=== PATIENT | male | born 1960 | race Caucasian/White ===

== ENCOUNTER 2016-08-25 09:48 | Inpatient (IN) | payer OTHER ==
[~2016-08-25] VITALS: Ht 177.8 cm; Wt 94.0 kg
[~2016-08-25 09:48] MED LIST: AMPI500C8 PO; BACT800T5 PO; COLL30T TOP; DIPH1TAB36 PO; GLIP5TAB8 PO; IBUP-988 PO; LACT PO; METF500 PO; METO-309 PO
[2016-08-25 09:51] VITALS: BP 161/83; PULSE 94; RESP 20; TEMP 98.8; O2SAT 97
[2016-08-25] MEDS ORDERED: TETANUS/DIPHTHERIA TOXOID ADULT 0.5 ML VIAL IM ONE (11:00)
[2016-08-25] MEDS ORDERED: CIPROFLOXACIN 400 MG PREMIX 200 ML IV ONE (11:00)
[2016-08-25] MEDS ORDERED: SODIUM CHLORIDE 0.9% FLUSH 5 ML FLUSH IVF PRN (11:00)
--- NOTE | 2016-08-25 11:07 | PD ---
HPI Chief Complaint: Injury Time Seen by Provider: 11:04 Travel History International Travel<30 days: No Contact w/Intl Traveler<30days: No Traveled to known affect area: No History of Present Illness HPI Patient is a 55-year-old male who presents emergency evaluation of left foot pain. 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 He states the nail was in his foot for at least one hour before he realized it was there. Patient suffers from diabetic neuropathy. He reports his foot is swollen, red, and painful. Since last night he's noticed the redness spread up to his mid calf a fever, chills, nausea, vomiting, chest pain, shortness of breath. He is uncertain when his last tetanus vaccination was. PFSH Past Medical History Autoimmune Disease: No Anxiety: Yes Cardiovascular Problems: Yes (HTN) Diabetes: Yes Diminished Hearing: No GERD: No Genitourinary: No Hiatal Hernia: No Hypertension: Yes Kidney Stones: No Neurologic: Yes (diabetic neuropathy) Psychiatric: Yes Reproductive: No Renal Failure: No Ulcer: No Social History Alcohol Use: Yes (6 BEERS/DAY) Tobacco Use: No Substance Use: No Allergies-Medications (Allergen,Severity, Reaction): Coded Allergies: No Known Allergies (Unverified , 08/25/16) Reported Meds & Prescriptions Reported Meds & Active Scripts Active Glipizide 5 Mg Tab 5 Mg PO BIDAC Take 30 minutes before a meal Glucophage (Metformin HCl) 500 Mg Tab 1,000 Mg PO BID 30 Days Lopressor (Metoprolol Tartrate) 50 Mg Tab 50 Mg PO Q12HR 30 Days Reported Mapap (Acetaminophen) 500 Mg Tab 1,000 Mg PO DAILY PRN Tylenol Pm Extra Strength (Diphenhydramine-Acetaminophen) 25-500 Mg Tab 2 Tab PO HS PRN Review of Systems Except as stated in HPI: all other systems reviewed are Neg General / Constitutional: No: Fever, Chills Cardiovascular: No: Chest Pain or Discomfort Gastrointestinal: No: Abdominal Pain Musculoskeletal: Positive: Myalgias, Edema, Pain Skin: Positive Change in Pigmentation, Positive Lesions Physical Exam Narrative GENERAL: Well-developed, well-nourished, alert male. SKIN: Warm and dry. HEAD: Atraumatic. Normocephalic. EYES: Pupils equal and round. No scleral icterus. No injection or drainage. ENT: No nasal bleeding or discharge. Mucous membranes pink and moist. NECK: Trachea midline. No JVD. CARDIOVASCULAR: Regular rate and rhythm. No murmur appreciated. RESPIRATORY: No accessory muscle use. Clear to auscultation. Breath sounds equal bilaterally. GASTROINTESTINAL: Abdomen soft, non-tender, nondistended. Hepatic and splenic margins not palpable. MUSCULOSKELETAL: No obvious deformities. No clubbing. No cyanosis. 1+ edema to the left foot and ankle. Erythema and warmth left foot. Positive pedal pulses. Ecchymosis noted over the lateral aspect of the right first MTP joint. Capillary refill at 3 seconds. Puncture wound noted to the plantar aspect of the right foot just proximal to the base of the first MCP joint. NEUROLOGICAL: Awake and alert. No obvious cranial nerve deficits. Motor grossly within normal limits. Normal speech. PSYCHIATRIC: Appropriate mood and affect; insight and judgment normal. Data Data Last Documented VS Vital Signs Date Time Temp Pulse Resp B/P Pulse Ox O2 Delivery O2 Flow Rate FiO2 08/25/16 09:51 98.8 94 20 161/83 97 Room Air Orders Complete Blood Count With Diff (08/25/16 10:57) Iv Access Insert/Monitor (08/25/16 10:57) Sodium Chloride 0.9% Flush (Ns Flush) (08/25/16 11:00) Tetanus/Diphtheria Tox Adult (Tetanus/Di (08/25/16 11:00) Comprehensive Metabolic Panel (08/25/16 10:57) C-Reactive Protein (Crp) (08/25/16 10:57) Westergren Sedimentation Rate (08/25/16 10:57) Foot, Complete ([id number]) (08/25/16 ) Blood Culture (08/25/16 10:57) Ciprofloxacin 400 Mg Premix (Cipro 400 M (08/25/16 11:00) Morphine Inj (Morphine Inj) (08/25/16 12:00) Ondansetron Inj (Zofran Inj) (08/25/16 12:00) Clindamycin Inj (Cleocin Inj) (08/25/16 12:00) Admit Order (Ed Use Only) (08/25/16 14:36) Labs Laboratory Tests Test 08/25/16 11:45 White Blood Count 13.0 TH/MM3 Red Blood Count 4.48 MIL/MM3 Hemoglobin 14.6 GM/DL Hematocrit 42.3 % Mean Corpuscular Volume 94.4 FL Mean Corpuscular Hemoglobin 32.7 PG Mean Corpuscular Hemoglobin 34.6 % Concent Red Cell Distribution Width 13.5 % Platelet Count 109 TH/MM3 Mean Platelet Volume 7.6 FL Neutrophils (%) (Auto) 85.2 % Lymphocytes (%) (Auto) 4.7 % Monocytes (%) (Auto) 9.9 % Eosinophils (%) (Auto) 0.0 % Basophils (%) (Auto) 0.2 % Neutrophils # (Auto) 11.0 TH/MM3 Lymphocytes # (Auto) 0.6 TH/MM3 Monocytes # (Auto) 1.3 TH/MM3 Eosinophils # (Auto) 0.0 TH/MM3 Basophils # (Auto) 0.0 TH/MM3 CBC Comment AUTO DIFF Differential Total Cells 100 Counted Neutrophils % (Manual) 64 % Band Neutrophils % 17 % Lymphocytes % 13 % Monocytes % 6 % Neutrophils # (Manual) 10.5 TH/MM3 Differential Comment FINAL DIFF MANUAL Platelet Estimate LOW Platelet Morphology Comment NORMAL Red Cell Morphology Comment NORMAL Erythrocyte Sedimentation Rate 18 mm/hr Sodium Level 132 MEQ/L Potassium Level 3.7 MEQ/L Chloride Level 98 MEQ/L Carbon Dioxide Level 28.4 MEQ/L Anion Gap 6 MEQ/L Blood Urea Nitrogen 7 MG/DL Creatinine 0.98 MG/DL Estimat Glomerular Filtration 80 ML/MIN Rate Random Glucose 222 MG/DL Calcium Level 9.0 MG/DL Total Bilirubin 2.7 MG/DL Aspartate Amino Transf 27 U/L (AST/SGOT) Alanine Aminotransferase 42 U/L (ALT/SGPT) Alkaline Phosphatase 39 U/L C-Reactive Protein 8.36 MG/DL Total Protein 8.4 GM/DL Albumin 3.8 GM/DL MDM Medical Decision Making Medical Screen Exam Complete: Yes Emergency Medical Condition: Yes Medical Record Reviewed: Yes Interpretation(s) Vital Signs Date Time Temp Pulse Resp B/P Pulse Ox O2 Delivery O2 Flow Rate FiO2 08/25/16 09:51 98.8 94 20 161/83 97 Room Air Differential Diagnosis Abscess versus cellulitis versus puncture wound versus sepsis versus other Narrative Course Patient is a 55-year-old male presenting to the emergency department for evaluation of a puncture wound to his left foot. Patient sustained a puncture wound well at work yesterday, patient has significant diabetic neuropathy and did not realize he had a nail in his foot for approximately one to 2 hours. He presented to the emergency department today with significant erythema and edema to his foot and ankle on the left side. Patient has a positive pedal pulse, there is an obvious puncture wound to the of the left foot. Labs and imaging ordered, IV antibiotics order, blood cultures pending. CBC resulted with an elevated white count shift, CRP is elevated at 8.36, sedimentation rate is normal, chemistry is unremarkable. Due to the quick onset of the erythema and spread of the induration patient would benefit from observation admission. He was given IV ciprofloxacin as well as IV clindamycin. Discussed with my attending physician who agreed with plan for admission. Dr. Adrian accepted admission. 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
--- NOTE | 2016-08-25 11:33 | RADRPT ---
EXAM DATE/TIME: 08/25/2016 11:26 [facility] COMPARISON: No previous studies available for comparison. INDICATIONS : Evaluate for foreign body, pt. stepped on a nail. Laceration under foot, below 1st digit. MEDICAL HISTORY : Diabetic. SURGICAL HISTORY : None. ENCOUNTER: Initial ACUITY: 2 days PAIN SCORE: 10/10 LOCATION: Left Foot. FINDINGS: Three view examination of the left foot demonstrates no soft tissue swelling, dislocation, or fractur e. The tarsal bones appear intact. The interphalangeal and metatarsophalangeal joints are intact. The calcaneus is intact. Bony mineralization is normal. No foreign body is identified CONCLUSION: Unremarkable examination of the left foot. Augustine Wells MD on August 25, 2016 at 11:31 Board Certified Radiologist. This report was verified electronically.
[2016-08-25] MEDS ORDERED: MORPHINE SULFATE 4 MG/ML INJ IV PUSH ONE (12:00)
[2016-08-25] MEDS ORDERED: CLINDAMYCIN INJ 900 MG in SODIUM CHLORIDE 0.9% INJ 100 ML IV ONE (12:00)
[2016-08-25] MEDS ORDERED: ONDANSETRON HCL 4 MG/2 ML VIAL IV PUSH ONE (12:00)
[2016-08-25] MEDS ORDERED: MAPA500T PO (12:04)
[2016-08-25 12:08] LABS: BASOPHIL % 0.2 % (0.0-2.0); HEMATOCRIT 42.3 % (39.0-51.0); LYMPH % 4.7 % (9.0-44.0); LYMPHOCYTE # 0.6 TH/MM3 (1.0-4.8); MEAN CELL VOLUME 94.4 FL (80.0-100.0); MEAN CORPUSCULAR HEMOGLOBIN 32.7 PG (27.0-34.0); MEAN CORPUSCULAR HGB CONC 34.6 % (32.0-36.0); MONO % 9.9 % (0.0-8.0); NEUT % 85.2 % (16.0-70.0); PLATELET COUNT 109 TH/MM3 (150-450); RED BLOOD COUNT 4.48 MIL/MM3 (4.50-5.90); RED CELL DISTRIBUTION WIDTH 13.5 % (11.6-17.2)
[2016-08-25 12:15] LABS: HEMO FLAGS AUTO DIFF
[2016-08-25 12:16] LABS: ALT (GPT) 42 U/L (12-78); ANION GAP 6 MEQ/L (5-15); AST (GOT) 27 U/L (15-37); BICARBONATE 28.4 MEQ/L (21.0-32.0); BLOOD UREA NITROGEN 7 MG/DL (7-18); CHLORIDE 98 MEQ/L (98-107); GLOMERULAR FILTRATION RATE 80 ML/MIN (>89); POTASSIUM 3.7 MEQ/L (3.5-5.1); SODIUM (NA) 132 MEQ/L (136-145)
[2016-08-25 12:19] LABS: ALKALINE PHOSPHATASE 39 U/L (45-117); TOTAL BILIRUBIN ADULT 2.7 MG/DL (0.2-1.0)
[2016-08-25 13:07] LABS: BANDS 17 % (0-6); NEUTROPHIL # MANUAL DIFF 10.5 TH/MM3 (1.8-7.7); PLATELET ESTIMATE SMEAR LOW (NORMAL); PLATELET MORPHOLOGY NORMAL (NORMAL); POLYS (SEG NEUTROPHILS) 64 % (16-70); SCAN/DIFF FINAL DIFF MANUAL; WBC DIFF SAMPLE 100
[2016-08-25] MEDS ORDERED: oxyCODONE/ACETAMINOPHEN 5 MG/325 MG TAB PO PRN (14:45)
[2016-08-25] MEDS: DOCUSATE SODIUM 100 MG CAP PO SCH (14:45)
[2016-08-25] MEDS ORDERED: SENNOSIDES 8.6 MG TAB PO PRN (14:45)
[2016-08-25] MEDS ORDERED: NALOXONE HCL 0.4 MG/ML AMP IV PRN (14:45)
[2016-08-25] MEDS ORDERED: Vancomycin Consult Pharmacy 1 EA OTHER SCH (14:45)
[2016-08-25] MEDS ORDERED: MORPHINE SULFATE 4 MG/ML INJ IV PRN (14:45)
[2016-08-25] MEDS ORDERED: MAGNESIUM HYDROXIDE SUSP 30 ML CUP PO PRN (14:45)
[2016-08-25] MEDS ORDERED: SODIUM CHLORIDE 0.9% FLUSH 5 ML FLUSH FLUSH PRN (14:45)
[2016-08-25] MEDS ORDERED: BISACODYL 10 MG SUPP PR PRN (14:45)
[2016-08-25] MEDS ORDERED: DEXTROSE 50% IN WATER 50 ML VIAL(D50) IV PUSH PRN (15:00)
[2016-08-25] MEDS ORDERED: GLUCAGON 1 MG/ML VIAL OTHER PRN (15:00)
[2016-08-25] MEDS: HEPARIN SODIUM - SQ 10,000 UNITS/ML VIAL SQ SCH ×2 (15:43→22:19)
[2016-08-25] MEDS: SODIUM CHLOR 0.9% 1000 ML INJ 1,000 ML IV SCH ×2 (15:43→22:24)
[2016-08-25 15:50] VITALS: BP 151/82; PULSE 93; RESP 17; O2SAT 99
[2016-08-25] MEDS: MORPHINE SULFATE 4 MG/ML INJ IV PRN ×2 (15:56→21:53)
[2016-08-25] MEDS: INSULIN NovoLIN REGULAR SUPPLEMENTAL SCALE SQ SCH ×2 (16:06→22:19)
[2016-08-25] MEDS: VANCOMYCIN INJ 1,500 MG in SODIUM CHLORID 0.9% 500 ML INJ 500 ML IV SCH (18:47)
[2016-08-25 19:27] VITALS: BP 160/83; PULSE 118; RESP 20; TEMP 98.3; O2SAT 98
--- NOTE | 2016-08-25 19:47 | HHI.HP ---
[facility] Service [facility] Primary Care Physician Shani Rincon MD Admission Diagnosis CELLULITIS Diagnoses: Chief Complaint: The nail went through my left foot Travel History International Travel<30 Days: No Contact w/Intl Traveler <30 Da: No Traveled to Known Affected Are: No History of Present Illness 55 years old male came to the ED for evaluation of his left foot pain , patient yesterday afternoon stepped on a jeff nail which went through his shoes, patient reported fever and chills pain mostly at the lateral side of his left big toe, nausea and vomited also reported. Patient has diabetes mellitus and he suffers from diabetic neuropathy, he stated he did not feel the nail for a while. The foot is swollen red and warmth, painful, patient is not sure of his tetanus vaccination No abdominal pain diarrhea or constipation, orthopnea PND or short of breath or chest pain or headache. Review of Systems Other All 10 systems reviewed and was positive for what is mentioned in history of present illness otherwise negative Past Family Social History Past Medical History Hypertension Diabetes mellitus Diabetic neuropathy Allergies: Coded Allergies: No Known Allergies (Unverified , 08/25/16) Family History Reviewed noncontributory Social History Patient drinks 6 beers a day no tobacco or illicit drug abuse reported Physical Exam Vital Signs Vital Signs Date Time Temp Pulse Resp B/P Pulse Ox O2 Delivery O2 Flow Rate FiO2 08/25/16 19:27 98.3 118 20 160/83 98 08/25/16 15:50 93 17 151/82 99 Room Air 08/25/16 09:51 98.8 94 20 161/83 97 Room Air Physical Exam GENERAL: This is a well-nourished, well-developed patient, in no apparent distress. SKIN: No rashes, warm and dry HEAD: Atraumatic. Normocephalic. EYES: Pupils equal round and reactive. Extraocular motions intact. No scleral icterus. ENT: Nose without bleeding, or drainage, Airway patent. NECK: Trachea midline. Supple CARDIOVASCULAR: Regular rate and rhythm without murmurs, gallops, or rubs. RESPIRATORY: Fair air entry bilaterally. No wheezes, rales, or rhonchi. GASTROINTESTINAL: Abdomen soft, non-tender, nondistended. Positive bowel sounds MUSCULOSKELETAL: RLE without clubbing, cyanosis, or edema. Pedal pulses appreciated, left foot with +1 edema, erythema, tenderness to touch, mostly on the lateral side of first left metatarsal, insertion site of the nail in the base of the left MTP NEUROLOGICAL: Awake and alert. Moves all extremity. Normal speech.no focal neurological deficit Laboratory Laboratory Tests Test 08/25/16 11:45 White Blood Count 13.0 Red Blood Count 4.48 Hemoglobin 14.6 Hematocrit 42.3 Mean Corpuscular Volume 94.4 Mean Corpuscular Hemoglobin 32.7 Mean Corpuscular Hemoglobin 34.6 Concent Red Cell Distribution Width 13.5 Platelet Count 109 Mean Platelet Volume 7.6 Neutrophils (%) (Auto) 85.2 Lymphocytes (%) (Auto) 4.7 Monocytes (%) (Auto) 9.9 Eosinophils (%) (Auto) 0.0 Basophils (%) (Auto) 0.2 Neutrophils # (Auto) 11.0 Lymphocytes # (Auto) 0.6 Monocytes # (Auto) 1.3 Eosinophils # (Auto) 0.0 Basophils # (Auto) 0.0 CBC Comment AUTO DIFF Differential Total Cells 100 Counted Neutrophils % (Manual) 64 Band Neutrophils % 17 Lymphocytes % 13 Monocytes % 6 Neutrophils # (Manual) 10.5 Differential Comment FINAL DIFF MANUAL Platelet Estimate LOW Platelet Morphology Comment NORMAL Red Cell Morphology Comment NORMAL Erythrocyte Sedimentation Rate 18 Sodium Level 132 Potassium Level 3.7 Chloride Level 98 Carbon Dioxide Level 28.4 Anion Gap 6 Blood Urea Nitrogen 7 Creatinine 0.98 Estimat Glomerular Filtration 80 Rate Random Glucose 222 Calcium Level 9.0 Total Bilirubin 2.7 Aspartate Amino Transf 27 (AST/SGOT) Alanine Aminotransferase 42 (ALT/SGPT) Alkaline Phosphatase 39 C-Reactive Protein 8.36 Total Protein 8.4 Albumin 3.8 Date/Time Procedure Status Source Growth 08/25/16 11:45 Aerobic Blood Culture Received Blood Peripheral Pending 08/25/16 11:45 Anaerobic Blood Culture Received Blood Peripheral Pending Result Diagram: 08/25/16 1145 08/25/16 1145 Imaging Last Impressions Foot X-Ray 08/25/16 0000 Signed Impressions: Service Date/Time: Thursday, August 25, 2016 11:26 - CONCLUSION: Unremarkable examination of the left foot. Augustine Wells MD Foot MRI 08/25/16 0000 Signed Impressions: Service Date/Time: Thursday, August 25, 2016 20:41 - CONCLUSION: 1. Minimal edema within the proximal phalanx of the great toe could be reactive versus osteomyelitis. 2. Minimal edema within the distal first metatarsal likely reactive. Jose Haynes MD Assessment and Plan Assessment and Plan 55 years old male admitted with Left foot cellulitis due to puncture nail through shoe: Patient started on Cipro and clindamycin, will continue with Cipro and vancomycin for coverage of Pseudomonas and MRSA, pain management with morphine, consult ID Hypertension: Monitor blood pressure, Vasotec when necessary Thrombocytopenia: Unclear if acute versus chronic, possibly due to alcoholism, monitor CBC Diabetes mellitus: Accu-Cheks, insulin sliding scale, diabetic diet, diabetic education, check A1c DVT prophylaxis: With heparin, cautiously due to thrombocytopenia Physician Certification 2 Midnight Certification Type: Admission for Inpatient Services Order for Inpatient Services The services are ordered in accordance with Medicare regulations or non- Medicare payer requirements, as applicable. In the case of services not specified as inpatient-only, they are appropriately provided as inpatient services in accordance with the 2-midnight benchmark. Estimated LOS (days): 2 days is the estimated time the patient will need to remain in the hospital, assuming treatment plan goals are met and no additional complications. Post-Hospital Plan: Not yet determined Celia Adrian MD Aug 25, 2016 19:47
[2016-08-25] MEDS ORDERED: GADODIAMIDE PF 287 MG/ML 20 ML VIAL (for RAD MRI) IV ONE (20:59)
[2016-08-25] MEDS: SODIUM CHLORIDE 0.9% FLUSH 5 ML FLUSH FLUSH SCH (21:00)
--- NOTE | 2016-08-25 21:39 | RADRPT ---
EXAM DATE/TIME: 08/25/2016 20:41 [facility] COMPARISON: No previous studies available for comparison. INDICATIONS : Abscess. Forefoot infection in great toe area, and stepped on jeff nail in ball of foot yesterday CONTRAST: 20 cc Omniscan (gadodiamide) IV MEDICAL HISTORY : Hypertension. Diabetes mellitus type 2. SURGICAL HISTORY : None. ENCOUNTER: Subsequent ACUITY: 2 day PAIN SCORE: 7/10 LOCATION: Left Foot TECHNIQUE: Multiplanar, multisequence MRI examination was performed without contrast and after the intravenous a dministration of gadolinium. FINDINGS: BONE/CARTILAGE: Bone marrow signal is homogeneous, with the exception of some minimal edema within the distal aspect of the first metatarsal and proximal phalanx great toe. Articular cartilage signal is within normal l imits. TENDONS: All of the visualized tendons are intact. MISCELLANEOUS: There is soft tissue swelling along the dorsum of the foot and along the great toe. There is some chino ceptibility artifact along the plantar surface of the great toe possibly from subcutaneous emphysema. POST-CONTRAST: There is enhancement on the post-contrast images of the dorsum of the foot, great toe and distal foot . CONCLUSION: 1. Minimal edema within the proximal phalanx of the great toe could be reactive versus osteomyelitis. 2. Minimal edema within the distal first metatarsal likely reactive. Jose Haynes MD on August 25, 2016 at 21:22 Board Certified Radiologist. This report was verified electronically.
[2016-08-25] MEDS: METOPROLOL TARTRATE 50 MG TAB PO SCH (21:52)
[2016-08-25 23:49] VITALS: BP 181/87; PULSE 110; RESP 20; TEMP 98.3; O2SAT 97
[2016-08-26] VITALS (7 sets, daily range): BP systolic 125–172; BP diastolic 72–81; PULSE 91–112; RESP 16–20; TEMP 101.3–103.9; O2SAT 95–100
[2016-08-26] MEDS: CIPROFLOXACIN 400 MG PREMIX 200 ML IV SCH ×2 (00:16→13:08)
[2016-08-26] MEDS: DOCUSATE SODIUM 100 MG CAP PO SCH ×2 (01:34→15:50)
[2016-08-26] MEDS: MORPHINE SULFATE 4 MG/ML INJ IV PRN ×5 (02:48→20:49)
[2016-08-26] MEDS: ACETAMINOPHEN 325 MG TAB PO PRN ×3 (05:11→20:28)
[2016-08-26] MEDS: VANCOMYCIN INJ 1,500 MG in SODIUM CHLORID 0.9% 500 ML INJ 500 ML IV SCH ×2 (05:45→18:48)
[2016-08-26] MEDS: INSULIN NovoLIN REGULAR SUPPLEMENTAL SCALE SQ SCH ×4 (07:10→21:18)
[2016-08-26] MEDS: SODIUM CHLORIDE 0.9% FLUSH 5 ML FLUSH FLUSH SCH ×2 (09:00→20:27)
[2016-08-26 09:02] LABS: AUTOMATED NEUTROPHIL # 6.7 TH/MM3 (1.8-7.7); BASOPHIL % 0.3 % (0.0-2.0); HEMATOCRIT 39.7 % (39.0-51.0); LYMPH % 6.7 % (9.0-44.0); LYMPHOCYTE # 0.5 TH/MM3 (1.0-4.8); MEAN CELL VOLUME 94.8 FL (80.0-100.0); MEAN CORPUSCULAR HGB CONC 34.8 % (32.0-36.0); MONO % 10.5 % (0.0-8.0); NEUT % 82.5 % (16.0-70.0); PLATELET COUNT 82 TH/MM3 (150-450); RED BLOOD COUNT 4.18 MIL/MM3 (4.50-5.90); RED CELL DISTRIBUTION WIDTH 13.3 % (11.6-17.2); WHITE BLOOD COUNT 8.1 TH/MM3 (4.0-11.0)
[2016-08-26 09:10] LABS: HEMO FLAGS AUTO DIFF
[2016-08-26 09:33] LABS: BICARBONATE 25.9 MEQ/L (21.0-32.0); POTASSIUM 3.6 MEQ/L (3.5-5.1)
[2016-08-26] MEDS: METOPROLOL TARTRATE 50 MG TAB PO SCH ×2 (10:03→20:28)
[2016-08-26 10:15] LABS: BANDS 10 % (0-6); BASOPHILS 1 % (0-2); NEUTROPHIL # MANUAL DIFF 6.9 TH/MM3 (1.8-7.7); PLATELET ESTIMATE SMEAR LOW (NORMAL); PLATELET MORPHOLOGY NORMAL (NORMAL); POLYS (SEG NEUTROPHILS) 75 % (16-70); SCAN/DIFF FINAL DIFF MANUAL; WBC DIFF SAMPLE 100
--- NOTE | 2016-08-26 10:58 | HHI.PR ---
Subjective Remarks Still running fever max 103 now despite leukocytosis resolved He feels chills, blood culture came back positive in 4 tubes for positive cocci Will add cefepime, awaiting ID consultation, will check 2-D echo Objective Vitals Vital Signs Date Time Temp Pulse Resp B/P Pulse Ox O2 Delivery O2 Flow Rate FiO2 08/26/16 08:35 101.3 91 18 136/76 100 08/26/16 04:23 102.9 105 20 168/81 95 08/26/16 00:00 103 08/25/16 23:49 98.3 110 20 181/87 97 08/25/16 19:27 98.3 118 20 160/83 98 08/25/16 15:50 93 17 151/82 99 Room Air Result Diagram: 08/26/16 0840 08/26/16 0840 Objective Remarks GENERAL: This is a well-nourished, well-developed patient, in no apparent distress. SKIN: No rashes, warm and dry HEAD: Atraumatic. Normocephalic. EYES: Pupils equal round and reactive. Extraocular motions intact. No scleral icterus. ENT: Nose without bleeding, or drainage, Airway patent. NECK: Trachea midline. Supple CARDIOVASCULAR: Regular rate and rhythm without murmurs, gallops, or rubs. RESPIRATORY: Fair air entry bilaterally. No wheezes, rales, or rhonchi. GASTROINTESTINAL: Abdomen soft, non-tender, nondistended. Positive bowel sounds MUSCULOSKELETAL: RLE without clubbing, cyanosis, or edema. Pedal pulses appreciated, left foot with +1 edema, erythema, tenderness to touch, mostly on the lateral side of first left metatarsal, insertion site of the nail in the base of the left MTP NEUROLOGICAL: Awake and alert. Moves all extremity. Normal speech.no focal neurological deficit A/P Assessment and Plan 55 years old male admitted with Sepsis due to Left foot cellulitis due to puncture nail through shoe and bacteremia: Patient started on Cipro and clindamycin, on cefepime and vancomycin for coverage of Pseudomonas and MRSA, pain management with morphine, awaiting ID consult, consult podiatry Worsening fever max 103 now with positive blood culture today: Continue vancomycin and cefepime, check 2-D echo Leukocytosis resolved however still with bandemia Hypertension: Monitor blood pressure, Vasotec when necessary Thrombocytopenia: Unclear if acute versus chronic, possibly due to alcoholism, monitor CBC Diabetes mellitus: Accu-Cheks, insulin sliding scale, diabetic diet, diabetic education, check A1c DVT prophylaxis: With heparin, cautiously due to thrombocytopenia Celia Adrian MD Aug 26, 2016 10:58
[2016-08-26] MEDS ORDERED: CEFEPIME INJ 1,000 MG in SODIUM CHLORIDE 0.9% INJ 100 ML IV SCH (14:00)
--- NOTE | 2016-08-26 14:01 | PD.ID.CON ---
History of Present Illness Service ID Consult Requested By Dr Adrian Reason for Consult L foot infx Primary Care Physician Shani Rincon MD Diagnoses: History of Present Illness 55 M diabetic steepd on a nail on Tuesday developped swelling redness pain progressive over 2 days in L metatarsal area presented to ER with fever of 103, leuikocytosis bandemia 17 % MRI + for osteo BC growing strep not group A,B or D Thinks his foot looks worse + malise, denies nasea, vomiting BP is stable Review of Systems Other as per hoistory of present illness, the rest of 12 point review is negative Past Family Social History Allergies: Coded Allergies: No Known Allergies (Unverified , 08/25/16) Past Medical History Hypertension Diabetes mellitus Diabetic neuropathy Past Surgical History none Active Ordered Medications Medications where reviewed in EMR Antibiotics Include: vancomycin cefepime Family History Reviewed noncontributory Social History Patient drinks 6 beers a day no tobacco or illicit drug abuse reported Physical Exam Vital Signs Vital Signs Date Time Temp Pulse Resp B/P Pulse Ox O2 Delivery O2 Flow Rate FiO2 08/26/16 11:47 103.0 107 16 125/72 96 08/26/16 11:04 20 08/26/16 10:12 20 08/26/16 08:35 101.3 91 18 136/76 100 08/26/16 08:00 112 08/26/16 04:23 102.9 105 20 168/81 95 08/26/16 00:00 103 08/25/16 23:49 98.3 110 20 181/87 97 08/25/16 19:27 98.3 118 20 160/83 98 08/25/16 15:50 93 17 151/82 99 Room Air Physical Exam CONSTITUTIONAL/GENERAL: This is an adequately nourished patient, in no apparent distress. SKIN: No jaundice, rashes, or lesions. Skin temperature appropriate. Not diaphoretic. HEAD: Atraumatic. Normocephalic. EYES: Pupils equal and round and reactive. Extraocular motions intact. No scleral icterus. No injection or drainage. Fundi not examined. ENT: Hearing grossly normal. Nose without bleeding or purulent drainage. Oral mucosae without visible erythema, exudates, masses, or lesions. Poor dentition NECK: Trachea midline. Supple, nontender. CARDIOVASCULAR: Regular rate and rhythm without murmurs, gallops, or rubs. No JVD. Peripheral pulses symmetric. RESPIRATORY/CHEST: Symmetric, unlabored respirations. Clear to auscultation. Breath sounds equal bilaterally. No wheezes, rales, or rhonchi. GASTROINTESTINAL: Abdomen soft, non-tender, nondistended. No hepato-splenomegaly , or palpable masses. No guarding. Bowel sounds present. GENITOURINARY: Without palpable bladder distension. MUSCULOSKELETAL: Extremities without clubbing, cyanosis, STATUS LOCALIS: L foot is edematous with mosst prominent edema involving prox hallux and 1 MT area + ascending cellulitis and luyymphangitis present Small area of nail puncture wound on the platntar aspect Another wounfd on medial aspect of L MT area + serosag odorless d/c and some ischemic changes observed . No joint tenderness or effusion noted. No calf tenderness. No mottling or clubbing. LYMPHATICS: No palpable cervical or supraclavicular adenopathy. + Mikdly enlarged L inguinal lymph nodule NEUROLOGICAL: Awake and alert. Motor and sensory grossly within normal limits. Follows commands. Normal speech Moves all extremities. PSYCHIATRIC: No obvious anxiety/depression. no apparent hallucinations or other psychotic thought process. Laboratory Laboratory Tests Test 08/26/16 08:40 White Blood Count 8.1 Red Blood Count 4.18 Hemoglobin 13.8 Hematocrit 39.7 Mean Corpuscular Volume 94.8 Mean Corpuscular Hemoglobin 33.0 Mean Corpuscular Hemoglobin 34.8 Concent Red Cell Distribution Width 13.3 Platelet Count 82 Mean Platelet Volume 7.4 Neutrophils (%) (Auto) 82.5 Lymphocytes (%) (Auto) 6.7 Monocytes (%) (Auto) 10.5 Eosinophils (%) (Auto) 0.0 Basophils (%) (Auto) 0.3 Neutrophils # (Auto) 6.7 Lymphocytes # (Auto) 0.5 Monocytes # (Auto) 0.9 Eosinophils # (Auto) 0.0 Basophils # (Auto) 0.0 CBC Comment AUTO DIFF Differential Total Cells 100 Counted Neutrophils % (Manual) 75 Band Neutrophils % 10 Lymphocytes % 5 Monocytes % 9 Basophils % 1 Neutrophils # (Manual) 6.9 Differential Comment FINAL DIFF MANUAL Platelet Estimate LOW Platelet Morphology Comment NORMAL Red Cell Morphology Comment NORMAL Sodium Level 133 Potassium Level 3.6 Chloride Level 97 Carbon Dioxide Level 25.9 Anion Gap 10 Blood Urea Nitrogen 9 Creatinine 1.08 Estimat Glomerular Filtration 71 Rate Random Glucose 162 Calcium Level 8.0 Date/Time Procedure Status Source Growth 08/25/16 11:45 Aerobic Blood Culture - Preliminary Resulted Blood Peripheral Streptococcus Species 08/25/16 11:45 Anaerobic Blood Culture - Preliminary Resulted Gram Positive Cocci Result Diagram: 08/26/16 0840 08/26/16 0840 Imaging Last Impressions Foot X-Ray 08/25/16 0000 Signed Impressions: Service Date/Time: Thursday, August 25, 2016 11:26 - CONCLUSION: Unremarkable examination of the left foot. Augustine Wells MD Foot MRI 08/25/16 0000 Signed Impressions: Service Date/Time: Thursday, August 25, 2016 20:41 - CONCLUSION: 1. Minimal edema within the proximal phalanx of the great toe could be reactive versus osteomyelitis. 2. Minimal edema within the distal first metatarsal likely reactive. Jose Haynes MD Assessment and Plan Assessment and Plan DFI, L foot , 1 MT area resulted from nail punctiuure wound - severe, limb threatening infx Strep not A,B or D bactermia, high grade - likely 2/2 from L ofot infection Sepsis (fever, leukocytosis, bandemia, abn LFTs, tachycardia) with known source and bacetremia - consdult podiatry for urgent debridement (dw Dr Stephen over the phone) - zosyn - dc cefepime - cont vanco for now, untill op clx availbale Discussed Condition With Zafar Chauhan RN Kristal Gaines MD Aug 26, 2016 14:01
[2016-08-26] MEDS: HEPARIN SODIUM - SQ 10,000 UNITS/ML VIAL SQ SCH ×2 (15:49→21:40)
[2016-08-26] MEDS: PIPERACIL-TAZO 3.375 GM PREMIX 50 ML IV SCH ×2 (15:50→21:37)
--- NOTE | 2016-08-26 16:05 | RADRPT ---
EXAM DATE/TIME: 08/26/2016 15:43 [place] COMPARISON: FOOT LEFT COMPLETE ([id number]), August 25, 2016, 11:26. INDICATIONS : Shortness of breath. MEDICAL HISTORY : None. SURGICAL HISTORY : None. ENCOUNTER: Initial ACUITY: 1 day PAIN SCORE: 0/10 LOCATION: Bilateral chest FINDINGS: PA and lateral views of the chest demonstrate the lungs to be symmetrically aerated without evidence of mass, infiltrate or effusion. The cardiomediastinal contours are unremarkable. Osseous structure s are intact. CONCLUSION: 1. No acute cardiopulmonary findings. Gerson Beyer MD on August 26, 2016 at 16:03 Board Certified Radiologist. This report was verified electronically.
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
[2016-08-26 21:58] LABS: INTERNATIONAL NORMALIZED RATIO 1.2 RATIO; PROTHROMBIN TIME - PATIENT 13.1 SEC (9.8-11.6)
[2016-08-27 00:13] VITALS: BP 123/69; PULSE 84; RESP 22; TEMP 100.4; O2SAT 96
[2016-08-27] MEDS: DOCUSATE SODIUM 100 MG CAP PO SCH ×2 (02:45→16:37)
[2016-08-27] MEDS: PIPERACIL-TAZO 3.375 GM PREMIX 50 ML IV SCH ×4 (03:06→22:38)
[2016-08-27 04:32] VITALS: BP 119/80; PULSE 80; RESP 20; TEMP 97; O2SAT 95
[2016-08-27] MEDS ORDERED: PHARMACY ORDERED LAB XX ONE (05:45)
[2016-08-27] MEDS: HEPARIN SODIUM - SQ 10,000 UNITS/ML VIAL SQ SCH ×3 (06:00→21:50)
[2016-08-27] MEDS: INSULIN NovoLIN REGULAR SUPPLEMENTAL SCALE SQ SCH ×4 (07:00→22:04)
[2016-08-27] MEDS: VANCOMYCIN INJ 1,500 MG in SODIUM CHLORID 0.9% 500 ML INJ 500 ML IV SCH (07:42)
[2016-08-27] MEDS: ACETAMINOPHEN 325 MG TAB PO PRN (07:42)
[2016-08-27] MEDS: MORPHINE SULFATE 4 MG/ML INJ IV PRN (07:42)
[2016-08-27 08:55] VITALS: BP 133/78; PULSE 85; RESP 18; TEMP 100.6; O2SAT 97
[2016-08-27] MEDS: SODIUM CHLORIDE 0.9% FLUSH 5 ML FLUSH FLUSH SCH ×2 (09:17→21:50)
[2016-08-27] MEDS: METOPROLOL TARTRATE 50 MG TAB PO SCH ×2 (09:18→21:51)
[2016-08-27] MEDS ORDERED: PROPOFOL 200 MG/20 ML AMP IV ONE (12:00)
[2016-08-27] MEDS ORDERED: ONDANSETRON HCL 4 MG/2 ML VIAL IV PUSH ONE (12:00)
[2016-08-27] MEDS ORDERED: BUPIVACAINE HCL PF 0.5% 30 ML VIAL ONE ×2 (12:02→12:21)
--- NOTE | 2016-08-27 12:30 | HHI.PR ---
Subjective Remarks patient laying in bed comfortably last spiking fever this early [id number] at 6 AM pain is controlled, on antibiotics Zosyn and Vanco per ID, consulted podiatry Objective Vitals Vital Signs Date Time Temp Pulse Resp B/P Pulse Ox O2 Delivery O2 Flow Rate FiO2 08/27/16 09:18 18 08/27/16 09:18 18 08/27/16 08:55 100.6 85 18 133/78 97 08/27/16 04:32 97.0 80 20 119/80 95 08/27/16 00:13 100.4 84 22 123/69 96 08/26/16 19:59 103.9 111 20 172/79 96 08/26/16 17:05 101.7 105 20 142/77 95 Result Diagram: 08/26/1683908/26/16839 Objective Remarks GENERAL: This is a well-nourished, well-developed patient, in no apparent distress. SKIN: No rashes, warm and dry HEAD: Atraumatic. Normocephalic. EYES: Pupils equal round and reactive. Extraocular motions intact. No scleral icterus. ENT: Nose without bleeding, or drainage, Airway patent. NECK: Trachea midline. Supple CARDIOVASCULAR: Regular rate and rhythm without murmurs, gallops, or rubs. RESPIRATORY: Fair air entry bilaterally. No wheezes, rales, or rhonchi. GASTROINTESTINAL: Abdomen soft, non-tender, nondistended. Positive bowel sounds MUSCULOSKELETAL: RLE without clubbing, cyanosis, or edema. Pedal pulses appreciated, left foot with +1 edema, erythema, tenderness to touch, mostly on the lateral side of first left metatarsal, insertion site of the nail in the base of the left MTP NEUROLOGICAL: Awake and alert. Moves all extremity. Normal speech.no focal neurological deficit A/P Assessment and Plan 55 years old male admitted with severe Sepsis due to life-threatening Left foot infection due to puncture nail through shoe and bacteremia: on Zosyn and vancomycin forbroad coverage includingPseudomonas and MRSA, pain management with morphine, appreciated ID consult, appreciate podiatry consults, monitor CBC persisting fever with bacteremia: Continue IV antibiotic, check 2-D echo Leukocytosis resolved however still with bandemia Hypertension: Monitor blood pressure, Vasotec when necessary Thrombocytopenia: Unclear if acute versus chronic, possibly due to alcoholism, monitor CBC Diabetes mellitus: Accu-Cheks, insulin sliding scale, diabetic diet, diabetic education, check A1c DVT prophylaxis: With heparin, cautiously due to thrombocytopenia Celia Adrian MD Aug 27, 2016 12:30
[2016-08-27] MEDS ORDERED: DO NOT ADM ANY ANTICOAGULANT DRUGS XX PRN (12:50)
--- NOTE | 2016-08-27 12:55 | PD.OP ---
Operative Report Date of Surgery: Aug 27, 2016 Preoperative Diagnosis: (1) Abscess of left foot Postoperative Diagnosis: (1) Abscess of left foot Procedure: Incision and drainage of abscess left foot with packing of wound and deep cultures Anesthesia: Gen. anesthesia Surgeon: Jose Stephen DPM Digital Product Specialist(s): None Operation and Findings: Patient was brought to the OR and placed on the operating table in supine position. A pneumatic ankle cuff was placed around the patient's right ankle after adequate web roll padding. Patient was then given general inhalation anesthesia and the left foot was prepped and draped in the usual sterile manner. After the appropriate timeout was performed the left foot was elevated above the operating table and a pneumatic ankle cuff was inflated to 250 mmHg. The foot was lowered to the operating table and attention was directed to the first MPJ which was noted to have. Fluctuant abscess around the first MPJ secondary to a puncture wound. At this time a 5 cm linear incision was made medial to the metatarsal head of the first metatarsal. The incision was deepened using sharp and blunt dissection down to the plantar aspect of the first metatarsal phalangeal joint. Purulent tissue and drainage was identified and flushed from the wound. Prior to this a deep culture and sensitivity was obtained. Any necrotic tissue was identified and removed. Should be noted that the abscess went down to the bone area. The area was then anesthetized with was 8 cc of 0.5% Marcaine plain. The wound was packed open with Maxorb extra AG. A Adaptic 4 x 4's and Lynn roll were applied and the pneumatic ankle cuff was deflated. Should be noted the vascular status returned to all digits of the left foot. Estimated blood loss was less than 5 cc. Deep culture and sensitivity was sent. There is no pathology specimen. Sponge and instrument count were noted to be correct. Patient tolerated the procedures and anesthesia well and left the OR to PACU in apparent satisfactory condition with all vital signs stable. Jose Stephen DPM Aug 27, 2016 12:55
[2016-08-27] MEDS ORDERED: fentaNYL CITRATE 250 MCG/5 ML AMP ONE (12:59)
[2016-08-27] MEDS ORDERED: SODIUM CHLORIDE 0.9% FLUSH 5 ML FLUSH IVF PRN (13:00)
[2016-08-27] MEDS ORDERED: NALOXONE HCL 0.4 MG/ML AMP IV PRN (13:00)
[2016-08-27] MEDS ORDERED: Post-op Orders (for Pharmacy) MISC XX ONE (13:00)
[2016-08-27] MEDS ORDERED: HYDROmorphone HCL PF 1 MG/ML VIAL IV PRN (13:00)
[2016-08-27] MEDS ORDERED: VANCOMYCIN 1,500 MG/NS 500 ML IV SCH ×2 (14:00)
--- NOTE | 2016-08-27 14:25 | EKG ---
Date Performed: 08/26/2016 Time Performed: 18:51:49 PTAGE: 55 years EKG: SINUS TACHYCARDIA ABNORMAL RHYTHM ECG NO PREVIOUS TRACING DOCTOR: Fanta Navarro Interpretating Date/Time 08/27/2016 14:21:50
[2016-08-27 15:47] VITALS: BP 148/76; PULSE 94; RESP 14; TEMP 98.3; O2SAT 100
[2016-08-27] MEDS: ACETAMINOPHEN 1000 MG/100 ML VIAL IV SCH ×2 (16:38→21:50)
[2016-08-27] MEDS: VANCOMYCIN INJ 1,250 MG in SODIUM CHLOR 0.9% 250 ML INJ 250 ML IV SCH ×2 (16:38→23:56)
[2016-08-27] MEDS: ACETAMINOPHEN/HYDROcodone 325 MG/7.5 MG TAB PO PRN ×2 (18:16→21:51)
[2016-08-27 19:21] VITALS: BP 130/81; PULSE 90; RESP 21; TEMP 97.9; O2SAT 98
[2016-08-27 20:24] VITALS: PULSE 84
[2016-08-27] MEDS ORDERED: SODIUM CHLORIDE 0.9% FLUSH 5 ML FLUSH IVF SCH (21:00)
[2016-08-28 00:28] VITALS: BP 141/75; PULSE 85; RESP 18; TEMP 98; O2SAT 98
[2016-08-28] MEDS: DOCUSATE SODIUM 100 MG CAP PO SCH ×3 (02:06→21:43)
[2016-08-28] MEDS: ACETAMINOPHEN 1000 MG/100 ML VIAL IV SCH ×2 (02:07→09:26)
[2016-08-28] MEDS: ACETAMINOPHEN/HYDROcodone 325 MG/7.5 MG TAB PO PRN ×3 (02:07→23:51)
[2016-08-28] MEDS: PIPERACIL-TAZO 3.375 GM PREMIX 50 ML IV SCH ×4 (03:10→21:41)
[2016-08-28 04:29] VITALS: BP 131/79; PULSE 72; RESP 18; TEMP 97.8; O2SAT 98
[2016-08-28] MEDS ORDERED: PHARMACY ORDERED LAB XX ONE (05:45)
[2016-08-28] MEDS: HEPARIN SODIUM - SQ 10,000 UNITS/ML VIAL SQ SCH ×3 (06:00→21:42)
[2016-08-28] MEDS: HYDROmorphone HCL 2 MG TAB PO PRN ×3 (06:21→14:31)
[2016-08-28] MEDS: VANCOMYCIN INJ 1,250 MG in SODIUM CHLOR 0.9% 250 ML INJ 250 ML IV SCH ×3 (06:23→21:41)
[2016-08-28] MEDS: INSULIN NovoLIN REGULAR SUPPLEMENTAL SCALE SQ SCH ×4 (06:28→21:00)
[2016-08-28 07:52] VITALS: BP 131/80; PULSE 77; RESP 18; TEMP 98.7; O2SAT 97
[2016-08-28] MEDS: METOPROLOL TARTRATE 50 MG TAB PO SCH ×2 (09:26→21:41)
[2016-08-28] MEDS: SODIUM CHLORIDE 0.9% FLUSH 5 ML FLUSH FLUSH SCH ×2 (09:27→21:42)
[2016-08-28 09:30] VITALS: PULSE 80
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
--- NOTE | 2016-08-28 13:04 | HHI.PR ---
Subjective Remarks Patient is wash it off himself, he is afebrile, stated he feels better than yesterday He status post incision and debridement of his left big toe Objective Vitals Vital Signs Date Time Temp Pulse Resp B/P Pulse Ox O2 Delivery O2 Flow Rate FiO2 08/28/16 10:00 20 08/28/16 07:52 98.7 77 18 131/80 97 08/28/16 04:29 97.8 72 18 131/79 98 08/28/16 00:28 98.0 85 18 141/75 98 08/27/16 20:24 84 08/27/16 19:21 97.9 90 21 130/81 98 08/27/16 15:47 98.3 94 14 148/76 100 08/27/16 13:15 98.1 85 14 137/79 100 Room Air I/O 08/27/16 08/27/16 08/27/16 08/28/16 08/28/16 08/28/16 07:00 15:00 23:00 07:00 15:00 23:00 Intake Total 800 ml 1710 ml Output Total 100 ml Balance 700 ml 1710 ml Intake Oral 310 ml IV Total 1400 ml Other 800 ml Output Estimated Blood Loss 100 ml # Voids 1 5 Result Diagram: 08/26/16 0840 08/28/16 0530 Objective Remarks GENERAL: This is a well-nourished, well-developed patient, in no apparent distress. SKIN: No rashes, warm and dry HEAD: Atraumatic. Normocephalic. EYES: Pupils equal round and reactive. Extraocular motions intact. No scleral icterus. ENT: Nose without bleeding, or drainage, Airway patent. NECK: Trachea midline. Supple CARDIOVASCULAR: Regular rate and rhythm without murmurs, gallops, or rubs. RESPIRATORY: Fair air entry bilaterally. No wheezes, rales, or rhonchi. GASTROINTESTINAL: Abdomen soft, non-tender, nondistended. Positive bowel sounds MUSCULOSKELETAL: RLE without clubbing, cyanosis, or edema. Pedal pulses appreciated, left foot with +1 edema, erythema, tenderness to touch, mostly on the lateral side of first left metatarsal, insertion site of the nail in the base of the left MTP NEUROLOGICAL: Awake and alert. Moves all extremity. Normal speech.no focal neurological deficit A/P Assessment and Plan 55 years old male admitted with -severe Sepsis due to life-threatening Left foot infection due to puncture nail through shoe and bacteremia: Status post I&D by podiatry, appreciated their help , on Zosyn and vancomycin for broad coverage including Pseudomonas and MRSA, pain management with morphine, ID following, monitor CBC Patient for dressing changes per podiatry -persisting fever with bacteremia: Fever resolved, Continue IV antibiotic, -Leukocytosis resolved however still with bandemia -Hypertension: Monitor blood pressure, Vasotec when necessary -Thrombocytopenia: Unclear if acute versus chronic, possibly due to alcoholism, monitor CBC -Diabetes mellitus: Accu-Cheks, insulin sliding scale, diabetic diet, diabetic education, check A1c -DVT prophylaxis: With heparin, cautiously due to thrombocytopenia Celia Adrian MD Aug 28, 2016 13:04
--- NOTE | 2016-08-28 14:07 | RADRPT ---
EXAM DATE/TIME: 08/27/2016 11:15 [facility] COMPARISON: MRI FOOT LEFT W & W/O CONTRAST, August 25, 2016, 20:41. INDICATIONS : Stepped on nail 5 days ago. Diabetic left foot. DOSE: 20.2 mCi Tc99m Ceretec labeled white blood cells IV SPECT IMAGIN hrs, 20 hrs IMAGNG: SPECT/CT imaging with fusion was performed. RADIATION DOSE: 5.53 CTDIvol (mGy) ; Multiple Day Study MEDICAL HISTORY : Hypercholesterolemia. Diabetes mellitus type 2. Hypertension. SURGICAL HISTORY : None. ENCOUNTER: Initial ACUITY: 4 - 6 days PAIN SCALE: 5/10 LOCATION: Left Foot. TECHNIQUE: Following the in vitro labeling of autologous white cells and reinjection, whole body scan was perfor med at the specified times. SPECT imaging was performed at the specified time in sagittal, axial and coronal planes. Attenuation correction was performed with the computed tomography and both the atten uation correction and non-attenuation corrected data sets were reviewed. FINDINGS: There is intense uptake involving the soft tissues of the great toe that appears to spare the bone. CONCLUSION: Intense soft tissue uptake medial side of the first metatarsal phalangeal joint the believe spares th e bone. This probably is not osteomyelitis as yet. Gómez Beyer MD FACR on August 28, 2016 at 14:02 Board Certified Radiologist. This report was verified electronically.
[2016-08-28 14:25] LABS: AUTOMATED NEUTROPHIL # 3.4 TH/MM3 (1.8-7.7); BASOPHIL % 0.5 % (0.0-2.0); EOSINOPHIL # 0.1 TH/MM3 (0-0.4); EOSINOPHIL % 1.1 % (0.0-4.0); HEMATOCRIT 35.5 % (39.0-51.0); LYMPH % 15.3 % (9.0-44.0); LYMPHOCYTE # 0.8 TH/MM3 (1.0-4.8); MEAN CELL VOLUME 93.3 FL (80.0-100.0); MEAN CORPUSCULAR HEMOGLOBIN 33.3 PG (27.0-34.0); MEAN CORPUSCULAR HGB CONC 35.7 % (32.0-36.0); MONO % 19.7 % (0.0-8.0); NEUT % 63.4 % (16.0-70.0); PLATELET COUNT 94 TH/MM3 (150-450); RED CELL DISTRIBUTION WIDTH 13.6 % (11.6-17.2); WHITE BLOOD COUNT 5.3 TH/MM3 (4.0-11.0)
[2016-08-28 14:26] LABS: HEMO FLAGS AUTO DIFF
[2016-08-28 14:34] LABS: BICARBONATE 25.7 MEQ/L (21.0-32.0); POTASSIUM 3.1 MEQ/L (3.5-5.1)
[2016-08-28 14:51] LABS: PLATELET ESTIMATE SMEAR LOW (NORMAL); PLATELET MORPHOLOGY NORMAL (NORMAL); SCAN/DIFF AUTO DIFF CONFIRMED
[2016-08-28 15:36] VITALS: BP 141/84; PULSE 83; RESP 18; TEMP 100.6; O2SAT 83; O2SAT 95
[2016-08-28] MEDS: ACETAMINOPHEN 325 MG TAB PO PRN ×2 (15:55→21:42)
[2016-08-28] MEDS: diphenhydrAMINE HCL 25 MG CAP PO PRN ×2 (17:33→23:39)
[2016-08-28 20:00] VITALS: BP 149/78; PULSE 89; RESP 30; TEMP 101.1; O2SAT 96
[2016-08-29] VITALS: BP 115/74; PULSE 74; RESP 28; TEMP 97.7; O2SAT 62
[2016-08-29] MEDS: PIPERACIL-TAZO 3.375 GM PREMIX 50 ML IV SCH ×4 (03:00→20:45)
[2016-08-29] MEDS: ACETAMINOPHEN/HYDROcodone 325 MG/7.5 MG TAB PO PRN ×5 (03:34→23:17)
[2016-08-29 04:00] VITALS: BP 130/70; PULSE 79; RESP 30; TEMP 98.9; O2SAT 94
[2016-08-29] MEDS: diphenhydrAMINE HCL 25 MG CAP PO PRN (05:33)
[2016-08-29] MEDS: VANCOMYCIN INJ 1,250 MG in SODIUM CHLOR 0.9% 250 ML INJ 250 ML IV SCH ×3 (05:34→21:09)
[2016-08-29] MEDS: INSULIN NovoLIN REGULAR SUPPLEMENTAL SCALE SQ SCH ×4 (05:34→21:08)
[2016-08-29] MEDS: HEPARIN SODIUM - SQ 10,000 UNITS/ML VIAL SQ SCH ×3 (05:34→20:44)
[2016-08-29 07:10] VITALS: BP 160/92; PULSE 78; RESP 20; TEMP 96.9; O2SAT 98
[2016-08-29] MEDS: METOPROLOL TARTRATE 50 MG TAB PO SCH ×2 (07:49→20:43)
[2016-08-29] MEDS: SODIUM CHLORIDE 0.9% FLUSH 5 ML FLUSH FLUSH SCH ×2 (07:50→20:45)
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
[2016-08-29 11:15] VITALS: BP 141/81; PULSE 72; RESP 18; TEMP 96.3; O2SAT 98
[2016-08-29] MEDS: POTASSIUM CHLORIDE 10 MEQ CONTROLLED RELEASE TAB PO SCH ×2 (11:30→14:58)
--- NOTE | 2016-08-29 11:40 | HHI.PR ---
Subjective Remarks Follow up on right toe puncture female diabetic foot infection "Dr. Stephen was not happy because I went the dressing " Patient laying in bed he was seen by podiatry this morning change the dressing Right foot and toe still swollen and red Last fever 101.1 yesterday Objective Vitals Vital Signs Date Time Temp Pulse Resp B/P Pulse Ox O2 Delivery O2 Flow Rate FiO2 08/29/16 08:57 18 08/29/16 07:10 96.9 78 20 160/92 98 08/29/16 04:00 98.9 79 30 130/70 94 08/29/16 00:00 97.7 74 28 115/74 62 08/28/16 20:00 101.1 89 30 149/78 96 08/28/16 17:08 18 08/28/16 15:56 20 08/28/16 15:36 100.6 83 18 141/84 95 I/O 08/28/16 08/28/16 08/28/16 08/29/16 08/29/16 08/29/16 07:00 15:00 23:00 07:00 15:00 23:00 Intake Total 327 ml 312 ml Balance 327 ml 312 ml IV Total 327 ml 312 ml Result Diagram: 08/28/16 1355 08/28/16 1355 Objective Remarks GENERAL: This is a well-nourished, well-developed patient, in no apparent distress. SKIN: No rashes, warm and dry HEAD: Atraumatic. Normocephalic. EYES: Pupils equal round and reactive. Extraocular motions intact. No scleral icterus. ENT: Nose without bleeding, or drainage, Airway patent. NECK: Trachea midline. Supple CARDIOVASCULAR: Regular rate and rhythm without murmurs, gallops, or rubs. RESPIRATORY: Fair air entry bilaterally. No wheezes, rales, or rhonchi. GASTROINTESTINAL: Abdomen soft, non-tender, nondistended. Positive bowel sounds MUSCULOSKELETAL: RLE without clubbing, cyanosis, or edema. Pedal pulses appreciated, left foot with +1 edema, erythema, tenderness to touch, mostly on the lateral side of first left metatarsal, insertion site of the nail in the base of the left MTP NEUROLOGICAL: Awake and alert. Moves all extremity. Normal speech.no focal neurological deficit A/P Assessment and Plan 08/29/16: Change dressing today by Dr. Stephen, continue on Zosyn and Vanco per ID, hypokalemia, replace, repeat level this evening a/p: 55 years old male admitted with -Severe Sepsis due to life-threatening Left foot infection due to puncture nail through shoe and bacteremia: Status post I&D by podiatry, on Zosyn and vancomycin for broad coverage including Pseudomonas and MRSA, pain management with morphine, ID following, monitor CBC Patient for dressing changes per podiatry, pain is tolerable -persisting fever with bacteremia: Last fever 101.1 on 08/28/16, Continue IV antibiotic per ID recommendation -Leukocytosis resolved -Hypertension: Monitor blood pressure, Vasotec when necessary -Thrombocytopenia: Unclear if acute versus chronic, possibly due to alcoholism, monitor CBC -Diabetes mellitus: Accu-Cheks, insulin sliding scale, diabetic diet, diabetic education, check A1c -DVT prophylaxis: With heparin, cautiously due to thrombocytopenia Celia Adrian MD Aug 29, 2016 11:40
[2016-08-29] MEDS ORDERED: PHARMACY ORDERED LAB XX ONE (13:45)
[2016-08-29] MEDS: DOCUSATE SODIUM 100 MG CAP PO SCH (14:45)
[2016-08-29 15:15] VITALS: BP 156/85; PULSE 84; RESP 18; TEMP 98; O2SAT 98
[2016-08-29 20:00] VITALS: BP 144/80; PULSE 86; RESP 28; TEMP 98.8; O2SAT 97
[2016-08-30] VITALS: BP 151/81; PULSE 73; RESP 18; TEMP 98.8; O2SAT 95
[2016-08-30] MEDS: DOCUSATE SODIUM 100 MG CAP PO SCH ×3 (01:07→21:56)
[2016-08-30 04:00] VITALS: BP 152/86; PULSE 72; RESP 18; TEMP 99.5; O2SAT 98
[2016-08-30] MEDS: PIPERACIL-TAZO 3.375 GM PREMIX 50 ML IV SCH ×2 (04:15→08:41)
[2016-08-30] MEDS: ACETAMINOPHEN/HYDROcodone 325 MG/7.5 MG TAB PO PRN ×5 (04:15→21:53)
[2016-08-30] MEDS: HEPARIN SODIUM - SQ 10,000 UNITS/ML VIAL SQ SCH ×3 (05:01→21:52)
[2016-08-30] MEDS: INSULIN NovoLIN REGULAR SUPPLEMENTAL SCALE SQ SCH ×4 (05:04→22:00)
[2016-08-30 07:59] LABS: BICARBONATE 27.1 MEQ/L (21.0-32.0); POTASSIUM 3.7 MEQ/L (3.5-5.1)
[2016-08-30 08:00] VITALS: BP 164/86; PULSE 67; RESP 20; TEMP 97.4; O2SAT 97
[2016-08-30] MEDS: METOPROLOL TARTRATE 50 MG TAB PO SCH ×2 (08:41→21:53)
[2016-08-30] MEDS: SODIUM CHLORIDE 0.9% FLUSH 5 ML FLUSH FLUSH SCH ×2 (08:42→21:53)
[2016-08-30 12:00] VITALS: BP 143/76; PULSE 68; RESP 20; TEMP 96.2; O2SAT 97
[2016-08-30] MEDS: ceFAZolin 2 GM PREMIX 50 ML IV SCH ×3 (12:00→19:38)
--- NOTE | 2016-08-30 12:33 | HHI.PR ---
Subjective Remarks Follow up on diabetic foot puncture wound Stable, left foot looks slightly less edematous No fever or chills Objective Vitals Vital Signs Date Time Temp Pulse Resp B/P Pulse Ox O2 Delivery O2 Flow Rate FiO2 08/30/16 08:00 97.4 67 20 164/86 97 08/30/16 05:44 18 08/30/16 04:00 99.5 72 18 152/86 98 08/30/16 00:17 18 08/30/16 00:00 98.8 73 18 151/81 95 08/29/16 20:00 98.8 86 28 144/80 97 08/29/16 15:15 98.0 84 18 156/85 98 I/O 08/29/16 08/29/16 08/29/16 08/30/16 08/30/16 08/30/16 07:00 15:00 23:00 07:00 15:00 23:00 Intake Total 312 ml 360 ml 230 ml Output Total 4 ml Balance 312 ml 360 ml 226 ml Intake Oral 360 ml 230 ml IV Total 312 ml Output Urine Total 4 ml # Voids 8 # Bowel Movements 2 2 Result Diagram: 08/28/16 1355 08/30/16 0647 Objective Remarks GENERAL: This is a well-nourished, well-developed patient, in no apparent distress. SKIN: No rashes, warm and dry HEAD: Atraumatic. Normocephalic. EYES: Pupils equal round and reactive. Extraocular motions intact. No scleral icterus. ENT: Nose without bleeding, or drainage, Airway patent. NECK: Trachea midline. Supple CARDIOVASCULAR: Regular rate and rhythm without murmurs, gallops, or rubs. RESPIRATORY: Fair air entry bilaterally. No wheezes, rales, or rhonchi. GASTROINTESTINAL: Abdomen soft, non-tender, nondistended. Positive bowel sounds MUSCULOSKELETAL: RLE without clubbing, cyanosis, or edema. Pedal pulses appreciated, left foot with +1 edema, erythema, tenderness to touch, mostly on the lateral side of first left metatarsal, insertion site of the nail in the base of the left MTP NEUROLOGICAL: Awake and alert. Moves all extremity. Normal speech.no focal neurological deficit A/P Assessment and Plan 08/29/16: Change dressing today by Dr. Stephen, continue on Zosyn and Vanco per ID, hypokalemia, replace, repeat level this evening 08/30/16: Continue current care with iv antibiotic and podiatry care, CBC in a.m. a/p: 55 years old male admitted with -Severe Sepsis due to life-threatening Left foot infection due to puncture nail through shoe and bacteremia: Status post I&D by podiatry, on Zosyn and vancomycin for broad coverage including Pseudomonas and MRSA, pain management with morphine, ID following, monitor CBC Patient for dressing changes per podiatry, pain is tolerable -persisting fever with bacteremia: Last fever 101.1 on 08/28/16, Continue IV antibiotic per ID recommendation -Leukocytosis resolved -Hypertension: Monitor blood pressure, Vasotec when necessary -Thrombocytopenia: Unclear if acute versus chronic, possibly due to alcoholism, monitor CBC -Diabetes mellitus: Accu-Cheks, insulin sliding scale, diabetic diet, diabetic education, check A1c -DVT prophylaxis: With heparin, cautiously due to thrombocytopenia Celia Adrian MD Aug 30, 2016 12:33
--- NOTE | 2016-08-30 15:38 | ECHLIM ---
Study Study Date:08/30/2016 STUDY CONCLUSIONS SUMMARY - Left ventricle: The cavity size was normal. Wall thickness was normal. Systolic function was normal. The estimated ejection fraction was 60%, in the range of 55% to 60%. Wall motion was normal; there were no regional wall motion abnormalities. - Pulmonary arteries: PA peak pressure: 43mm Hg (S). If LV function is below 40, please consider prescribing an ACEI or ARB or document rationale for non-use. PROCEDURE DATA STUDY STATUS: Elective. Procedure: Transthoracic echocardiography. Image quality was good. Scanning was performed from the parasternal, apical, and subcostal acoustic windows. Study completion: The patient tolerated the procedure well. Transthoracic echocardiography. M-mode, complete 2D, complete spectral Doppler, and color Doppler. Patient status: Inpatient. CARDIAC ANATOMY LEFT VENTRICLE: The cavity size was normal. Wall thickness was normal. Systolic function was normal. The estimated ejection fraction was 60%, in the range of 55% to 60%. Wall motion was normal; there were no regional wall motion abnormalities. AORTIC VALVE: Trileaflet; normal thickness leaflets. Doppler: Transvalvular velocity was within the normal range. There was no stenosis. No regurgitation. AORTA: Aortic root: The aortic root was normal in size. MITRAL VALVE: Structurally normal valve. Doppler: Transvalvular velocity was within the normal range. There was no evidence for stenosis. No regurgitation. LEFT ATRIUM: The atrium was normal in size. RIGHT VENTRICLE: The cavity size was normal. Wall thickness was normal. PULMONIC VALVE: Doppler: Transvalvular velocity was within the normal range. There was no evidence for stenosis. No regurgitation. TRICUSPID VALVE: Structurally normal valve. Doppler: Transvalvular velocity was within the normal range. Trace to mild regurgitation. PULMONARY ARTERY: The main pulmonary artery was normal-sized. Systolic pressure was within the normal range. RIGHT ATRIUM: The atrium was normal in size. PERICARDIUM: There was no pericardial effusion. SYSTEMIC VEINS: Inferior vena cava: The vessel was normal in size. DOPPLER MEASUREMENTS ADULT NORMAL Main pulmonary artery Pressure, S *43 mm Hg =30 Tricuspid valve Regurgitant peak velocity 288 cm/s Peak RV-RA gradient, S 33 mm Hg Maximal regurgitant velocity 288 cm/s Systemic veins Estimated CVP 10 mm Hg Right ventricle RV pressure, S *43 mm Hg <30 LEGEND: Mean values are shown as u=mean value. Asterisk (*) ang values outside specified normal range. Prepared and signed by Rajendra Parish [id number]
[2016-08-30 16:08] VITALS: BP 156/87; PULSE 63; RESP 20; TEMP 97.1; O2SAT 98
[2016-08-30 20:00] VITALS: BP 173/81; PULSE 74; RESP 20; TEMP 98.2; O2SAT 99
[2016-08-31] VITALS (8 sets, daily range): BP systolic 135–182; BP diastolic 71–98; PULSE 64–86; RESP 18–25; TEMP 95.7–98.8; O2SAT 97–99
[2016-08-31] MEDS: ceFAZolin 2 GM PREMIX 50 ML IV SCH ×3 (04:25→18:09)
[2016-08-31] MEDS: HEPARIN SODIUM - SQ 10,000 UNITS/ML VIAL SQ SCH ×3 (06:00→22:00)
[2016-08-31] MEDS: INSULIN NovoLIN REGULAR SUPPLEMENTAL SCALE SQ SCH ×4 (06:30→21:00)
[2016-08-31] MEDS: ACETAMINOPHEN/HYDROcodone 325 MG/7.5 MG TAB PO PRN ×5 (06:32→21:59)
[2016-08-31] MEDS: ENALAPRILAT 1.25 MG/ML VIAL IV PUSH PRN ×2 (07:05→16:50)
[2016-08-31] MEDS: SODIUM CHLORIDE 0.9% FLUSH 5 ML FLUSH FLUSH SCH ×2 (08:43→21:00)
[2016-08-31] MEDS: METOPROLOL TARTRATE 50 MG TAB PO SCH ×2 (08:45→21:59)
[2016-08-31 09:44] LABS: AUTOMATED NEUTROPHIL # 3.3 TH/MM3 (1.8-7.7); BASOPHIL % 0.6 % (0.0-2.0); EOSINOPHIL # 0.1 TH/MM3 (0-0.4); EOSINOPHIL % 1.7 % (0.0-4.0); HEMATOCRIT 34.9 % (39.0-51.0); HEMO FLAGS DIFF FINAL; LYMPH % 25.5 % (9.0-44.0); LYMPHOCYTE # 1.6 TH/MM3 (1.0-4.8); MEAN CELL VOLUME 94.2 FL (80.0-100.0); MEAN CORPUSCULAR HEMOGLOBIN 32.7 PG (27.0-34.0); MEAN CORPUSCULAR HGB CONC 34.7 % (32.0-36.0); MONO % 19.4 % (0.0-8.0); NEUT % 52.8 % (16.0-70.0); PLATELET COUNT 212 TH/MM3 (150-450); RED CELL DISTRIBUTION WIDTH 13.3 % (11.6-17.2); WHITE BLOOD COUNT 6.3 TH/MM3 (4.0-11.0)
[2016-08-31] MEDS ORDERED: LISINOPRIL 5 MG TAB PO SCH (10:00)
[2016-08-31] MEDS: diphenhydrAMINE HCL 25 MG CAP PO PRN ×2 (10:32→23:08)
--- NOTE | 2016-08-31 13:02 | HHI.PR ---
Subjective Remarks Had his dressing changed today Afebrile, continue nightly antibiotic Podiatry following Objective Vitals Vital Signs Date Time Temp Pulse Resp B/P Pulse Ox O2 Delivery O2 Flow Rate FiO2 08/31/16 08:00 97.9 70 20 156/84 97 08/31/16 07:37 18 08/31/16 07:37 18 08/31/16 07:10 160/83 08/31/16 06:00 98.8 80 20 182/93 97 08/31/16 04:00 97.3 74 18 141/83 98 08/31/16 00:00 97.1 86 18 160/71 99 08/30/16 20:00 98.2 74 20 173/81 99 08/30/16 16:08 97.1 63 20 156/87 98 I/O 08/30/16 08/30/16 08/30/16 08/31/16 08/31/16 08/31/16 07:00 15:00 23:00 07:00 15:00 23:00 Intake Total 230 ml 840 ml Output Total 4 ml 450 ml Balance 226 ml 840 ml -450 ml Intake Oral 230 ml 840 ml Output Urine Total 4 ml 450 ml # Voids 5 # Bowel Movements 2 2 Result Diagram: 08/31/16 0816 08/30/16 0647 Objective Remarks GENERAL: This is a well-nourished, well-developed patient, in no apparent distress. SKIN: No rashes, warm and dry HEAD: Atraumatic. Normocephalic. EYES: Pupils equal round and reactive. Extraocular motions intact. No scleral icterus. ENT: Nose without bleeding, or drainage, Airway patent. NECK: Trachea midline. Supple CARDIOVASCULAR: Regular rate and rhythm without murmurs, gallops, or rubs. RESPIRATORY: Fair air entry bilaterally. No wheezes, rales, or rhonchi. GASTROINTESTINAL: Abdomen soft, non-tender, nondistended. Positive bowel sounds MUSCULOSKELETAL: RLE without clubbing, cyanosis, or edema. Pedal pulses appreciated, left foot with +1 edema, erythema, tenderness to touch, mostly on the lateral side of first left metatarsal, insertion site of the nail in the base of the left MTP NEUROLOGICAL: Awake and alert. Moves all extremity. Normal speech.no focal neurological deficit A/P Assessment and Plan 08/29/16: Change dressing today by Dr. Stephen, continue on Zosyn and Vanco per ID, hypokalemia, replace, repeat level this evening 08/30/16: Continue current care with iv antibiotic and podiatry care, CBC in a.m. 08/31/16: Dressing change today, continue iv antibiotic, follow with podiatry a/p: 55 years old male admitted with -Severe Sepsis due to life-threatening Left foot infection due to puncture nail through shoe and bacteremia: Status post I&D by podiatry, on Zosyn and vancomycin for broad coverage including Pseudomonas and MRSA, pain management with morphine, ID following, monitor CBC Patient for dressing changes per podiatry, pain is tolerable -persisting fever with bacteremia: Last fever 101.1 on 08/28/16, Continue IV antibiotic per ID recommendation -Leukocytosis resolved -Hypertension: Monitor blood pressure, Vasotec when necessary -Thrombocytopenia: Unclear if acute versus chronic, possibly due to alcoholism, monitor CBC -Diabetes mellitus: Accu-Cheks, insulin sliding scale, diabetic diet, diabetic education, check A1c -DVT prophylaxis: With heparin, cautiously due to thrombocytopenia Discharge Planning When clear by podiatry and ID Celia Adrian MD Aug 31, 2016 13:02
[2016-08-31] MEDS: DOCUSATE SODIUM 100 MG CAP PO SCH (14:16)
[2016-08-31 16:38] LABS: BLOOD, URINE NEG (NEG); GLUCOSE,URINE 150 mg/dL (NEG); KETONE, URINE NEG (NEG); NITRITE,URINE NEG (NEG); PH, URINE 6.5 (5.0-8.5); URINE COLOR YELLOW (YELLW/STRAW)
[2016-08-31 16:39] LABS: COMMENT (UR) CULT NOT INDICATED; CULTURE IF INDICATED CULT NOT INDICATED
[2016-09-01] VITALS (7 sets, daily range): BP systolic 151–190; BP diastolic 81–98; PULSE 59–68; RESP 18–26; TEMP 97.6–98.6; O2SAT 97–100
[2016-09-01] MEDS: ENALAPRILAT 1.25 MG/ML VIAL IV PUSH PRN (00:52)
[2016-09-01] MEDS: ceFAZolin 2 GM PREMIX 50 ML IV SCH ×3 (01:47→17:59)
[2016-09-01] MEDS: DOCUSATE SODIUM 100 MG CAP PO SCH ×2 (01:47→14:03)
[2016-09-01] MEDS: ACETAMINOPHEN/HYDROcodone 325 MG/7.5 MG TAB PO PRN ×6 (01:47→22:35)
[2016-09-01] MEDS: HEPARIN SODIUM - SQ 10,000 UNITS/ML VIAL SQ SCH ×3 (05:36→22:00)
[2016-09-01] MEDS: INSULIN NovoLIN REGULAR SUPPLEMENTAL SCALE SQ SCH ×4 (05:47→20:41)
[2016-09-01] MEDS: SODIUM CHLORIDE 0.9% FLUSH 5 ML FLUSH FLUSH SCH ×2 (10:02→20:41)
[2016-09-01] MEDS: METOPROLOL TARTRATE 50 MG TAB PO SCH ×2 (10:02→20:40)
--- NOTE | 2016-09-01 10:05 | HHI.PR ---
Subjective Remarks Follow up on severe life-threatening diabetic foot infection due to nail puncture through the shoes patient had I&D by podiatry started on IV antibiotic , he initially had a bacteremia, ID consulted, he is on iv antibiotic, new blood culture show no growth for 3 days Today Patient stable resting in bed, no fever or chills I discussed it with the podiatry Dr. Stephen, will change dressing tomorrow and do new culture from the wound and if this is negative patient will be taken to our for wound closure Objective Vitals Vital Signs Date Time Temp Pulse Resp B/P Pulse Ox O2 Delivery O2 Flow Rate FiO2 09/01/16 08:00 98.2 63 26 177/81 97 09/01/16 04:00 98.1 59 18 174/98 99 09/01/16 01:40 176/94 09/01/16 01:00 97.9 66 18 190/93 100 08/31/16 20:40 Room Air 08/31/16 20:00 97.5 78 20 160/98 97 08/31/16 16:00 95.7 64 24 174/83 99 08/31/16 12:00 96.0 69 25 135/77 97 I/O 08/31/16 08/31/16 08/31/16 09/01/16 09/01/16 09/01/16 07:00 15:00 23:00 07:00 15:00 23:00 Intake Total 720 ml 360 ml Output Total 450 ml Balance -450 ml 720 ml 360 ml Intake Oral 720 ml 360 ml Output Urine Total 450 ml # Voids 3 3 # Bowel Movements 2 1 Result Diagram: 08/31/16 0816 08/30/16 0647 Objective Remarks GENERAL: This is a well-nourished, well-developed patient, in no apparent distress. SKIN: No rashes, warm and dry HEAD: Atraumatic. Normocephalic. EYES: Pupils equal round and reactive. Extraocular motions intact. No scleral icterus. ENT: Nose without bleeding, or drainage, Airway patent. NECK: Trachea midline. Supple CARDIOVASCULAR: Regular rate and rhythm without murmurs, gallops, or rubs. RESPIRATORY: Fair air entry bilaterally. No wheezes, rales, or rhonchi. GASTROINTESTINAL: Abdomen soft, non-tender, nondistended. Positive bowel sounds MUSCULOSKELETAL: RLE without clubbing, cyanosis, or edema. Pedal pulses appreciated, left foot with +1 edema, erythema, tenderness to touch, mostly on the lateral side of first left metatarsal, insertion site of the nail in the base of the left MTP NEUROLOGICAL: Awake and alert. Moves all extremity. Normal speech.no focal neurological deficit A/P Assessment and Plan a/p: 55 years old male admitted with -Severe Sepsis due to life-threatening Left foot infection due to puncture nail through shoe and bacteremia: Status post I&D by podiatry, on Zosyn and vancomycin for broad coverage including Pseudomonas and MRSA, pain management with morphine, ID following, monitor CBC, pain is tolerable I discussed it with the podiatry Dr. Stephen, will change dressing tomorrow and do new culture from the wound and if this is negative patient will be taken to our for wound closure -Fever with bacteremia: Resolved, Continue IV antibiotic per ID recommendation, new blood culture no growth for 3 days -Leukocytosis resolved -Hypertension uncontrolled, started on lisinopril increased to 20 mg daily for better optimization, Monitor blood pressure, Vasotec when necessary -Thrombocytopenia: Unclear if acute versus chronic, possibly due to alcoholism, monitor CBC -Diabetes mellitus: Accu-Cheks, insulin sliding scale, diabetic diet, diabetic education, pending A1c -DVT prophylaxis: With heparin, cautiously due to thrombocytopenia Discharge Planning When clear by podiatry and ID Celia Adrian MD Sep 01, 2016 10:05
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
[2016-09-01 17:41] LABS: HEMOGLOBIN A1a 1.1 %
[2016-09-01 17:42] LABS: HEMOGLOBIN A1b 1.6 %; HEMOGLOBIN Ao 83.2 %
[2016-09-01] MEDS: diphenhydrAMINE HCL 25 MG CAP PO PRN (20:40)
[2016-09-02] VITALS (7 sets, daily range): BP systolic 137–178; BP diastolic 78–90; PULSE 57–74; RESP 16–20; TEMP 95.8–98.8; O2SAT 97–99
[2016-09-02] MEDS: DOCUSATE SODIUM 100 MG CAP PO SCH ×3 (00:19→23:53)
[2016-09-02] MEDS: ENALAPRILAT 1.25 MG/ML VIAL IV PUSH PRN (00:35)
[2016-09-02] MEDS ORDERED: cloNIDine HCL 0.1 MG TAB PO ONE (02:15)
[2016-09-02] MEDS: ceFAZolin 2 GM PREMIX 50 ML IV SCH ×3 (02:31→17:19)
[2016-09-02] MEDS: ACETAMINOPHEN/HYDROcodone 325 MG/7.5 MG TAB PO PRN ×6 (02:31→23:52)
[2016-09-02] MEDS: HEPARIN SODIUM - SQ 10,000 UNITS/ML VIAL SQ SCH ×3 (05:59→22:00)
[2016-09-02] MEDS: INSULIN NovoLIN REGULAR SUPPLEMENTAL SCALE SQ SCH ×4 (06:33→23:54)
--- NOTE | 2016-09-02 07:39 | HHI.PR ---
Subjective Remarks Feels much better. Pain is controlled by meds. Dr Stephen podiatry at bedside changing dressing. Patient without fever or chills. No n/v/d/c. Objective Vitals Vital Signs Date Time Temp Pulse Resp B/P Pulse Ox O2 Delivery O2 Flow Rate FiO2 09/02/16 04:44 97.4 57 18 137/81 97 09/02/16 02:00 175/88 09/02/16 00:30 98.8 62 20 177/90 98 09/01/16 20:04 97.6 64 20 172/86 98 09/01/16 19:00 Room Air 09/01/16 16:00 98.6 68 25 162/83 98 09/01/16 12:00 97.7 60 25 151/85 98 09/01/16 10:11 Room Air 09/01/16 08:00 98.2 63 26 177/81 97 I/O 09/01/16 09/01/16 09/01/16 09/02/16 09/02/16 09/02/16 07:00 15:00 23:00 07:00 15:00 23:00 Intake Total 360 ml 720 ml Balance 360 ml 720 ml Intake Oral 360 ml 720 ml # Voids 3 4 3 # Bowel Movements 1 2 Result Diagram: 08/31/16 0816 08/30/16 0647 Imaging Last Impressions Tumor Localization 08/27/16 0000 Signed Impressions: Service Date/Time: Saturday, August 27, 2016 11:15 - CONCLUSION: Intense soft tissue uptake medial side of the first metatarsal phalangeal joint the believe spares the bone. This probably is not osteomyelitis as yet. Gómez Beyer MD FACR Chest X-Ray 08/26/16 0000 Signed Impressions: Service Date/Time: August 15:43 - CONCLUSION: 1. No acute cardiopulmonary findings. Gerson Beyer MD Foot X-Ray 08/25/16 0000 Signed Impressions: Service Date/Time: Thursday, August 25, 2016 11:26 - CONCLUSION: Unremarkable examination of the left foot. Augustine Wells MD Foot MRI 08/25/16 0000 Signed Impressions: Service Date/Time: Thursday, August 25, 2016 20:41 - CONCLUSION: 1. Minimal edema within the proximal phalanx of the great toe could be reactive versus osteomyelitis. 2. Minimal edema within the distal first metatarsal likely reactive. Jose Haynes MD Objective Remarks GENERAL: This is a well-nourished, well-developed patient, in no apparent distress. SKIN: No rashes, warm and dry HEAD: Atraumatic. Normocephalic. EYES: Pupils equal round and reactive. Extraocular motions intact. No scleral icterus. ENT: Nose without bleeding, or drainage, Airway patent. NECK: Trachea midline. Supple CARDIOVASCULAR: Regular rate and rhythm without murmurs, gallops, or rubs. RESPIRATORY: Fair air entry bilaterally. No wheezes, rales, or rhonchi. GASTROINTESTINAL: Abdomen soft, non-tender, nondistended. Positive bowel sounds MUSCULOSKELETAL: RLE without clubbing, cyanosis, or edema. Pedal pulses appreciated, left foot with +1 edema, erythema, tenderness to touch, mostly on the lateral side of first left metatarsal, insertion site of the nail in the base of the left MTP NEUROLOGICAL: Awake and alert. Moves all extremity. Normal speech.no focal neurological deficit A/P Assessment and Plan 55 years old male admitted with -Severe Sepsis due to life-threatening Left foot infection due to puncture nail through shoe and bacteremia: Status post I&D by podiatry, on Zosyn and vancomycin for broad coverage including Pseudomonas and MRSA, pain management with morphine, ID following, monitor CBC, pain is tolerable I discussed it with the podiatry Dr. Stephen, dressing changed, cultures persistent positive, plan for debridement 09/03/15 and do new culture from the wound and if this is negative patient will be taken to our for wound closure -Fever with bacteremia: Resolved, Continue IV antibiotic per ID recommendation, new blood culture no growth for 3 days -Leukocytosis resolved -Hypertension uncontrolled, started on lisinopril increased to 20 mg daily for better optimization, Monitor blood pressure, Vasotec when necessary -Thrombocytopenia: Unclear if acute versus chronic, possibly due to alcoholism, monitor CBC -Diabetes mellitus controlled a1c 6.8: Accu-Cheks, insulin sliding scale, diabetic diet, diabetic education, A1c 6.8. -DVT prophylaxis: With heparin, cautiously due to thrombocytopenia Discharge Planning When clear by podiatry and ID POs DC on Tuesday per Dr Gutierrez podiatry. Discussed with the CM for DC plan as well, patient [facility] a [facility], and can't be DC on weekend. Navya Escoto MD Sep 02, 2016 07:39
[2016-09-02] MEDS: SODIUM CHLORIDE 0.9% FLUSH 5 ML FLUSH FLUSH SCH ×2 (09:01→23:53)
[2016-09-02] MEDS: LISINOPRIL 20 MG TAB PO SCH (09:01)
[2016-09-02] MEDS: METOPROLOL TARTRATE 50 MG TAB PO SCH ×2 (09:01→23:52)
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
[2016-09-02] MEDS: diphenhydrAMINE HCL 25 MG CAP PO PRN (17:26)
--- NOTE | 2016-09-02 23:14 | HHI.IDPN ---
Subjective Subjective Remarks Delayed entry - pt wa seen earlier today around 5 pm progress noted s/p serial debridements afebrile denies new co Antibiotics cefazolin Allergies: Coded Allergies: No Known Allergies (Unverified , 08/25/16) Objective . Vital Signs Date Time Temp Pulse Resp B/P Pulse Ox O2 Delivery O2 Flow Rate FiO2 09/02/16 20:12 97.6 74 16 155/78 99 09/02/16 16:24 98.3 63 20 141/87 98 09/02/16 12:23 95.8 66 20 137/79 98 09/02/16 08:47 96.6 68 20 178/80 98 09/02/16 07:00 Room Air 09/02/16 06:00 Room Air 09/02/16 04:44 97.4 57 18 137/81 97 09/02/16 02:00 175/88 09/02/16 00:30 98.8 62 20 177/90 98 09/01/16 09/01/16 09/02/16 15:00 23:00 07:00 Intake Total 360 ml 720 ml Balance 360 ml 720 ml Intake Oral 360 ml 720 ml # Voids 4 3 # Bowel Movements 2 . Laboratory Tests Test 09/01/16 11:20 Hemoglobin A1c 6.8 % Microbiology Date/Time Procedure Status Source Growth 08/31/16 07:00 Gram Stain - Final Complete Wound Foot 08/31/16 07:00 Wound Culture - Final Complete Staphylococcus Aureus Strep Not A,B D 09/02/16 13:30 Gram Stain - Final Resulted Wound Foot 09/02/16 13:30 Wound Culture Resulted Wound Foot Pending Imaging Last Impressions Tumor Localization 08/27/16 0000 Signed Impressions: Service Date/Time: Saturday, August 27, 2016 11:15 - CONCLUSION: Intense soft tissue uptake medial side of the first metatarsal phalangeal joint the believe spares the bone. This probably is not osteomyelitis as yet. Gómez Beyer MD FACR Chest X-Ray 08/26/16 0000 Signed Impressions: Service Date/Time: August 15:43 - CONCLUSION: 1. No acute cardiopulmonary findings. Gerson Beyer MD Foot X-Ray 08/25/16 0000 Signed Impressions: Service Date/Time: Thursday, August 25, 2016 11:26 - CONCLUSION: Unremarkable examination of the left foot. Augustine Wells MD Foot MRI 08/25/16 0000 Signed Impressions: Service Date/Time: Thursday, August 25, 2016 20:41 - CONCLUSION: 1. Minimal edema within the proximal phalanx of the great toe could be reactive versus osteomyelitis. 2. Minimal edema within the distal first metatarsal likely reactive. Jose Haynes MD Physical Exam NAD L foot with dressing in place minimla surrounding edeme and erythema Assessment & Plan Remarks DFI, L foot , 1 MT area resulted from nail punctiuure wound - MSSA, strep not A, B, D Strep not A,B or D bactermia, high grade - likely 2/2 from L ofot infection Sepsis (fever, leukocytosis, bandemia, abn LFTs, tachycardia) with known source and bacetremia MSSA, strep bactermeia - echo negative - cont ancef - PICC line - anticipate IV abx (ancef) Discussed Condition With Kristal Fitch MD Sep 02, 2016 23:14
[2016-09-03] VITALS (7 sets, daily range): BP systolic 140–171; BP diastolic 75–87; PULSE 55–82; RESP 16–18; TEMP 96.3–99.1; O2SAT 95–99
[2016-09-03] MEDS: ACETAMINOPHEN/HYDROcodone 325 MG/7.5 MG TAB PO PRN ×2 (03:42→08:00)
[2016-09-03] MEDS: ceFAZolin 2 GM PREMIX 50 ML IV SCH ×4 (03:43→21:16)
[2016-09-03] MEDS: ENALAPRILAT 1.25 MG/ML VIAL IV PUSH PRN ×2 (03:43→13:25)
[2016-09-03] MEDS: HEPARIN SODIUM - SQ 10,000 UNITS/ML VIAL SQ SCH ×3 (03:48→21:13)
[2016-09-03] MEDS: INSULIN NovoLIN REGULAR SUPPLEMENTAL SCALE SQ SCH ×4 (05:12→21:08)
[2016-09-03 07:03] LABS: AUTOMATED NEUTROPHIL # 5.4 TH/MM3 (1.8-7.7); BASOPHIL # 0.1 TH/MM3 (0-0.2); BASOPHIL % 0.9 % (0.0-2.0); EOSINOPHIL # 0.1 TH/MM3 (0-0.4); EOSINOPHIL % 1.5 % (0.0-4.0); HEMATOCRIT 36.5 % (39.0-51.0); HEMO FLAGS DIFF FINAL; LYMPH % 23.1 % (9.0-44.0); MEAN CORPUSCULAR HEMOGLOBIN 32.6 PG (27.0-34.0); MEAN CORPUSCULAR HGB CONC 35.1 % (32.0-36.0); NEUT % 61.5 % (16.0-70.0); PLATELET COUNT 354 TH/MM3 (150-450); RED BLOOD COUNT 3.92 MIL/MM3 (4.50-5.90); RED CELL DISTRIBUTION WIDTH 13.5 % (11.6-17.2); WHITE BLOOD COUNT 8.7 TH/MM3 (4.0-11.0)
[2016-09-03 07:20] LABS: BICARBONATE 28.4 MEQ/L (21.0-32.0); POTASSIUM 3.9 MEQ/L (3.5-5.1)
[2016-09-03] MEDS: LISINOPRIL 20 MG TAB PO SCH (08:00)
[2016-09-03] MEDS: SODIUM CHLORIDE 0.9% FLUSH 5 ML FLUSH FLUSH SCH (08:00)
[2016-09-03] MEDS: METOPROLOL TARTRATE 50 MG TAB PO SCH ×2 (08:00→21:07)
[2016-09-03] MEDS ORDERED: MIDAZOLAM HCL 2 MG/2 ML VIAL ONE (09:12)
[2016-09-03] MEDS ORDERED: fentaNYL CITRATE 250 MCG/5 ML AMP ONE (09:12)
[2016-09-03] MEDS ORDERED: ACETAMINOPHEN 1000 MG/100 ML VIAL IV ONE (09:12)
[2016-09-03] MEDS ORDERED: METOPROLOL TARTRATE 25 MG TAB PO PRN (09:15)
[2016-09-03] MEDS: SODIUM CHLORID 0.9% 500 ML IV SCH (09:15)
[2016-09-03] MEDS ORDERED: INSULIN HUMAN REGULAR 1,000 UNITS/10 ML VIAL SQ PRN (09:15)
[2016-09-03] MEDS: LACTATED RINGER'S 1000 ML IV SCH (09:15)
[2016-09-03] MEDS ORDERED: FAMOTIDINE 20 MG/2 ML VIAL ONE (09:18)
[2016-09-03] MEDS ORDERED: METOCLOPRAMIDE HCL 10 MG/2 ML VIAL ONE (09:18)
[2016-09-03] MEDS: BUPIVACAINE HCL PF 0.5% 30 ML VIAL ONE ×2 (09:28→10:00)
[2016-09-03] MEDS ORDERED: NALOXONE HCL 0.4 MG/ML AMP IV PRN (10:15)
[2016-09-03] MEDS ORDERED: Post-op Orders (for Pharmacy) MISC XX ONE (10:15)
[2016-09-03] MEDS ORDERED: SODIUM CHLORIDE 0.9% FLUSH 5 ML FLUSH IVF PRN (10:15)
--- NOTE | 2016-09-03 10:23 | PD.OP ---
Operative Report Date of Surgery: Sep 03, 2016 Preoperative Diagnosis: (1) Abscess of left foot Postoperative Diagnosis: (1) Abscess of left foot Procedure: Debridement of subcutaneous tissue and muscle left foot Anesthesia: Gen. anesthesia Surgeon: Jose Stephen DPM Ingot Header(s): None Operation and Findings: Patient is brought to the operating room placed on the operating table in a supine position. Patient was given general relation anesthesia and the left foot was prepped and draped in the usual sterile manner. After the appropriate timeout was performed attention was directed to the left foot which was noted to have an open wound over the first metatarsal phalangeal joint. Patient previously had an abscess was which was I&D. He continued to grow out bacteria from the wound and he was returned to the operating room for further debridement. At this time using a 15 blade and a dermal curet the entire ulceration and wound was debrided down to bone but not including bone of the left first metatarsal phalangeal joint. Deep culture and sensitivity was obtained at this time. There is flushed with copious amounts of sterile saline. Wound was packed with Maxorb extra AG. 10 cc of 0.5% Marcaine was infiltrated around the first MPJ for postoperative analgesia. The incision and wound site was dressed with Maxorb 4 x 4's Lynn and then Lazarus bandage. Estimated blood loss was less than 10 cc. Deep subcutaneous culture and sensitivity was obtained. Sponge and instrument count were noted to be correct. Patient are the procedures and anesthesia well and left the OR to PACU in apparent satisfactory condition with all vital signs stable endovascular status [id number] Jose Stephen DPM Sep 03, 2016 10:23
[2016-09-03] MEDS ORDERED: DO NOT ADM ANY ANTICOAGULANT DRUGS XX PRN ×2 (10:45→11:45)
[2016-09-03] MEDS ORDERED: *morphine SULFATE 8 MG/ML PERIprocedure ONLY ONE (10:48)
[2016-09-03] MEDS ORDERED: ACETAMINOPHEN 1000 MG/100 ML VIAL IV SCH (11:00)
--- NOTE | 2016-09-03 11:34 | HHI.PR ---
Subjective Remarks Sleepy. no events overnight. To OR for debridement by podiatry today Objective Vitals Vital Signs Date Time Temp Pulse Resp B/P Pulse Ox O2 Delivery O2 Flow Rate FiO2 09/03/16 11:03 98.3 59 16 138/87 99 Nasal Cannula 2 09/03/16 10:45 63 15 126/81 94 Nasal Cannula 2 09/03/16 10:30 61 15 128/80 94 Nasal Cannula 2 09/03/16 10:16 98.3 63 15 110/75 95 Nasal Cannula 2 09/03/16 08:24 97.0 64 18 165/87 95 09/03/16 08:00 Room Air 09/03/16 04:25 156/80 09/03/16 04:00 98.7 55 16 170/86 98 09/03/16 00:52 99.1 65 16 143/78 97 09/02/16 20:12 97.6 74 16 155/78 99 09/02/16 19:33 16 09/02/16 16:24 98.3 63 20 141/87 98 09/02/16 12:23 95.8 66 20 137/79 98 I/O 09/02/16 09/02/16 09/02/16 09/03/16 09/03/16 09/03/16 07:00 15:00 23:00 07:00 15:00 23:00 Intake Total 720 ml 962 ml 400 ml Balance 720 ml 962 ml 400 ml Intake Oral 720 ml 962 ml IV Total 200 ml Other 200 ml # Voids 3 4 # Bowel Movements 2 Result Diagram: 09/03/16 0608 09/03/16 0608 Imaging Last Impressions Tumor Localization 08/27/16 0000 Signed Impressions: Service Date/Time: Saturday, August 27, 2016 11:15 - CONCLUSION: Intense soft tissue uptake medial side of the first metatarsal phalangeal joint the believe spares the bone. This probably is not osteomyelitis as yet. Gómez Beyer MD FACR Chest X-Ray 08/26/16 0000 Signed Impressions: Service Date/Time: August 15:43 - CONCLUSION: 1. No acute cardiopulmonary findings. Gerson Beyer MD Foot X-Ray 08/25/16 0000 Signed Impressions: Service Date/Time: Thursday, August 25, 2016 11:26 - CONCLUSION: Unremarkable examination of the left foot. Augustine Wells MD Foot MRI 08/25/16 0000 Signed Impressions: Service Date/Time: Thursday, August 25, 2016 20:41 - CONCLUSION: 1. Minimal edema within the proximal phalanx of the great toe could be reactive versus osteomyelitis. 2. Minimal edema within the distal first metatarsal likely reactive. Jose Haynes MD Objective Remarks GENERAL: This is a well-nourished, well-developed patient, in no apparent distress. SKIN: No rashes, warm and dry HEAD: Atraumatic. Normocephalic. EYES: Pupils equal round and reactive. Extraocular motions intact. No scleral icterus. ENT: Nose without bleeding, or drainage, Airway patent. NECK: Trachea midline. Supple CARDIOVASCULAR: Regular rate and rhythm without murmurs, gallops, or rubs. RESPIRATORY: Fair air entry bilaterally. No wheezes, rales, or rhonchi. GASTROINTESTINAL: Abdomen soft, non-tender, nondistended. Positive bowel sounds MUSCULOSKELETAL: RLE without clubbing, cyanosis, or edema. Pedal pulses appreciated, left foot with +1 edema, erythema, tenderness to touch, mostly on the lateral side of first left metatarsal, insertion site of the nail in the base of the left MTP NEUROLOGICAL: Awake and alert. Moves all extremity. Normal speech.no focal neurological deficit Procedures Debridement of subcutaneous tissue and muscle left foot 09/[address] Stephen podiatry A/P Assessment and Plan 55 years old male admitted with -Severe Sepsis due to life-threatening Left foot infection due to puncture nail through shoe and bacteremia: Status post I&D by podiatry, on Zosyn and vancomycin for broad coverage including Pseudomonas and MRSA, pain management with morphine, ID following, monitor CBC, pain is tolerable I discussed it with the podiatry Dr. Stephen, dressing changed, cultures persistent positive, plan for debridement 09/03/15 and do new culture from the wound and if this is negative patient will be taken to our for wound closure -Fever with bacteremia: Resolved, Continue IV antibiotic per ID recommendation, new blood culture no growth for 3 days -Leukocytosis resolved -Hypertension uncontrolled, started on lisinopril increased to 20 mg daily for better optimization, Monitor blood pressure, Vasotec when necessary -Thrombocytopenia: Unclear if acute versus chronic, possibly due to alcoholism, monitor CBC -Diabetes mellitus controlled a1c 6.8: Accu-Cheks, insulin sliding scale, diabetic diet, diabetic education, A1c 6.8. -DVT prophylaxis: With heparin, cautiously due to thrombocytopenia Discharge Planning When clear by podiatry and ID POs DC on Tuesday per Dr Gutierrez podiatry. Discussed with the CM for DC plan as well, patient without a place need to go to [facility], and can't be DC on weekend. Navya Escoto MD Sep 03, 2016 11:34
[2016-09-03] MEDS ORDERED: LACTATED RINGER'S 1000 ML INJ 1,000 ML IV ONE (12:00)
[2016-09-03] MEDS ORDERED: ONDANSETRON HCL 4 MG/2 ML VIAL IV PUSH ONE (12:00)
[2016-09-03] MEDS ORDERED: PROPOFOL 200 MG/20 ML AMP IV ONE (12:00)
[2016-09-03] MEDS: DOCUSATE SODIUM 100 MG CAP PO SCH (12:34)
[2016-09-03] MEDS: ACETAMINOPHEN 1000 MG/100 ML VIAL IV SCH ×2 (13:25→21:07)
[2016-09-03] MEDS: diphenhydrAMINE HCL 25 MG CAP PO PRN ×2 (17:34)
[2016-09-03] MEDS: SODIUM CHLORIDE 0.9% FLUSH 5 ML FLUSH IVF SCH (21:09)
[2016-09-04] VITALS (7 sets, daily range): BP systolic 133–173; BP diastolic 24–89; PULSE 55–63; RESP 17–22; TEMP 96.5–97.6; O2SAT 96–100
[2016-09-04] MEDS: SODIUM CHLORID 0.9% 500 ML IV SCH (01:55)
[2016-09-04] MEDS: DOCUSATE SODIUM 100 MG CAP PO SCH ×2 (02:45→11:32)
[2016-09-04] MEDS: ACETAMINOPHEN 1000 MG/100 ML VIAL IV SCH ×2 (04:19→09:25)
[2016-09-04] MEDS: HEPARIN SODIUM - SQ 10,000 UNITS/ML VIAL SQ SCH ×4 (05:10→21:42)
[2016-09-04] MEDS: ceFAZolin 2 GM PREMIX 50 ML IV SCH ×3 (05:10→21:40)
[2016-09-04] MEDS: diphenhydrAMINE HCL 25 MG CAP PO PRN ×2 (05:55→21:38)
[2016-09-04] MEDS: INSULIN NovoLIN REGULAR SUPPLEMENTAL SCALE SQ SCH ×4 (06:05→22:02)
--- NOTE | 2016-09-04 08:50 | HHI.PR ---
Subjective Remarks Says he has pain after the debridement. Pain is cotrolled by meds. Says swelling of the leg is improving. No fever or chills. No n/v/d/c. Objective Vitals Vital Signs Date Time Temp Pulse Resp B/P Pulse Ox O2 Delivery O2 Flow Rate FiO2 09/04/16 08:37 96.5 61 20 133/82 99 09/04/16 04:00 96.9 60 20 173/89 100 09/04/16 03:18 Room Air 09/04/16 00:00 97.5 63 22 160/24 96 09/03/16 21:10 97 Room Air 09/03/16 20:07 97.4 82 18 146/75 97 09/03/16 16:50 97.0 67 18 140/80 99 09/03/16 12:47 96.3 61 18 171/84 97 09/03/16 11:03 98.3 59 16 138/87 99 Nasal Cannula 2 09/03/16 10:45 63 15 126/81 94 Nasal Cannula 2 09/03/16 10:30 61 15 128/80 94 Nasal Cannula 2 09/03/16 10:16 98.3 63 15 110/75 95 Nasal Cannula 2 I/O 09/03/16 09/03/16 09/03/16 09/04/16 09/04/16 09/04/16 07:00 15:00 23:00 07:00 15:00 23:00 Intake Total 640 ml Balance 640 ml Intake Oral 240 ml IV Total 200 ml Other 200 ml # Voids 4 3 # Bowel Movements 2 1 Result Diagram: 09/03/16 0608 09/03/16 0608 Imaging Last Impressions Tumor Localization 08/27/16 0000 Signed Impressions: Service Date/Time: Saturday, August 27, 2016 11:15 - CONCLUSION: Intense soft tissue uptake medial side of the first metatarsal phalangeal joint the believe spares the bone. This probably is not osteomyelitis as yet. Gómez Beyer MD FACR Chest X-Ray 08/26/16 0000 Signed Impressions: Service Date/Time: August 15:43 - CONCLUSION: 1. No acute cardiopulmonary findings. Gerson Beyer MD Foot X-Ray 08/25/16 0000 Signed Impressions: Service Date/Time: Thursday, August 25, 2016 11:26 - CONCLUSION: Unremarkable examination of the left foot. Augustine Wells MD Foot MRI 08/25/16 0000 Signed Impressions: Service Date/Time: Thursday, August 25, 2016 20:41 - CONCLUSION: 1. Minimal edema within the proximal phalanx of the great toe could be reactive versus osteomyelitis. 2. Minimal edema within the distal first metatarsal likely reactive. Jose Haynes MD Objective Remarks GENERAL: This is a well-nourished, well-developed patient, in no apparent distress. SKIN: Warm and dry HEAD: Atraumatic. Normocephalic. EYES: Pupils equal round and reactive. Extraocular motions intact. No scleral icterus. ENT: Nose without bleeding, or drainage, Airway patent. NECK: Trachea midline. Supple CARDIOVASCULAR: Regular rate and rhythm without murmurs, gallops, or rubs. RESPIRATORY: Fair air entry bilaterally. No wheezes, rales, or rhonchi. GASTROINTESTINAL: Abdomen soft, non-tender, nondistended. Positive bowel sounds MUSCULOSKELETAL: RLE without clubbing, cyanosis, or edema. Pedal pulses appreciated, left foot with +1 edema, erythema, tenderness to touch, mostly on the lateral side of first left metatarsal, insertion site of the nail in the base of the left MTP. S/P debridement 09/03 left foot wrapped, dressing c/d/ i. NEUROLOGICAL: Awake and alert. Moves all extremity. Normal speech.no focal neurological deficit Procedures Debridement of subcutaneous tissue and muscle left foot 09/[address] Stephen podiatry A/P Assessment and Plan 55 years old male admitted with -Severe Sepsis due to life-threatening Left foot infection due to puncture nail through shoe and bacteremia: Status post I&D by podiatry, on Zosyn and vancomycin for broad coverage including Pseudomonas and MRSA, pain management with morphine, ID following, monitor CBC, pain is tolerable I discussed it with the podiatry Dr. Stephen, dressing changed, cultures persistent positive, plan for debridement 09/03/15 and do new culture from the wound and if this is negative patient will be taken to or for wound closure S/P Debridement of subcutaneous tissue and muscle left foot by Dr Stephen on 09/03/16. Wound cultures 09/03 still positive Continue IV abx per ID recommendations. Pain meds per pain scale. -Fever with bacteremia: Resolved, Continue IV antibiotic per ID recommendation, new blood culture no growth for 3 days -Leukocytosis resolved -Hypertension uncontrolled, started on lisinopril increased to 20 mg daily for better optimization, Monitor blood pressure, Vasotec when necessary -Thrombocytopenia: Unclear if acute versus chronic, possibly due to alcoholism, monitor CBC -Diabetes mellitus controlled a1c 6.8: Accu-Cheks, insulin sliding scale, diabetic diet, diabetic education, A1c 6.8. -DVT prophylaxis: With heparin, cautiously due to thrombocytopenia Discharge Planning When clear by podiatry and ID POs DC on Tuesday per Dr Gutierrez podiatry. Discussed with the CM for DC plan as well, patient without a place need to go to [facility], and can't be DC on weekend. Navya Escoto MD Sep 04, 2016 08:50
[2016-09-04] MEDS: LACTATED RINGER'S 1000 ML IV SCH (09:15)
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
[2016-09-04] MEDS: LISINOPRIL 20 MG TAB PO SCH (09:25)
[2016-09-04] MEDS: METOPROLOL TARTRATE 50 MG TAB PO SCH ×2 (09:26→21:37)
[2016-09-04] MEDS: SODIUM CHLORIDE 0.9% FLUSH 5 ML FLUSH IVF SCH ×2 (09:26→21:40)
[2016-09-05 00:50] VITALS: BP 159/79; PULSE 95; RESP 18; TEMP 97; O2SAT 96
[2016-09-05] MEDS: DOCUSATE SODIUM 100 MG CAP PO SCH ×2 (02:45→14:38)
[2016-09-05] MEDS: HEPARIN SODIUM - SQ 10,000 UNITS/ML VIAL SQ SCH ×3 (03:06→20:28)
[2016-09-05] MEDS: ceFAZolin 2 GM PREMIX 50 ML IV SCH ×3 (03:06→20:26)
[2016-09-05 05:45] VITALS: BP 156/84; PULSE 58; RESP 19; TEMP 97.5; O2SAT 100
[2016-09-05] MEDS: INSULIN NovoLIN REGULAR SUPPLEMENTAL SCALE SQ SCH ×4 (06:23→20:44)
[2016-09-05 08:46] VITALS: BP 169/87; PULSE 64; RESP 20; TEMP 98.1; O2SAT 100
[2016-09-05] MEDS: LISINOPRIL 20 MG TAB PO SCH (09:06)
[2016-09-05] MEDS: METOPROLOL TARTRATE 50 MG TAB PO SCH ×2 (09:06→20:27)
[2016-09-05] MEDS: SODIUM CHLORIDE 0.9% FLUSH 5 ML FLUSH IVF SCH ×2 (09:07→20:28)
[2016-09-05 12:46] VITALS: BP 138/77; PULSE 59; RESP 20; TEMP 98.5; O2SAT 98
--- NOTE | 2016-09-05 13:45 | HHI.PR ---
Subjective Remarks Says he has more pain in his toe. No fevers or chills. No n/v/d/c. Objective Vitals Vital Signs Date Time Temp Pulse Resp B/P Pulse Ox O2 Delivery O2 Flow Rate FiO2 09/05/16 12:46 98.5 59 20 138/77 98 09/05/16 08:46 98.1 64 20 169/87 100 09/05/16 05:45 97.5 58 19 156/84 100 09/05/16 00:50 97.0 95 18 159/79 96 09/04/16 21:45 97.6 60 17 164/88 100 09/04/16 19:00 Room Air 09/04/16 16:04 96.7 55 20 134/81 99 I/O 09/04/16 09/04/16 09/04/16 09/05/16 09/05/16 09/05/16 07:00 15:00 23:00 07:00 15:00 23:00 Intake Total 1100 ml 800 ml 900 ml Balance 1100 ml 800 ml 900 ml Intake Oral 1100 ml 800 ml 900 ml # Voids 4 1 3 # Bowel Movements 1 0 2 Result Diagram: 09/03/16 0608 09/03/16 0608 Imaging Last Impressions Tumor Localization 08/27/16 0000 Signed Impressions: Service Date/Time: Saturday, August 27, 2016 11:15 - CONCLUSION: Intense soft tissue uptake medial side of the first metatarsal phalangeal joint the believe spares the bone. This probably is not osteomyelitis as yet. Gómez Beyer MD FACR Chest X-Ray 08/26/16 0000 Signed Impressions: Service Date/Time: August 15:43 - CONCLUSION: 1. No acute cardiopulmonary findings. Gerson Beyer MD Foot X-Ray 08/25/16 0000 Signed Impressions: Service Date/Time: Thursday, August 25, 2016 11:26 - CONCLUSION: Unremarkable examination of the left foot. Augustine Wells MD Foot MRI 08/25/16 0000 Signed Impressions: Service Date/Time: Thursday, August 25, 2016 20:41 - CONCLUSION: 1. Minimal edema within the proximal phalanx of the great toe could be reactive versus osteomyelitis. 2. Minimal edema within the distal first metatarsal likely reactive. Jose Haynes MD Objective Remarks GENERAL: This is a well-nourished, well-developed patient, in no apparent distress. SKIN: Warm and dry HEAD: Atraumatic. Normocephalic. EYES: Pupils equal round and reactive. Extraocular motions intact. No scleral icterus. ENT: Nose without bleeding, or drainage, Airway patent. NECK: Trachea midline. Supple CARDIOVASCULAR: Regular rate and rhythm without murmurs, gallops, or rubs. RESPIRATORY: Fair air entry bilaterally. No wheezes, rales, or rhonchi. GASTROINTESTINAL: Abdomen soft, non-tender, nondistended. Positive bowel sounds MUSCULOSKELETAL: RLE without clubbing, cyanosis, or edema. Pedal pulses appreciated, left foot with +1 edema, erythema, tenderness to touch, mostly on the lateral side of first left metatarsal, insertion site of the nail in the base of the left MTP. S/P debridement 09/03 left foot wrapped, dressing c/d/ i. NEUROLOGICAL: Awake and alert. Moves all extremity. Normal speech.no focal neurological deficit Procedures Debridement of subcutaneous tissue and muscle left foot 09/[address] Stephen podiatry A/P Assessment and Plan 55 years old male admitted with -Severe Sepsis due to life-threatening Left foot infection due to puncture nail through shoe and bacteremia: Status post I&D by podiatry, on Zosyn and vancomycin for broad coverage including Pseudomonas and MRSA, pain management with morphine, ID following, monitor CBC, pain is tolerable I discussed it with the podiatry Dr. Stephen, dressing changed, cultures persistent positive, plan for debridement 09/03/15 and do new culture from the wound and if this is negative patient will be taken to or for wound closure S/P Debridement of subcutaneous tissue and muscle left foot by Dr Stephen on 09/03/16. Wound cultures 09/03 still positive Continue IV abx per ID recommendations. Pain meds per pain scale. -Fever with bacteremia: Resolved, Continue IV antibiotic per ID recommendation, new blood culture no growth for 3 days -Leukocytosis resolved -Hypertension uncontrolled, started on lisinopril increased to 20 mg daily for better optimization, Monitor blood pressure, Vasotec when necessary -Thrombocytopenia: Unclear if acute versus chronic, possibly due to alcoholism, monitor CBC -Diabetes mellitus controlled a1c 6.8: Accu-Cheks, insulin sliding scale, diabetic diet, diabetic education, A1c 6.8. -DVT prophylaxis: With heparin, cautiously due to thrombocytopenia Discharge Planning When clear by podiatry and ID POs DC on Tuesday per Dr Gutierrez podiatry. Discussed with the CM for DC plan as well, patient without a place need to go to [facility], and can't be DC on weekend. Navya Escoto MD Sep 05, 2016 13:45
[2016-09-05] MEDS: MORPHINE SULFATE 4 MG/ML INJ IV PUSH PRN ×2 (14:38→21:11)
[2016-09-05 17:18] VITALS: BP 162/75; PULSE 57; RESP 18; TEMP 97.7; O2SAT 100
[2016-09-05 20:45] VITALS: BP 146/78; PULSE 61; RESP 18; TEMP 98.3; O2SAT 99
[2016-09-06] VITALS: BP 151/83; PULSE 58; RESP 17; TEMP 98.4; O2SAT 100
[2016-09-06] MEDS: DOCUSATE SODIUM 100 MG CAP PO SCH ×2 (03:28→18:07)
[2016-09-06] MEDS: MORPHINE SULFATE 4 MG/ML INJ IV PUSH PRN ×3 (03:28→23:17)
[2016-09-06 06:00] VITALS: BP 135/73; PULSE 63; RESP 17; TEMP 98.1; O2SAT 100
[2016-09-06] MEDS: HEPARIN SODIUM - SQ 10,000 UNITS/ML VIAL SQ SCH ×3 (06:00→21:01)
[2016-09-06] MEDS: ceFAZolin 2 GM PREMIX 50 ML IV SCH ×3 (06:12→21:01)
[2016-09-06] MEDS: INSULIN NovoLIN REGULAR SUPPLEMENTAL SCALE SQ SCH ×4 (06:12→21:00)
[2016-09-06 08:56] VITALS: BP 135/82; PULSE 97; RESP 18; TEMP 98; O2SAT 98
[2016-09-06] MEDS: SODIUM CHLORIDE 0.9% FLUSH 5 ML FLUSH IVF SCH ×2 (09:00→21:00)
[2016-09-06] MEDS: LISINOPRIL 20 MG TAB PO SCH (09:52)
[2016-09-06] MEDS: METOPROLOL TARTRATE 50 MG TAB PO SCH ×2 (09:52→21:00)
--- NOTE | 2016-09-06 10:56 | HHI.FF ---
Face to Face Verification Diagnosis: (1) Hypertension (2) Non-compliance (3) Therapy failure due to antibiotic resistance (4) ETOH abuse (5) Puncture wound (6) Cellulitis (7) Type II diabetes mellitus (8) Abscess of left foot (9) Hyperglycemia Home Health Nursing Order: Medical education Signs/symptoms of disease process Diabetic education Medication education-adverse effect Wound care and dressing changes Nursing assessment with vital signs Instructions: change dressing every other day I have seen patient Alf Oconnor on 09/06/16. My clinical findings support the need for the requested home health care services because: Ltd mobility - disease progression I certify that my clinical findings support that this patient is homebound because: Post-op weakness Navya Escoto MD Sep 06, 2016 10:56
--- NOTE | 2016-09-06 10:59 | HHI.DS ---
Discharge Summary Admission Date Aug 25, 2016 at 14:38 Discharge Date: Sep 09, 2016 Admitting Diagnosis CELLULITIS (1) Puncture wound ICD Code: T14.8 Diagnosis: Principal (2) Cellulitis ICD Code: L03.90 Diagnosis: Principal (3) Hypertension ICD Code: I10 Diagnosis: Secondary (4) Non-compliance ICD Code: Z91.19 Diagnosis: Principal (5) ETOH abuse ICD Code: F10.10 Diagnosis: Secondary (6) Abscess of left foot ICD Code: L02.612 Diagnosis: Principal (7) Essential hypertension ICD Code: I10 Diagnosis: Secondary (8) Type II diabetes mellitus ICD Code: E11.9 Diagnosis: Secondary Procedures Debridement of subcutaneous tissue and muscle left foot 09/[address] Stephen podiatry Brief History - From Admission 55 years old male came to the ED for evaluation of his left foot pain , patient yesterday afternoon stepped on a jeff nail which went through his shoes, patient reported fever and chills pain mostly at the lateral side of his left big toe, nausea and vomited also reported. Patient has diabetes mellitus and he suffers from diabetic neuropathy, he stated he did not feel the nail for a while. The foot is swollen red and warmth, painful, patient is not sure of his tetanus vaccination No abdominal pain diarrhea or constipation, orthopnea PND or short of breath or chest pain or headache. CBC/BMP: 09/03/16 0608 09/03/16 0608 Imaging Last Impressions Tumor Localization 08/27/16 0000 Signed Impressions: Service Date/Time: Saturday, August 27, 2016 11:15 - CONCLUSION: Intense soft tissue uptake medial side of the first metatarsal phalangeal joint the believe spares the bone. This probably is not osteomyelitis as yet. Gómez Byeer MD FACR Chest X-Ray 08/26/16 0000 Signed Impressions: Service Date/Time: August 15:43 - CONCLUSION: 1. No acute cardiopulmonary findings. Gerson Beyer MD Foot X-Ray 08/25/16 0000 Signed Impressions: Service Date/Time: Thursday, August 25, 2016 11:26 - CONCLUSION: Unremarkable examination of the left foot. Augustine Wells MD Foot MRI 08/25/16 0000 Signed Impressions: Service Date/Time: Thursday, August 25, 2016 20:41 - CONCLUSION: 1. Minimal edema within the proximal phalanx of the great toe could be reactive versus osteomyelitis. 2. Minimal edema within the distal first metatarsal likely reactive. Jose Haynes MD PE at Discharge GENERAL: This is a well-nourished, well-developed patient, in no apparent distress. SKIN: Warm and dry HEAD: Atraumatic. Normocephalic. EYES: Pupils equal round and reactive. Extraocular motions intact. No scleral icterus. ENT: Nose without bleeding, or drainage, Airway patent. NECK: Trachea midline. Supple CARDIOVASCULAR: Regular rate and rhythm without murmurs, gallops, or rubs. RESPIRATORY: Fair air entry bilaterally. No wheezes, rales, or rhonchi. GASTROINTESTINAL: Abdomen soft, non-tender, nondistended. Positive bowel sounds MUSCULOSKELETAL: RLE without clubbing, cyanosis, or edema. Pedal pulses appreciated, left foot with +1 edema, erythema, tenderness to touch, mostly on the lateral side of first left metatarsal, insertion site of the nail in the base of the left MTP. S/P debridement 09/03 left foot wrapped, dressing c/d/ i. NEUROLOGICAL: Awake and alert. Moves all extremity. Normal speech.no focal neurological deficit Pt update on day of discharge Feels much better. Pain is controlled by meds. No n/v/d/c. Hospital Course 55 years old male admitted with -Severe Sepsis due to life-threatening Left foot infection due to puncture nail through shoe and bacteremia: Status post I&D by podiatry, on Zosyn and vancomycin for broad coverage including Pseudomonas and MRSA, pain management with morphine, ID following, monitor CBC, pain is tolerable I discussed it with the podiatry Dr. Stephen, dressing changed, cultures persistent positive, plan for debridement 09/03/15 and do new culture from the wound and if this is negative patient will be taken to or for wound closure S/P Debridement of subcutaneous tissue and muscle left foot by Dr Stephen on 09/03/16. Wound cultures 09/03 still positive Continue IV abx per ID recommendations. Patient needs ancef IV until 2/28 as well as levaquin PO 750 mg po daily. Discussed with Dr Reinoso. Pain meds per pain scale. -Fever with bacteremia: Resolved, Continue IV antibiotic per ID recommendation, new blood culture no growth for 3 days -Leukocytosis resolved -Hypertension uncontrolled, started on lisinopril increased to 20 mg daily for better optimization, Monitor blood pressure, Vasotec when necessary -Thrombocytopenia: Unclear if acute versus chronic, possibly due to alcoholism, monitor CBC -Diabetes mellitus controlled a1c 6.8: Accu-Cheks, insulin sliding scale, diabetic diet, diabetic education, A1c 6.8. -DVT prophylaxis: With heparin, cautiously due to thrombocytopenia Discharge Planning When clear by podiatry and ID POs DC on Tuesday per Dr Gutierrez podiatry. Discussed with the CM for DC plan as well, patient without a place need to go to [facility], and can't be DC on weekend. Patient will have dressing changes at [facility], CM already spoke with the center. Also to follow up with Dr Rincon. Patient decided to go home. CM for DC plan . Discussed with Dr Reinoso ID. Pt Condition on Discharge: Fair Discharge Disposition: Disch w/ Home Health Serv Discharge Time: <= 30 minutes Discharge Instructions DIET: Follow Instructions for: Heart Healthy Diet, Diabetic Diet Activities you can perform: Weight Bearing as Sulaiman Follow up Referrals: Infectious Disease - 1 Week with Emily Cardona MD PCP Follow-up - 2-3 Days with Shani Rincon MD Podiatry with Jose StephenM New Medications: Levofloxacin (Levaquin) 750 Mg Tab 750 MG PO DAILY Infection #42 Ref 0 TAB Oxycodone (Roxicodone) 5 Mg Tab 5 MG PO Q4H PRN PAIN #45 Ref 0 TAB Walker with Front Wheels (Walker with Front Wheels) 1 Mis Mis 1 EA .ROUTE DIRECTED #1 Ref 0 EA Continued Medications: Acetaminophen (Mapap) 500 Mg Tab 1000 MG PO DAILY PRN PAIN Ref 0 TAB Diphenhydramine-Acetaminophen (Tylenol Pm Extra Strength) 25-500 Mg Tab 2 TAB PO HS PRN SLEEP Glipizide (Glipizide) 5 Mg Tab 5 MG PO BIDAC Take 30 minutes before a meal Blood Sugar Management #60 Ref 0 TAB Metformin (Glucophage) 500 Mg Tab 1000 MG PO BID DM2 Days 30 Ref 3 TAB Metoprolol Tartrate (Lopressor) 50 Mg Tab 50 MG PO Q12HR HTN Days 30 Ref 3 TAB Navya Escoto MD Sep 06, 2016 10:59
[2016-09-06] MEDS ORDERED: NORC5TAB PO (11:45)
--- NOTE | 2016-09-06 13:27 | HHI.PR ---
Addendum to Inpatient Note Additional Information dw microlab PSAE from 09/03 harrell S Pseudomonas Stutzeri from 09/02 - ID P Kristal Gaines MD Sep 06, 2016 13:27
[2016-09-06] MEDS: LEVOFLOXACIN 750 MG TAB PO SCH (13:30)
--- NOTE | 2016-09-06 14:41 | HHI.IDPN ---
Subjective Subjective Remarks pt has multiple debridements and last oneon Tuesday He wants to go home NO fever no other co He is growing 2 different strains of Pseudomonas, both S to Levaquine Antibiotics cefazolin Allergies: Coded Allergies: Dilaudid (Verified Allergy, Unknown, Itching, 09/03/16) Objective . Vital Signs Date Time Temp Pulse Resp B/P Pulse Ox O2 Delivery O2 Flow Rate FiO2 09/06/16 08:56 98.0 97 18 135/82 98 09/06/16 06:00 98.1 63 17 135/73 100 09/06/16 00:00 98.4 58 17 151/83 100 09/05/16 20:45 98.3 61 18 146/78 99 09/05/16 20:00 Room Air 09/05/16 17:18 97.7 57 18 162/75 100 09/05/16 14:43 14 09/05/16 09/05/16 09/06/16 15:00 23:00 07:00 Intake Total 720 ml 900 ml 700 ml Balance 720 ml 900 ml 700 ml Intake Oral 720 ml 900 ml 700 ml # Voids 5 2 3 # Bowel Movements 2 0 1 Imaging Last Impressions Tumor Localization 08/27/16 0000 Signed Impressions: Service Date/Time: Saturday, August 27, 2016 11:15 - CONCLUSION: Intense soft tissue uptake medial side of the first metatarsal phalangeal joint the believe spares the bone. This probably is not osteomyelitis as yet. Gómez Beyer MD FACR Chest X-Ray 08/26/16 0000 Signed Impressions: Service Date/Time: August 15:43 - CONCLUSION: 1. No acute cardiopulmonary findings. Gerson Beyer MD Foot X-Ray 08/25/16 0000 Signed Impressions: Service Date/Time: Thursday, August 25, 2016 11:26 - CONCLUSION: Unremarkable examination of the left foot. Augustine Wells MD Foot MRI 08/25/16 0000 Signed Impressions: Service Date/Time: Thursday, August 25, 2016 20:41 - CONCLUSION: 1. Minimal edema within the proximal phalanx of the great toe could be reactive versus osteomyelitis. 2. Minimal edema within the distal first metatarsal likely reactive. oJse Haynes MD Physical Exam NAD L foot - deep 1 st MT wound with quiroz and yellow slogh, no granulations, dusky skin aorund it Assessment & Plan Remarks DFI, L foot , 1 MT area resulted from nail punctiuure wound - MSSA, strep not A, B, D - no also Pseudomonas spp x 2 - wound is not appearing healing Strep not A,B or D bactermia, high grade - likely 2/2 from L ofot infection - repeat BC negative Sepsis (fever, leukocytosis, bandemia, abn LFTs, tachycardia) with known source and bacetremia MSSA, strep bactermeia - echo negative - cont ancef - add Levaquine - pt needs vascular w/u - PICC line - anticipate IV abx (ancef) + PO levaquine - Dr Stephen is planning to re-eval pt later today Discussed Condition With Tigist De La Torre RN, Alexandra A. MD Sep 06, 2016 14:41
--- NOTE | 2016-09-06 14:53 | HHI.FF ---
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 [] May leave port accessed during therapy. [] May leave peripheral site accessed for duration of therapy. [x] If patient has SOB or respiratory distress, check oxygen saturation. If less than 90% or clinical signs of respiratory distress, administer oxygen at 2 L/min. via nasal cannula and notify physician. [x] Anaphylaxis/Reaction orders: * Stop infusion. * Keep IV line open with saline flush. * Notify physician. * Monitor vital signs every 15 minutes until symptoms resolve. * Check Oxygen saturation; Oxygen at 2 L/min. via nasal cannula if less than 90% or clinical signs of respiratory distress. * Administer diphenhydramine (Benadryl) 25 mg IV STAT, (unless patient has received as pre-med). May repeat once, if necessary. * Solu-Cortef 250 mg IVP over 30-60 seconds, use 100 mg vials for each dissolution. * Epinephrine (1mg/1 ml) 0.3 mg subcutaneously or IVP now with any signs of respiratory distress. * Check with physician for new additional pre-med orders if patient is re- challenged or re-treated. [x] May remove PICC line when treatment complete, after confirming with Physician. [x] If the patient is admitted to the hospital, the ED, or transferred via [facility] , complete transfer form including medication reconciliation order sheet. Laboratory Tests Weekly Labs: CBC w/diff, Creatinine, SED Rate Kristal Gaines MD Sep 06, 2016 14:53
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
[2016-09-06 17:22] VITALS: BP 148/74; PULSE 63; RESP 18; TEMP 97.9
--- NOTE | 2016-09-06 17:29 | RADRPT ---
EXAM DATE/TIME: 09/06/2016 17:15 [facility] COMPARISON: No previous studies available for comparison. INDICATIONS : PICC line placement. MEDICAL HISTORY : None. SURGICAL HISTORY : None. ENCOUNTER: Initial ACUITY: 1 day PAIN SCORE: 0/10 LOCATION: Bilateral chest FINDINGS: A single view of the chest demonstrates the lungs to be symmetrically aerated without evidence of mas s, infiltrate or effusion. Right upper cavity PICC line with the tip projecting over the central saima ous system. The cardiomediastinal contours are unremarkable. Osseous structures are intact. CONCLUSION: 1. Right upper extremity PICC line with the tip projecting over the central venous system. 2. No acute cardiopulmonary process. Lencho Obrien MD on September 06, 2016 at 17:27 Board Certified Radiologist. This report was verified electronically.
[2016-09-06 20:00] VITALS: BP 155/80; PULSE 66; RESP 20; TEMP 96.8; O2SAT 100
[2016-09-07] VITALS: BP 133/75; PULSE 59; RESP 20; TEMP 96.4; O2SAT 98
[2016-09-07] MEDS: DOCUSATE SODIUM 100 MG CAP PO SCH ×2 (02:45→12:47)
[2016-09-07 05:44] VITALS: BP 127/77; PULSE 63; RESP 20; TEMP 96.5; O2SAT 98
[2016-09-07] MEDS: HEPARIN SODIUM - SQ 10,000 UNITS/ML VIAL SQ SCH ×3 (06:00→20:57)
[2016-09-07] MEDS: ceFAZolin 2 GM PREMIX 50 ML IV SCH ×3 (06:06→20:56)
[2016-09-07] MEDS: INSULIN NovoLIN REGULAR SUPPLEMENTAL SCALE SQ SCH ×4 (06:09→20:57)
[2016-09-07] MEDS: MORPHINE SULFATE 4 MG/ML INJ IV PUSH PRN ×3 (06:49→19:25)
[2016-09-07 08:34] VITALS: BP 120/75; PULSE 63; RESP 18; TEMP 96.5; O2SAT 97
[2016-09-07] MEDS: METOPROLOL TARTRATE 50 MG TAB PO SCH ×2 (09:00→20:56)
[2016-09-07] MEDS: LEVOFLOXACIN 750 MG TAB PO SCH ×2 (09:00→17:44)
[2016-09-07] MEDS: SODIUM CHLORIDE 0.9% FLUSH 5 ML FLUSH IVF SCH ×2 (09:00→20:56)
[2016-09-07] MEDS: LISINOPRIL 20 MG TAB PO SCH (09:00)
--- NOTE | 2016-09-07 12:03 | PD.VS.CON ---
History of Present Illness Chief Complaint: L foot wound, diabetic Consult Requested by: Podiatry History of Present Illness 55 yo male with diabetes (Hgb A1c 6.8 Sep 01) who stepped on a nail approximately 2 weeks ago and has been in the hospital since. He has undergone I&D x 2 with culture-directed antibiotic therapy with minimal improvement in the wound. Because on the last debridement there was noted to be minimal bleeding, vascular surgery was consulted. He has no antecedent symptoms of PAD but does have diabetic neuropathy. Over the past few days, he has no F/C and has no leukocytosis. Past/Family/Social History Past Medical History DM HTN Past Surgical History L foot debridement as above Home Medications Active Scripts Hydrocodone-Acetaminophen (Stryker)5-325 mg Tab1-2 Tab PO Q6H PRN (PAIN) #20 TAB Ref 0 Prov:Navya Escoto MD 09/06/16 Glipizide 5 Mg Tab5 Mg PO BIDAC #60 TAB Ref 0 Take 30 minutes before a meal Prov:Jose Nino MD 07/04/16 Metformin (Glucophage)500 Mg Tab1,000 Mg PO BID 30 Days Ref 3 Prov:Jose Nino MD 07/04/16 Metoprolol Tartrate (Lopressor)50 Mg Tab50 Mg PO Q12HR 30 Days Ref 3 Prov:Jose Nino MD 07/04/16 Reported Medications Acetaminophen (Mapap)500 Mg Tab1,000 Mg PO DAILY PRN (PAIN) Ref 0 08/25/16 Diphenhydramine-Acetaminophen (Tylenol Pm Extra Strength)25-500 Mg Tab2 Tab PO HS PRN (SLEEP) 06/20/16 Coded Allergies: Dilaudid (Verified Allergy, Unknown, Itching, 09/03/16) Review of Systems Constitutional: DENIES: Fever, Chills Cardiovascular: DENIES: Chest pain Physical Exam Vitals/I&O Date Time Temp Pulse Resp B/P Pulse Ox O2 Delivery O2 Flow Rate FiO2 09/07/16 11:46 97 Room Air 09/07/16 08:34 96.5 63 18 120/75 97 09/07/16 05:44 96.5 63 20 127/77 98 09/07/16 00:00 96.4 59 20 133/75 98 09/06/16 20:00 96.8 66 20 155/80 100 09/06/16 17:22 97.9 63 18 148/74 Neuro: alert, oriented, no deficits HEENT: NC/AT Neck: no JVD Heart: reg rate Lungs: nonlabored Vascular: palpable pedal pulse, 2+ DP Extremities: L foot with edema and medial incision at base of phalanges, no odor. Date/Time Procedure Status Source Growth 09/03/16 09:58 Gram Stain - Final Complete Abscess Foot 09/03/16 09:58 Wound Culture - Final Complete Staphylococcus Aureus Pseudomonas Aeruginosa Last 48 hours Impressions Chest X-Ray 09/06/16 0000 Signed Impressions: Service Date/Time: Tuesday, September 06, 2016 17:15 - CONCLUSION: 1. Right upper extremity PICC line with the tip projecting over the central venous system. 2. No acute cardiopulmonary process. Lencho Obrien MD Assessment and Plan Plan Traumatic foot wound in a diabetic. He has palpable pulses that are normal in quality. Nothing further needs to be done to assess or augment his circulation. Recommend continued wound care and perhaps repeat imaging to see resolution / evolution of "reactive" (but potentially osteo) osteal changes on initial XRay. Caden Wright MD FACS stripper and opaquer apprentice [facility] V[facility] - [facility] [phone] Caden Wright MD Sep 07, 2016 12:03
[2016-09-07 12:06] VITALS: BP 128/69; PULSE 76; RESP 18; TEMP 97.8; O2SAT 97
--- NOTE | 2016-09-07 12:56 | HHI.PR ---
Addendum to Inpatient Note Addendum Reason: Additional Documentation Additional Information Reviewed vascular surgery no. Patient can be discharged at any time when cleared by medicine and infectious disease. Follow-up with Dr. Rincon. Note that I will be out of town from Tuesday through Tuesday. Dr. Juan Manuel Heart covering wound care patient's in patient in my place. Please contact Dr. Briceño starting Tuesday if further evaluation and treatment needed. Jose Stephen DPM Sep 07, 2016 12:56
[2016-09-07] MEDS: diphenhydrAMINE HCL 25 MG CAP PO PRN (12:58)
--- NOTE | 2016-09-07 13:44 | HHI.PR ---
Subjective Remarks Patient is in nad, eating. Says pain is fairly controlled by meds. No n/v/d/c No fever or chills. Objective Vitals Vital Signs Date Time Temp Pulse Resp B/P Pulse Ox O2 Delivery O2 Flow Rate FiO2 09/07/16 12:06 97.8 76 18 128/69 97 09/07/16 11:46 97 Room Air 09/07/16 08:34 96.5 63 18 120/75 97 09/07/16 05:44 96.5 63 20 127/77 98 09/07/16 00:00 96.4 59 20 133/75 98 09/06/16 20:00 96.8 66 20 155/80 100 09/06/16 17:22 97.9 63 18 148/74 I/O 09/06/16 09/06/16 09/06/16 09/07/16 09/07/16 09/07/16 07:00 15:00 23:00 07:00 15:00 23:00 Intake Total 700 ml 960 ml 720 ml Balance 700 ml 960 ml 720 ml Intake Oral 700 ml 960 ml 720 ml # Voids 3 3 2 # Bowel Movements 1 0 0 Result Diagram: 09/03/16 0608 09/03/16 0608 Imaging Last Impressions Chest X-Ray 09/06/16 0000 Signed Impressions: Service Date/Time: Tuesday, September 06, 2016 17:15 - CONCLUSION: 1. Right upper extremity PICC line with the tip projecting over the central venous system. 2. No acute cardiopulmonary process. Lencho Obrien MD Tumor Localization 08/27/16 0000 Signed Impressions: Service Date/Time: Saturday, August 27, 2016 11:15 - CONCLUSION: Intense soft tissue uptake medial side of the first metatarsal phalangeal joint the believe spares the bone. This probably is not osteomyelitis as yet. Gómez Beyer MD FACR Foot X-Ray 08/25/16 0000 Signed Impressions: Service Date/Time: Thursday, August 25, 2016 11:26 - CONCLUSION: Unremarkable examination of the left foot. Augustine Wells MD Foot MRI 08/25/16 0000 Signed Impressions: Service Date/Time: Thursday, August 25, 2016 20:41 - CONCLUSION: 1. Minimal edema within the proximal phalanx of the great toe could be reactive versus osteomyelitis. 2. Minimal edema within the distal first metatarsal likely reactive. Jose Haynes MD Objective Remarks GENERAL: This is a well-nourished, well-developed patient, in no apparent distress. SKIN: Warm and dry HEAD: Atraumatic. Normocephalic. EYES: Pupils equal round and reactive. Extraocular motions intact. No scleral icterus. ENT: Nose without bleeding, or drainage, Airway patent. NECK: Trachea midline. Supple CARDIOVASCULAR: Regular rate and rhythm without murmurs, gallops, or rubs. RESPIRATORY: Fair air entry bilaterally. No wheezes, rales, or rhonchi. GASTROINTESTINAL: Abdomen soft, non-tender, nondistended. Positive bowel sounds MUSCULOSKELETAL: RLE without clubbing, cyanosis, or edema. Pedal pulses appreciated, left foot with +1 edema, erythema, tenderness to touch, mostly on the lateral side of first left metatarsal, insertion site of the nail in the base of the left MTP. S/P debridement 09/03 left foot wrapped, dressing c/d/ i. NEUROLOGICAL: Awake and alert. Moves all extremity. Normal speech.no focal neurological deficit Procedures Debridement of subcutaneous tissue and muscle left foot 09/[address] Stephen podiatry A/P Assessment and Plan 55 years old male admitted with -Severe Sepsis due to life-threatening Left foot infection due to puncture nail through shoe and bacteremia: Status post I&D by podiatry, on Zosyn and vancomycin initially chnaged to ancef an IV and levaquin PO pain management, ID following, monitor CBC, pain is tolerable S/P Debridement of subcutaneous tissue and muscle left foot by Dr Stephen on 09/03/16 and. Wound cultures 09/03 still positive. Continue IV abx per ID recommendations. Pain meds per pain scale. He is growing 2 different strains of Pseudomonas, both S to Levaquine DFI, L foot , 1 MT area resulted from nail puncture wound - MSSA, strep not A, B, D - Pseudomonas spp x 2 Strep not A,B or D bacteremia, high grade - likely 2/2 from L foot infection- repeat BC negative Sepsis (fever, leukocytosis, bandemia, abn LFTs, tachycardia) with known source and bacetremia MSSA, strep bactermeia ECHO negative Cont ancef Added Levaquine po 750 mg daily Pt needs vascular w/u PICC line place. Anticipate IV abx (ancef) + PO levaquine per ID specialist Dr Reinoso -Hypertension uncontrolled, started on lisinopril, increased to 20 mg daily for better optimization. Monitor blood pressure. Vasotec when necessary. -Thrombocytopenia: Unclear if acute versus chronic, possibly due to alcoholism, monitor CBC -Diabetes mellitus controlled a1c 6.8: Accu-Cheks, insulin sliding scale, diabetic diet, diabetic education, A1c 6.8. -DVT prophylaxis: With heparin, cautiously due to thrombocytopenia Discharge Planning When clear by podiatry and ID Discussed with the CM for DC plan as well, patient without a place need to go to [facility], and can't be DC on weekend. Need IV abx ancef likely at DC. Discharge when cleared by ID specialist Dr Reinoso Podiatry signed off . If need reconsult, his partner. No surgical intervention. Cont abx per ID. Navya Escoto MD Sep 07, 2016 13:44
[2016-09-07 20:00] VITALS: BP 125/72; PULSE 65; RESP 20; TEMP 98.2; O2SAT 99
[2016-09-08 00:39] VITALS: BP 103/69; PULSE 69; RESP 20; TEMP 97.9; O2SAT 99
[2016-09-08] MEDS: DOCUSATE SODIUM 100 MG CAP PO SCH ×2 (02:45→11:27)
[2016-09-08 05:16] VITALS: BP 123/73; PULSE 65; RESP 20; TEMP 97.5; O2SAT 99
[2016-09-08] MEDS: ceFAZolin 2 GM PREMIX 50 ML IV SCH ×3 (05:40→21:38)
[2016-09-08] MEDS: HEPARIN SODIUM - SQ 10,000 UNITS/ML VIAL SQ SCH ×4 (05:40→21:50)
[2016-09-08] MEDS: MORPHINE SULFATE 4 MG/ML INJ IV PUSH PRN ×3 (06:24→18:12)
[2016-09-08] MEDS: INSULIN NovoLIN REGULAR SUPPLEMENTAL SCALE SQ SCH ×4 (06:25→21:00)
[2016-09-08 08:00] VITALS: BP 104/73; PULSE 67; RESP 18; TEMP 97.7; O2SAT 98
[2016-09-08] MEDS: LACTATED RINGER'S 1000 ML IV SCH (08:15)
[2016-09-08] MEDS: SODIUM CHLORIDE 0.9% FLUSH 5 ML FLUSH IVF SCH ×2 (09:00→21:00)
[2016-09-08] MEDS: METOPROLOL TARTRATE 50 MG TAB PO SCH ×2 (09:22→21:37)
[2016-09-08] MEDS: LISINOPRIL 20 MG TAB PO SCH (09:22)
[2016-09-08] MEDS ORDERED: WALKER WHEELS/F1 MIS (11:06)
[2016-09-08 12:00] VITALS: BP 103/72; PULSE 71; RESP 18; TEMP 97.9; O2SAT 97
[2016-09-08] MEDS ORDERED: OXYC1TAB13 PO (13:54)
[2016-09-08 16:00] VITALS: BP 108/73; PULSE 72; RESP 18; TEMP 96.3; O2SAT 98
--- NOTE | 2016-09-08 16:20 | HHI.PR ---
Subjective Remarks Feels much better today. Says he wants to go home and not to [facility]. Says he is having pain however is better controlled by meds. no n/v/d/c. Objective Vitals Vital Signs Date Time Temp Pulse Resp B/P Pulse Ox O2 Delivery O2 Flow Rate FiO2 09/08/16 12:00 97.9 71 18 103/72 97 09/08/16 08:00 97.7 67 18 104/73 98 09/08/16 05:16 97.5 65 20 123/73 99 09/08/16 00:39 97.9 69 20 103/69 99 09/07/16 20:00 98.2 65 20 125/72 99 I/O 09/07/16 09/07/16 09/07/16 09/08/16 09/08/16 09/08/16 07:00 15:00 23:00 07:00 15:00 23:00 Intake Total 1200 ml 720 ml Balance 1200 ml 720 ml Intake Oral 1200 ml 720 ml # Voids 2 4 2 # Bowel Movements 0 1 1 0 Imaging Last Impressions Chest X-Ray 09/06/16 0000 Signed Impressions: Service Date/Time: Tuesday, September 06, 2016 17:15 - CONCLUSION: 1. Right upper extremity PICC line with the tip projecting over the central venous system. 2. No acute cardiopulmonary process. Lencho Obrien MD Tumor Localization 08/27/16 0000 Signed Impressions: Service Date/Time: Saturday, August 27, 2016 11:15 - CONCLUSION: Intense soft tissue uptake medial side of the first metatarsal phalangeal joint the believe spares the bone. This probably is not osteomyelitis as yet. Gómez Beyer MD FACR Foot X-Ray 08/25/16 0000 Signed Impressions: Service Date/Time: Thursday, August 25, 2016 11:26 - CONCLUSION: Unremarkable examination of the left foot. Augustine Wells MD Foot MRI 08/25/16 0000 Signed Impressions: Service Date/Time: Thursday, August 25, 2016 20:41 - CONCLUSION: 1. Minimal edema within the proximal phalanx of the great toe could be reactive versus osteomyelitis. 2. Minimal edema within the distal first metatarsal likely reactive. Jose Haynes MD Objective Remarks GENERAL: This is a well-nourished, well-developed patient, in no apparent distress. SKIN: Warm and dry HEAD: Atraumatic. Normocephalic. EYES: Pupils equal round and reactive. Extraocular motions intact. No scleral icterus. ENT: Nose without bleeding, or drainage, Airway patent. NECK: Trachea midline. Supple CARDIOVASCULAR: Regular rate and rhythm without murmurs, gallops, or rubs. RESPIRATORY: Fair air entry bilaterally. No wheezes, rales, or rhonchi. GASTROINTESTINAL: Abdomen soft, non-tender, nondistended. Positive bowel sounds MUSCULOSKELETAL: RLE without clubbing, cyanosis, or edema. Pedal pulses appreciated, left foot with +1 edema, erythema, tenderness to touch, mostly on the lateral side of first left metatarsal, insertion site of the nail in the base of the left MTP. S/P debridement 09/03 left foot wrapped, dressing c/d/ i. NEUROLOGICAL: Awake and alert. Moves all extremity. Normal speech.no focal neurological deficit Procedures Debridement of subcutaneous tissue and muscle left foot 09/[address] Stephen podiatry A/P Assessment and Plan 55 years old male admitted with -Severe Sepsis due to life-threatening Left foot infection due to puncture nail through shoe and bacteremia: Status post I&D by podiatry, on Zosyn and vancomycin initially chnaged to ancef an IV and levaquin PO pain management, ID following, monitor CBC, pain is tolerable S/P Debridement of subcutaneous tissue and muscle left foot by Dr Stephen on 09/03/16 and. Wound cultures 09/03 still positive. Continue IV abx per ID recommendations. Pain meds per pain scale. He is growing 2 different strains of Pseudomonas, both S to Levaquine DFI, L foot , 1 MT area resulted from nail puncture wound - MSSA, strep not A, B, D - Pseudomonas spp x 2 Strep not A,B or D bacteremia, high grade - likely 2/2 from L foot infection- repeat BC negative Sepsis (fever, leukocytosis, bandemia, abn LFTs, tachycardia) with known source and bacetremia MSSA, strep bactermeia ECHO negative Cont ancef Added Levaquine po 750 mg daily Pt needs vascular w/u PICC line place. Anticipate IV abx (ancef) + PO levaquine per ID specialist Dr Reinoso -Hypertension uncontrolled, started on lisinopril, increased to 20 mg daily for better optimization. Monitor blood pressure. Vasotec when necessary. -Thrombocytopenia: Unclear if acute versus chronic, possibly due to alcoholism, monitor CBC -Diabetes mellitus controlled a1c 6.8: Accu-Cheks, insulin sliding scale, diabetic diet, diabetic education, A1c 6.8. -DVT prophylaxis: With heparin, cautiously due to thrombocytopenia Discharge Planning DC tomorrow after antibiotic. As per case management arrangement to have infusion abx Discussed with the CM for DC plan. Need IV abx ancef and PO levaqiuin discussed wit Dr Reinoso ID specialist regarding abx at DC. Discharge when cleared by ID specialist Dr Reinoso Podiatry signed off . If need reconsult, his partner. No surgical intervention. Cont abx per ID. Seen by vascular surgeon , cleared for DC. Navya Escoto MD Sep 08, 2016 16:20
[2016-09-08] MEDS: diphenhydrAMINE HCL 25 MG CAP PO PRN (18:19)
[2016-09-08 20:00] VITALS: BP 147/75; PULSE 67; RESP 20; TEMP 96.9; O2SAT 99
--- NOTE | 2016-09-08 20:38 | HHI.PR ---
Addendum to Inpatient Note Additional Information Vascular input appreciated - cont cefazolin IV 2 gm q 8 hrs and Levaquine po 750 daily thry Oct 19 OK to dc dc with Kristal Rowan MD Sep 08, 2016 20:38
[2016-09-09] VITALS: BP 137/85; PULSE 80; RESP 18; TEMP 97.2; O2SAT 94
[2016-09-09] MEDS: diphenhydrAMINE HCL 25 MG CAP PO PRN (01:10)
[2016-09-09] MEDS: DOCUSATE SODIUM 100 MG CAP PO SCH (02:45)
[2016-09-09 04:00] VITALS: BP 140/83; PULSE 87; RESP 20; TEMP 97.5; O2SAT 96
[2016-09-09] MEDS: HEPARIN SODIUM - SQ 10,000 UNITS/ML VIAL SQ SCH (06:00)
[2016-09-09] MEDS: INSULIN NovoLIN REGULAR SUPPLEMENTAL SCALE SQ SCH (06:09)
[2016-09-09] MEDS: ceFAZolin 2 GM PREMIX 50 ML IV SCH (06:09)
[2016-09-09 08:00] VITALS: BP 135/80; PULSE 70; RESP 18; TEMP 96.9; O2SAT 98
[2016-09-09] MEDS ORDERED: LEVA750T PO (09:14)
[2016-09-09] MEDS: LACTATED RINGER'S 1000 ML IV SCH (09:15)
[2016-09-09] MEDS: LEVOFLOXACIN 750 MG TAB PO SCH (09:17)
[2016-09-09] MEDS: SODIUM CHLORIDE 0.9% FLUSH 5 ML FLUSH IVF SCH (09:18)
[2016-09-09] MEDS: METOPROLOL TARTRATE 50 MG TAB PO SCH (09:23)
[2016-09-09] MEDS: LISINOPRIL 20 MG TAB PO SCH (09:23)
[2016-09-13] MEDS ORDERED: CEFA1INJ IV (08:41)
[2016-09-20] MEDS ORDERED: IBUP800T23 PO (10:12)
[2016-09-27] MEDS ORDERED: LISI10TA3 PO (08:35)
[2016-10-04] MEDS ORDERED: ONDA4INJ2 IM (09:11)
[2016-10-04] MEDS ORDERED: PROM25TA5 PO ×2 (09:13→09:25)
[2016-10-25] MEDS ORDERED: DIPH50IN2 IM (09:47)
[2016-10-25] MEDS ORDERED: METF500 PO (16:28)
[2016-10-25] MEDS ORDERED: GLIP5TAB8 PO (16:30)
[2016-10-25] MEDS ORDERED: IBUP800T23 PO (16:30)
[2016-10-26] MEDS ORDERED: METF1000 PO (12:43)
[2016-10-28] MEDS ORDERED: METF1000 PO (17:51)
[2016-11-01] MEDS ORDERED: GLIP10TA6 PO (15:14)
[2016-11-08] MEDS ORDERED: METO-309 PO (08:48)
[2016-11-11] MEDS ORDERED: BACT800T5 PO (08:36)
[2017-01-10] MEDS ORDERED: NEUR300C PO (13:43)
[2017-01-11] MEDS ORDERED: TRAZ150T75 PO ×2 (08:46→08:59)
[2017-01-11] MEDS ORDERED: NEUR300C PO ×2 (08:59→11:37)
[2017-01-11] MEDS ORDERED: METO25TA3 PO (08:59)
[2017-01-11] MEDS ORDERED: IBUP-232 PO (08:59)
[2017-01-11] MEDS ORDERED: GLIP5 PO (08:59)
[2017-01-11] MEDS ORDERED: CYCL1TAB29 PO (08:59)
[2017-01-11] MEDS ORDERED: LISI10TA3 PO (08:59)
[2017-01-11] MEDS ORDERED: METF500 PO (08:59)
== END 2016-09-09 09:50 | disposition home or self-care (01) | DRG 854 ==
LOC: NEPB 09:48 → NEDA 14:38 → OBSVTOIN 14:38 → NEPHCDU 17:15 → N05A 08-28 18:40
PROVIDERS: ADMIT Hospitalist; ATTEND Hospitalist
PROC: 0J9R3ZZ Drainage of Left Foot Subcutaneous Tissue and Fascia, Percutaneous Approach (ICD-10-PCS; 2016-08-27)
PROC: 0JDR0ZZ Extraction of Left Foot Subcutaneous Tissue and Fascia, Open Approach (ICD-10-PCS; principal; 2016-09-03 09:40)
PROC: 02HV33Z Insertion of Infusion Device into Superior Vena Cava, Percutaneous Approach (ICD-10-PCS; 2016-09-06)
DX: A40.9 Streptococcal sepsis, unspecified (principal); L03.116 Cellulitis of left lower limb; E11.40 Type 2 diabetes mellitus with diabetic neuropathy, unspecified; D69.6 Thrombocytopenia, unspecified; L02.612 Cutaneous abscess of left foot; A41.52 Sepsis due to Pseudomonas; A41.01 Sepsis due to Methicillin susceptible Staphylococcus aureus; I10 Essential (primary) hypertension; S91.332A Puncture wound without foreign body, left foot, initial encounter; M19.90 Unspecified osteoarthritis, unspecified site; R65.20 Severe sepsis without septic shock; E87.6 Hypokalemia; F10.10 Alcohol abuse, uncomplicated; F41.9 Anxiety disorder, unspecified; W45.0XXA Nail entering through skin, initial encounter; Z77.090 Contact with and (suspected) exposure to asbestos; Z79.84 Long term (current) use of oral hypoglycemic drugs; Z91.19 Patient's noncompliance with other medical treatment and regimen
CPT/HCPCS: 71010; 71020; 73630; 73720; 76937; 78807; 78999; 80048; 80053; 80202; 81001; 82565; 82948; 83036; 84132; 85007; 85025; 85027; 85610; 85652; 86140; 86403; 87040; 87070; 87077; 87147; 87186; 87205; 90471; 90714; 93005; 93308; 96365; 96368; 96375; A9569; A9579; J0131; J0690; J0744; J1642; J1644; J2250; J2270; J2405; J2543; J2765; J3010; J3370; J7030; J7040; J7050; J7120; L3260

== ENCOUNTER 2016-10-10 16:40 | Emergency (ER) | payer OTHER ==
[~2016-10-10] VITALS: Ht 172.7 cm; Wt 100.0 kg
[~2016-10-10 16:40] MED LIST changes: -AMPI500C8 PO; -BACT800T5 PO; +CEFA1INJ IV; -COLL30T TOP; -IBUP-988 PO; +IBUP800T23 PO; -LACT PO; +LEVA750T PO; +LISI10TA3 PO; +MAPA500T PO; +PROM25TA5 PO; +WALKER WHEELS/F1 MIS
[2016-10-10 16:42] VITALS: BP 139/66; PULSE 86; RESP 15; TEMP 98.6; O2SAT 95
[2016-10-10] MEDS ORDERED: ceFAZolin 2 GM PREMIX 50 ML IV ONE (18:15)
--- NOTE | 2016-10-10 18:54 | PD ---
HPI Chief Complaint: Medication Refill Request Time Seen by Provider: 17:56 Travel History International Travel<30 days: No Contact w/Intl Traveler<30days: No Traveled to known affect area: No History of Present Illness HPI Patient is a 56-year-old intoxicated male who presents to emergency room for medication administration. Patient reports that he has cellulitis to his left lower extremity and was recently admitted to the hospital. Apparently, he had suffered a left foot infection due to a puncture nail wound through his shoe and became bacteremic during his last admission. Patient was ultimately discharged home with a PICC line with instructions to go to the infusion clinic daily to receive his 6,000mg of IV antibiotics over 24 hours. Patient reports "I didn't make it to my appointment and didn't get my cefazolin 6000 mg infusion." Reports that he couldn't get to the clinic so he decided to have a few alcoholic drinks. Patient did take his Levaquin 750mg po dose today. Reports that he would like his IV antibiotics and request that his wound be cleaned and his dressing be changed. Patient does follow up with Dr. Rincon for dressing changes and he was last seen on October 06, 2016 for this. Patient reports that he is supposed to be on cefazolin 6000 mg over 24 hours as well as Levaquin 750 mg orally until October 19, 2016. PFSH Past Medical History Asthma: No Autoimmune Disease: No Anxiety: Yes Heart Rhythm Problems: No Cardiovascular Problems: Yes (HTN) High Cholesterol: No Chest Pain: No Congestive Heart Failure: No COPD: No Diabetes: Yes Patient Takes Glucophage: Yes (10/10/16) Diminished Hearing: No GERD: No Genitourinary: No Hiatal Hernia: No Hypertension: Yes (Takes 10mg of lisinopril QD) Kidney Stones: No Musculoskeletal: Yes (PAINFUL LEGS) Neurologic: Yes (diabetic neuropathy) Psychiatric: Yes Reproductive: No Respiratory: No Renal Failure: No Sleep Apnea: No Ulcer: No Tetanus Vaccination: < 5 Years Influenza Vaccination: Yes Past Surgical History Other Surgery: Yes (I&D OF L. FOOT) Social History Alcohol Use: Yes (6 BEERS/DAY) Tobacco Use: No Substance Use: No Allergies-Medications (Allergen,Severity, Reaction): Coded Allergies: Dilaudid (Verified Allergy, Unknown, Itching, 10/04/16) Reported Meds & Prescriptions Reported Meds & Active Scripts Active Phenergan (Promethazine HCl) 25 Mg Tab 25 Mg PO Q6H PRN Ibuprofen 800 Mg Tab 800 Mg PO Q8H PRN Levaquin (Levofloxacin) 750 Mg Tab 750 Mg PO DAILY Walker with Front Wheels (Device) 1 Mis Mis 1 Ea .ROUTE DIRECTED Glipizide 5 Mg Tab 5 Mg PO BIDAC Take 30 minutes before a meal Glucophage (Metformin HCl) 500 Mg Tab 1,000 Mg PO BID 30 Days Lopressor (Metoprolol Tartrate) 50 Mg Tab 50 Mg PO Q12HR 30 Days Reported Lisinopril 10 Mg Tab 10 Mg PO DAILY Cefazolin Inj 3 Gm/100 Ml Bagp 4 Ml IV CONTINUOUS 30 Days Give with dialysis. Mapap (Acetaminophen) 500 Mg Tab 1,000 Mg PO DAILY PRN Tylenol Pm Extra Strength (Diphenhydramine-Acetaminophen) 25-500 Mg Tab 2 Tab PO HS PRN Review of Systems General / Constitutional: No: Fever Eyes: No: Visual changes HENT: No: Headaches Cardiovascular: No: Chest Pain or Discomfort Respiratory: No: Shortness of Breath Gastrointestinal: No: Abdominal Pain Genitourinary: No: Dysuria Musculoskeletal: No: Pain Skin: No Rash Neurologic: No: Weakness Psychiatric: No: Depression Endocrine: No: Polydipsia Hematologic/Lymphatic: No: Easy Bruising Physical Exam Narrative GENERAL: pt intoxicted SKIN: Warm and dry. HEAD: Atraumatic. Normocephalic. EYES: Pupils equal and round. No scleral icterus. No injection or drainage. ENT: No nasal bleeding or discharge. Mucous membranes pink and moist. NECK: Trachea midline. No JVD. CARDIOVASCULAR: Regular rate and rhythm. No murmur appreciated. RESPIRATORY: No accessory muscle use. Clear to auscultation. Breath sounds equal bilaterally. GASTROINTESTINAL: Abdomen soft, non-tender, nondistended. Hepatic and splenic margins not palpable. MUSCULOSKELETAL: No obvious deformities. No clubbing. No cyanosis. No edema. patient with healing wound to left foot, no drainage on exam, pulses intact NEUROLOGICAL: Awake and alert. No obvious cranial nerve deficits. Motor grossly within normal limits. Normal speech. PSYCHIATRIC: Appropriate mood and affect; insight and judgment normal. Data Data Last Documented VS Vital Signs Date Time Temp Pulse Resp B/P Pulse Ox O2 Delivery O2 Flow Rate FiO2 10/10/16 16:42 98.6 86 15 139/66 95 Orders Cefazolin 2 Gm Premix (Ancef 2 Gm Premix (10/10/16 18:15) MDM Medical Decision Making Medical Screen Exam Complete: Yes Emergency Medical Condition: Yes Interpretation(s) Vital Signs Date Time Temp Pulse Resp B/P Pulse Ox O2 Delivery O2 Flow Rate FiO2 10/10/16 16:42 98.6 86 15 139/66 95 Differential Diagnosis Medication noncompliance, intoxication, wound check, wound infection Narrative Course Patient is a 56-year-old male who returns to emergency room for evaluation and treatment of left lower leg infection. Patient suffered a puncture wound to his left foot and subsequently was admitted to the hospital with sepsis and bacteremia. Patient was ultimately discharged home with a PICC line and instructions take oral Levaquin 750 mg every day. He was instructed to go to the outpatient IV infusion center for his daily dose of cefazolin 6000 mg. Patient reports that he did not go for his appointment today and is here for his IV antibiotics. Patient with no complaints at this time. Patient denies fevers or chills, denies worsening symptoms. Patient's also requesting that his dressings be changed. Vital signs stable this time, patient's wound was assessed, healing at this time with no obvious drainage. We'll redress wound. Plan to give patient a dose of IV antibiotics tonight. Patient understands importance of following up with the infusion clinic tomorrow for his 24 hour infusion of IV antibiotic Diagnosis Primary Impression: Visit for wound check Additional Impression: Receiving intravenous antibiotic treatment as outpatient Patient Instructions: General Instructions Additional Instructions: Please return to the infusion clinic tomorrow for your dose of cefazolin Please follow-up with Dr. Rincon as scheduled Please take your daily dose of Levaquin 750 mg Return to the emergency room if symptoms progress or worsen Disposition: 01 DISCHARGE HOME Condition: Stable Miri Mathews DO Oct 10, 2016 18:54
[2016-10-10 19:00] VITALS: BP 117/67; PULSE 85; RESP 16; O2SAT 96
[2016-10-10 23:00] VITALS: BP 124/61; PULSE 80; RESP 16; O2SAT 96
[2016-10-11 03:00] VITALS: BP 127/68; PULSE 86; RESP 16; O2SAT 97
[2016-10-11 07:43] VITALS: BP 130/78; TEMP 97.8
[2016-10-25] MEDS ORDERED: DIPH50IN2 IM (09:47)
[2016-10-25] MEDS ORDERED: METF500 PO (16:28)
[2016-10-25] MEDS ORDERED: IBUP800T23 PO (16:30)
[2016-10-25] MEDS ORDERED: GLIP5TAB8 PO (16:30)
[2016-10-26] MEDS ORDERED: METF1000 PO (12:43)
[2016-10-28] MEDS ORDERED: METF1000 PO (17:51)
[2016-11-01] MEDS ORDERED: GLIP10TA6 PO (15:14)
[2016-11-08] MEDS ORDERED: METO-309 PO (08:48)
[2016-11-11] MEDS ORDERED: BACT800T5 PO (08:36)
[2017-01-10] MEDS ORDERED: NEUR300C PO (13:43)
[2017-01-11] MEDS ORDERED: TRAZ150T75 PO ×2 (08:46→08:59)
[2017-01-11] MEDS ORDERED: IBUP-232 PO (08:59)
[2017-01-11] MEDS ORDERED: NEUR300C PO ×2 (08:59→11:37)
[2017-01-11] MEDS ORDERED: METO25TA3 PO (08:59)
[2017-01-11] MEDS ORDERED: GLIP5 PO (08:59)
[2017-01-11] MEDS ORDERED: CYCL1TAB29 PO (08:59)
[2017-01-11] MEDS ORDERED: LISI10TA3 PO (08:59)
[2017-01-11] MEDS ORDERED: METF500 PO (08:59)
== END 2016-10-11 07:45 | disposition home or self-care (01) ==
LOC: NEPA 16:40
DX: L03.116 Cellulitis of left lower limb (principal); I10 Essential (primary) hypertension; E11.40 Type 2 diabetes mellitus with diabetic neuropathy, unspecified
CPT/HCPCS: 96365; 99283; J0690

== ENCOUNTER 2016-10-18 14:41 | Emergency (ER) | payer OTHER ==
[~2016-10-18] VITALS: Ht 177.8 cm; Wt 95.5 kg
[2016-10-18] MEDS ORDERED: METO-309 PO (15:04)
[2016-10-18 15:05] VITALS: BP 108/63; PULSE 98; RESP 18; TEMP 98.9; O2SAT 97
--- NOTE | 2016-10-18 15:35 | PD ---
HPI Chief Complaint: Fall Time Seen by Provider: 15:07 Travel History International Travel<30 days: No Contact w/Intl Traveler<30days: No Traveled to known affect area: No History of Present Illness HPI This patient is getting IV antibiotics for a left foot infection at the infusion center. He got his antibiotics today as scheduled but then decided he take [place] and started consuming alcohol in large quantity. He was found wandering around intoxicated and police were called to evaluate him. Police decided to have paramedics bring him here. Patient denies any acute complaint. He admits to drinking heavily. He reports compliance with his IV antibiotics. Symptoms severity is mild. No alleviating factors PFSH Past Medical History Asthma: No Autoimmune Disease: No Anxiety: Yes Heart Rhythm Problems: No Cardiovascular Problems: Yes (HTN) High Cholesterol: No Chest Pain: No Congestive Heart Failure: No COPD: No Diabetes: Yes Patient Takes Glucophage: Yes (10-18-16 0800) Diminished Hearing: No GERD: No Genitourinary: No Hiatal Hernia: No Hypertension: Yes Kidney Stones: No Musculoskeletal: Yes (PAINFUL LEGS) Neurologic: Yes (diabetic neuropathy) Psychiatric: Yes Reproductive: No Respiratory: No Immunizations Current: Yes Renal Failure: No Sleep Apnea: No Ulcer: No Tetanus Vaccination: < 5 Years Influenza Vaccination: No Past Surgical History Other Surgery: Yes (I&D OF L. FOOT) Social History Alcohol Use: Yes (6 BEERS/DAY) Tobacco Use: No Substance Use: No Allergies-Medications (Allergen,Severity, Reaction): Coded Allergies: Dilaudid (Verified Allergy, Unknown, Itching, 10/18/16) Reported Meds & Prescriptions Reported Meds & Active Scripts Active Phenergan (Promethazine HCl) 25 Mg Tab 25 Mg PO Q6H PRN Ibuprofen 800 Mg Tab 800 Mg PO Q8H PRN Levaquin (Levofloxacin) 750 Mg Tab 750 Mg PO DAILY Glipizide 5 Mg Tab 5 Mg PO BIDAC Take 30 minutes before a meal Glucophage (Metformin HCl) 500 Mg Tab 1,000 Mg PO BID 30 Days Reported Lopressor (Metoprolol Tartrate) 50 Mg Tab 50 Mg PO DAILY Cefazolin Inj 3 Gm/100 Ml Bagp 4 Ml IV CONTINUOUS 30 Days Give with dialysis. Mapap (Acetaminophen) 500 Mg Tab 1,000 Mg PO DAILY PRN Tylenol Pm Extra Strength (Diphenhydramine-Acetaminophen) 25-500 Mg Tab 2 Tab PO HS PRN Review of Systems General / Constitutional: No: Fever HENT: No: Headaches Cardiovascular: No: Chest Pain or Discomfort Respiratory: No: Cough Gastrointestinal: No: Vomiting Skin: No Rash Physical Exam Narrative Patient is acting mildly intoxicated and admits to drinking heavily CARDIOVASCULAR: Regular rate and rhythm without murmur. Extremities showed no edema or varicosities. RESPIRATORY: Respiratory effort unlabored, no retractions or use of accessory muscles. Breath sounds are clear and symmetric. GASTROINTESTINAL: Abdomen soft, non-tender, nondistended. Positive bowel sounds. No hepato-splenomegaly, or palpable masses. No guarding. Left foot: I cut off his bulky dressing. He has an open wound at the medial aspect of the foot over the first metatarsal head region. There is no purulence or active drainage. The wound looks fairly clean Data Data Last Documented VS Vital Signs Date Time Temp Pulse Resp B/P Pulse Ox O2 Delivery O2 Flow Rate FiO2 10/18/16 15:08 100 Room Air 10/18/16 15:05 98.9 98 18 108/63 MDM Medical Decision Making Medical Screen Exam Complete: Yes Emergency Medical Condition: Yes Medical Record Reviewed: Yes Differential Diagnosis Alcohol intoxication, malingering, cellulitis Narrative Course I have reviewed the patient's electronic medical record. Reviewed his last visit to the ER as well as primary physician follow-up which happened 14 of October was 4 days ago. Patient does not need any emergency room treatment. This was fairly poor use of emergency medical resources including ambulance transport and emergency room evaluation. Patient will be given some time to sober up. And then be stable for outpatient follow-up He will Go back to the infusion clinic tomorrow for his antibiotic dose Advised to avoid alcohol binging Diagnosis Primary Impression: Acute alcohol intoxication Qualified Code: F10.120 - Acute alcohol intoxication, uncomplicated Additional Impression: Cellulitis of left foot Additional Instructions: Follow-up infusion clinic for antibiotic dose tomorrow morning Follow-up with primary care Avoid alcohol binging Med/Other Pt SpecificInfo: Other Disposition: 01 DISCHARGE HOME Condition: Stable Lino Little MD Oct 18, 2016 15:35
[2016-10-25] MEDS ORDERED: DIPH50IN2 IM (09:47)
[2016-10-25] MEDS ORDERED: METF500 PO (16:28)
[2016-10-25] MEDS ORDERED: IBUP800T23 PO (16:30)
[2016-10-25] MEDS ORDERED: GLIP5TAB8 PO (16:30)
[2016-10-26] MEDS ORDERED: METF1000 PO (12:43)
[2016-10-28] MEDS ORDERED: METF1000 PO (17:51)
[2016-11-01] MEDS ORDERED: GLIP10TA6 PO (15:14)
[2016-11-08] MEDS ORDERED: METO-309 PO (08:48)
[2016-11-11] MEDS ORDERED: BACT800T5 PO (08:36)
[2017-01-10] MEDS ORDERED: NEUR300C PO (13:43)
[2017-01-11] MEDS ORDERED: TRAZ150T75 PO ×2 (08:46→08:59)
[2017-01-11] MEDS ORDERED: CYCL1TAB29 PO (08:59)
[2017-01-11] MEDS ORDERED: NEUR300C PO ×2 (08:59→11:37)
[2017-01-11] MEDS ORDERED: METF500 PO (08:59)
[2017-01-11] MEDS ORDERED: IBUP-232 PO (08:59)
[2017-01-11] MEDS ORDERED: LISI10TA3 PO (08:59)
[2017-01-11] MEDS ORDERED: METO25TA3 PO (08:59)
[2017-01-11] MEDS ORDERED: GLIP5 PO (08:59)
== END 2016-10-18 17:04 | disposition home or self-care (01) ==
LOC: PHED 14:41
DX: F10.120 Alcohol abuse with intoxication, uncomplicated (principal); L03.116 Cellulitis of left lower limb
CPT/HCPCS: 99284

== ENCOUNTER 2016-11-11 10:55 | Inpatient (IN) | payer OTHER ==
[~2016-11-11] VITALS: Ht 177.8 cm; Wt 98.8 kg
[2016-11-11] VITALS (7 sets, daily range): BP systolic 161–169; BP diastolic 80–90; PULSE 84–98; RESP 17–20; TEMP 98.5–103; O2SAT 95–100
[~2016-11-11 10:55] MED LIST changes: +BACT800T5 PO; -CEFA1INJ IV; +GLIP10TA6 PO; -GLIP5TAB8 PO; -LEVA750T PO; -LISI10TA3 PO; +METF1000 PO; -METF500 PO; -WALKER WHEELS/F1 MIS
[2016-11-11] MEDS ORDERED: PIPERACIL-TAZO 4.5 GM PREMIX 100 ML IV STA (14:22)
[2016-11-11] MEDS ORDERED: SODIUM CHLOR 0.9% 1000 ML INJ 1,000 ML IV ONE ×3 (14:22)
[2016-11-11] MEDS ORDERED: VANCOMYCIN INJ 1,000 MG in SODIUM CHLOR 0.9% 250 ML INJ 250 ML IV STA (14:22)
--- NOTE | 2016-11-11 14:40 | PD ---
HPI Chief Complaint: Medical Clearance Time Seen by Provider: 14:40 Travel History International Travel<30 days: No Contact w/Intl Traveler<30days: No Traveled to known affect area: No History of Present Illness HPI 56-year-old male with history of diabetes and hypertension presents to emergency department for evaluation of a left foot wound. Patient is followed at the wound clinic for a wound on the left foot. Patient initially sustained when when he stepped on a nail in August. Patient did become septic from this. He was admitted to the hospital for several days and had a PICC line receiving IV antibiotics. Patient has been following up with Dr. Rincon with the wound clinic for monitoring and dressing changes. States that he started developing chills and rigors yesterday. He states that his entire body aches. States that despite diabetic neuropathy feels the pain from his left foot through his body. He was seen and evaluated at the wound clinic and advised to come to the emergency department. Denies nausea or vomiting. No chest or tightness. No difficult breathing. No other symptoms reported. PFSH Past Medical History Asthma: No Autoimmune Disease: No Anxiety: Yes Heart Rhythm Problems: No Cardiovascular Problems: Yes (HTN) High Cholesterol: No Chest Pain: No Congestive Heart Failure: No COPD: No Diabetes: Yes Diminished Hearing: No GERD: No Genitourinary: No Hiatal Hernia: No Hypertension: Yes Kidney Stones: No Musculoskeletal: Yes (PAINFUL LEGS) Neurologic: Yes (diabetic neuropathy) Psychiatric: Yes Reproductive: No Respiratory: No Immunizations Current: Yes Renal Failure: No Sleep Apnea: No Ulcer: No Past Surgical History Other Surgery: Yes (I&D OF L. FOOT) Social History Alcohol Use: Yes (6 BEERS/DAY) Tobacco Use: No Substance Use: No Allergies-Medications (Allergen,Severity, Reaction): Coded Allergies: Dilaudid (Verified Allergy, Unknown, Itching, 11/11/16) Reported Meds & Prescriptions Reported Meds & Active Scripts Active Bactrim DS (Sulfamethoxazole-Trimethoprim) 800-160 Mg Tab 1 Tab PO BID Lopressor (Metoprolol Tartrate) 50 Mg Tab 50 Mg PO DAILY Glipizide 10 Mg Tab 10 Mg PO BIDAC Take 30 minutes before a meal Ibuprofen 800 Mg Tab 800 Mg PO Q8H PRN Phenergan (Promethazine HCl) 25 Mg Tab 25 Mg PO Q6H PRN Reported Metformin (Metformin HCl) 1,000 Mg Tab 1,000 Mg PO BID With meals Mapap (Acetaminophen) 500 Mg Tab 1,000 Mg PO DAILY PRN Tylenol Pm Extra Strength (Diphenhydramine-Acetaminophen) 25-500 Mg Tab 2 Tab PO HS PRN Review of Systems Except as stated in HPI: all other systems reviewed are Neg Physical Exam Narrative GENERAL: Well Nourished male patient, lying in bed, rigorous, but in no acute distress SKIN: Warm and dry. 6CM X 3 CM WOUND LATERAL TO THE MCP OF THE L GREAT TOE; 5CMX 3CM IS OPEN WITH PINK GRANULATED TISSUE, SMALL AMOUNT OF YELLOW SLOUGH. BLACKENED 2ND TOENAIL. 1CM IN DIAMETER CALLUS/WOUND ON THE PLANTAR SURFACE OF THE DISTAL 3RD TOE OF THE LEFT FOOT HEAD: Atraumatic. Normocephalic. EYES: Pupils equal and round. No scleral icterus. No injection or drainage. ENT: No nasal bleeding or discharge. Mucous membranes pink and moist. NECK: Trachea midline. No JVD. CARDIOVASCULAR: Regular rate and rhythm. No murmur appreciated. RESPIRATORY: No accessory muscle use. Clear to auscultation. Breath sounds equal bilaterally. GASTROINTESTINAL: Abdomen soft, non-tender, nondistended. Hepatic and splenic margins not palpable. MUSCULOSKELETAL: No obvious deformities. No clubbing. No cyanosis. No edema. NEUROLOGICAL: Awake and alert. No obvious cranial nerve deficits. Motor grossly within normal limits. Normal speech. PSYCHIATRIC: Appropriate mood and affect; insight and judgment normal. Data Data Last Documented VS Vital Signs Date Time Temp Pulse Resp B/P Pulse Ox O2 Delivery O2 Flow Rate FiO2 11/11/16 15:22 103.0 11/11/16 14:50 97 Room Air 11/11/16 14:50 25 11/11/16 10:57 95 169/83 Orders Electrocardiogram (11/11/16 14:22) Complete Blood Count With Diff (11/11/16 14:22) Comprehensive Metabolic Panel (11/11/16 14:22) Prothrombin Time / Inr (Pt) (11/11/16 14:22) Act Partial Throm Time (Ptt) (11/11/16 14:22) Lactic Acid Sepsis Protocol (11/11/16 14:22) Magnesium (Mg) (11/11/16 14:22) Ckmb (Isoenzyme) Profile (11/11/16 14:22) Troponin I (11/11/16 14:22) Urinalysis - C+S If Indicated (11/11/16 14:22) Influenzae A/B Antigen (11/11/16 14:22) Blood Culture (11/11/16 14:22) Wound Culture And Gram Stain (11/11/16 14:22) Chest, Single Ap (11/11/16 14:22) Blood Glucose (11/11/16 14:22) Ecg Monitoring (11/11/16 14:22) Iv Access Insert/Monitor (11/11/16 14:22) Oximetry (11/11/16 14:22) Oxygen Administration (11/11/16 14:22) Piperacil-Tazo 4.5 Gm Premix (Zosyn 4.5 (11/11/16 14:22) Vancomycin Inj (Vancomycin Inj) (11/11/16 14:22) Sodium Chlor 0.9% 1000 Ml Inj (Ns 1000 M (11/11/16 14:22) Sodium Chlor 0.9% 1000 Ml Inj (Ns 1000 M (11/11/16 14:22) Sodium Chlor 0.9% 1000 Ml Inj (Ns 1000 M (11/11/16 14:22) Mri Foot W&W/O Contrast (11/11/16 ) Acetaminophen (Tylenol) (11/11/16 15:30) Ibuprofen (Motrin) (11/11/16 15:30) Admit Order (Ed Use Only) (11/11/16 16:11) Consult Podiatry (11/11/16 ) Labs Laboratory Tests Test 11/11/16 11/11/16 14:40 15:00 White Blood Count 15.7 TH/MM3 Red Blood Count 4.55 MIL/MM3 Hemoglobin 14.2 GM/DL Hematocrit 41.4 % Mean Corpuscular Volume 91.0 FL Mean Corpuscular Hemoglobin 31.2 PG Mean Corpuscular Hemoglobin 34.2 % Concent Red Cell Distribution Width 13.9 % Platelet Count 253 TH/MM3 Mean Platelet Volume 8.0 FL Neutrophils (%) (Auto) 77.2 % Lymphocytes (%) (Auto) 10.1 % Monocytes (%) (Auto) 12.3 % Eosinophils (%) (Auto) 0.1 % Basophils (%) (Auto) 0.3 % Neutrophils # (Auto) 12.1 TH/MM3 Lymphocytes # (Auto) 1.6 TH/MM3 Monocytes # (Auto) 1.9 TH/MM3 Eosinophils # (Auto) 0.0 TH/MM3 Basophils # (Auto) 0.0 TH/MM3 CBC Comment DIFF FINAL Differential Comment Prothrombin Time 11.5 SEC Prothromb Time International 1.0 RATIO Ratio Activated Partial 28.7 SEC Thromboplast Time Sodium Level 136 MEQ/L Potassium Level 4.0 MEQ/L Chloride Level 100 MEQ/L Carbon Dioxide Level 23.9 MEQ/L Anion Gap 12 MEQ/L Blood Urea Nitrogen 7 MG/DL Creatinine 1.04 MG/DL Estimat Glomerular Filtration 74 ML/MIN Rate Random Glucose 143 MG/DL Lactic Acid Level 2.4 mmol/L Calcium Level 10.3 MG/DL Magnesium Level 1.3 MG/DL Total Bilirubin 1.0 MG/DL Aspartate Amino Transf 17 U/L (AST/SGOT) Alanine Aminotransferase 27 U/L (ALT/SGPT) Alkaline Phosphatase 53 U/L Total Creatine Kinase 51 U/L Troponin I LESS THAN 0.02 NG/ML Total Protein 9.2 GM/DL Albumin 3.8 GM/DL Urine Color YELLOW Urine Turbidity CLEAR Urine pH 5.5 Urine Specific [place] 1.017 Urine Protein TRACE mg/dL Urine Glucose (UA) TRACE mg/dL Urine Ketones TRACE mg/dL Urine Occult Blood NEG Urine Nitrite NEG Urine Bilirubin NEG Urine Urobilinogen LESS THAN 2.0 MG/DL Urine Leukocyte Esterase NEG Urine WBC 2 /hpf Urine Mucus FEW /lpf Microscopic Urinalysis Comment CATH-CULT NOT IND MDM Medical Decision Making Medical Screen Exam Complete: Yes Emergency Medical Condition: Yes Medical Record Reviewed: Yes Differential Diagnosis Osteomyelitis versus chronic foot wound versus sepsis Narrative Course 56-year-old male with history of left foot wound presents to the emergency department for evaluation. Patient has regressed with a source of sepsis. Sepsis protocol was initiated. Patient spikes a temperature of 103 while he is here. CBC for leukocytosis 15.7. Neutrophilia of 12.1. CMP is without acute concern. Troponin is less than 0.02. Lactic acid is 2.4. Wound culture on November 08 grew staph aureus. Urinalysis is trace ketones and few mucus. MRI of the left foot is ordered. I discussed the patient my attending physician Dr. Nash who agrees with plan of care and admission to [facility]. I spoke with Dr. Martins. Patient will be admitted to the [facility] hospitalist service. Sepsis Criteria SIRS Criteria (2 or more): Temp > 100.9 or < 96.8, WBC > 67753, < 4000 or > 10 % bands Sepsis Criteria (SIRS+source): Infect source susp/known Severe Sepsis (+one): Lactate >2 Diagnosis Primary Impression: Severe sepsis Additional Impression: Open wound of left foot Qualified Code: S91.302S - Open wound of left foot, sequela Admitting Information Admitting Physician Requests: Admit Condition: Stable Lamar Medina Nov 11, 2016 14:40
[2016-11-11 15:22] LABS: AUTOMATED NEUTROPHIL # 12.1 TH/MM3 (1.8-7.7); BASOPHIL % 0.3 % (0.0-2.0); EOSINOPHIL % 0.1 % (0.0-4.0); HEMATOCRIT 41.4 % (39.0-51.0); HEMO FLAGS DIFF FINAL; LYMPH % 10.1 % (9.0-44.0); LYMPHOCYTE # 1.6 TH/MM3 (1.0-4.8); MEAN CORPUSCULAR HEMOGLOBIN 31.2 PG (27.0-34.0); MEAN CORPUSCULAR HGB CONC 34.2 % (32.0-36.0); MONO % 12.3 % (0.0-8.0); NEUT % 77.2 % (16.0-70.0); PLATELET COUNT 253 TH/MM3 (150-450); RED BLOOD COUNT 4.55 MIL/MM3 (4.50-5.90); RED CELL DISTRIBUTION WIDTH 13.9 % (11.6-17.2); WHITE BLOOD COUNT 15.7 TH/MM3 (4.0-11.0)
--- NOTE | 2016-11-11 15:22 | RADRPT ---
EXAM DATE/TIME: 11/11/2016 14:50 [facility] COMPARISON: CHEST SINGLE AP, September 06, 2016, 17:15. INDICATIONS : Patient states has had a fever since yesterday. He also has an infection in his right foot. MEDICAL HISTORY : Diabetes mellitus type II. SURGICAL HISTORY : None. ENCOUNTER: Initial ACUITY: 1 day PAIN SCORE: 0/10 LOCATION: Bilateral chest FINDINGS: A single view of the chest demonstrates the lungs to be symmetrically aerated without evidence of mas s, infiltrate or effusion. The cardiomediastinal contours are unremarkable. Osseous structures demo nstrate degenerative changes in the a.c. joints bilaterally. CONCLUSION: 1. No acute cardiopulmonary findings. Gerson Beyer MD on November 11, 2016 at 15:19 Board Certified Radiologist. This report was verified electronically.
[2016-11-11 15:24] LABS: APTT (PATIENT) 28.7 SEC (24.3-30.1); PROTHROMBIN TIME - PATIENT 11.5 SEC (9.8-11.6)
[2016-11-11] MEDS ORDERED: IBUPROFEN 800 MG TAB PO ONE (15:30)
[2016-11-11] MEDS ORDERED: ACETAMINOPHEN 500 MG CPLT PO ONE (15:30)
[2016-11-11 15:32] LABS: ALT (GPT) 27 U/L (12-78); ANION GAP 12 MEQ/L (5-15); AST (GOT) 17 U/L (15-37); BICARBONATE 23.9 MEQ/L (21.0-32.0); BLOOD UREA NITROGEN 7 MG/DL (7-18); CHLORIDE 100 MEQ/L (98-107); GLOMERULAR FILTRATION RATE 74 ML/MIN (>89); MAGNESIUM 1.3 MG/DL (1.5-2.5); SODIUM (NA) 136 MEQ/L (136-145)
[2016-11-11 15:33] LABS: ALKALINE PHOSPHATASE 53 U/L (45-117); CREATINE KINASE 51 U/L (39-308)
[2016-11-11 15:33] LABS: BLOOD, URINE NEG (NEG); GLUCOSE,URINE TRACE mg/dL (NEG); KETONE, URINE TRACE mg/dL (NEG); MUCUS URINE FEW /lpf (OCC); NITRITE,URINE NEG (NEG); PH, URINE 5.5 (5.0-8.5); URINE COLOR YELLOW (YELLW/STRAW)
[2016-11-11 15:38] LABS: COMMENT (UR) CATH-CULT NOT IND; CULTURE IF INDICATED CATH CULTURE NOT IND
[2016-11-11] MEDS ORDERED: SODIUM CHLORIDE 0.9% FLUSH 10 ML FLUSH IV FLUSH PRN (16:45)
[2016-11-11] MEDS ORDERED: DEXTROSE 50% IN WATER 50 ML VIAL(D50) IV PUSH PRN (16:45)
[2016-11-11] MEDS ORDERED: MAGNESIUM HYDROXIDE SUSP 30 ML CUP PO PRN (16:45)
[2016-11-11] MEDS ORDERED: VANCOMYCIN INJ 1,000 MG in SODIUM CHLOR 0.9% 250 ML INJ 250 ML IV SCH (16:45)
[2016-11-11] MEDS ORDERED: NALOXONE HCL 0.4 MG/ML AMP IV PRN (16:45)
[2016-11-11] MEDS ORDERED: GLUCAGON 1 MG/ML VIAL OTHER PRN (16:45)
[2016-11-11] MEDS ORDERED: Vancomycin Consult Pharmacy 1 EA OTHER SCH (16:45)
[2016-11-11] MEDS ORDERED: ONDANSETRON HCL 4 MG/2 ML VIAL IVP PRN (16:45)
[2016-11-11 16:59] LABS: LACTIC ACID GHOST NOT REPORTABLE
--- NOTE | 2016-11-11 17:43 | HHI.HP ---
cc: Shani Rincon MD HPI Service [facility] Hospitalists Primary Care Physician Shani Rincon MD Admission Diagnosis sepsis, left foot wound; rule out osteomyelitis Diagnoses: Chief Complaint: Left foot wound with regular and chills Travel History International Travel<30 Days: No Contact w/Intl Traveler <30 Da: No Traveled to Known Affected Are: No History of Present Illness This 56-year-old male patient with past medical history which includes hypertension, diabetes mellitus type 2, peripheral neuropathy and left foot wound initially obtained August 24, 2016 by stepping on a nail. Patient was hospitalized prior for the left foot wound found to have sepsis at that time and underwent an I&D and was being seen by outpatient wound clinic, Dr. Rincon. Patient reports he was doing well but began to have chills and rigor last night. Patient reports he was at his regular appointment today and reported the chills and shaking was prescribed Bactrim by mouth. Patient reports he continued to feel worse reports elevated temperature continued chills and regular generalized body aches and pain. Patient became more worried that something was wrong therefore proceeded to the emergency department for further evaluation and treatment. Patient denies shortness of breath nausea vomiting diarrhea constipation. Review of Systems Except as stated in HPI: all other systems reviewed are Neg Past Family Social History Past Medical History hypertension, diabetes mellitus type 2, peripheral neuropathy and left foot wound initially obtained August 24, 2016 by stepping on a nail. Past Surgical History I&D left foot wound August 2016 Reported Medications Lopressor (Metoprolol Tartrate) 50 Mg Tab 50 Mg PO DAILY Glipizide 10 Mg Tab 10 Mg PO BIDAC Take 30 minutes before a meal Ibuprofen 800 Mg Tab 800 Mg PO Q8H PRN Phenergan (Promethazine HCl) 25 Mg Tab 25 Mg PO Q6H PRN Metformin (Metformin HCl) 1,000 Mg Tab 1,000 Mg PO BID With meals Mapap (Acetaminophen) 500 Mg Tab 1,000 Mg PO DAILY PRN Tylenol Pm Extra Strength (Diphenhydramine-Acetaminophen) 25-500 Mg Tab 2 Tab PO HS PRN Allergies: Coded Allergies: Dilaudid (Verified Allergy, Unknown, Itching, 11/11/16) Active Ordered Medications Current Medications Medications (Trade) Dose Ordered Sig/Krupa Route Start Time Stop Time Status Last Admin (NS 1000 ml Inj) 1,000 ml @ 100 mls/hr Q10H IV 11/11/16 16:37 (NS Flush) 2 ml UNSCH PRN IV FLUSH 11/11/16 16:45 (NS Flush) 2 ml BID IV FLUSH 11/11/16 21:00 (Tylenol) 650 mg Q4H PRN PO 11/11/16 16:45 (Zofran Inj) 4 mg Q6H PRN IVP 11/11/16 16:45 (Colace) 100 mg Q12HR PO 11/11/16 21:00 (Milk Of Magnesia Liq) 30 ml Q12H PRN PO 11/11/16 16:45 (Lovenox Inj) 40 mg Q24H SQ 11/11/16 17:00 Naloxone HCl 0.4 mg 0.4 mg UNSCH PRN IV 11/11/16 16:45 Pharmacy Profile Note 0 ml @ 0 mls/hr UNSCH OTHER 11/11/16 16:45 (Zosyn 4.5 Gm Premix) 100 ml @ 200 mls/hr Q8H IV 11/11/16 23:00 (D50w (Vial) Inj) 25 ml UNSCH PRN IV PUSH 11/11/16 16:45 (Glucagon Inj) 1 mg UNSCH PRN OTHER 11/11/16 16:45 Metoprolol Tartrate 50 mg 50 mg DAILY PO 11/12/16 09:00 (Vancomycin Inj/ NS 500 ml Inj) 515 ml @ 257.5 mls/ hr Q12H IV 11/12/16 00:00 Miscellaneous Information SPECIFIC LAB TO BE ISIDRO... ONCE ONCE XX 11/13/16 11:45 11/13/16 11:46 Family History Patient reports diabetes runs in his family Social History Patient quit drinking alcohol proximal 2 weeks ago prior that drank 3-6 beers per day Denies tobacco use or illicit drug use Physical Exam Vital Signs Vital Signs Date Time Temp Pulse Resp B/P Pulse Ox O2 Delivery O2 Flow Rate FiO2 11/11/16 16:21 18 11/11/16 16:21 18 3/23/17 16:00 88 20 166/90 97 Room Air 11/11/16 15:22 103.0 11/11/16 14:50 97 Room Air 11/11/16 14:50 25 11/11/16 14:50 97 Room Air 11/11/16 14:00 98 20 162/80 97 Room Air 11/11/16 10:57 98.5 95 17 169/83 95 Physical Exam GENERAL: This is a well-nourished, well-developed patient, ill in appearance, warm to the touch SKIN: Open wound 4 cm x 1.5 cm with surrounding erythema no drainage present at this time HEAD: Atraumatic. Normocephalic. No temporal or scalp tenderness. EYES: Extraocular motions intact. No scleral icterus. No injection or drainage. ENT: Nose without bleeding, purulent drainage or septal hematoma. Throat without erythema, tonsillar hypertrophy or exudate. Uvula midline. Airway patent. NECK: Trachea midline. No JVD or lymphadenopathy. Supple, nontender, no meningeal signs. CARDIOVASCULAR: Regular rate and rhythm without murmurs, gallops, or rubs. RESPIRATORY: Clear to auscultation. Breath sounds equal bilaterally. No wheezes , rales, or rhonchi. GASTROINTESTINAL: Abdomen soft, non-tender, nondistended. Soft reducible abdominal hernia noted MUSCULOSKELETAL: Trace bilateral lower extremity edema. No calf tenderness. Negative Homans sign bilaterally. NEUROLOGICAL: Awake and alert. No focal deficits identified. Motor and sensory grossly within normal limits. Five out of 5 muscle strength in all muscle groups. Normal speech. Laboratory Laboratory Tests Test 11/11/16 11/11/16 14:40 15:00 White Blood Count 15.7 Red Blood Count 4.55 Hemoglobin 14.2 Hematocrit 41.4 Mean Corpuscular Volume 91.0 Mean Corpuscular Hemoglobin 31.2 Mean Corpuscular Hemoglobin 34.2 Concent Red Cell Distribution Width 13.9 Platelet Count 253 Mean Platelet Volume 8.0 Neutrophils (%) (Auto) 77.2 Lymphocytes (%) (Auto) 10.1 Monocytes (%) (Auto) 12.3 Eosinophils (%) (Auto) 0.1 Basophils (%) (Auto) 0.3 Neutrophils # (Auto) 12.1 Lymphocytes # (Auto) 1.6 Monocytes # (Auto) 1.9 Eosinophils # (Auto) 0.0 Basophils # (Auto) 0.0 CBC Comment DIFF FINAL Differential Comment Prothrombin Time 11.5 Prothromb Time International 1.0 Ratio Activated Partial 28.7 Thromboplast Time Sodium Level 136 Potassium Level 4.0 Chloride Level 100 Carbon Dioxide Level 23.9 Anion Gap 12 Blood Urea Nitrogen 7 Creatinine 1.04 Estimat Glomerular Filtration 74 Rate Random Glucose 143 Lactic Acid Level 2.4 Calcium Level 10.3 Magnesium Level 1.3 Total Bilirubin 1.0 Aspartate Amino Transf 17 (AST/SGOT) Alanine Aminotransferase 27 (ALT/SGPT) Alkaline Phosphatase 53 Total Creatine Kinase 51 Troponin I LESS THAN 0.02 Total Protein 9.2 Albumin 3.8 Urine Color YELLOW Urine Turbidity CLEAR Urine pH 5.5 Urine Specific [place] 1.017 Urine Protein TRACE Urine Glucose (UA) TRACE Urine Ketones TRACE Urine Occult Blood NEG Urine Nitrite NEG Urine Bilirubin NEG Urine Urobilinogen LESS THAN 2.0 Urine Leukocyte Esterase NEG Urine WBC 2 Urine Mucus FEW Microscopic Urinalysis Comment CATH-CULT NOT IND Date/Time Procedure Status Source Growth 11/11/16 14:40 Influenza Types A,B Antigen (CITLALY) - Final Complete Nasal Washing NEGATIVE FOR FLU A AND B ANTIGEN.... 11/11/16 14:40 Gram Stain - Final Resulted Wound Foot 11/11/16 14:40 Wound Culture Resulted Wound Foot Pending Result Diagram: 11/11/16 1440 11/11/16 1440 Imaging Last Impressions Chest X-Ray 11/11/16 1422 Signed Impressions: Service Date/Time: October 14:50 - CONCLUSION: 1. No acute cardiopulmonary findings. Gerson Beyer MD Septic Shock Reassessment Heart: Regular rate and rhythm Lungs: Clear Skin: Warm, Dry Peripheral Pulses: Bounding Right Radial Bounding Left Radial Bounding Right Dorsalis Pedis Bounding Left Dorsalis Pedis Capillary Refill: Brisk, <2 seconds Assessment and Plan Problem List: (1) Open wound of left foot ICD Code: S91.302A Status: Chronic (2) Sepsis ICD Code: A41.9 Status: Acute (3) Lactic acidosis ICD Code: E87.2 Status: Acute (4) Hypomagnesemia ICD Code: E83.42 Status: Acute (5) Diabetes mellitus ICD Code: E11.9 Status: Chronic (6) Hypertension ICD Code: I10 Status: Chronic (7) Tobacco abuse ICD Code: Z72.0 Status: Chronic Assessment and Plan This 56-year-old male patient with past medical history which includes hypertension, diabetes mellitus type 2, peripheral neuropathy and left foot wound initially obtained August 24, 2016 by stepping on a nail. Patient was hospitalized prior for the left foot wound found to have sepsis at that time and underwent an I&D and was being seen by outpatient wound clinic, Dr. Rincon. Patient reports he was doing well but began to have chills and rigor last night. Sepsis (temperature 103, white blood cell count 15.7, lactic acid 2.4, likely source left foot wound) Lactic acidosis Left foot wound rule out osteomyelitis Vancomycin and Zosyn given in emergency department will continue Pharmacy consulted to dose vancomycin MRI L foot Podiatry consult Infectious disease consult Wound culture, blood cultures 2 Normal saline at 100 cc/h Fluid bolus given in emergency department Recheck lactic acid per sepsis protocol Diabetes mellitus hold oral anti-glycemic at this point Accu-Cheks before meals and at bedtime with sliding scale insulin coverage Hemoglobin A1c 09/01/2016 6.8 Hypertension continue metoprolol 50 mg- per patient's home medications Monitor blood pressure trend Hypomagnesemia- 1.3 2 g IV magnesium recheck in a.m. DVT prophylaxis with Discussed with ER provider, RN and patient Written by Anais Robles, acting as scribe for Dr. Martins on 11/11/16 at 17:50. All or portions of this note were transcribed by scribe Anais Robles. I , Dr. Travis Simeon personally performed the history, physical exam, and medical decision making; and confirmed the accuracy of the information in the transcribed note. Authenticated by Dr. Travis Simeon on 11/21/16 at 23:39. Physician Certification 2 Midnight Certification Type: Admission for Inpatient Services Order for Inpatient Services The services are ordered in accordance with Medicare regulations or non- Medicare payer requirements, as applicable. In the case of services not specified as inpatient-only, they are appropriately provided as inpatient services in accordance with the 2-midnight benchmark. Estimated LOS (days): 3 days is the estimated time the patient will need to remain in the hospital, assuming treatment plan goals are met and no additional complications. Post-Hospital Plan: Home Problem Qualifiers (1) Open wound of left foot: Qualified Code: S91.302S - Open wound of left foot, sequela (2) Diabetes mellitus: Anais Robles Nov 11, 2016 17:43 Travis Barber MD Nov 21, 2016 23:40
[2016-11-11] MEDS: SODIUM CHLOR 0.9% 1000 ML INJ 1,000 ML IV SCH (17:49)
[2016-11-11] MEDS: ENOXAPARIN SODIUM 40 MG/0.4 ML SYRINGE SQ SCH (17:50)
[2016-11-11] MEDS: MAGNESIUM SULFATE 1 GM PREMIX 100 ML IV SCH (19:00)
[2016-11-11] MEDS ORDERED: GADODIAMIDE PF 287 MG/ML 20 ML VIAL (for RAD MRI) IV ONE (19:34)
--- NOTE | 2016-11-11 19:52 | RADRPT ---
EXAM DATE/TIME: 11/11/2016 18:52 [facility]. INDICATIONS : Osteomyelitis. Ulcer on left foot. CONTRAST: 20 cc Omniscan (gadodiamide) IV MEDICAL HISTORY : Hypertension. Diabetes mellitus type 2. SURGICAL HISTORY : Wound debridement. ENCOUNTER: Subsequent ACUITY: 1 year PAIN SCORE: 3/10 LOCATION: Left Foot. TECHNIQUE: Multiplanar, multisequence MRI examination was performed without contrast and after the intravenous a dministration of gadolinium. FINDINGS: Comparison is August 2016. Since the previous exam there is development of extensive marrow edema an d marrow enhancement with some bony destruction of the first metatarsal, especially distally. There i s also abnormal marrow signal enhancement in the proximal phalanx of the great and probable early artem nges in the distal phalanx of the great toe. Findings are characteristic of osteomyelitis. There is a n ulceration in the soft tissue medially and there is extensive surrounding cellulitis. No osteomyeli tis is identified in the remainder of the left foot. There are several areas of probable microabscess formation but no drainable fluid collections are seen. CONCLUSION: 1. Osteomyelitis of the first metatarsal and great toe as above. Extensive surrounding cellulitis. Me dial soft tissue ulceration. No other areas of osteomyelitis in the left foot. Rakan Lobato MD on November 11, 2016 at 19:45 Board Certified Radiologist. This report was verified electronically.
[2016-11-11] MEDS: INSULIN ASPART SUPPLEMENTAL SCALE SQ SCH (21:00)
[2016-11-11] MEDS: DOCUSATE SODIUM 100 MG CAP PO SCH (21:00)
[2016-11-11] MEDS: SODIUM CHLORIDE 0.9% FLUSH 10 ML FLUSH IV FLUSH SCH (21:00)
[2016-11-11] MEDS ORDERED: IBUPROFEN 400 MG TAB PO ONE (23:00)
[2016-11-11] MEDS ORDERED: diphenhydrAMINE HCL 25 MG CAP PO ONE (23:00)
[2016-11-11] MEDS: PIPERACIL-TAZO 4.5 GM PREMIX 100 ML IV SCH (23:31)
[2016-11-12] VITALS (8 sets, daily range): BP systolic 127–170; BP diastolic 63–89; PULSE 74–90; RESP 18; TEMP 97.6–103; O2SAT 95–100
[2016-11-12] MEDS: VANCOMYCIN 1,500 MG/NS 500 ML IV SCH ×4 (00:15→14:02)
[2016-11-12] MEDS: SODIUM CHLOR 0.9% 1000 ML INJ 1,000 ML IV SCH ×3 (02:21→22:37)
[2016-11-12] MEDS: ACETAMINOPHEN 325 MG TAB PO PRN ×2 (05:14→14:26)
[2016-11-12] MEDS: PIPERACIL-TAZO 4.5 GM PREMIX 100 ML IV SCH ×3 (06:23→23:00)
[2016-11-12] MEDS: INSULIN ASPART SUPPLEMENTAL SCALE SQ SCH ×4 (06:25→21:32)
[2016-11-12] MEDS: DOCUSATE SODIUM 100 MG CAP PO SCH ×2 (08:52→21:31)
[2016-11-12] MEDS: SODIUM CHLORIDE 0.9% FLUSH 10 ML FLUSH IV FLUSH SCH ×2 (08:52→21:00)
[2016-11-12] MEDS ORDERED: METOPROLOL TARTRATE 50 MG TAB PO SCH (09:00)
[2016-11-12 09:07] LABS: AUTOMATED NEUTROPHIL # 7.8 TH/MM3 (1.8-7.7); BASOPHIL % 0.4 % (0.0-2.0); EOSINOPHIL % 0.2 % (0.0-4.0); HEMO FLAGS DIFF FINAL; LYMPH % 10.5 % (9.0-44.0); LYMPHOCYTE # 1.1 TH/MM3 (1.0-4.8); MEAN CELL VOLUME 90.4 FL (80.0-100.0); MEAN CORPUSCULAR HEMOGLOBIN 31.1 PG (27.0-34.0); MEAN CORPUSCULAR HGB CONC 34.4 % (32.0-36.0); MONO % 13.3 % (0.0-8.0); NEUT % 75.6 % (16.0-70.0); PLATELET COUNT 192 TH/MM3 (150-450); RED BLOOD COUNT 3.98 MIL/MM3 (4.50-5.90); RED CELL DISTRIBUTION WIDTH 13.4 % (11.6-17.2); WHITE BLOOD COUNT 10.4 TH/MM3 (4.0-11.0)
[2016-11-12 10:03] LABS: BICARBONATE 24.6 MEQ/L (21.0-32.0); MAGNESIUM 1.4 MG/DL (1.5-2.5); POTASSIUM 3.7 MEQ/L (3.5-5.1)
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
--- NOTE | 2016-11-12 16:18 | HHI.PR ---
Subjective Remarks Patient c/o pain in the left toe denies cp/sob has a high grade fever w a Tmax of 103 denies diarrhea Objective Vitals Vital Signs Date Time Temp Pulse Resp B/P Pulse Ox O2 Delivery O2 Flow Rate FiO2 11/12/16 15:33 103.0 90 170/89 11/12/16 11:38 100.0 85 139/63 11/12/16 10:26 98 21 11/12/16 08:48 98.6 74 18 150/86 98 11/12/16 04:58 102.4 89 18 159/68 99 11/12/16 01:25 97.6 74 18 164/89 100 11/11/16 21:22 99.5 84 18 161/83 100 11/11/16 20:00 98 11/11/16 16:21 18 11/11/16 16:21 18 Result Diagram: 11/12/16 0838 11/12/16 0838 Imaging Last Impressions Chest X-Ray 11/11/16 1422 Signed Impressions: Service Date/Time: October 14:50 - CONCLUSION: 1. No acute cardiopulmonary findings. Gerson Beyer MD Foot MRI 11/11/16 0000 Signed Impressions: Service Date/Time: October 18:52 - CONCLUSION: 1. Osteomyelitis of the first metatarsal and great toe as above. Extensive surrounding cellulitis. Medial soft tissue ulceration. No other areas of osteomyelitis in the left foot. Rakan Lobato MD Objective Remarks GENERAL: This is a well-nourished, well-developed patient, ill in appearance, warm to the touch SKIN: Open wound 4 cm x 1.5 cm with surrounding erythema no drainage present at this time HEAD: Atraumatic. Normocephalic. No temporal or scalp tenderness. EYES: Extraocular motions intact. No scleral icterus. No injection or drainage. ENT: Nose without bleeding, purulent drainage or septal hematoma. Throat without erythema, tonsillar hypertrophy or exudate. Uvula midline. Airway patent. NECK: Trachea midline. No JVD or lymphadenopathy. Supple, nontender, no meningeal signs. CARDIOVASCULAR: Regular rate and rhythm without murmurs, gallops, or rubs. RESPIRATORY: Clear to auscultation. Breath sounds equal bilaterally. No wheezes , rales, or rhonchi. GASTROINTESTINAL: Abdomen soft, non-tender, nondistended. Soft reducible abdominal hernia noted MUSCULOSKELETAL: Trace bilateral lower extremity edema. No calf tenderness. Negative Homans sign bilaterally. NEUROLOGICAL: Awake and alert. No focal deficits identified. Motor and sensory grossly within normal limits. Five out of 5 muscle strength in all muscle groups. Normal speech. Medications and IVs Current Medications Medications (Trade) Dose Ordered Sig/Krupa Route Start Time Stop Time Status Last Admin (NS 1000 ml Inj) 1,000 ml @ 100 mls/hr Q10H IV 11/11/16 16:37 11/12/16 13:19 (NS Flush) 2 ml UNSCH PRN IV FLUSH 11/11/16 16:45 (NS Flush) 2 ml BID IV FLUSH 11/11/16 21:00 (Tylenol) 650 mg Q4H PRN PO 11/11/16 16:45 11/12/16 14:26 (Zofran Inj) 4 mg Q6H PRN IVP 11/11/16 16:45 (Colace) 100 mg Q12HR PO 11/11/16 21:00 11/11/16 21:00 (Milk Of Magnesia Liq) 30 ml Q12H PRN PO 11/11/16 16:45 (Lovenox Inj) 40 mg Q24H SQ 11/11/16 17:00 11/11/16 17:50 Naloxone HCl 0.4 mg 0.4 mg UNSCH PRN IV 11/11/16 16:45 Pharmacy Profile Note 0 ml @ 0 mls/hr UNSCH OTHER 11/11/16 16:45 (Zosyn 4.5 Gm Premix) 100 ml @ 200 mls/hr Q8H IV 11/11/16 23:00 11/12/16 06:23 (D50w (Vial) Inj) 25 ml UNSCH PRN IV PUSH 11/11/16 16:45 Glucagon 1 mg 1 mg UNSCH PRN OTHER 11/11/16 16:45 (Vancomycin Inj/ NS 500 ml Inj) 515 ml @ 257.5 mls/ hr Q12H IV 11/12/16 00:00 11/12/16 14:02 Miscellaneous Information SPECIFIC LAB TO BE ISIDRO... ONCE ONCE XX 11/13/16 11:45 11/13/16 11:46 (Lopressor) 50 mg BID PO 11/12/16 21:00 A/P Problem List: (1) Open wound of left foot ICD Code: S91.302A Status: Chronic (2) Sepsis ICD Code: A41.9 Status: Acute (3) Lactic acidosis ICD Code: E87.2 Status: Acute (4) Hypomagnesemia ICD Code: E83.42 Status: Acute (5) Diabetes mellitus ICD Code: E11.9 Status: Chronic (6) Hypertension ICD Code: I10 Status: Chronic (7) Tobacco abuse ICD Code: Z72.0 Status: Chronic (8) Fever ICD Code: R50.9 Status: Acute Assessment and Plan This 56-year-old male patient with past medical history which includes hypertension, diabetes mellitus type 2, peripheral neuropathy and left foot wound initially obtained August 24, 2016 by stepping on a nail. Patient was hospitalized prior for the left foot wound found to have sepsis at that time and underwent an I&D and was being seen by outpatient wound clinic, Dr. Rincon. Patient reports he was doing well but began to have chills and rigor last night. Sepsis - Present on admission (temperature 103, white blood cell count 15.7, lactic acid 2.4, likely source left foot wound) WBC trending down and lactic acid now normal. Lactic acidosis - Lactic acid 2.4, resolved and down to 1.4 after IV fluids. Left foot wound rule out osteomyelitis Fluid bolus given in the ED MRI L foot shows osteomyelitis as described above. Podiatry consult appreciated - for OR on Tuesday morning for an amputation of the left hallux and first metatarsal head resection. Wound culture is growing Staph aureus. Fu susceptibility. Infectious disease consult pending. Will Rx oral Percocet for pain. Will give on dose of IV morphine now since patient c/o severe pain. Continue IV Vancomycin and IV Zosyn. Pharmacy helping with dosing. Diabetes mellitus hold oral anti-glycemic at this point Hemoglobin A1c 09/01/2016 6.8 Blood sugars uncontrolled and elevated in the 200's. Will start patient on Insulin Levemir. Continue SSI w insulin Novolog. Hypertension : Bp uncontrolled with sbp in the 150's to 160's. Will increase the dose of metoprolol to 50 mg po BID. Hypomagnesemia- sp Magnesium sulfate administration - mgnesium still 1.4. Will continue to replace IV and continue to monitor levels. Fever - Due to sepsis and left foot osteomyelitis. Continue Tylenol for fever. will add Ibuprofen if tylenol not effective to treat the fever.; Discharge Planning for OR on tuesday. Continue to monitor in the medical floor. Problem Qualifiers (1) Open wound of left foot: Qualified Code: S91.302S - Open wound of left foot, sequela (2) Diabetes mellitus: (3) Fever: Qualified Code: R50.81 - Fever in other diseases Travis Barber MD Nov 12, 2016 16:18
[2016-11-12] MEDS ORDERED: MORPHINE SULFATE 4 MG/ML INJ IV PUSH ONE (16:30)
[2016-11-12] MEDS ORDERED: oxyCODONE/ACETAMINOPHEN 5 MG/325 MG TAB PO PRN (16:30)
[2016-11-12] MEDS: ENOXAPARIN SODIUM 40 MG/0.4 ML SYRINGE SQ SCH (16:37)
[2016-11-12] MEDS: oxyCODONE/ACETAMINOPHEN 5 MG/325 MG TAB PO PRN ×2 (17:45→23:10)
[2016-11-12] MEDS: MAGNESIUM SULFATE 1 GM PREMIX 100 ML IV SCH ×2 (17:46→19:18)
--- NOTE | 2016-11-12 17:57 | PD.ID.CON ---
History of Present Illness Service ID Consult Requested By Dr Martins Reason for Consult L foot osteo Primary Care Physician Shani Rincon MD Diagnoses: History of Present Illness Pt is known to me from previous admission 56 yo diabetic male with dicult social situation (homeless, uninsured, unempleyd , + h/o ETOH abuse) was seen ba ck in August for DFI involving this L foot 1st metatarsal head. He developped it after stepping on a nail and underwent debridements by Dr Stephen He had MSSA He also had high grade MSSA an strep bacteremia. He also grew out pseudomonas stuzeri on 1 occasion He wsa d/c 'd on cont cefazolin IV 2 gm q 8 hrs and Levaquine po 750 daily thru Oct 19 which he completed He was followed by Dr Rincon in o/p cliniac He told me that he initially got better, but than developped drainage and dehiscence of incision . Redness, swelling keep getting worse. He also developped fever, chills for few days and wound clx were repeated. He grew out MSSA along with Acinetobacter not S to levaquine He was sent to ER; he presented with fever of 103 and leukocytosis of 15 K His MRI was positive for osteomyelitis of the first metatarsal and great toe He was seen by Dr Stephen who is planning 1 st ray amputation Review of Systems Constitutional: COMPLAINS OF: Fever, Chills Cardiovascular: COMPLAINS OF: Lower Extremity Edema Musculoskeletal: COMPLAINS OF: Back pain Neurologic: COMPLAINS OF: Abnormal gait Except as stated in HPI: all other systems reviewed are Neg Past Family Social History Allergies: Coded Allergies: Dilaudid (Verified Allergy, Unknown, Itching, 11/11/16) Past Medical History Hypertension Diabetes mellitus Diabetic neuropathy Past Surgical History I&D L foot x 2 in Aug 2016 Active Ordered Medications Medications where reviewed in EMR Antibiotics Include: zosyn, vancomycin Family History Reviewed noncontributory Social History Patient drinks 6 beers a day no tobacco or illicit drug abuse reported Physical Exam Vital Signs Vital Signs Date Time Temp Pulse Resp B/P Pulse Ox O2 Delivery O2 Flow Rate FiO2 11/12/16 15:33 103.0 90 170/89 11/12/16 11:38 100.0 85 139/63 11/12/16 10:26 98 21 11/12/16 08:48 98.6 74 18 150/86 98 11/12/16 04:58 102.4 89 18 159/68 99 11/12/16 01:25 97.6 74 18 164/89 100 11/11/16 21:22 99.5 84 18 161/83 100 11/11/16 20:00 98 Physical Exam CONSTITUTIONAL/GENERAL: This is an mildly obese male patient, in no apparent distress. TUBES/LINES/DRAINS: SKIN: No jaundice, rashes, or lesions. Skin temperature appropriate. Not diaphoretic. HEAD: Atraumatic. Normocephalic. EYES: Pupils equal and round and reactive. Extraocular motions intact. No scleral icterus. No injection or drainage. Fundi not examined. ENT: Hearing grossly normal. Nose without bleeding or purulent drainage. Oral mucosae moist; very poor dentition. No thrush NECK: Trachea midline. Supple, nontender. CARDIOVASCULAR: Regular rate and rhythm without murmurs, gallops, or rubs. No JVD. Peripheral pulses symmetric. RESPIRATORY/CHEST: Symmetric, unlabored respirations. Clear to auscultation. Breath sounds equal bilaterally. No wheezes, rales, or rhonchi. GASTROINTESTINAL: Abdomen soft, non-tender, nondistended. No hepato-splenomegaly , or palpable masses. No guarding. Bowel sounds present. GENITOURINARY: Without palpable bladder distension. Albert catheter in place. MUSCULOSKELETAL: Extremities without clubbing, cyanosis, no edema of RLE STATUS LOCALIS: L foot is edematous, forefooot erythematous foot is well perfused Large wound over 1 dst MT head with necrotic base draininag foul smelling serosang dc BACK: No tenderness to palpation over vertebrae LYMPHATICS: No palpable cervical or supraclavicular adenopathy. + palpable tender L inguinal lymph node NEUROLOGICAL: Awake and alert. Motor and sensory grossly within normal limits. Follows commands. Normal speech Moves all extremities. PSYCHIATRIC: No obvious anxiety/depression. no apparent hallucinations or other psychotic thought process. Laboratory Laboratory Tests Test 11/12/16 08:38 White Blood Count 10.4 Red Blood Count 3.98 Hemoglobin 12.4 Hematocrit 36.0 Mean Corpuscular Volume 90.4 Mean Corpuscular Hemoglobin 31.1 Mean Corpuscular Hemoglobin 34.4 Concent Red Cell Distribution Width 13.4 Platelet Count 192 Mean Platelet Volume 7.5 Neutrophils (%) (Auto) 75.6 Lymphocytes (%) (Auto) 10.5 Monocytes (%) (Auto) 13.3 Eosinophils (%) (Auto) 0.2 Basophils (%) (Auto) 0.4 Neutrophils # (Auto) 7.8 Lymphocytes # (Auto) 1.1 Monocytes # (Auto) 1.4 Eosinophils # (Auto) 0.0 Basophils # (Auto) 0.0 CBC Comment DIFF FINAL Differential Comment Sodium Level 136 Potassium Level 3.7 Chloride Level 104 Carbon Dioxide Level 24.6 Anion Gap 7 Blood Urea Nitrogen 8 Creatinine 0.93 Estimat Glomerular Filtration 84 Rate Random Glucose 168 Calcium Level 9.1 Magnesium Level 1.4 Date/Time Procedure Status Source Growth 11/12/16 01:10 Aerobic Blood Culture Received Blood Peripheral Pending 11/12/16 01:10 Anaerobic Blood Culture Received Blood Peripheral Pending 11/11/16 14:40 Influenza Types A,B Antigen (CITLALY) - Final Complete Nasal Washing NEGATIVE FOR FLU A AND B ANTIGEN.... 11/11/16 14:40 Gram Stain - Final Resulted Wound Foot 11/11/16 14:40 Wound Culture - Preliminary Resulted Staphylococcus Aureus Result Diagram: 11/12/16 0838 11/12/16 0838 Imaging Last Impressions Chest X-Ray 11/11/16 1422 Signed Impressions: Service Date/Time: October 14:50 - CONCLUSION: 1. No acute cardiopulmonary findings. Gerson Beyer MD Foot MRI 11/11/16 0000 Signed Impressions: Service Date/Time: October 18:52 - CONCLUSION: 1. Osteomyelitis of the first metatarsal and great toe as above. Extensive surrounding cellulitis. Medial soft tissue ulceration. No other areas of osteomyelitis in the left foot. Rakan Lobato MD Assessment and Plan Assessment and Plan DFI, osteo L 1 st MT head MSSA - recurrent Probably polimicrobial mixed aerobic/anaerobic Fever, sepsi - from foot infx - cont zosyn, vanco for now - add fortaz for Acinetobacter coverage - agree with surgical plan - fu P clx - fu blood clx - further rec's per clx results Kristal Gaines MD Nov 12, 2016 17:57
[2016-11-12] MEDS ORDERED: cefTAZidime INJ 2,000 MG in SODIUM CHLORIDE 0.9% INJ 100 ML IV SCH (20:00)
[2016-11-12] MEDS: cefTAZidime INJ 2,000 MG in SODIUM CHLORIDE 0.9% INJ 100 ML IV SCH (21:30)
[2016-11-12] MEDS: METOPROLOL TARTRATE 50 MG TAB PO SCH (21:31)
[2016-11-12] MEDS: INSULIN DETEMIR 100 UNITS/ML VIAL SQ SCH (21:31)
[2016-11-13] MEDS: VANCOMYCIN 1,500 MG/NS 500 ML IV SCH ×4 (00:12→12:00)
[2016-11-13] MEDS ORDERED: diphenhydrAMINE HCL 50 MG CAP PO ONE (00:15)
[2016-11-13 02:56] VITALS: BP 135/79; PULSE 72; RESP 18; TEMP 99.7; O2SAT 98
[2016-11-13] MEDS: cefTAZidime INJ 2,000 MG in SODIUM CHLORIDE 0.9% INJ 100 ML IV SCH ×3 (04:10→21:46)
[2016-11-13] MEDS: oxyCODONE/ACETAMINOPHEN 5 MG/325 MG TAB PO PRN ×3 (05:23→19:44)
[2016-11-13] MEDS: PIPERACIL-TAZO 4.5 GM PREMIX 100 ML IV SCH ×3 (06:11→23:13)
[2016-11-13] MEDS: INSULIN ASPART SUPPLEMENTAL SCALE SQ SCH ×4 (06:13→19:45)
[2016-11-13 06:24] LABS: AUTOMATED NEUTROPHIL # 7.9 TH/MM3 (1.8-7.7); BASOPHIL % 0.4 % (0.0-2.0); EOSINOPHIL # 0.1 TH/MM3 (0-0.4); EOSINOPHIL % 0.7 % (0.0-4.0); HEMATOCRIT 34.7 % (39.0-51.0); LYMPH % 16.7 % (9.0-44.0); MEAN CELL VOLUME 89.1 FL (80.0-100.0); MEAN CORPUSCULAR HEMOGLOBIN 31.2 PG (27.0-34.0); MONO % 18.1 % (0.0-8.0); NEUT % 64.1 % (16.0-70.0); PLATELET COUNT 180 TH/MM3 (150-450); RED BLOOD COUNT 3.89 MIL/MM3 (4.50-5.90); RED CELL DISTRIBUTION WIDTH 13.8 % (11.6-17.2); WHITE BLOOD COUNT 12.3 TH/MM3 (4.0-11.0)
[2016-11-13 06:34] LABS: HEMO FLAGS AUTO DIFF
[2016-11-13 07:01] LABS: ALKALINE PHOSPHATASE 32 U/L (45-117); ALT (GPT) 15 U/L (12-78); ANION GAP 8 MEQ/L (5-15); AST (GOT) 9 U/L (15-37); BICARBONATE 24.7 MEQ/L (21.0-32.0); BLOOD UREA NITROGEN 9 MG/DL (7-18); CHLORIDE 103 MEQ/L (98-107); GLOMERULAR FILTRATION RATE 91 ML/MIN (>89); MAGNESIUM 1.6 MG/DL (1.5-2.5); POTASSIUM 3.7 MEQ/L (3.5-5.1); SODIUM (NA) 136 MEQ/L (136-145); TOTAL BILIRUBIN ADULT 0.7 MG/DL (0.2-1.0)
[2016-11-13] MEDS ORDERED: KETAMINE HCL 500 MG/5 ML VIAL ONE (07:44)
[2016-11-13] MEDS ORDERED: BUPIVACAINE HCL PF 0.5% 30 ML VIAL INFIL ONE (08:35)
[2016-11-13] MEDS ORDERED: DO NOT ADM ANY ANTICOAGULANT DRUGS XX PRN (08:52)
--- NOTE | 2016-11-13 08:55 | PD.OP ---
Operative Report Date of Surgery: Nov 13, 2016 Preoperative Diagnosis: (1) Osteomyelitis of left foot (2) Open wound of left foot Postoperative Diagnosis: (1) Osteomyelitis of left foot (2) Open wound of left foot Procedure: Partial resection of left first metatarsal head and amputation of left hallux Anesthesia: General relation Surgeon: Jose Stephen DPM Dedicated Driver(s): None Operation and Findings: Patient is brought to the operating room placed on the operating table in a supine position. Pneumatic ankle cuff was placed around the patient's left ankle after adequate web roll padding. Patient was given general relation anesthesia. The left foot was prepped and draped in the usual sterile manner and after the appropriate timeout was performed the left foot was elevated above the operating table for a period of 3 minutes at which time the pneumatic ankle cuff was inflated to 250 mmHg. Attention was directed to the dorsal medial aspect of the left foot where patient was noted to have diabetic ulceration. Preoperative MRI showed osteomyelitis of the head of the first metatarsal and the proximal phalanx. At this time 2 semielliptical incisions were made dorsal and plantar meeting on the medial aspect of the left foot encompassing the hallux. Using deep dissection taking care to tie off all bleeding vessels the hallux was disarticulated at the MPJ. Should be noted that the head of the first metatarsal was necrotic. Using sharp dissection the head of the first metatarsal was freed up and using an oscillating saw was resected. Sesamoid bones were then dissected free. Small piece of the head of the first metatarsal was sent for bone culture and sensitivity. The remaining hallux and first metatarsal was sent to pathology. The area was flushed with copious amounts of sterile saline. The area was anesthetized using 20 cc of 0.5 % Marcaine plain. The wound was packed with Maxorb extra AG and EBD pad 4 x 4' s and Lynn and an Lazarus bandage. The pneumatic ankle cuff was deflated at the 15 minute jose. And the vascular status returned to the remaining digits of the left foot. Sponge and instrument count were noted to be correct. Bone from the first metatarsal was sent for culture and sensitivity.. The tarsal head and hallux were sent to pathology. Patient tolerated the procedures and anesthesia well and left the OR to PACU in apparent satisfactory condition with all vital signs stable and vascular status intact to the remaining digits of the left foot Jose Stephen DPM Nov 13, 2016 08:55
[2016-11-13] MEDS ORDERED: Post-op Orders (for Pharmacy) MISC XX ONE (09:00)
[2016-11-13] MEDS ORDERED: NALOXONE HCL 0.4 MG/ML AMP IV PRN (09:00)
[2016-11-13] MEDS: DOCUSATE SODIUM 100 MG CAP PO SCH ×2 (09:00→19:44)
[2016-11-13] MEDS: SODIUM CHLORIDE 0.9% FLUSH 10 ML FLUSH IV FLUSH SCH ×4 (09:00→19:48)
[2016-11-13] MEDS: INSULIN DETEMIR 100 UNITS/ML VIAL SQ SCH ×2 (09:00→19:44)
[2016-11-13] MEDS ORDERED: *morphine SULFATE 8 MG/ML PERIprocedure ONLY ONE ×2 (09:21→11:30)
--- NOTE | 2016-11-13 09:42 | RADRPT ---
EXAM DATE/TIME: 11/13/2016 08:57 [facility] COMPARISON: FOOT LEFT COMPLETE ([id number]), August 25, 2016, 11:26. INDICATIONS : Status post left hallux amputation. MEDICAL HISTORY : None. SURGICAL HISTORY : None. ENCOUNTER: Initial ACUITY: 1 day PAIN SCORE: Non-responsive. LOCATION: Left Foot FINDINGS: 3 views of the postoperative left foot demonstrate resection of the first digit from the mid metatars al distally. The residual osseous structures are intact. There is a focal area of demineralization in volving the base of the first metatarsal, medial aspect of the cortex remains intact. The adjacent so ft tissues demonstrate diffuse edema. CONCLUSION: Post surgical changes related to patient's indication. There is a focal area of decre ased mineralization involving the medial aspect of the base of the residual first metatarsal with int act cortex. No clear evidence of osteomyelitis. Jayna Kang MD on November 13, 2016 at 9:39 Board Certified Radiologist. This report was verified electronically.
[2016-11-13 09:51] LABS: SCAN/DIFF AUTO DIFF CONFIRMED
--- NOTE | 2016-11-13 11:19 | EKG ---
Date Performed: 11/11/2016 Time Performed: 15:26:28 PTAGE: 56 years EKG: Sinus rhythm NORMAL ECG PREVIOUS TRACING : 08/26/2016 18.51 DOCTOR: Aziza Black Interpretating Date/Time 11/13/2016 11:15:42
[2016-11-13] MEDS ORDERED: ONDANSETRON HCL 4 MG/2 ML VIAL IV PUSH ONE (11:24)
[2016-11-13] MEDS ORDERED: PROPOFOL 200 MG/20 ML AMP IV ONE (11:24)
[2016-11-13] MEDS ORDERED: PHARMACY ORDERED LAB XX ONE ×2 (11:45→23:45)
[2016-11-13] MEDS ORDERED: SODIUM CHLORIDE 0.9% INJ 100 ML ONE (11:49)
[2016-11-13] MEDS: METOPROLOL TARTRATE 50 MG TAB PO SCH ×2 (12:00→19:44)
[2016-11-13] MEDS: SODIUM CHLOR 0.9% 1000 ML INJ 1,000 ML IV SCH ×2 (12:00→17:37)
[2016-11-13] MEDS ORDERED: METOPROLOL TARTRATE 25 MG TAB ONE (12:07)
[2016-11-13 13:44] VITALS: BP 173/92; PULSE 80; RESP 20; TEMP 98.4; O2SAT 98
[2016-11-13] MEDS: ENOXAPARIN SODIUM 40 MG/0.4 ML SYRINGE SQ SCH (15:40)
[2016-11-13] MEDS: MORPHINE SULFATE 4 MG/ML INJ IV PRN ×3 (15:41→21:46)
[2016-11-13 16:00] VITALS: BP 169/89; PULSE 85; RESP 19; TEMP 100.1; O2SAT 97
--- NOTE | 2016-11-13 17:59 | HHI.PR ---
Subjective Remarks Patient c/o of some pain in postsurgical extremity denies cp/sob still having high fevers Tmax 102.3 last night Objective Vitals Vital Signs Date Time Temp Pulse Resp B/P Pulse Ox O2 Delivery O2 Flow Rate FiO2 11/13/16 16:00 100.1 85 19 169/89 97 11/13/16 15:46 17 11/13/16 14:45 18 11/13/16 13:44 98.4 80 20 173/92 98 11/13/16 12:45 72 16 153/93 98 Room Air 11/13/16 11:45 71 16 151/98 98 Room Air 11/13/16 10:45 73 16 136/90 98 Room Air 11/13/16 09:45 71 16 138/84 98 Room Air 11/13/16 09:30 75 16 137/84 98 Room Air 11/13/16 09:15 69 16 131/87 99 Room Air 11/13/16 09:00 72 16 133/84 99 Room Air 11/13/16 08:50 99.1 74 16 130/83 99 Nasal Cannula 3 11/13/16 02:56 99.7 72 18 135/79 98 11/12/16 23:52 102.3 87 18 127/70 95 11/12/16 20:44 100.0 83 18 140/83 99 I/O 11/12/16 11/12/16 11/12/16 11/13/16 11/13/16 11/13/16 07:00 15:00 23:00 07:00 15:00 23:00 Intake Total 1489 ml Output Total 805 ml Balance 684 ml Intake IV Total 1189 ml Other 300 ml Output Urine Total 800 ml Estimated Blood Loss 5 ml # Voids 2 Result Diagram: 11/13/16 0605 11/13/16 0605 Imaging Last Impressions Foot X-Ray 11/13/16 0000 Signed Impressions: Service Date/Time: Sunday, November 13, 2016 08:57 - CONCLUSION: Post surgical changes related to patient's indication. There is a focal area of decreased mineralization involving the medial aspect of the base of the residual first metatarsal with intact cortex. No clear evidence of osteomyelitis. Jayna Kang MD Chest X-Ray 11/11/16 1422 Signed Impressions: Service Date/Time: October 14:50 - CONCLUSION: 1. No acute cardiopulmonary findings. Gerson Beyer MD Foot MRI 11/11/16 0000 Signed Impressions: Service Date/Time: October 18:52 - CONCLUSION: 1. Osteomyelitis of the first metatarsal and great toe as above. Extensive surrounding cellulitis. Medial soft tissue ulceration. No other areas of osteomyelitis in the left foot. Rakan Lobato MD Objective Remarks GENERAL: This is a well-nourished, well-developed patient, ill in appearance, warm to the touch SKIN: Open wound 4 cm x 1.5 cm with surrounding erythema no drainage present at this time HEAD: Atraumatic. Normocephalic. No temporal or scalp tenderness. EYES: Extraocular motions intact. No scleral icterus. No injection or drainage. ENT: Nose without bleeding, purulent drainage or septal hematoma. Throat without erythema, tonsillar hypertrophy or exudate. Uvula midline. Airway patent. NECK: Trachea midline. No JVD or lymphadenopathy. Supple, nontender, no meningeal signs. CARDIOVASCULAR: Regular rate and rhythm without murmurs, gallops, or rubs. RESPIRATORY: Clear to auscultation. Breath sounds equal bilaterally. No wheezes , rales, or rhonchi. GASTROINTESTINAL: Abdomen soft, non-tender, nondistended. Soft reducible abdominal hernia noted MUSCULOSKELETAL: No edema. No calf tenderness. Negative Homans sign bilaterally. Left foot is covered by dressing which has dried blood on it. NEUROLOGICAL: Awake and alert. No focal deficits identified. Motor and sensory grossly within normal limits. Five out of 5 muscle strength in all muscle groups. Normal speech. Procedures sp Partial resection of left first metatarsal head and amputation of left hallux 11/13 Medications and IVs Current Medications Medications (Trade) Dose Ordered Sig/Krupa Route Start Time Stop Time Status Last Admin (NS 1000 ml Inj) 1,000 ml @ 100 mls/hr Q10H IV 11/11/16 16:37 11/13/16 12:00 (NS Flush) 2 ml UNSCH PRN IV FLUSH 11/11/16 16:45 (NS Flush) 2 ml BID IV FLUSH 11/11/16 21:00 11/12/16 21:00 (Tylenol) 650 mg Q4H PRN PO 11/11/16 16:45 11/12/16 14:26 (Zofran Inj) 4 mg Q6H PRN IVP 11/11/16 16:45 (Colace) 100 mg Q12HR PO 11/11/16 21:00 11/12/16 21:31 (Milk Of Magnesia Liq) 30 ml Q12H PRN PO 11/11/16 16:45 (Lovenox Inj) 40 mg Q24H SQ 11/11/16 17:00 11/11/16 17:50 Naloxone HCl 0.4 mg 0.4 mg UNSCH PRN IV 11/11/16 16:45 Pharmacy Profile Note 0 ml @ 0 mls/hr UNSCH OTHER 11/11/16 16:45 (Zosyn 4.5 Gm Premix) 100 ml @ 200 mls/hr Q8H IV 11/11/16 23:00 11/13/16 13:45 (D50w (Vial) Inj) 25 ml UNSCH PRN IV PUSH 11/11/16 16:45 Glucagon 1 mg 1 mg UNSCH PRN OTHER 11/11/16 16:45 (Vancomycin Inj/ NS 500 ml Inj) 515 ml @ 257.5 mls/ hr Q12H IV 11/12/16 00:00 11/13/16 12:00 (Lopressor) 50 mg BID PO 11/12/16 21:00 11/13/16 12:00 (Percocet 5-325 Mg) 1 tab Q4H PRN PO 11/12/16 16:30 (Percocet 5-325 Mg) 2 tab Q6H PRN PO 11/12/16 16:30 11/13/16 13:45 Insulin Detemir 10 units 10 units BID SQ 11/12/16 21:00 11/12/16 21:31 (Fortaz Inj/NS Inj) 100 ml @ 200 mls/hr Q8H IV 11/12/16 20:00 11/13/16 12:00 (NS Flush) 2 ml UNSCH PRN IV FLUSH 11/13/16 09:00 (NS Flush) 2 ml BID IV FLUSH 11/13/16 09:00 (Morphine Inj) 4 mg Q3H PRN IV 11/13/16 09:00 11/13/16 15:41 (Narcan Inj) 0.4 mg UNSCH PRN IV 11/13/16 09:00 Miscellaneous Information ALL NURSING DEPARTME... UNSCH PRN XX 11/13/16 08:52 11/14/16 08:51 Miscellaneous Information SPECIFIC LAB TO BE ... ONCE ONCE XX 11/13/16 23:45 11/13/16 23:46 Urinary Catheter: No Vascular Central Line Catheter: No A/P Problem List: (1) Open wound of left foot ICD Code: S91.302A Status: Chronic (2) Sepsis ICD Code: A41.9 Status: Acute (3) Lactic acidosis ICD Code: E87.2 Status: Acute (4) Hypomagnesemia ICD Code: E83.42 Status: Acute (5) Diabetes mellitus ICD Code: E11.9 Status: Chronic (6) Hypertension ICD Code: I10 Status: Chronic (7) Tobacco abuse ICD Code: Z72.0 Status: Chronic (8) Fever ICD Code: R50.9 Status: Acute Assessment and Plan This 56-year-old male patient with past medical history which includes hypertension, diabetes mellitus type 2, peripheral neuropathy and left foot wound initially obtained August 24, 2016 by stepping on a nail. Patient was hospitalized prior for the left foot wound found to have sepsis at that time and underwent an I&D and was being seen by outpatient wound clinic, Dr. Rincon. Patient reports he was doing well but began to have chills and rigor last night. Sepsis - Present on admission (temperature 103, white blood cell count 15.7, lactic acid 2.4, likely source left foot wound) Seems to be improving. Lactate normal. WBC slightly elevated to 12.5 Appreciate Id recommendations - continue antibiotics as per ID. patient currently on IV vancomycin, Zosyn, ceftazidime added to cover for Acinetobacter. I will discontinue IV fluids Lactic acidosis - Lactic acid 2.4, resolved and down to 1.4 after IV fluids. Left foot wound rule out osteomyelitis Fluid bolus given in the ED MRI L foot shows osteomyelitis as described above. Podiatry consult appreciated - for OR on Tuesday morning for an amputation of the left hallux and first metatarsal head resection. Wound culture is growing Staph aureus. Fu susceptibility. Infectious disease consult pending. Will Rx oral Percocet for pain. Will give on dose of IV morphine now since patient c/o severe pain. Continue IV Vancomycin, IV Zosyn and IV ceftazidime. Pharmacy helping with dosing. Diabetes mellitus hold oral anti-glycemic at this point Hemoglobin A1c 09/01/2016 6.8 Blood sugars uncontrolled and elevated in the 200's. Will start patient on Insulin Levemir. Continue SSI w insulin Novolog. 11/13 blood sugars with improved control. Continue same regimen. Hypertension : Bp uncontrolled with sbp in the 150's to 160's. Dose of metoprolol increased to 50 mg by mouth twice a day on 11/12/16. Blood pressure much improved after that. Now with slightly elevated likely secondary to pain. Hypomagnesemia- sp Magnesium sulfate administration - mgnesium still 1.4. Magnesium up to 1.6. Continue to monitor and replace as needed. Fever - Due to sepsis and left foot osteomyelitis. Continue Tylenol for fever. Continue Ibuprofen if tylenol not effective to treat the fever. GI prophylaxis: I will add Protonix. DVT prophylaxis: Hold Lovenox for today, may restart tomorrow if there is no evidence of bleeding on surgical site. Discharge Planning Continue to monitor and the medical floor. Problem Qualifiers (1) Open wound of left foot: Qualified Code: S91.302S - Open wound of left foot, sequela (2) Diabetes mellitus: (3) Fever: Qualified Code: R50.81 - Fever in other diseases Travis Barber MD Nov 13, 2016 17:58
[2016-11-13 20:00] VITALS: BP 142/92; PULSE 76; RESP 20; TEMP 97.7; O2SAT 100
[2016-11-14] VITALS: BP 141/79; PULSE 66; RESP 20; TEMP 97; O2SAT 99
[2016-11-14] MEDS: VANCOMYCIN 1,500 MG/NS 500 ML IV SCH ×2 (00:19)
[2016-11-14] MEDS: MORPHINE SULFATE 4 MG/ML INJ IV PRN ×7 (00:47→21:37)
[2016-11-14] MEDS: oxyCODONE/ACETAMINOPHEN 5 MG/325 MG TAB PO PRN ×4 (02:00→20:57)
[2016-11-14] MEDS: cefTAZidime INJ 2,000 MG in SODIUM CHLORIDE 0.9% INJ 100 ML IV SCH ×3 (04:01→19:38)
[2016-11-14 04:38] LABS: AUTOMATED NEUTROPHIL # 5.8 TH/MM3 (1.8-7.7); BASOPHIL % 0.3 % (0.0-2.0); EOSINOPHIL # 0.2 TH/MM3 (0-0.4); EOSINOPHIL % 2.1 % (0.0-4.0); HEMATOCRIT 29.5 % (39.0-51.0); HEMO FLAGS DIFF FINAL; LYMPH % 16.8 % (9.0-44.0); LYMPHOCYTE # 1.6 TH/MM3 (1.0-4.8); MEAN CELL VOLUME 89.1 FL (80.0-100.0); MEAN CORPUSCULAR HEMOGLOBIN 31.5 PG (27.0-34.0); MEAN CORPUSCULAR HGB CONC 35.4 % (32.0-36.0); MONO % 18.6 % (0.0-8.0); NEUT % 62.2 % (16.0-70.0); PLATELET COUNT 174 TH/MM3 (150-450); RED BLOOD COUNT 3.31 MIL/MM3 (4.50-5.90); RED CELL DISTRIBUTION WIDTH 13.6 % (11.6-17.2); WHITE BLOOD COUNT 9.3 TH/MM3 (4.0-11.0)
[2016-11-14 04:50] LABS: ALT (GPT) 14 U/L (12-78); ANION GAP 9 MEQ/L (5-15); AST (GOT) 12 U/L (15-37); BICARBONATE 25.2 MEQ/L (21.0-32.0); BLOOD UREA NITROGEN 10 MG/DL (7-18); CHLORIDE 102 MEQ/L (98-107); GLOMERULAR FILTRATION RATE 85 ML/MIN (>89); MAGNESIUM 1.8 MG/DL (1.5-2.5); POTASSIUM 3.7 MEQ/L (3.5-5.1); SODIUM (NA) 136 MEQ/L (136-145)
[2016-11-14 04:52] LABS: ALKALINE PHOSPHATASE 32 U/L (45-117); TOTAL BILIRUBIN ADULT 0.6 MG/DL (0.2-1.0)
[2016-11-14] MEDS: INSULIN ASPART SUPPLEMENTAL SCALE SQ SCH ×4 (05:08→19:39)
[2016-11-14] MEDS: PIPERACIL-TAZO 4.5 GM PREMIX 100 ML IV SCH ×3 (05:08→23:55)
[2016-11-14 08:00] VITALS: BP 112/71; PULSE 66; RESP 16; TEMP 96.8; O2SAT 95
[2016-11-14] MEDS: DOCUSATE SODIUM 100 MG CAP PO SCH ×2 (08:31→19:38)
[2016-11-14] MEDS: METOPROLOL TARTRATE 50 MG TAB PO SCH ×2 (08:31→19:38)
[2016-11-14] MEDS: INSULIN DETEMIR 100 UNITS/ML VIAL SQ SCH ×2 (08:34→19:38)
[2016-11-14] MEDS: SODIUM CHLORIDE 0.9% FLUSH 10 ML FLUSH IV FLUSH SCH ×4 (08:34→19:38)
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
[2016-11-14] MEDS: VANCOMYCIN INJ 1,750 MG in SODIUM CHLORID 0.9% 500 ML INJ 500 ML IV SCH ×2 (11:33→23:55)
[2016-11-14 12:00] VITALS: BP 143/77; PULSE 73; RESP 18; TEMP 95.8; O2SAT 96
--- NOTE | 2016-11-14 14:38 | HHI.PR ---
Subjective Remarks c/o some pain on postsurgical extremity denies cp/sob eating well denies diarrhea had a low grade fever last night with a Tmax of 100.1 Patient states had bleeding and bandages and dressing had to be changed 3 times Objective Vitals Vital Signs Date Time Temp Pulse Resp B/P Pulse Ox O2 Delivery O2 Flow Rate FiO2 11/14/16 13:45 18 11/14/16 12:00 95.8 73 18 143/77 96 11/14/16 09:31 18 11/14/16 08:00 96.8 66 16 112/71 95 11/14/16 00:00 97.0 66 20 141/79 99 11/13/16 20:00 97.7 76 20 142/92 100 11/13/16 16:00 100.1 85 19 169/89 97 I/O 11/13/16 11/13/16 11/13/16 11/14/16 11/14/16 11/14/16 07:00 15:00 23:00 07:00 15:00 23:00 Intake Total 1489 ml 340 ml 1235 ml 520 ml Output Total 805 ml 730 ml 1700 ml Balance 684 ml -390 ml -465 ml 520 ml Intake Oral 240 ml 360 ml IV Total 1189 ml 100 ml 875 ml 520 ml Other 300 ml Output Urine Total 800 ml 730 ml 1700 ml Estimated Blood Loss 5 ml # Bowel Movements 1 0 Result Diagram: 11/14/16 0321 11/14/16 0321 Imaging Last Impressions Foot X-Ray 11/13/16 0000 Signed Impressions: Service Date/Time: Sunday, November 13, 2016 08:57 - CONCLUSION: Post surgical changes related to patient's indication. There is a focal area of decreased mineralization involving the medial aspect of the base of the residual first metatarsal with intact cortex. No clear evidence of osteomyelitis. Jayna Kang MD Chest X-Ray 11/11/16 1422 Signed Impressions: Service Date/Time: October 14:50 - CONCLUSION: 1. No acute cardiopulmonary findings. Gerson Beyer MD Foot MRI 11/11/16 0000 Signed Impressions: Service Date/Time: October 18:52 - CONCLUSION: 1. Osteomyelitis of the first metatarsal and great toe as above. Extensive surrounding cellulitis. Medial soft tissue ulceration. No other areas of osteomyelitis in the left foot. Rakan Lobato MD Objective Remarks GENERAL: This is a well-nourished, well-developed patient, ill in appearance, warm to the touch SKIN: Open wound 4 cm x 1.5 cm with surrounding erythema no drainage present at this time HEAD: Atraumatic. Normocephalic. No temporal or scalp tenderness. EYES: Extraocular motions intact. No scleral icterus. No injection or drainage. ENT: Nose without bleeding, purulent drainage or septal hematoma. Throat without erythema, tonsillar hypertrophy or exudate. Uvula midline. Airway patent. NECK: Trachea midline. No JVD or lymphadenopathy. Supple, nontender, no meningeal signs. CARDIOVASCULAR: Regular rate and rhythm without murmurs, gallops, or rubs. RESPIRATORY: Clear to auscultation. Breath sounds equal bilaterally. No wheezes , rales, or rhonchi. GASTROINTESTINAL: Abdomen soft, non-tender, nondistended. Soft reducible abdominal hernia noted MUSCULOSKELETAL: No edema. No calf tenderness. Negative Homans sign bilaterally. Left foot is covered by dressing which has dried blood on it. NEUROLOGICAL: Awake and alert. No focal deficits identified. Motor and sensory grossly within normal limits. Five out of 5 muscle strength in all muscle groups. Normal speech. Procedures sp Partial resection of left first metatarsal head and amputation of left hallux 11/13 Medications and IVs Current Medications Medications (Trade) Dose Ordered Sig/Krupa Route Start Time Stop Time Status Last Admin (NS Flush) 2 ml UNSCH PRN IV FLUSH 11/11/16 16:45 (NS Flush) 2 ml BID IV FLUSH 11/11/16 21:00 11/14/16 08:34 (Tylenol) 650 mg Q4H PRN PO 11/11/16 16:45 11/12/16 14:26 (Zofran Inj) 4 mg Q6H PRN IVP 11/11/16 16:45 (Colace) 100 mg Q12HR PO 11/11/16 21:00 11/14/16 08:31 (Milk Of Magnesia Liq) 30 ml Q12H PRN PO 11/11/16 16:45 (Lovenox Inj) 40 mg Q24H SQ 11/11/16 17:00 11/11/16 17:50 Naloxone HCl 0.4 mg 0.4 mg UNSCH PRN IV 11/11/16 16:45 Pharmacy Profile Note 0 ml @ 0 mls/hr UNSCH OTHER 11/11/16 16:45 (Zosyn 4.5 Gm Premix) 100 ml @ 200 mls/hr Q8H IV 11/11/16 23:00 11/14/16 13:40 (D50w (Vial) Inj) 25 ml UNSCH PRN IV PUSH 11/11/16 16:45 (Glucagon Inj) 1 mg UNSCH PRN OTHER 11/11/16 16:45 (Lopressor) 50 mg BID PO 11/12/16 21:00 11/14/16 08:31 (Percocet 5-325 Mg) 1 tab Q4H PRN PO 11/12/16 16:30 (Percocet 5-325 Mg) 2 tab Q6H PRN PO 11/12/16 16:30 11/14/16 08:31 Insulin Detemir 10 units 10 units BID SQ 11/12/16 21:00 11/14/16 08:34 (Fortaz Inj/NS Inj) 100 ml @ 200 mls/hr Q8H IV 11/12/16 20:00 11/14/16 10:30 (NS Flush) 2 ml UNSCH PRN IV FLUSH 11/13/16 09:00 (NS Flush) 2 ml BID IV FLUSH 11/13/16 09:00 (Morphine Inj) 4 mg Q3H PRN IV 11/13/16 09:00 11/14/16 13:40 Naloxone HCl 0.4 mg 0.4 mg UNSCH PRN IV 11/13/16 09:00 (Vancomycin Inj/ NS 500 ml Inj) 517.5 ml @ 250 mls/hr Q12H IV 11/14/16 12:00 11/14/16 11:33 Miscellaneous Information SPECIFIC LAB TO BE ISIDRO... ONCE ONCE XX 11/16/16 11:45 11/16/16 11:46 Urinary Catheter: No Vascular Central Line Catheter: No A/P Problem List: (1) Open wound of left foot ICD Code: S91.302A Status: Chronic (2) Sepsis ICD Code: A41.9 Status: Acute (3) Lactic acidosis ICD Code: E87.2 Status: Acute (4) Hypomagnesemia ICD Code: E83.42 Status: Acute (5) Diabetes mellitus ICD Code: E11.9 Status: Chronic (6) Hypertension ICD Code: I10 Status: Chronic (7) Tobacco abuse ICD Code: Z72.0 Status: Chronic (8) Fever ICD Code: R50.9 Status: Acute Assessment and Plan This 56-year-old male patient with past medical history which includes hypertension, diabetes mellitus type 2, peripheral neuropathy and left foot wound initially obtained August 24, 2016 by stepping on a nail. Patient was hospitalized prior for the left foot wound found to have sepsis at that time and underwent an I&D and was being seen by outpatient wound clinic, Dr. Rincon. Patient reports he was doing well but began to have chills and rigor last night. Sepsis - Present on admission (temperature 103, white blood cell count 15.7, lactic acid 2.4, likely source left foot wound) Seems to be improving. Lactate normal. WBC slightly elevated to 12.5 Appreciate Id recommendations - continue antibiotics as per ID. patient currently on IV vancomycin, Zosyn, ceftazidime added to cover for Acinetobacter. I will discontinue IV fluids Lactic acidosis - Lactic acid 2.4, resolved and down to 1.4 after IV fluids. Left foot wound rule out osteomyelitis Fluid bolus given in the ED MRI L foot shows osteomyelitis as described above. Podiatry consult appreciated - for OR on Tuesday morning for an amputation of the left hallux and first metatarsal head resection. Wound culture is growing Staph aureus. Fu susceptibility. continue oral Percocet for pain. Will give on dose of IV morphine now since patient c/o severe pain. Continue IV Vancomycin, IV Zosyn and IV ceftazidime. Pharmacy helping with dosing. Diabetes mellitus hold oral anti-glycemic at this point Hemoglobin A1c 09/01/2016 6.8 Blood sugars uncontrolled and elevated in the 200's. Will start patient on Insulin Levemir. Continue SSI w insulin Novolog. Blood sugars stable. Continue Insulin Levemir and SSI with insulin Novolog. Hypertension : Bp uncontrolled with sbp in the 150's to 160's. Dose of metoprolol increased to 50 mg by mouth twice a day on 11/12/16. BP stable. continue with metoprolol Hypomagnesemia- sp Magnesium sulfate administration - mgnesium still 1.4. Magnesium up to 1.6. Continue to monitor and replace as needed. Fever - Due to sepsis and left foot osteomyelitis. Continue Tylenol for fever. Continue Ibuprofen if tylenol not effective to treat the fever. GI prophylaxis: on Protonix. DVT prophylaxis: Will continue to hold lovenox since patient states had some bleeding. Discharge Planning Continue to monitor and the medical floor. Problem Qualifiers (1) Open wound of left foot: Qualified Code: S91.302S - Open wound of left foot, sequela (2) Diabetes mellitus: (3) Fever: Qualified Code: R50.81 - Fever in other diseases Travis Barber MD Nov 14, 2016 14:38
[2016-11-14 16:00] VITALS: BP 130/74; PULSE 76; RESP 20; TEMP 96.9; O2SAT 95
[2016-11-14] MEDS: ENOXAPARIN SODIUM 40 MG/0.4 ML SYRINGE SQ SCH (16:10)
[2016-11-14 20:00] VITALS: BP 143/85; PULSE 71; RESP 20; TEMP 97.4; O2SAT 97
[2016-11-15] VITALS: BP 118/75; PULSE 69; RESP 20; TEMP 97; O2SAT 95
[2016-11-15] MEDS: MORPHINE SULFATE 4 MG/ML INJ IV PRN ×6 (00:36→22:06)
[2016-11-15] MEDS: cefTAZidime INJ 2,000 MG in SODIUM CHLORIDE 0.9% INJ 100 ML IV SCH ×2 (03:03→11:03)
[2016-11-15] MEDS: oxyCODONE/ACETAMINOPHEN 5 MG/325 MG TAB PO PRN ×4 (03:04→21:27)
[2016-11-15 05:26] LABS: AUTOMATED NEUTROPHIL # 5.8 TH/MM3 (1.8-7.7); BASOPHIL % 0.5 % (0.0-2.0); EOSINOPHIL # 0.3 TH/MM3 (0-0.4); EOSINOPHIL % 3.6 % (0.0-4.0); HEMATOCRIT 29.5 % (39.0-51.0); HEMO FLAGS DIFF FINAL; LYMPH % 17.2 % (9.0-44.0); LYMPHOCYTE # 1.5 TH/MM3 (1.0-4.8); MEAN CELL VOLUME 88.4 FL (80.0-100.0); MEAN CORPUSCULAR HEMOGLOBIN 30.8 PG (27.0-34.0); MEAN CORPUSCULAR HGB CONC 34.9 % (32.0-36.0); MONO % 13.9 % (0.0-8.0); NEUT % 64.8 % (16.0-70.0); PLATELET COUNT 185 TH/MM3 (150-450); RED BLOOD COUNT 3.34 MIL/MM3 (4.50-5.90); RED CELL DISTRIBUTION WIDTH 13.7 % (11.6-17.2); WHITE BLOOD COUNT 8.9 TH/MM3 (4.0-11.0)
[2016-11-15] MEDS: INSULIN ASPART SUPPLEMENTAL SCALE SQ SCH ×4 (05:35→21:00)
[2016-11-15] MEDS: PIPERACIL-TAZO 4.5 GM PREMIX 100 ML IV SCH ×2 (05:35→14:47)
[2016-11-15 05:40] LABS: BICARBONATE 26.2 MEQ/L (21.0-32.0); POTASSIUM 3.7 MEQ/L (3.5-5.1)
[2016-11-15 08:00] VITALS: BP 167/87; PULSE 82; RESP 18; TEMP 96; O2SAT 93
[2016-11-15] MEDS: DOCUSATE SODIUM 100 MG CAP PO SCH ×2 (08:35→21:27)
[2016-11-15] MEDS: METOPROLOL TARTRATE 50 MG TAB PO SCH ×2 (08:35→21:27)
[2016-11-15] MEDS: INSULIN DETEMIR 100 UNITS/ML VIAL SQ SCH ×2 (08:35→21:31)
[2016-11-15] MEDS: SODIUM CHLORIDE 0.9% FLUSH 10 ML FLUSH IV FLUSH SCH ×3 (08:36→21:00)
[2016-11-15 12:00] VITALS: BP 156/78; PULSE 71; RESP 17; TEMP 96.4; O2SAT 99
[2016-11-15] MEDS: VANCOMYCIN INJ 1,750 MG in SODIUM CHLORID 0.9% 500 ML INJ 500 ML IV SCH (12:03)
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
[2016-11-15] MEDS: ENOXAPARIN SODIUM 40 MG/0.4 ML SYRINGE SQ SCH (15:44)
[2016-11-15 16:00] VITALS: BP 167/92; PULSE 75; RESP 17; TEMP 97.6; O2SAT 99
--- NOTE | 2016-11-15 16:32 | HHI.IDPN ---
Subjective Subjective Remarks sp 1 st ray amputation Doing OK no fever Antibiotics ceftaz vancomycin zosyn Allergies: Coded Allergies: Dilaudid (Verified Allergy, Unknown, Itching, 11/11/16) Objective . Vital Signs Date Time Temp Pulse Resp B/P Pulse Ox O2 Delivery O2 Flow Rate FiO2 11/15/16 16:00 97.6 75 17 167/92 99 11/15/16 12:00 96.4 71 17 156/78 99 11/15/16 08:00 96.0 82 18 167/87 93 11/15/16 00:00 97.0 69 20 118/75 95 11/14/16 20:00 97.4 71 20 143/85 97 11/14/16 17:33 18 11/14/16 11/14/16 11/15/16 15:00 23:00 07:00 Intake Total 2620 ml 580 ml 1040 ml Output Total 1500 ml 325 ml 1400 ml Balance 1120 ml 255 ml -360 ml Intake Oral 2100 ml 480 ml 240 ml IV Total 520 ml 100 ml 800 ml Output Urine Total 1500 ml 325 ml 1400 ml # Bowel Movements 1 0 0 . Laboratory Tests Test 11/14/16 11/15/16 03:21 04:38 White Blood Count 9.3 TH/MM3 8.9 TH/MM3 Red Blood Count 3.31 MIL/MM3 3.34 MIL/MM3 Hemoglobin 10.4 GM/DL 10.3 GM/DL Hematocrit 29.5 % 29.5 % Mean Corpuscular Volume 89.1 FL 88.4 FL Mean Corpuscular Hemoglobin 31.5 PG 30.8 PG Mean Corpuscular Hemoglobin 35.4 % 34.9 % Concent Red Cell Distribution Width 13.6 % 13.7 % Platelet Count 174 TH/MM3 185 TH/MM3 Mean Platelet Volume 7.4 FL 7.3 FL Neutrophils (%) (Auto) 62.2 % 64.8 % Lymphocytes (%) (Auto) 16.8 % 17.2 % Monocytes (%) (Auto) 18.6 % 13.9 % Eosinophils (%) (Auto) 2.1 % 3.6 % Basophils (%) (Auto) 0.3 % 0.5 % Neutrophils # (Auto) 5.8 TH/MM3 5.8 TH/MM3 Lymphocytes # (Auto) 1.6 TH/MM3 1.5 TH/MM3 Monocytes # (Auto) 1.7 TH/MM3 1.2 TH/MM3 Eosinophils # (Auto) 0.2 TH/MM3 0.3 TH/MM3 Basophils # (Auto) 0.0 TH/MM3 0.0 TH/MM3 CBC Comment DIFF FINAL DIFF FINAL Differential Comment Laboratory Tests Test 11/14/16 11/15/16 03:21 03:48 Sodium Level 136 MEQ/L 138 MEQ/L Potassium Level 3.7 MEQ/L 3.7 MEQ/L Chloride Level 102 MEQ/L 103 MEQ/L Carbon Dioxide Level 25.2 MEQ/L 26.2 MEQ/L Anion Gap 9 MEQ/L 9 MEQ/L Blood Urea Nitrogen 10 MG/DL 9 MG/DL Creatinine 0.92 MG/DL 0.76 MG/DL Estimat Glomerular Filtration 85 ML/MIN 106 ML/MIN Rate Random Glucose 115 MG/DL 106 MG/DL Calcium Level 8.4 MG/DL 8.6 MG/DL Phosphorus Level 3.4 MG/DL Magnesium Level 1.8 MG/DL Total Bilirubin 0.6 MG/DL Aspartate Amino Transf 12 U/L (AST/SGOT) Alanine Aminotransferase 14 U/L (ALT/SGPT) Alkaline Phosphatase 32 U/L Total Protein 6.4 GM/DL Albumin 2.5 GM/DL Microbiology Date/Time Procedure Status Source Growth 11/13/16 08:42 Gram Stain - Final Resulted Wound Toe 11/13/16 08:42 Wound Culture - Preliminary Resulted Gram Positive Cocci 11/13/16 08:42 Acid Fast Stain Received Wound Toe Pending 11/13/16 08:42 Mycobacterial Culture Received Wound Toe Pending 11/13/16 08:42 Fungal Smear - Final Resulted Wound Toe NO FUNGAL ELEMENTS SEEN. 11/13/16 08:42 Fungal Culture Resulted Wound Toe Pending Imaging Last Impressions Foot X-Ray 11/13/16 0000 Signed Impressions: Service Date/Time: Sunday, November 13, 2016 08:57 - CONCLUSION: Post surgical changes related to patient's indication. There is a focal area of decreased mineralization involving the medial aspect of the base of the residual first metatarsal with intact cortex. No clear evidence of osteomyelitis. Jayna Kang MD Chest X-Ray 11/11/16 1422 Signed Impressions: Service Date/Time: October 14:50 - CONCLUSION: 1. No acute cardiopulmonary findings. Gerson Beyer MD Foot MRI 11/11/16 0000 Signed Impressions: Service Date/Time: October 18:52 - CONCLUSION: 1. Osteomyelitis of the first metatarsal and great toe as above. Extensive surrounding cellulitis. Medial soft tissue ulceration. No other areas of osteomyelitis in the left foot. Rakan Lobato MD Physical Exam CONSTITUTIONAL/GENERAL: This is an mildly obese male patient, in no apparent distress. SKIN: No jaundice, rashes, EYES: . No scleral icterus. ENT: Oral mucosae moist; very poor dentition. No thrush CARDIOVASCULAR: Regular rate and rhythm without murmurs, gallops, or rubs. No JVD. Peripheral pulses symmetric. RESPIRATORY/CHEST: Symmetric, unlabored respirations. Clear to auscultation. Breath sounds equal bilaterally. No wheezes, rales, or rhonchi. GASTROINTESTINAL: Abdomen soft, non-tender, nondistended. No guarding. Bowel sounds present. MUSCULOSKELETAL: Extremities without clubbing, cyanosis, no edema of RLE STATUS LOCALIS: L foot dressing i place NEUROLOGICAL: Awake and alert. N0n focal Assessment & Plan Remarks DFI, osteo L 1 st MT head - sp Partial resection of left first metatarsal head and amputation of left hallux 10/16 - pt consistently grew out MSSA, other bacteria were diferent on different occasion (acinetobacter, Achromobacter, PSAE) MSSA - recurrent Probably polimicrobial mixed aerobic/anaerobic Fever, sepsis - from foot infx: clincally resolved - dc zosyn, - dc vanco - start cefazoline - start bactrim - fu bone clx Kristal Gaines MD Nov 15, 2016 16:32
[2016-11-15] MEDS: ceFAZolin 2 GM PREMIX 50 ML IV SCH (17:31)
--- NOTE | 2016-11-15 18:31 | HHI.PR ---
Subjective Remarks denies chest pain/sob pain controlled bp elevated into the 160's Objective Vitals Vital Signs Date Time Temp Pulse Resp B/P Pulse Ox O2 Delivery O2 Flow Rate FiO2 11/15/16 16:00 97.6 75 17 167/92 99 11/15/16 12:00 96.4 71 17 156/78 99 11/15/16 08:00 96.0 82 18 167/87 93 11/15/16 00:00 97.0 69 20 118/75 95 11/14/16 20:00 97.4 71 20 143/85 97 I/O 11/14/16 11/14/16 11/14/16 11/15/16 11/15/16 11/15/16 07:00 15:00 23:00 07:00 15:00 23:00 Intake Total 1235 ml 2620 ml 580 ml 1040 ml 2640 ml Output Total 1700 ml 1500 ml 325 ml 1400 ml Balance -465 ml 1120 ml 255 ml -360 ml 2640 ml Intake Oral 360 ml 2100 ml 480 ml 240 ml 2640 ml IV Total 875 ml 520 ml 100 ml 800 ml Output Urine Total 1700 ml 1500 ml 325 ml 1400 ml # Voids 6 # Bowel Movements 0 1 0 0 2 Result Diagram: 11/15/16 0438 11/15/16 0348 Imaging Last Impressions Foot X-Ray 11/13/16 0000 Signed Impressions: Service Date/Time: Sunday, November 13, 2016 08:57 - CONCLUSION: Post surgical changes related to patient's indication. There is a focal area of decreased mineralization involving the medial aspect of the base of the residual first metatarsal with intact cortex. No clear evidence of osteomyelitis. Jayna Kang MD Chest X-Ray 11/11/16 1422 Signed Impressions: Service Date/Time: October 14:50 - CONCLUSION: 1. No acute cardiopulmonary findings. Gerson Beyer MD Foot MRI 11/11/16 0000 Signed Impressions: Service Date/Time: October 18:52 - CONCLUSION: 1. Osteomyelitis of the first metatarsal and great toe as above. Extensive surrounding cellulitis. Medial soft tissue ulceration. No other areas of osteomyelitis in the left foot. Rakan Lobato MD Objective Remarks GENERAL: This is a well-nourished, well-developed patient, NAD SKIN: Open wound 4 cm x 1.5 cm with surrounding erythema no drainage present at this time HEAD: Atraumatic. Normocephalic. No temporal or scalp tenderness. EYES: Extraocular motions intact. No scleral icterus. No injection or drainage. ENT: Nose without bleeding, purulent drainage or septal hematoma. Throat without erythema, tonsillar hypertrophy or exudate. Uvula midline. Airway patent. NECK: Trachea midline. No JVD or lymphadenopathy. Supple, nontender, no meningeal signs. CARDIOVASCULAR: Regular rate and rhythm without murmurs, gallops, or rubs. RESPIRATORY: Clear to auscultation. Breath sounds equal bilaterally. No wheezes , rales, or rhonchi. GASTROINTESTINAL: Abdomen soft, non-tender, nondistended. Soft reducible abdominal hernia noted MUSCULOSKELETAL: No edema. No calf tenderness. Negative Homans sign bilaterally. Left foot is covered by dressing which has dried blood on it. NEUROLOGICAL: Awake and alert. No focal deficits identified. Motor and sensory grossly within normal limits. Five out of 5 muscle strength in all muscle groups. Normal speech. Procedures sp Partial resection of left first metatarsal head and amputation of left hallux 11/13 Medications and IVs Current Medications Medications (Trade) Dose Ordered Sig/Krupa Route Start Time Stop Time Status Last Admin (Tylenol) 650 mg Q4H PRN PO 11/11/16 16:45 11/12/16 14:26 (Zofran Inj) 4 mg Q6H PRN IVP 11/11/16 16:45 (Colace) 100 mg Q12HR PO 11/11/16 21:00 11/15/16 08:35 (Milk Of Magnesia Liq) 30 ml Q12H PRN PO 11/11/16 16:45 (Lovenox Inj) 40 mg Q24H SQ 11/11/16 17:00 11/11/16 17:50 (Narcan Inj) 0.4 mg UNSCH PRN IV 11/11/16 16:45 (D50w (Vial) Inj) 25 ml UNSCH PRN IV PUSH 11/11/16 16:45 (Glucagon Inj) 1 mg UNSCH PRN OTHER 11/11/16 16:45 (Lopressor) 50 mg BID PO 11/12/16 21:00 11/15/16 08:35 (Percocet 5-325 Mg) 1 tab Q4H PRN PO 11/12/16 16:30 (Percocet 5-325 Mg) 2 tab Q6H PRN PO 11/12/16 16:30 11/15/16 14:47 (Levemir Inj) 10 units BID SQ 11/12/16 21:00 11/15/16 08:35 (NS Flush) 2 ml UNSCH PRN IV FLUSH 11/13/16 09:00 (NS Flush) 2 ml BID IV FLUSH 11/13/16 09:00 11/15/16 08:36 (Morphine Inj) 4 mg Q3H PRN IV 11/13/16 09:00 11/15/16 17:32 Naloxone HCl 0.4 mg 0.4 mg UNSCH PRN IV 11/13/16 09:00 (Ancef 2 Gm Premix) 50 ml @ 150 mls/hr Q8H IV 11/15/16 18:00 11/15/16 17:31 (Bactrim Ds 800-160 Mg) 1 tab Q12HR PO 11/15/16 21:00 A/P Problem List: (1) Open wound of left foot ICD Code: S91.302A Status: Chronic (2) Sepsis ICD Code: A41.9 Status: Acute (3) Lactic acidosis ICD Code: E87.2 Status: Acute (4) Hypomagnesemia ICD Code: E83.42 Status: Acute (5) Diabetes mellitus ICD Code: E11.9 Status: Chronic (6) Hypertension ICD Code: I10 Status: Chronic (7) Tobacco abuse ICD Code: Z72.0 Status: Chronic (8) Fever ICD Code: R50.9 Status: Acute Assessment and Plan This 56-year-old male patient with past medical history which includes hypertension, diabetes mellitus type 2, peripheral neuropathy and left foot wound initially obtained August 24, 2016 by stepping on a nail. Patient was hospitalized prior for the left foot wound found to have sepsis at that time and underwent an I&D and was being seen by outpatient wound clinic, Dr. Rincon. Patient reports he was doing well but began to have chills and rigor last night. Sepsis - Present on admission (temperature 103, white blood cell count 15.7, lactic acid 2.4, likely source left foot wound) Seems to be improving. Lactate normal. WBC slightly elevated to 12.5 Appreciate Id recommendations - continue antibiotics as per ID. patient currently on IV vancomycin, Zosyn, ceftazidime added to cover for Acinetobacter. I will discontinue IV fluids 11/15 vancomycin and Zosyn discontinued. Patient with recurrent MSSA. Patient started on cefazolin and Bactrim by mouth. Lactic acidosis - Lactic acid 2.4, resolved and down to 1.4 after IV fluids. Left foot wound rule out osteomyelitis Fluid bolus given in the ED MRI L foot shows osteomyelitis as described above. Podiatry consult appreciated - for OR on Tuesday morning for an amputation of the left hallux and first metatarsal head resection. Wound culture is growing Staph aureus. Fu susceptibility. continue oral Percocet for pain. Will give on dose of IV morphine now since patient c/o severe pain. Antibiotics as per infectious disease. As per podiatry patient okay to be out of bed with assistance with no weightbearing on the left foot. Continue wound care. Primary closure planned when wound is clean. Diabetes mellitus hold oral anti-glycemic at this point Hemoglobin A1c 09/01/2016 6.8 Blood sugars uncontrolled and elevated in the 200's. Will start patient on Insulin Levemir. Continue SSI w insulin Novolog. Blood sugars stable. Continue Insulin Levemir and SSI with insulin Novolog. Hypertension : Bp uncontrolled with sbp in the 150's to 160's. Dose of metoprolol increased to 50 mg by mouth twice a day on 11/12/16. BP is elevated and uncontrolled with a systolic blood pressure 160s. I will start clonidine as needed. Hypomagnesemia- sp Magnesium sulfate administration - mgnesium still 1.4. Magnesium up to 1.6. Continue to monitor and replace as needed. Fever - Due to sepsis and left foot osteomyelitis. Fever resolved. Continue Tylenol as needed for fever. GI prophylaxis: on Protonix. DVT prophylaxis: Will continue to hold lovenox since patient states had some bleeding. Discharge Planning Continue to monitor and the medical floor. Problem Qualifiers (1) Open wound of left foot: Qualified Code: S91.302S - Open wound of left foot, sequela (2) Diabetes mellitus: (3) Fever: Qualified Code: R50.81 - Fever in other diseases Travis Barber MD Nov 15, 2016 18:31
[2016-11-15 20:00] VITALS: BP 141/66; PULSE 75; RESP 21; TEMP 98.1; O2SAT 94
[2016-11-15] MEDS: SULFAMETHOXAZOLE-TRIMETHOPRIM DS 800-160 MG TAB PO SCH (21:27)
[2016-11-15] MEDS: diphenhydrAMINE HCL 25 MG CAP PO PRN (22:06)
[2016-11-16] VITALS: BP_SYST 150; BP_SYST 169; BP_DIAS 72; BP_DIAS 78; PULSE 65; RESP 20; RESP 21; TEMP 97.4; O2SAT 96
[2016-11-16] MEDS: MORPHINE SULFATE 4 MG/ML INJ IV PRN ×7 (01:01→22:21)
[2016-11-16] MEDS: ceFAZolin 2 GM PREMIX 50 ML IV SCH ×3 (01:02→16:34)
[2016-11-16] MEDS: oxyCODONE/ACETAMINOPHEN 5 MG/325 MG TAB PO PRN ×4 (03:16→21:16)
[2016-11-16] MEDS: INSULIN ASPART SUPPLEMENTAL SCALE SQ SCH ×4 (04:45→21:25)
[2016-11-16 08:00] VITALS: BP 164/90; PULSE 77; RESP 17; TEMP 96.1; O2SAT 96
[2016-11-16] MEDS: DOCUSATE SODIUM 100 MG CAP PO SCH ×2 (08:16→21:15)
[2016-11-16] MEDS: SULFAMETHOXAZOLE-TRIMETHOPRIM DS 800-160 MG TAB PO SCH ×2 (08:16→21:15)
[2016-11-16] MEDS: METOPROLOL TARTRATE 50 MG TAB PO SCH ×2 (08:16→21:15)
[2016-11-16] MEDS: INSULIN DETEMIR 100 UNITS/ML VIAL SQ SCH ×2 (08:17→21:15)
[2016-11-16] MEDS: SODIUM CHLORIDE 0.9% FLUSH 10 ML FLUSH IV FLUSH SCH ×2 (08:22→21:28)
--- NOTE | 2016-11-16 11:29 | HHI.PR ---
Subjective Remarks still has pain in post surgical extremity denies fevers and chills denies cp/sob denies nausea/vomiting BP elevated with SBP in the 150's to 160's Objective Vitals Vital Signs Date Time Temp Pulse Resp B/P Pulse Ox O2 Delivery O2 Flow Rate FiO2 11/16/16 08:00 96.1 77 17 164/90 96 11/16/16 00:00 97.4 65 21 150/78 96 11/15/16 20:00 98.1 75 21 141/66 94 11/15/16 16:00 97.6 75 17 167/92 99 11/15/16 12:00 96.4 71 17 156/78 99 I/O 11/15/16 11/15/16 11/15/16 11/16/16 11/16/16 11/16/16 07:00 15:00 23:00 07:00 15:00 23:00 Intake Total 1040 ml 2640 ml 460 ml 340 ml Output Total 1400 ml Balance -360 ml 2640 ml 460 ml 340 ml Intake Oral 240 ml 2640 ml 360 ml 240 ml IV Total 800 ml 100 ml 100 ml Output Urine Total 1400 ml # Voids 6 2 2 # Bowel Movements 0 2 0 0 Result Diagram: 11/15/16 0438 11/15/16 0348 Imaging Last Impressions Foot X-Ray 11/13/16 0000 Signed Impressions: Service Date/Time: Sunday, November 13, 2016 08:57 - CONCLUSION: Post surgical changes related to patient's indication. There is a focal area of decreased mineralization involving the medial aspect of the base of the residual first metatarsal with intact cortex. No clear evidence of osteomyelitis. Jayna Kang MD Chest X-Ray 11/11/16 1422 Signed Impressions: Service Date/Time: October 14:50 - CONCLUSION: 1. No acute cardiopulmonary findings. Gerson Beyer MD Foot MRI 11/11/16 0000 Signed Impressions: Service Date/Time: October 18:52 - CONCLUSION: 1. Osteomyelitis of the first metatarsal and great toe as above. Extensive surrounding cellulitis. Medial soft tissue ulceration. No other areas of osteomyelitis in the left foot. Rakan Lobato MD Objective Remarks GENERAL: This is a well-nourished, well-developed patient, NAD SKIN: Open wound 4 cm x 1.5 cm with surrounding erythema no drainage present at this time HEAD: Atraumatic. Normocephalic. No temporal or scalp tenderness. EYES: Extraocular motions intact. No scleral icterus. No injection or drainage. ENT: Nose without bleeding, purulent drainage or septal hematoma. Throat without erythema, tonsillar hypertrophy or exudate. Uvula midline. Airway patent. NECK: Trachea midline. No JVD or lymphadenopathy. Supple, nontender, no meningeal signs. CARDIOVASCULAR: Regular rate and rhythm without murmurs, gallops, or rubs. RESPIRATORY: Clear to auscultation. Breath sounds equal bilaterally. No wheezes , rales, or rhonchi. GASTROINTESTINAL: Abdomen soft, non-tender, nondistended. Soft reducible abdominal hernia noted MUSCULOSKELETAL: No edema. No calf tenderness. Negative Homans sign bilaterally. Left foot is covered by dressing which is C/D/I NEUROLOGICAL: Awake and alert. No focal deficits identified. Motor and sensory grossly within normal limits. Five out of 5 muscle strength in all muscle groups. Normal speech. Procedures sp Partial resection of left first metatarsal head and amputation of left hallux 11/13 Medications and IVs Current Medications Medications (Trade) Dose Ordered Sig/Krupa Route Start Time Stop Time Status Last Admin (Tylenol) 650 mg Q4H PRN PO 11/11/16 16:45 11/12/16 14:26 (Zofran Inj) 4 mg Q6H PRN IVP 11/11/16 16:45 (Colace) 100 mg Q12HR PO 11/11/16 21:00 11/16/16 08:16 (Milk Of Magnesia Liq) 30 ml Q12H PRN PO 11/11/16 16:45 (Lovenox Inj) 40 mg Q24H SQ 11/11/16 17:00 11/11/16 17:50 (Narcan Inj) 0.4 mg UNSCH PRN IV 11/11/16 16:45 (D50w (Vial) Inj) 25 ml UNSCH PRN IV PUSH 11/11/16 16:45 (Glucagon Inj) 1 mg UNSCH PRN OTHER 11/11/16 16:45 (Lopressor) 50 mg BID PO 11/12/16 21:00 11/16/16 08:16 (Percocet 5-325 Mg) 1 tab Q4H PRN PO 11/12/16 16:30 (Percocet 5-325 Mg) 2 tab Q6H PRN PO 11/12/16 16:30 11/16/16 09:29 (Levemir Inj) 10 units BID SQ 11/12/16 21:00 11/16/16 08:17 (NS Flush) 2 ml UNSCH PRN IV FLUSH 11/13/16 09:00 (NS Flush) 2 ml BID IV FLUSH 11/13/16 09:00 11/16/16 08:22 (Morphine Inj) 4 mg Q3H PRN IV 11/13/16 09:00 11/16/16 10:49 Naloxone HCl 0.4 mg 0.4 mg UNSCH PRN IV 11/13/16 09:00 (Ancef 2 Gm Premix) 50 ml @ 150 mls/hr Q8H IV 11/15/16 18:00 11/16/16 08:19 (Bactrim Ds 800-160 Mg) 1 tab Q12HR PO 11/15/16 21:00 11/16/16 08:16 (Benadryl) 25 mg HS PRN PO 11/15/16 22:00 11/15/16 22:06 Urinary Catheter: No Vascular Central Line Catheter: No A/P Problem List: (1) Open wound of left foot ICD Code: S91.302A Status: Chronic (2) Sepsis ICD Code: A41.9 Status: Acute (3) Lactic acidosis ICD Code: E87.2 Status: Acute (4) Hypomagnesemia ICD Code: E83.42 Status: Acute (5) Diabetes mellitus ICD Code: E11.9 Status: Chronic (6) Hypertension ICD Code: I10 Status: Chronic (7) Tobacco abuse ICD Code: Z72.0 Status: Chronic (8) Fever ICD Code: R50.9 Status: Acute Assessment and Plan This 56-year-old male patient with past medical history which includes hypertension, diabetes mellitus type 2, peripheral neuropathy and left foot wound initially obtained August 24, 2016 by stepping on a nail. Patient was hospitalized prior for the left foot wound found to have sepsis at that time and underwent an I&D and was being seen by outpatient wound clinic, Dr. Rincon. Patient reports he was doing well but began to have chills and rigor last night. Sepsis - Present on admission (temperature 103, white blood cell count 15.7, lactic acid 2.4, likely source left foot wound) Seems to be improving. Lactate normal. WBC down to normal values. 11/16 continue antibiotics as per ID. Initial one culture obtained on 11/11/16 grew MSSA and Achromobacter Xyl/[place]. Wound culture obtained from toe on is growing gram-positive cocci. No fungal element seen on fungal smear, fungal culture pending. No acid fast bacilli seen on acid fast pain. Mycobacterial culture pending. Follow-up ID recommendations. Status post IV Zosyn and vancomycin which was discontinued. Patient started as per ID recommendations on 11/15/16 on IV cefazolin and oral Bactrim. Lactic acidosis -hepatic acid 2.4 on admission. Resolved and down to normal levels after IV fluid administration. Left foot wound rule out osteomyelitis Fluid bolus given in the ED MRI L foot shows osteomyelitis as described above. Podiatry consult appreciated - for OR on Tuesday morning for an amputation of the left hallux and first metatarsal head resection. Wound culture is growing Staph aureus. Fu susceptibility. continue oral Percocet for pain. Will give on dose of IV morphine now since patient c/o severe pain. Antibiotics as per infectious disease. As per podiatry patient okay to be out of bed with assistance with no weightbearing on the left foot. Continue wound care. Primary closure planned when wound is clean. Diabetes mellitus hold oral anti-glycemic at this point Hemoglobin A1c 09/01/2016 6.8 Blood sugars uncontrolled and elevated in the 200's. Will start patient on Insulin Levemir. Continue SSI w insulin Novolog. Blood sugars stable. Continue Insulin Levemir and SSI with insulin Novolog. Hypertension : Bp uncontrolled with sbp in the 150's to 160's. Dose of metoprolol increased to 50 mg by mouth twice a day on 11/12/16. BP is elevated and uncontrolled with a systolic blood pressure 160s. Continue clonidine when necessary. I will start the patient on lisinopril 10 minutes by mouth daily. Hypomagnesemia- sp Magnesium sulfate administration - mgnesium still 1.4. Magnesium up to 1.6. Continue to monitor and replace as needed. Fever - Due to sepsis and left foot osteomyelitis. Fever resolved. Continue Tylenol as needed for fever. GI prophylaxis: on Protonix. DVT prophylaxis: SCDs, Continue to hold chemoprophylaxis since wound is open. will resume after closure. Discharge Planning Continue to monitor and the medical floor. Problem Qualifiers (1) Open wound of left foot: Qualified Code: S91.302S - Open wound of left foot, sequela (2) Diabetes mellitus: (3) Fever: Qualified Code: R50.81 - Fever in other diseases Travis Barber MD Nov 16, 2016 11:29
[2016-11-16] MEDS ORDERED: LISINOPRIL 20 MG TAB PO SCH (11:30)
[2016-11-16] MEDS ORDERED: cloNIDine HCL 0.1 MG TAB PO PRN (11:45)
[2016-11-16] MEDS ORDERED: PHARMACY ORDERED LAB XX ONE (11:45)
[2016-11-16 12:00] VITALS: BP 148/85; PULSE 61; RESP 16; TEMP 96.6; O2SAT 98
[2016-11-16] MEDS: ENOXAPARIN SODIUM 40 MG/0.4 ML SYRINGE SQ SCH (14:16)
[2016-11-16 16:00] VITALS: BP 167/81; PULSE 73; RESP 17; TEMP 96.6; O2SAT 97
[2016-11-16 20:00] VITALS: BP 162/83; PULSE 80; RESP 18; TEMP 97.4; O2SAT 99
[2016-11-16] MEDS: diphenhydrAMINE HCL 25 MG CAP PO PRN (21:16)
[2016-11-17] VITALS: BP 140/80; PULSE 63; RESP 18; TEMP 96.6; O2SAT 98
[2016-11-17] MEDS: MORPHINE SULFATE 4 MG/ML INJ IV PRN ×7 (01:26→23:52)
[2016-11-17] MEDS: ceFAZolin 2 GM PREMIX 50 ML IV SCH ×3 (01:26→17:45)
[2016-11-17] MEDS: INSULIN ASPART SUPPLEMENTAL SCALE SQ SCH ×4 (06:26→20:51)
[2016-11-17] MEDS: oxyCODONE/ACETAMINOPHEN 5 MG/325 MG TAB PO PRN ×4 (06:26→22:53)
[2016-11-17] MEDS: LISINOPRIL 10 MG TAB PO SCH (07:56)
[2016-11-17] MEDS: DOCUSATE SODIUM 100 MG CAP PO SCH ×2 (07:56→20:10)
[2016-11-17] MEDS: METOPROLOL TARTRATE 50 MG TAB PO SCH ×2 (07:56→20:10)
[2016-11-17] MEDS: SULFAMETHOXAZOLE-TRIMETHOPRIM DS 800-160 MG TAB PO SCH ×2 (07:56→20:10)
[2016-11-17 08:00] VITALS: BP 132/78; PULSE 85; RESP 17; TEMP 98.1; O2SAT 95
[2016-11-17] MEDS: INSULIN DETEMIR 100 UNITS/ML VIAL SQ SCH ×2 (08:02→20:10)
[2016-11-17] MEDS: SODIUM CHLORIDE 0.9% FLUSH 10 ML FLUSH IV FLUSH SCH ×2 (08:05→20:10)
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
[2016-11-17] MEDS: ENOXAPARIN SODIUM 40 MG/0.4 ML SYRINGE SQ SCH (10:13)
[2016-11-17 12:00] VITALS: BP 142/78; PULSE 69; RESP 17; TEMP 98.4; O2SAT 96
--- NOTE | 2016-11-17 12:29 | HHI.PR ---
Subjective Remarks Patient has no complaints of a Controlled. Denies fevers or chills, Denies nausea vomiting or diarrhea Denies chest pain or shortness of breath. Objective Vitals Vital Signs Date Time Temp Pulse Resp B/P Pulse Ox O2 Delivery O2 Flow Rate FiO2 11/17/16 08:00 98.1 85 17 132/78 95 11/17/16 01:35 18 11/17/16 00:00 96.6 63 18 140/80 98 11/16/16 23:27 18 11/16/16 20:00 97.4 80 18 162/83 99 11/16/16 16:00 96.6 73 17 167/81 97 I/O 11/16/16 11/16/16 11/16/16 11/17/16 11/17/16 11/17/16 07:00 15:00 23:00 07:00 15:00 23:00 Intake Total 340 ml 1200 ml 480 ml 535 ml Balance 340 ml 1200 ml 480 ml 535 ml Intake Oral 240 ml 1200 ml 480 ml 480 ml IV Total 100 ml 0 ml 55 ml # Voids 2 5 3 3 # Bowel Movements 0 1 0 1 Result Diagram: 11/15/16 0438 11/15/16 0348 Imaging Last Impressions Foot X-Ray 11/13/16 0000 Signed Impressions: Service Date/Time: Sunday, November 13, 2016 08:57 - CONCLUSION: Post surgical changes related to patient's indication. There is a focal area of decreased mineralization involving the medial aspect of the base of the residual first metatarsal with intact cortex. No clear evidence of osteomyelitis. Jayna Kang MD Chest X-Ray 11/11/16 1422 Signed Impressions: Service Date/Time: October 14:50 - CONCLUSION: 1. No acute cardiopulmonary findings. Gerson Beyer MD Foot MRI 11/11/16 0000 Signed Impressions: Service Date/Time: October 18:52 - CONCLUSION: 1. Osteomyelitis of the first metatarsal and great toe as above. Extensive surrounding cellulitis. Medial soft tissue ulceration. No other areas of osteomyelitis in the left foot. Rakan Lobato MD Objective Remarks GENERAL: This is a well-nourished, well-developed patient, NAD SKIN: Open wound 4 cm x 1.5 cm with surrounding erythema no drainage present at this time HEAD: Atraumatic. Normocephalic. No temporal or scalp tenderness. EYES: Extraocular motions intact. No scleral icterus. No injection or drainage. ENT: Nose without bleeding, purulent drainage or septal hematoma. Throat without erythema, tonsillar hypertrophy or exudate. Uvula midline. Airway patent. NECK: Trachea midline. No JVD or lymphadenopathy. Supple, nontender, no meningeal signs. CARDIOVASCULAR: Regular rate and rhythm without murmurs, gallops, or rubs. RESPIRATORY: Clear to auscultation. Breath sounds equal bilaterally. No wheezes , rales, or rhonchi. GASTROINTESTINAL: Abdomen soft, non-tender, nondistended. Soft reducible abdominal hernia noted MUSCULOSKELETAL: No edema. No calf tenderness. Negative Homans sign bilaterally. Left foot is covered by dressing which is C/D/I NEUROLOGICAL: Awake and alert. No focal deficits identified. Motor and sensory grossly within normal limits. Five out of 5 muscle strength in all muscle groups. Normal speech. Procedures sp Partial resection of left first metatarsal head and amputation of left hallux 11/13 Medications and IVs Current Medications Medications (Trade) Dose Ordered Sig/Krupa Route Start Time Stop Time Status Last Admin (Tylenol) 650 mg Q4H PRN PO 11/11/16 16:45 11/12/16 14:26 (Zofran Inj) 4 mg Q6H PRN IVP 11/11/16 16:45 (Colace) 100 mg Q12HR PO 11/11/16 21:00 11/17/16 07:56 (Milk Of Magnesia Liq) 30 ml Q12H PRN PO 11/11/16 16:45 (Lovenox Inj) 40 mg Q24H SQ 11/11/16 17:00 11/11/16 17:50 (Narcan Inj) 0.4 mg UNSCH PRN IV 11/11/16 16:45 (D50w (Vial) Inj) 25 ml UNSCH PRN IV PUSH 11/11/16 16:45 (Glucagon Inj) 1 mg UNSCH PRN OTHER 11/11/16 16:45 (Lopressor) 50 mg BID PO 11/12/16 21:00 11/17/16 07:56 (Percocet 5-325 Mg) 1 tab Q4H PRN PO 11/12/16 16:30 (Percocet 5-325 Mg) 2 tab Q6H PRN PO 11/12/16 16:30 11/17/16 06:26 (Levemir Inj) 10 units BID SQ 11/12/16 21:00 11/17/16 08:02 (NS Flush) 2 ml UNSCH PRN IV FLUSH 11/13/16 09:00 (NS Flush) 2 ml BID IV FLUSH 11/13/16 09:00 11/17/16 08:05 (Morphine Inj) 4 mg Q3H PRN IV 11/13/16 09:00 11/17/16 10:56 Naloxone HCl 0.4 mg 0.4 mg UNSCH PRN IV 11/13/16 09:00 (Ancef 2 Gm Premix) 50 ml @ 150 mls/hr Q8H IV 11/15/16 18:00 11/17/16 08:02 (Bactrim Ds 800-160 Mg) 1 tab Q12HR PO 11/15/16 21:00 11/17/16 07:56 (Benadryl) 25 mg HS PRN PO 11/15/16 22:00 11/16/16 21:16 (Prinivil) 10 mg DAILY PO 11/17/16 09:00 11/17/16 07:56 (Catapres) 0.1 mg Q6H PRN PO 11/16/16 11:45 11/16/16 16:38 Urinary Catheter: No Vascular Central Line Catheter: No A/P Problem List: (1) Open wound of left foot ICD Code: S91.302A Status: Chronic (2) Sepsis ICD Code: A41.9 Status: Acute (3) Lactic acidosis ICD Code: E87.2 Status: Acute (4) Hypomagnesemia ICD Code: E83.42 Status: Acute (5) Diabetes mellitus ICD Code: E11.9 Status: Chronic (6) Hypertension ICD Code: I10 Status: Chronic (7) Tobacco abuse ICD Code: Z72.0 Status: Chronic (8) Fever ICD Code: R50.9 Status: Resolved Assessment and Plan This 56-year-old male patient with past medical history which includes hypertension, diabetes mellitus type 2, peripheral neuropathy and left foot wound initially obtained August 24, 2016 by stepping on a nail. Patient was hospitalized prior for the left foot wound found to have sepsis at that time and underwent an I&D and was being seen by outpatient wound clinic, Dr. Rincon. Patient reports he was doing well but began to have chills and rigor last night. Sepsis - Present on admission (temperature 103, white blood cell count 15.7, lactic acid 2.4, likely source left foot wound) Seems to be improving. Lactate normal. WBC down to normal values. 11/17 continue antibiotics as per ID. Initial one culture obtained on 11/11/16 grew MSSA and Achromobacter Xyl/[place]. Wound culture obtained from toe on is growing Staph coagulase negative. No fungal element seen on fungal smear , fungal culture pending. No acid fast bacilli seen on acid fast pain. Mycobacterial culture pending. Follow-up ID recommendations. Status post IV Zosyn and vancomycin which was discontinued. Patient started as per ID recommendations on 11/15/16 on IV cefazolin and oral Bactrim. Lactic acidosis -hepatic acid 2.4 on admission. Resolved and down to normal levels after IV fluid administration. Left foot wound rule out osteomyelitis Fluid bolus given in the ED MRI L foot shows osteomyelitis as described above. Podiatry consult appreciated - for OR on Tuesday morning for an amputation of the left hallux and first metatarsal head resection. Wound culture is growing Staph aureus. Fu susceptibility. Continue with Percocet and IV morphine for pain control. Antibiotics as per infectious disease. As per podiatry patient okay to be out of bed with assistance with no weightbearing on the left foot. Continue wound care. Primary closure planned when wound is clean. Diabetes mellitus hold oral anti-glycemic at this point Hemoglobin A1c 09/01/2016 6.8 Blood sugars uncontrolled and elevated in the 200's. Will start patient on Insulin Levemir. Continue SSI w insulin Novolog. Blood sugars stable. Continue Insulin Levemir and SSI with insulin Novolog. Hypertension : Bp uncontrolled with sbp in the 150's to 160's. Dose of metoprolol increased to 50 mg by mouth twice a day on 11/12/16. BP is elevated and uncontrolled with a systolic blood pressure 160s. Continue clonidine when necessary. I will start the patient on lisinopril 10 minutes by mouth daily. 11/17 Bp stable. Continue lisinopril 10 mg daily. Hypomagnesemia- sp Magnesium sulfate administration - mgnesium still 1.4. Magnesium up to 1.6. Continue to monitor and replace as needed. Fever - Due to sepsis and left foot osteomyelitis. Fever resolved. Continue Tylenol as needed for fever. GI prophylaxis: on Protonix. DVT prophylaxis: SCDs, Continue to hold chemoprophylaxis since wound is open. will resume after closure. Discharge Planning DC pending podiatry clearance. Continue to monitor in the medical floor. Problem Qualifiers (1) Open wound of left foot: Qualified Code: S91.302S - Open wound of left foot, sequela (2) Diabetes mellitus: (3) Fever: Qualified Code: R50.81 - Fever in other diseases Travis Barber MD Nov 17, 2016 12:29
[2016-11-17 16:00] VITALS: BP 143/78; PULSE 64; RESP 16; TEMP 96.8; O2SAT 96
[2016-11-17 20:00] VITALS: BP 146/80; PULSE 72; RESP 18; TEMP 98; O2SAT 95
[2016-11-17] MEDS: diphenhydrAMINE HCL 25 MG CAP PO PRN ×2 (20:10→20:51)
[2016-11-17 23:52] VITALS: BP 124/71; PULSE 68; RESP 18; TEMP 97.3; O2SAT 96
[2016-11-18] MEDS: oxyCODONE/ACETAMINOPHEN 5 MG/325 MG TAB PO PRN ×4 (00:40→18:37)
[2016-11-18] MEDS: ceFAZolin 2 GM PREMIX 50 ML IV SCH ×3 (00:41→17:18)
[2016-11-18] MEDS: MORPHINE SULFATE 4 MG/ML INJ IV PRN ×7 (04:03→23:23)
[2016-11-18 05:48] LABS: AUTOMATED NEUTROPHIL # 7.1 TH/MM3 (1.8-7.7); BASOPHIL # 0.1 TH/MM3 (0-0.2); BASOPHIL % 0.6 % (0.0-2.0); EOSINOPHIL # 0.4 TH/MM3 (0-0.4); EOSINOPHIL % 3.9 % (0.0-4.0); HEMATOCRIT 34.6 % (39.0-51.0); HEMO FLAGS DIFF FINAL; LYMPH % 19.8 % (9.0-44.0); LYMPHOCYTE # 2.1 TH/MM3 (1.0-4.8); MEAN CELL VOLUME 89.4 FL (80.0-100.0); MEAN CORPUSCULAR HEMOGLOBIN 31.2 PG (27.0-34.0); MEAN CORPUSCULAR HGB CONC 34.9 % (32.0-36.0); MONO % 10.7 % (0.0-8.0); PLATELET COUNT 309 TH/MM3 (150-450); RED BLOOD COUNT 3.87 MIL/MM3 (4.50-5.90); RED CELL DISTRIBUTION WIDTH 13.9 % (11.6-17.2); WHITE BLOOD COUNT 10.9 TH/MM3 (4.0-11.0)
[2016-11-18 06:11] LABS: ALKALINE PHOSPHATASE 49 U/L (45-117); ALT (GPT) 22 U/L (12-78); ANION GAP 7 MEQ/L (5-15); AST (GOT) 20 U/L (15-37); BICARBONATE 29.7 MEQ/L (21.0-32.0); BLOOD UREA NITROGEN 10 MG/DL (7-18); CHLORIDE 102 MEQ/L (98-107); GLOMERULAR FILTRATION RATE 90 ML/MIN (>89); POTASSIUM 3.9 MEQ/L (3.5-5.1); SODIUM (NA) 139 MEQ/L (136-145); TOTAL BILIRUBIN ADULT 0.3 MG/DL (0.2-1.0)
[2016-11-18] MEDS: INSULIN ASPART SUPPLEMENTAL SCALE SQ SCH ×4 (06:16→20:27)
[2016-11-18] MEDS: LISINOPRIL 10 MG TAB PO SCH (07:32)
[2016-11-18] MEDS: DOCUSATE SODIUM 100 MG CAP PO SCH ×2 (07:32→20:25)
[2016-11-18] MEDS: SULFAMETHOXAZOLE-TRIMETHOPRIM DS 800-160 MG TAB PO SCH ×2 (07:32→20:25)
[2016-11-18] MEDS: METOPROLOL TARTRATE 50 MG TAB PO SCH ×2 (07:32→20:25)
[2016-11-18] MEDS: INSULIN DETEMIR 100 UNITS/ML VIAL SQ SCH ×2 (07:33→20:27)
[2016-11-18] MEDS: SODIUM CHLORIDE 0.9% FLUSH 10 ML FLUSH IV FLUSH SCH ×2 (07:33→20:25)
[2016-11-18 08:00] VITALS: BP 144/85; PULSE 61; RESP 18; TEMP 96.6; O2SAT 98
[2016-11-18 12:00] VITALS: BP 146/74; PULSE 59; RESP 17; TEMP 95.7; O2SAT 100
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
--- NOTE | 2016-11-18 14:10 | HHI.PR ---
Subjective Remarks Afebrile, no acute issues overnight, laying in bed no chest pain or short of breath or fever or chills Objective Vitals Vital Signs Date Time Temp Pulse Resp B/P Pulse Ox O2 Delivery O2 Flow Rate FiO2 11/18/16 12:00 95.7 59 17 146/74 100 11/18/16 08:00 96.6 61 18 144/85 98 11/17/16 23:52 97.3 68 18 124/71 96 11/17/16 20:00 98.0 72 18 146/80 95 11/17/16 16:00 96.8 64 16 143/78 96 I/O 11/17/16 11/17/16 11/17/16 11/18/16 11/18/16 11/18/16 07:00 15:00 23:00 07:00 15:00 23:00 Intake Total 535 ml 480 ml 360 ml 360 ml Balance 535 ml 480 ml 360 ml 360 ml Intake Oral 480 ml 480 ml 360 ml 360 ml IV Total 55 ml # Voids 3 6 3 2 # Bowel Movements 1 2 Result Diagram: 11/18/16 0350 11/18/16 0350 Objective Remarks GENERAL: This is a well-nourished, well-developed patient, in no apparent distress. SKIN: No rashes, warm and dry HEAD: Atraumatic. Normocephalic. EYES: Pupils equal round and reactive. Extraocular motions intact. No scleral icterus. ENT: Nose without bleeding, or drainage, Airway patent. NECK: Trachea midline. Supple CARDIOVASCULAR: Regular rate and rhythm without murmurs, gallops, or rubs. RESPIRATORY: Fair air entry bilaterally. No wheezes, rales, or rhonchi. GASTROINTESTINAL: Abdomen soft, non-tender, nondistended. Positive bowel sounds MUSCULOSKELETAL: Extremities without clubbing, cyanosis, or edema. Pedal pulses appreciated, left foot in dressing and gauze NEUROLOGICAL: Awake and alert. Moves all extremity. 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 11/13 A/P Problem List: (1) Open wound of left foot ICD Code: S91.302A Status: Chronic (2) Sepsis ICD Code: A41.9 Status: Acute (3) Lactic acidosis ICD Code: E87.2 Status: Acute (4) Hypomagnesemia ICD Code: E83.42 Status: Acute (5) Diabetes mellitus ICD Code: E11.9 Status: Chronic (6) Hypertension ICD Code: I10 Status: Chronic (7) Tobacco abuse ICD Code: Z72.0 Status: Chronic (8) Fever ICD Code: R50.9 Status: Resolved Assessment and Plan This 56-year-old male patient with past medical history which includes hypertension, diabetes mellitus type 2, peripheral neuropathy and left foot wound initially obtained August 24, 2016 by stepping on a nail. Patient was hospitalized prior for the left foot wound found to have sepsis at that time and underwent an I&D and was being seen by outpatient wound clinic, Dr. Rincon. Patient reports he was doing well but began to have chills and rigor last night. Sepsis - Present on admission (temperature 103, white blood cell count 15.7, lactic acid 2.4, likely source left foot wound) Seems to be improving. Lactate normal. WBC down to normal values. Initial culture obtained on 11/11/16 grew MSSA and Achromobacter Xyl/Wythe. Wound culture obtained from toe on 11/13/16 is growing Staph coagulase negative. No fungal element seen on fungal smear, fungal culture pending. No acid fast bacilli seen on acid fast pain. Mycobacterial culture pending. Follow-up ID recommendations. Status post IV Zosyn and vancomycin which was discontinued. Patient started as per ID recommendations on 11/15/16 on IV cefazolin and oral Bactrim. Lactic acidosis -hepatic acid 2.4 on admission. Resolved and down to normal levels after IV fluid administration. Left foot wound rule out osteomyelitis Fluid bolus given in the ED MRI L foot shows osteomyelitis as described above. Podiatry consult appreciated - for OR on Tuesday morning for an amputation of the left hallux and first metatarsal head resection. Wound culture is growing Staph aureus. Fu susceptibility. Continue with Percocet and IV morphine for pain control. Antibiotics as per infectious disease. As per podiatry patient okay to be out of bed with assistance with no weightbearing on the left foot. Continue wound care. Primary closure planned when wound is clean. Diabetes mellitus hold oral anti-glycemic at this point Hemoglobin A1c 09/01/2016 6.8 Blood sugars uncontrolled and elevated in the 200's. Will start patient on Insulin Levemir. Continue SSI w insulin Novolog. Blood sugars stable. Continue Insulin Levemir and SSI with insulin Novolog. Hypertension uncontrolled: Improved Continue lisinopril 10 mg daily. Hypomagnesemia- sp Magnesium sulfate administration - Fever - Due to sepsis and left foot osteomyelitis. Fever resolved. Continue Tylenol as needed for fever. GI prophylaxis: on Protonix. DVT prophylaxis: SCDs, Continue to hold chemoprophylaxis since wound is open. will resume after closure. Discharge Planning Plan for possible surgical intervention on Tuesday by podiatry Problem Qualifiers (1) Open wound of left foot: Qualified Code: S91.302S - Open wound of left foot, sequela (2) Diabetes mellitus: (3) Fever: Qualified Code: R50.81 - Fever in other diseases Celia Adrian MD Nov 18, 2016 14:10
[2016-11-18 16:00] VITALS: BP 118/77; PULSE 69; RESP 17; TEMP 96.9; O2SAT 98
[2016-11-18] MEDS: ENOXAPARIN SODIUM 40 MG/0.4 ML SYRINGE SQ SCH (16:55)
[2016-11-18 20:15] VITALS: BP 155/88; PULSE 69; RESP 18; TEMP 99.2; O2SAT 97
[2016-11-18] MEDS: diphenhydrAMINE HCL 25 MG CAP PO PRN (20:32)
[2016-11-18 23:42] VITALS: BP 164/86; PULSE 62; RESP 20; TEMP 96.8; O2SAT 97
[2016-11-19] MEDS: oxyCODONE/ACETAMINOPHEN 5 MG/325 MG TAB PO PRN ×4 (00:45→21:05)
[2016-11-19] MEDS: ceFAZolin 2 GM PREMIX 50 ML IV SCH ×3 (00:47→16:09)
[2016-11-19] MEDS: MORPHINE SULFATE 4 MG/ML INJ IV PRN ×7 (02:24→22:43)
[2016-11-19] MEDS: INSULIN ASPART SUPPLEMENTAL SCALE SQ SCH ×4 (05:31→20:59)
[2016-11-19] MEDS: METOPROLOL TARTRATE 50 MG TAB PO SCH ×2 (08:03→20:59)
[2016-11-19] MEDS: DOCUSATE SODIUM 100 MG CAP PO SCH ×2 (08:03→20:59)
[2016-11-19] MEDS: LISINOPRIL 10 MG TAB PO SCH (08:03)
[2016-11-19] MEDS: SULFAMETHOXAZOLE-TRIMETHOPRIM DS 800-160 MG TAB PO SCH ×2 (08:03→20:58)
[2016-11-19] MEDS: SODIUM CHLORIDE 0.9% FLUSH 10 ML FLUSH IV FLUSH SCH ×2 (08:04→20:59)
[2016-11-19] MEDS: INSULIN DETEMIR 100 UNITS/ML VIAL SQ SCH ×2 (08:04→20:59)
--- NOTE | 2016-11-19 10:57 | HHI.PR ---
Subjective Remarks Still complaining of some pain in his foot, his concern if it's right time to close the wound, he is concerned of reinfection Objective Vitals Vital Signs Date Time Temp Pulse Resp B/P Pulse Ox O2 Delivery O2 Flow Rate FiO2 11/18/16 23:42 96.8 62 20 164/86 97 11/18/16 20:15 99.2 69 18 155/88 97 11/18/16 16:00 96.9 69 17 118/77 98 11/18/16 12:00 95.7 59 17 146/74 100 I/O 11/18/16 11/18/16 11/18/16 11/19/16 11/19/16 11/19/16 07:00 15:00 23:00 07:00 15:00 23:00 Intake Total 360 ml 580 ml 480 ml 480 ml Output Total 2000 ml Balance 360 ml 580 ml 480 ml -1520 ml Intake Oral 360 ml 480 ml 480 ml 480 ml IV Total 100 ml Output Urine Total 2000 ml # Voids 2 6 3 # Bowel Movements 2 0 Result Diagram: 11/18/16 0350 11/18/16 0350 Objective Remarks GENERAL: This is a well-nourished, well-developed patient, in no apparent distress. SKIN: No rashes, warm and dry HEAD: Atraumatic. Normocephalic. EYES: Pupils equal round and reactive. Extraocular motions intact. No scleral icterus. ENT: Nose without bleeding, or drainage, Airway patent. NECK: Trachea midline. Supple CARDIOVASCULAR: Regular rate and rhythm without murmurs, gallops, or rubs. RESPIRATORY: Fair air entry bilaterally. No wheezes, rales, or rhonchi. GASTROINTESTINAL: Abdomen soft, non-tender, nondistended. Positive bowel sounds MUSCULOSKELETAL: Extremities without clubbing, cyanosis, or edema. Pedal pulses appreciated, left foot in dressing and gauze NEUROLOGICAL: Awake and alert. Moves all extremity. 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 11/13 A/P Problem List: (1) Open wound of left foot ICD Code: S91.302A Status: Chronic (2) Sepsis ICD Code: A41.9 Status: Acute (3) Lactic acidosis ICD Code: E87.2 Status: Acute (4) Hypomagnesemia ICD Code: E83.42 Status: Acute (5) Diabetes mellitus ICD Code: E11.9 Status: Chronic (6) Hypertension ICD Code: I10 Status: Chronic (7) Tobacco abuse ICD Code: Z72.0 Status: Chronic (8) Fever ICD Code: R50.9 Status: Resolved Assessment and Plan This 56-year-old male patient with past medical history which includes hypertension, diabetes mellitus type 2, peripheral neuropathy and left foot wound initially obtained August 24, 2016 by stepping on a nail. Patient was hospitalized prior for the left foot wound found to have sepsis at that time and underwent an I&D and was being seen by outpatient wound clinic, Dr. Rincon. Patient reports he was doing well but began to have chills and rigor last night. Sepsis - Present on admission (temperature 103, white blood cell count 15.7, lactic acid 2.4, likely source left foot wound) Seems to be improving. Lactate normal. WBC down to normal values. Initial culture obtained on 11/11/16 grew MSSA and Achromobacter Xyl/[place]. Wound culture obtained from toe on 11/13/16 is growing Staph coagulase negative. No fungal element seen on fungal smear, fungal culture pending. No acid fast bacilli seen on acid fast pain. Mycobacterial culture pending. Follow-up ID recommendations. Status post IV Zosyn and vancomycin which was discontinued. Patient started as per ID recommendations on 11/15/16 on IV cefazolin and oral Bactrim. Lactic acidosis -hepatic acid 2.4 on admission. Resolved and down to normal levels after IV fluid administration. Left foot wound rule out osteomyelitis Fluid bolus given in the ED MRI L foot shows osteomyelitis as described above. Podiatry consult appreciated - for OR on Tuesday morning for an amputation of the left hallux and first metatarsal head resection. Wound culture is growing Staph aureus. Fu susceptibility. Continue with Percocet and IV morphine for pain control. Antibiotics as per infectious disease. As per podiatry patient okay to be out of bed with assistance with no weightbearing on the left foot. Continue wound care. Primary closure planned on Tuesday Diabetes mellitus hold oral anti-glycemic at this point Hemoglobin A1c 09/01/2016 6.8 Blood sugars uncontrolled and elevated in the 200's. Will start patient on Insulin Levemir. Continue SSI w insulin Novolog. Blood sugars stable. Continue Insulin Levemir and SSI with insulin Novolog. Hypertension uncontrolled: Improved Continue lisinopril 10 mg daily. Hypomagnesemia- sp Magnesium sulfate administration - Fever - Due to sepsis and left foot osteomyelitis. Fever resolved. Continue Tylenol as needed for fever. GI prophylaxis: on Protonix. DVT prophylaxis: SCDs, Continue to hold chemoprophylaxis since wound is open. will resume after closure. Discharge Planning Plan for possible surgical intervention on Tuesday by podiatry Problem Qualifiers (1) Open wound of left foot: Qualified Code: S91.302S - Open wound of left foot, sequela (2) Diabetes mellitus: (3) Fever: Qualified Code: R50.81 - Fever in other diseases Celia Adrian MD Nov 19, 2016 10:57
[2016-11-19 12:00] VITALS: BP 139/79; PULSE 71; RESP 16; TEMP 97.2; O2SAT 99
[2016-11-19 16:00] VITALS: BP 133/93; PULSE 67; RESP 16; TEMP 97.1; O2SAT 99
[2016-11-19] MEDS: ENOXAPARIN SODIUM 40 MG/0.4 ML SYRINGE SQ SCH (16:09)
[2016-11-19 20:00] VITALS: BP 135/87; PULSE 76; RESP 20; TEMP 96.7; O2SAT 100
[2016-11-19] MEDS: diphenhydrAMINE HCL 25 MG CAP PO PRN (21:05)
[2016-11-20] VITALS: BP 133/82; PULSE 59; RESP 20; TEMP 96.5; O2SAT 98
[2016-11-20] MEDS: ceFAZolin 2 GM PREMIX 50 ML IV SCH ×3 (03:08→18:54)
[2016-11-20] MEDS: oxyCODONE/ACETAMINOPHEN 5 MG/325 MG TAB PO PRN ×4 (03:08→22:55)
[2016-11-20] MEDS: MORPHINE SULFATE 4 MG/ML INJ IV PRN ×6 (05:17→21:56)
[2016-11-20] MEDS: INSULIN ASPART SUPPLEMENTAL SCALE SQ SCH ×4 (05:18→19:36)
[2016-11-20 08:00] VITALS: BP 141/76; PULSE 61; RESP 17; TEMP 96.2; O2SAT 100
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
[2016-11-20] MEDS: SULFAMETHOXAZOLE-TRIMETHOPRIM DS 800-160 MG TAB PO SCH ×2 (08:39→19:35)
[2016-11-20] MEDS: LISINOPRIL 10 MG TAB PO SCH (08:39)
[2016-11-20] MEDS: DOCUSATE SODIUM 100 MG CAP PO SCH ×2 (08:39→19:35)
[2016-11-20] MEDS: METOPROLOL TARTRATE 50 MG TAB PO SCH ×2 (08:39→19:35)
[2016-11-20] MEDS: INSULIN DETEMIR 100 UNITS/ML VIAL SQ SCH ×2 (08:40→19:36)
[2016-11-20] MEDS: SODIUM CHLORIDE 0.9% FLUSH 10 ML FLUSH IV FLUSH SCH ×2 (08:41→19:35)
[2016-11-20 12:00] VITALS: BP 129/83; PULSE 68; RESP 18; TEMP 96.4; O2SAT 100
[2016-11-20 16:00] VITALS: BP 129/79; PULSE 64; RESP 17; TEMP 95.8; O2SAT 100
--- NOTE | 2016-11-20 16:08 | HHI.PR ---
Subjective Remarks , Resting in bed comfortably in no acute distress Plan closed the wound on Tuesday tomorrow Objective Vitals Vital Signs Date Time Temp Pulse Resp B/P Pulse Ox O2 Delivery O2 Flow Rate FiO2 11/20/16 12:00 96.4 68 18 129/83 100 11/20/16 08:00 96.2 61 17 141/76 100 11/20/16 00:00 96.5 59 20 133/82 98 11/19/16 20:00 96.7 76 20 135/87 100 I/O 11/19/16 11/19/16 11/19/16 11/20/16 11/20/16 11/20/16 07:00 15:00 23:00 07:00 15:00 23:00 Intake Total 480 ml 1060 ml 960 ml 50 ml 50 ml Output Total 2000 ml Balance -1520 ml 1060 ml 960 ml 50 ml 50 ml Intake Oral 480 ml 960 ml 960 ml 0 ml IV Total 100 ml 0 ml 50 ml 50 ml Output Urine Total 2000 ml # Voids 10 5 2 # Bowel Movements 2 Result Diagram: 11/18/16 0350 11/18/16 0350 Objective Remarks GENERAL: This is a well-nourished, well-developed patient, in no apparent distress. SKIN: No rashes, warm and dry HEAD: Atraumatic. Normocephalic. EYES: Pupils equal round and reactive. Extraocular motions intact. No scleral icterus. ENT: Nose without bleeding, or drainage, Airway patent. NECK: Trachea midline. Supple CARDIOVASCULAR: Regular rate and rhythm without murmurs, gallops, or rubs. RESPIRATORY: Fair air entry bilaterally. No wheezes, rales, or rhonchi. GASTROINTESTINAL: Abdomen soft, non-tender, nondistended. Positive bowel sounds MUSCULOSKELETAL: Extremities without clubbing, cyanosis, or edema. Pedal pulses appreciated, left foot in dressing and gauze NEUROLOGICAL: Awake and alert. Moves all extremity. 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 11/13 A/P Problem List: (1) Open wound of left foot ICD Code: S91.302A Status: Chronic (2) Sepsis ICD Code: A41.9 Status: Acute (3) Lactic acidosis ICD Code: E87.2 Status: Acute (4) Hypomagnesemia ICD Code: E83.42 Status: Acute (5) Diabetes mellitus ICD Code: E11.9 Status: Chronic (6) Hypertension ICD Code: I10 Status: Chronic (7) Tobacco abuse ICD Code: Z72.0 Status: Chronic (8) Fever ICD Code: R50.9 Status: Resolved Assessment and Plan This 56-year-old male patient with past medical history which includes hypertension, diabetes mellitus type 2, peripheral neuropathy and left foot wound initially obtained August 24, 2016 by stepping on a nail. Patient was hospitalized prior for the left foot wound found to have sepsis at that time and underwent an I&D and was being seen by outpatient wound clinic, Dr. Rincon. Patient reports he was doing well but began to have chills and rigor last night. Sepsis - Present on admission (temperature 103, white blood cell count 15.7, lactic acid 2.4, likely source left foot wound) Seems to be improving. Lactate normal. WBC down to normal values. Initial culture obtained on 11/11/16 grew MSSA and Achromobacter Xyl/[place]. Wound culture obtained from toe on 11/13/16 is growing Staph coagulase negative. No fungal element seen on fungal smear, fungal culture pending. No acid fast bacilli seen on acid fast pain. Mycobacterial culture pending. Follow-up ID recommendations. Status post IV Zosyn and vancomycin which was discontinued. Patient started as per ID recommendations on 11/15/16 on IV cefazolin and oral Bactrim. Lactic acidosis -hepatic acid 2.4 on admission. Resolved and down to normal levels after IV fluid administration. Left foot wound rule out osteomyelitis Fluid bolus given in the ED MRI L foot shows osteomyelitis as described above. Podiatry consult appreciated - for OR on Tuesday morning for an amputation of the left hallux and first metatarsal head resection. Wound culture is growing Staph aureus. Fu susceptibility. Continue with Percocet and IV morphine for pain control. Antibiotics as per infectious disease. As per podiatry patient okay to be out of bed with assistance with no weightbearing on the left foot. Continue wound care. Primary closure planned tomorrow Diabetes mellitus hold oral anti-glycemic at this point Hemoglobin A1c 09/01/2016 6.8 Blood sugars uncontrolled and elevated in the 200's. Will start patient on Insulin Levemir. Continue SSI w insulin Novolog. Blood sugars stable. Continue Insulin Levemir and SSI with insulin Novolog. Hypertension uncontrolled: Improved Continue lisinopril 10 mg daily. Hypomagnesemia- sp Magnesium sulfate administration - Fever - Due to sepsis and left foot osteomyelitis. Fever resolved. Continue Tylenol as needed for fever. GI prophylaxis: on Protonix. DVT prophylaxis: SCDs, Continue to hold chemoprophylaxis since wound is open. will resume after closure. Discharge Planning Plan for possible surgical intervention on Tuesday by podiatry Problem Qualifiers (1) Open wound of left foot: Qualified Code: S91.302S - Open wound of left foot, sequela (2) Diabetes mellitus: (3) Fever: Qualified Code: R50.81 - Fever in other diseases Celia Adrian MD Nov 20, 2016 16:08
[2016-11-20] MEDS: ENOXAPARIN SODIUM 40 MG/0.4 ML SYRINGE SQ SCH (17:00)
[2016-11-20 20:00] VITALS: BP 152/92; PULSE 65; RESP 20; TEMP 96.4; O2SAT 100
[2016-11-20] MEDS: diphenhydrAMINE HCL 25 MG CAP PO PRN (21:54)
[2016-11-21] VITALS: BP 125/74; PULSE 64; RESP 20; TEMP 96; O2SAT 98
[2016-11-21] MEDS: ceFAZolin 2 GM PREMIX 50 ML IV SCH ×3 (01:15→17:13)
[2016-11-21] MEDS: MORPHINE SULFATE 4 MG/ML INJ IV PRN ×6 (01:15→20:47)
[2016-11-21] MEDS ORDERED: CHLORHEXIDINE GLUCONATE 2 % 1 PACK (2 CLOTHS) TOPICAL PRN (02:00)
[2016-11-21] MEDS ORDERED: POVIDONE IODINE 5% (ANTISEPSIS KIT) 4 APPLICATIONS EACH NARE PRN (02:00)
[2016-11-21] MEDS: INSULIN ASPART SUPPLEMENTAL SCALE SQ SCH ×4 (04:45→19:54)
[2016-11-21] MEDS: LACTATED RINGER'S 1000 ML INJ 1,000 ML IV SCH (04:45)
[2016-11-21 05:16] LABS: AUTOMATED NEUTROPHIL # 6.1 TH/MM3 (1.8-7.7); BASOPHIL # 0.1 TH/MM3 (0-0.2); BASOPHIL % 0.8 % (0.0-2.0); EOSINOPHIL # 0.2 TH/MM3 (0-0.4); EOSINOPHIL % 2.5 % (0.0-4.0); HEMATOCRIT 36.4 % (39.0-51.0); HEMO FLAGS DIFF FINAL; LYMPH % 22.7 % (9.0-44.0); LYMPHOCYTE # 2.2 TH/MM3 (1.0-4.8); MEAN CELL VOLUME 88.6 FL (80.0-100.0); MEAN CORPUSCULAR HEMOGLOBIN 30.6 PG (27.0-34.0); MEAN CORPUSCULAR HGB CONC 34.5 % (32.0-36.0); MONO % 11.9 % (0.0-8.0); NEUT % 62.1 % (16.0-70.0); PLATELET COUNT 281 TH/MM3 (150-450); RED CELL DISTRIBUTION WIDTH 13.5 % (11.6-17.2); WHITE BLOOD COUNT 9.9 TH/MM3 (4.0-11.0)
[2016-11-21] MEDS: oxyCODONE/ACETAMINOPHEN 5 MG/325 MG TAB PO PRN ×3 (06:09→18:15)
[2016-11-21 08:00] VITALS: BP 104/67; PULSE 69; RESP 18; TEMP 95.6; O2SAT 97
[2016-11-21] MEDS ORDERED: ONDANSETRON HCL 4 MG/2 ML VIAL IV PUSH ONE (08:00)
[2016-11-21] MEDS ORDERED: PROPOFOL 200 MG/20 ML AMP IV ONE (08:00)
[2016-11-21] MEDS ORDERED: BUPIVACAINE HCL PF 0.5% 30 ML VIAL ONE (08:05)
[2016-11-21] MEDS ORDERED: NALOXONE HCL 0.4 MG/ML AMP IV PRN (09:00)
[2016-11-21] MEDS ORDERED: SODIUM CHLORIDE 0.9% FLUSH 10 ML FLUSH IV FLUSH SCH (09:00)
[2016-11-21] MEDS ORDERED: SODIUM CHLORIDE 0.9% FLUSH 10 ML FLUSH IV FLUSH PRN (09:00)
[2016-11-21] MEDS ORDERED: Post-op Orders (for Pharmacy) MISC XX ONE (09:00)
--- NOTE | 2016-11-21 09:05 | PD.OP ---
Operative Report Date of Surgery: Nov 21, 2016 Preoperative Diagnosis: (1) Diabetic foot ulcer Left foot Postoperative Diagnosis: (1) Diabetic foot ulcer Left foot Procedure: Debridement and closure of diabetic foot ulcer from open left hallux amputation Anesthesia: Gen. inhalation Surgeon: Jose Stephen Biochemical Development Engineer(s): None Operation and Findings: Patient is brought to the operating room and placed on the operating table in a supine position. Pneumatic ankle cuff was placed around the left ankle after adequate web roll padding. Left foot was prepped and draped in the usual sterile manner. Patient was given general inhalation anesthesia. The left foot was elevated above the operating table for a period of 3 minutes at which time the pneumatic ankle cuff was inflated to 250 mmHg. Total cuff time was 31 minutes. Foot was lowered to the operating table and attention was directed to the open amputation site of the left hallux. The wound edges were sharpened up with a 15 blade. Subcutaneous necrotic tissue was debrided. There is flushed with copious amounts of sterile saline. Subcutaneous tissue was reapproximated and closed with 2-0 Vicryl. Skin edges are reapproximated and closed with 3-0 nylon with simple and mattress sutures. The incision was anesthetized with 10 cc of 0.5% Marcaine for postoperative anesthesia. No specimen was sent. Sponge and instrument count were noted to be correct. The incision site was dressed with Adaptic 4 x 4's and Lynn and the pneumatic ankle cuff was deflated. Normal vascular status of the digit remaining digits of the left foot were noted to be intact. Patient tolerated procedures and anesthesia well and left the OR to PACU in apparent satisfactory condition with all vital signs stable. Jose Stephen DPM Nov 21, 2016 09:05
[2016-11-21] MEDS: ACETAMINOPHEN 1000 MG/100 ML VIAL IV SCH ×3 (09:10→19:53)
[2016-11-21] MEDS ORDERED: DO NOT ADM ANY ANTICOAGULANT DRUGS PRN (09:30)
[2016-11-21] MEDS: SULFAMETHOXAZOLE-TRIMETHOPRIM DS 800-160 MG TAB PO SCH ×2 (09:57→19:53)
[2016-11-21] MEDS: METOPROLOL TARTRATE 50 MG TAB PO SCH ×2 (09:57→19:53)
[2016-11-21] MEDS: DOCUSATE SODIUM 100 MG CAP PO SCH ×2 (09:57→19:53)
[2016-11-21] MEDS: LISINOPRIL 10 MG TAB PO SCH (09:57)
[2016-11-21] MEDS: INSULIN DETEMIR 100 UNITS/ML VIAL SQ SCH ×2 (09:58→19:54)
[2016-11-21] MEDS: SODIUM CHLORIDE 0.9% FLUSH 10 ML FLUSH IV FLUSH SCH ×2 (10:00→19:53)
--- NOTE | 2016-11-21 10:52 | HHI.PR ---
Subjective Remarks pt just had another sx today by podiatry , no fever /chills he was told not to touch the dressing for the next few days untill further notice from podiatry Objective Vitals Vital Signs Date Time Temp Pulse Resp B/P Pulse Ox O2 Delivery O2 Flow Rate FiO2 11/21/16 09:15 76 16 123/78 95 Room Air 11/21/16 09:00 82 16 146/80 96 Room Air 11/21/16 08:55 98.1 80 16 132/74 98 11/21/16 08:00 95.6 69 18 104/67 97 11/21/16 00:00 96.0 64 20 125/74 98 11/20/16 20:00 96.4 65 20 152/92 100 11/20/16 16:00 95.8 64 17 129/79 100 11/20/16 12:00 96.4 68 18 129/83 100 I/O 11/20/16 11/20/16 11/20/16 11/21/16 11/21/16 11/21/16 07:00 15:00 23:00 07:00 15:00 23:00 Intake Total 50 ml 950 ml 530 ml 50 ml 100 ml Balance 50 ml 950 ml 530 ml 50 ml 100 ml Intake Oral 0 ml 900 ml 480 ml 0 ml IV Total 50 ml 50 ml 50 ml 50 ml 100 ml # Voids 2 10 4 5 # Bowel Movements 2 Result Diagram: 11/21/16 0425 11/18/16 0350 Objective Remarks GENERAL: This is a well-nourished, well-developed patient, in no apparent distress. SKIN: No rashes, warm and dry HEAD: Atraumatic. Normocephalic. EYES: Pupils equal round and reactive. Extraocular motions intact. No scleral icterus. ENT: Nose without bleeding, or drainage, Airway patent. NECK: Trachea midline. Supple CARDIOVASCULAR: Regular rate and rhythm without murmurs, gallops, or rubs. RESPIRATORY: Fair air entry bilaterally. No wheezes, rales, or rhonchi. GASTROINTESTINAL: Abdomen soft, non-tender, nondistended. Positive bowel sounds MUSCULOSKELETAL: Extremities without clubbing, cyanosis, or edema. Pedal pulses appreciated, left foot in dressing and gauze NEUROLOGICAL: Awake and alert. Moves all extremity. 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 11/13 A/P Problem List: (1) Open wound of left foot ICD Code: S91.302A Status: Chronic (2) Sepsis ICD Code: A41.9 Status: Acute (3) Lactic acidosis ICD Code: E87.2 Status: Acute (4) Hypomagnesemia ICD Code: E83.42 Status: Acute (5) Diabetes mellitus ICD Code: E11.9 Status: Chronic (6) Hypertension ICD Code: I10 Status: Chronic (7) Tobacco abuse ICD Code: Z72.0 Status: Chronic (8) Fever ICD Code: R50.9 Status: Resolved Assessment and Plan 11/21: s/p sx today , ff cbc This 56-year-old male patient with past medical history which includes hypertension, diabetes mellitus type 2, peripheral neuropathy and left foot wound initially obtained August 24, 2016 by stepping on a nail. Patient was hospitalized prior for the left foot wound found to have sepsis at that time and underwent an I&D and was being seen by outpatient wound clinic, Dr. Rincon. Sepsis - Present on admission (temperature 103, white blood cell count 15.7, lactic acid 2.4, likely source left foot wound) Seems to be improving. Lactate normal. WBC down to normal values. Initial culture obtained on 11/11/16 grew MSSA and Achromobacter Xyl/Garland. Wound culture obtained from toe on 11/13/16 is growing Staph coagulase negative. No fungal element seen on fungal smear, fungal culture pending. No acid fast bacilli seen on acid fast pain. Mycobacterial culture pending. Follow-up ID recommendations. Status post IV Zosyn and vancomycin which was discontinued. Patient started as per ID recommendations on 11/15/16 on IV cefazolin and oral Bactrim. Lactic acidosis -hepatic acid 2.4 on admission. Resolved and down to normal levels after IV fluid administration. Left foot wound rule out osteomyelitis Fluid bolus given in the ED MRI L foot shows osteomyelitis as described above. Podiatry consult appreciated - for OR on Tuesday morning for an amputation of the left hallux and first metatarsal head resection. Wound culture is growing Staph aureus. Fu susceptibility. Continue with Percocet and IV morphine for pain control. Antibiotics as per infectious disease. As per podiatry patient okay to be out of bed with assistance with no weightbearing on the left foot. Continue wound care. s/p another surgical intervention 4/2 Diabetes mellitus hold oral anti-glycemic at this point Hemoglobin A1c 09/01/2016 6.8 Blood sugars uncontrolled and elevated in the 200's. Will start patient on Insulin Levemir. Continue SSI w insulin Novolog. Blood sugars stable. Continue Insulin Levemir and SSI with insulin Novolog. Hypertension uncontrolled: Improved Continue lisinopril 10 mg daily. Hypomagnesemia- sp Magnesium sulfate administration - Fever - Due to sepsis and left foot osteomyelitis. Fever resolved. Continue Tylenol as needed for fever. GI prophylaxis: on Protonix. DVT prophylaxis: SCDs, Continue to hold chemoprophylaxis since wound is open. will resume after closure. Discharge Planning when cleared by podiatry and ID Problem Qualifiers (1) Open wound of left foot: Qualified Code: S91.302S - Open wound of left foot, sequela (2) Diabetes mellitus: (3) Fever: Qualified Code: R50.81 - Fever in other diseases Celia Adrian MD Nov 21, 2016 10:52
[2016-11-21 12:00] VITALS: BP 131/71; PULSE 72; RESP 18; TEMP 95.9; O2SAT 96
[2016-11-21 16:00] VITALS: BP 103/65; PULSE 83; RESP 17; TEMP 97.6; O2SAT 98
[2016-11-21] MEDS: ENOXAPARIN SODIUM 40 MG/0.4 ML SYRINGE SQ SCH (17:00)
[2016-11-21 20:00] VITALS: BP 131/80; PULSE 67; RESP 20; TEMP 98; O2SAT 100
[2016-11-21] MEDS: diphenhydrAMINE HCL 25 MG CAP PO PRN (20:46)
[2016-11-22] VITALS: BP 121/74; PULSE 61; RESP 20; TEMP 97.8; O2SAT 98
[2016-11-22] MEDS: ceFAZolin 2 GM PREMIX 50 ML IV SCH ×3 (00:48→17:10)
[2016-11-22] MEDS: oxyCODONE/ACETAMINOPHEN 5 MG/325 MG TAB PO PRN ×4 (00:50→19:21)
[2016-11-22] MEDS: MORPHINE SULFATE 4 MG/ML INJ IV PRN ×8 (01:52→23:32)
[2016-11-22] MEDS: LACTATED RINGER'S 1000 ML INJ 1,000 ML IV SCH (02:00)
[2016-11-22] MEDS: ACETAMINOPHEN 1000 MG/100 ML VIAL IV SCH (03:00)
[2016-11-22] MEDS: INSULIN ASPART SUPPLEMENTAL SCALE SQ SCH ×4 (05:01→20:32)
[2016-11-22 08:00] VITALS: BP 119/76; PULSE 68; RESP 18; TEMP 96.3; O2SAT 97
[2016-11-22] MEDS: SULFAMETHOXAZOLE-TRIMETHOPRIM DS 800-160 MG TAB PO SCH ×2 (08:13→20:30)
[2016-11-22] MEDS: DOCUSATE SODIUM 100 MG CAP PO SCH ×2 (08:13→20:30)
[2016-11-22] MEDS: INSULIN DETEMIR 100 UNITS/ML VIAL SQ SCH ×2 (08:14→20:31)
[2016-11-22] MEDS: LISINOPRIL 10 MG TAB PO SCH (08:14)
[2016-11-22] MEDS: METOPROLOL TARTRATE 50 MG TAB PO SCH ×2 (08:14→20:30)
[2016-11-22] MEDS: SODIUM CHLORIDE 0.9% FLUSH 10 ML FLUSH IV FLUSH SCH ×2 (09:00→20:31)
[2016-11-22 12:00] VITALS: BP 127/72; PULSE 62; RESP 16; TEMP 97.8; O2SAT 98
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
--- NOTE | 2016-11-22 15:40 | HHI.PR ---
Subjective Remarks Patient doing well status post debridement and closure, no fever or chills, still complaining of pain I discussed with Dr. Stephen the podiatry, planning to change dressing tomorrow and if is stable he can be discharged depending on the antibiotic regimen Objective Vitals Vital Signs Date Time Temp Pulse Resp B/P Pulse Ox O2 Delivery O2 Flow Rate FiO2 11/22/16 12:00 97.8 62 16 127/72 98 11/22/16 08:00 96.3 68 18 119/76 97 11/22/16 00:00 97.8 61 20 121/74 98 11/21/16 20:00 98.0 67 20 131/80 100 11/21/16 16:00 97.6 83 17 103/65 98 I/O 11/21/16 11/21/16 11/21/16 11/22/16 11/22/16 11/22/16 07:00 15:00 23:00 07:00 15:00 23:00 Intake Total 50 ml 630 ml 480 ml 530 ml 240 ml Output Total 400 ml 400 ml Balance 50 ml 630 ml 80 ml 130 ml 240 ml Intake Oral 0 ml 480 ml 480 ml 480 ml 240 ml IV Total 50 ml 150 ml 0 ml 50 ml Output Urine Total 400 ml 400 ml # Voids 5 2 5 # Bowel Movements 1 0 0 1 Result Diagram: 11/21/16 0425 11/18/16 0350 Objective Remarks GENERAL: This is a well-nourished, well-developed patient, in no apparent distress. SKIN: No rashes, warm and dry HEAD: Atraumatic. Normocephalic. EYES: Pupils equal round and reactive. Extraocular motions intact. No scleral icterus. ENT: Nose without bleeding, or drainage, Airway patent. NECK: Trachea midline. Supple CARDIOVASCULAR: Regular rate and rhythm without murmurs, gallops, or rubs. RESPIRATORY: Fair air entry bilaterally. No wheezes, rales, or rhonchi. GASTROINTESTINAL: Abdomen soft, non-tender, nondistended. Positive bowel sounds MUSCULOSKELETAL: Extremities without clubbing, cyanosis, or edema. Pedal pulses appreciated, left foot in dressing and gauze NEUROLOGICAL: Awake and alert. Moves all extremity. 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 11/13 A/P Problem List: (1) Open wound of left foot ICD Code: S91.302A Status: Chronic (2) Sepsis ICD Code: A41.9 Status: Acute (3) Lactic acidosis ICD Code: E87.2 Status: Acute (4) Hypomagnesemia ICD Code: E83.42 Status: Acute (5) Diabetes mellitus ICD Code: E11.9 Status: Chronic (6) Hypertension ICD Code: I10 Status: Chronic (7) Tobacco abuse ICD Code: Z72.0 Status: Chronic (8) Fever ICD Code: R50.9 Status: Resolved Assessment and Plan 11/21: s/p sx today , ff cbc 11/22: Doing well status post debridement and wound closure, no fever or chills, discuss with podiatry, plan to change dressing tomorrow possible discharge, ID will follow for discharge antibiotic This 56-year-old male patient with past medical history which includes hypertension, diabetes mellitus type 2, peripheral neuropathy and left foot wound initially obtained August 24, 2016 by stepping on a nail. Patient was hospitalized prior for the left foot wound found to have sepsis at that time and underwent an I&D and was being seen by outpatient wound clinic, Dr. Rincon. Sepsis - Present on admission (temperature 103, white blood cell count 15.7, lactic acid 2.4, likely source left foot wound) Seems to be improving. Lactate normal. WBC down to normal values. Initial culture obtained on 11/11/16 grew MSSA and Achromobacter Xyl/[place]. Wound culture obtained from toe on 11/13/16 is growing Staph coagulase negative. No fungal element seen on fungal smear, fungal culture pending. No acid fast bacilli seen on acid fast pain. Mycobacterial culture pending. Follow-up ID recommendations. Status post IV Zosyn and vancomycin which was discontinued. Patient started as per ID recommendations on 11/15/16 on IV cefazolin and oral Bactrim. Lactic acidosis -hepatic acid 2.4 on admission. Resolved and down to normal levels after IV fluid administration. Left foot wound rule out osteomyelitis Fluid bolus given in the ED MRI L foot shows osteomyelitis as described above. Podiatry consult appreciated - for OR on Tuesday morning for an amputation of the left hallux and first metatarsal head resection. Wound culture is growing Staph aureus. Fu susceptibility. Continue with Percocet and IV morphine for pain control. Antibiotics as per infectious disease. As per podiatry patient okay to be out of bed with assistance with no weightbearing on the left foot. Continue wound care. s/p another surgical intervention 4/2 Diabetes mellitus hold oral anti-glycemic at this point Hemoglobin A1c 09/01/2016 6.8 Blood sugars uncontrolled and elevated in the 200's. Will start patient on Insulin Levemir. Continue SSI w insulin Novolog. Blood sugars stable. Continue Insulin Levemir and SSI with insulin Novolog. Hypertension uncontrolled: Improved Continue lisinopril 10 mg daily. Hypomagnesemia- sp Magnesium sulfate administration - Fever - Due to sepsis and left foot osteomyelitis. Fever resolved. Continue Tylenol as needed for fever. GI prophylaxis: on Protonix. DVT prophylaxis: SCDs, Continue to hold chemoprophylaxis since wound is open. will resume after closure. Discharge Planning In a.m. when cleared by podiatry and ID Problem Qualifiers (1) Open wound of left foot: Qualified Code: S91.302S - Open wound of left foot, sequela (2) Diabetes mellitus: (3) Fever: Qualified Code: R50.81 - Fever in other diseases Celia Adrian MD Nov 22, 2016 15:40
[2016-11-22 16:00] VITALS: BP 106/71; PULSE 62; RESP 16; TEMP 96.3; O2SAT 98
[2016-11-22] MEDS: ENOXAPARIN SODIUM 40 MG/0.4 ML SYRINGE SQ SCH (17:00)
--- NOTE | 2016-11-22 17:49 | HHI.IDPN ---
Subjective Subjective Remarks sp 1 st ray amputation sp closing yday Doing OK no fever path reviewew?: ulceration, osteo, [place] + extention to margins Antibiotics cefazolne bacntrim Allergies: Coded Allergies: Dilaudid (Verified Allergy, Unknown, Itching, 11/11/16) Objective . Vital Signs Date Time Temp Pulse Resp B/P Pulse Ox O2 Delivery O2 Flow Rate FiO2 11/22/16 16:00 96.3 62 16 106/71 98 11/22/16 12:00 97.8 62 16 127/72 98 11/22/16 08:00 96.3 68 18 119/76 97 11/22/16 00:00 97.8 61 20 121/74 98 11/21/16 20:00 98.0 67 20 131/80 100 11/21/16 11/21/16 11/22/16 15:00 23:00 07:00 Intake Total 630 ml 480 ml 530 ml Output Total 400 ml 400 ml Balance 630 ml 80 ml 130 ml Intake Oral 480 ml 480 ml 480 ml IV Total 150 ml 0 ml 50 ml Output Urine Total 400 ml 400 ml # Voids 2 # Bowel Movements 1 0 0 . Laboratory Tests Test 11/21/16 04:25 White Blood Count 9.9 TH/MM3 Red Blood Count 4.10 MIL/MM3 Hemoglobin 12.6 GM/DL Hematocrit 36.4 % Mean Corpuscular Volume 88.6 FL Mean Corpuscular Hemoglobin 30.6 PG Mean Corpuscular Hemoglobin 34.5 % Concent Red Cell Distribution Width 13.5 % Platelet Count 281 TH/MM3 Mean Platelet Volume 7.1 FL Neutrophils (%) (Auto) 62.1 % Lymphocytes (%) (Auto) 22.7 % Monocytes (%) (Auto) 11.9 % Eosinophils (%) (Auto) 2.5 % Basophils (%) (Auto) 0.8 % Neutrophils # (Auto) 6.1 TH/MM3 Lymphocytes # (Auto) 2.2 TH/MM3 Monocytes # (Auto) 1.2 TH/MM3 Eosinophils # (Auto) 0.2 TH/MM3 Basophils # (Auto) 0.1 TH/MM3 CBC Comment DIFF FINAL Differential Comment Imaging Last Impressions Foot X-Ray 11/13/16 0000 Signed Impressions: Service Date/Time: Sunday, November 13, 2016 08:57 - CONCLUSION: Post surgical changes related to patient's indication. There is a focal area of decreased mineralization involving the medial aspect of the base of the residual first metatarsal with intact cortex. No clear evidence of osteomyelitis. Jayna Kang MD Chest X-Ray 11/11/16 1422 Signed Impressions: Service Date/Time: October 14:50 - CONCLUSION: 1. No acute cardiopulmonary findings. Gerson Beyer MD Foot MRI 11/11/16 0000 Signed Impressions: Service Date/Time: October 18:52 - CONCLUSION: 1. Osteomyelitis of the first metatarsal and great toe as above. Extensive surrounding cellulitis. Medial soft tissue ulceration. No other areas of osteomyelitis in the left foot. Rakan Lobato MD Physical Exam CONSTITUTIONAL/GENERAL: This is an mildly obese male patient, in no apparent distress. SKIN: No jaundice, rashes, EYES: . No scleral icterus. ENT: Oral mucosae moist; very poor dentition. No thrush CARDIOVASCULAR: Regular rate and rhythm without murmurs, gallops, or rubs. No JVD. Peripheral pulses symmetric. RESPIRATORY/CHEST: Symmetric, unlabored respirations. Clear to auscultation. Breath sounds equal bilaterally. No wheezes, rales, or rhonchi. GASTROINTESTINAL: Abdomen soft, non-tender, nondistended. MUSCULOSKELETAL: Extremities without clubbing, cyanosis, no edema of RLE surg dressing in place Assessment & Plan Remarks DFI, osteo L 1 st MT head - sp Partial resection of left first metatarsal head and amputation of left hallux 10/16 - pt consistently grew out MSSA, other bacteria were diferent on different occasion (acinetobacter, Achromobacter, PSAE) - last time staph simulance ? significance MSSA - recurrent Probably polimicrobial mixed aerobic/anaerobic Fever, sepsis - from foot infx: clincally resolved - cont cefazoline x 6 wks post op providing healing is prgoressing well - cont bactrim x 6 wks post op - dw case mngr: pt is not a candidate for dc with infusion center 2/2 h/o prior non compliance Kristal Gaines MD Nov 22, 2016 17:49
[2016-11-22 20:00] VITALS: BP 126/80; PULSE 72; RESP 20; TEMP 98; O2SAT 100
[2016-11-22] MEDS: diphenhydrAMINE HCL 25 MG CAP PO PRN (20:30)
[2016-11-23] VITALS: BP 121/75; PULSE 64; RESP 20; TEMP 97.8; O2SAT 99
[2016-11-23] MEDS: LACTATED RINGER'S 1000 ML INJ 1,000 ML IV SCH (02:00)
[2016-11-23] MEDS: oxyCODONE/ACETAMINOPHEN 5 MG/325 MG TAB PO PRN ×4 (02:17→20:24)
[2016-11-23] MEDS: ceFAZolin 2 GM PREMIX 50 ML IV SCH ×3 (02:18→16:32)
[2016-11-23] MEDS: MORPHINE SULFATE 4 MG/ML INJ IV PRN ×4 (03:26→16:32)
[2016-11-23] MEDS: INSULIN ASPART SUPPLEMENTAL SCALE SQ SCH ×4 (07:00→20:29)
[2016-11-23 08:00] VITALS: BP 145/77; PULSE 72; RESP 19; TEMP 98.9; O2SAT 98
[2016-11-23] MEDS: METOPROLOL TARTRATE 50 MG TAB PO SCH ×2 (08:19→20:24)
[2016-11-23] MEDS: SULFAMETHOXAZOLE-TRIMETHOPRIM DS 800-160 MG TAB PO SCH ×2 (08:19→20:24)
[2016-11-23] MEDS: LISINOPRIL 10 MG TAB PO SCH (08:19)
[2016-11-23] MEDS: DOCUSATE SODIUM 100 MG CAP PO SCH ×2 (08:19→20:24)
[2016-11-23] MEDS: INSULIN DETEMIR 100 UNITS/ML VIAL SQ SCH ×2 (08:22→20:28)
[2016-11-23] MEDS: SODIUM CHLORIDE 0.9% FLUSH 10 ML FLUSH IV FLUSH SCH ×2 (08:22→20:24)
[2016-11-23 12:00] VITALS: BP 142/68; PULSE 77; RESP 17; TEMP 98.2; O2SAT 98
--- NOTE | 2016-11-23 12:42 | HHI.PR ---
Subjective Remarks Stable discussed with him tapering morphine, plan for dressing changes today, afebrile no other complaint ID concern about noncompliance, so patient needs to finish his antibiotic dose in-house Objective Vitals Vital Signs Date Time Temp Pulse Resp B/P Pulse Ox O2 Delivery O2 Flow Rate FiO2 11/23/16 09:41 19 11/23/16 09:23 19 11/23/16 08:00 98.9 72 19 145/77 98 11/23/16 00:00 97.8 64 20 121/75 99 11/22/16 20:00 98.0 72 20 126/80 100 11/22/16 16:00 96.3 62 16 106/71 98 I/O 11/22/16 11/22/16 11/22/16 11/23/16 11/23/16 11/23/16 07:00 15:00 23:00 07:00 15:00 23:00 Intake Total 530 ml 240 ml 480 ml 580 ml Output Total 400 ml 600 ml 650 ml Balance 130 ml 240 ml -120 ml -70 ml Intake Oral 480 ml 240 ml 480 ml 480 ml IV Total 50 ml 0 ml 100 ml Output Urine Total 400 ml 600 ml 650 ml # Voids 5 # Bowel Movements 0 1 0 0 Result Diagram: 11/21/16 0425 Objective Remarks GENERAL: This is a well-nourished, well-developed patient, in no apparent distress. SKIN: No rashes, warm and dry HEAD: Atraumatic. Normocephalic. EYES: Pupils equal round and reactive. Extraocular motions intact. No scleral icterus. ENT: Nose without bleeding, or drainage, Airway patent. NECK: Trachea midline. Supple CARDIOVASCULAR: Regular rate and rhythm without murmurs, gallops, or rubs. RESPIRATORY: Fair air entry bilaterally. No wheezes, rales, or rhonchi. GASTROINTESTINAL: Abdomen soft, non-tender, nondistended. Positive bowel sounds MUSCULOSKELETAL: Extremities without clubbing, cyanosis, or edema. Pedal pulses appreciated, left foot in dressing and gauze NEUROLOGICAL: Awake and alert. Moves all extremity. 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 11/13 A/P Problem List: (1) Open wound of left foot ICD Code: S91.302A Status: Resolved (2) Sepsis ICD Code: A41.9 Status: Acute (3) Lactic acidosis ICD Code: E87.2 Status: Acute (4) Hypomagnesemia ICD Code: E83.42 Status: Acute (5) Diabetes mellitus ICD Code: E11.9 Status: Chronic (6) Hypertension ICD Code: I10 Status: Chronic (7) Tobacco abuse ICD Code: Z72.0 Status: Chronic (8) Fever ICD Code: R50.9 Status: Resolved Assessment and Plan 11/21: s/p sx today , ff cbc 11/22: Doing well status post debridement and wound closure, no fever or chills, discuss with podiatry, plan to change dressing tomorrow possible discharge, ID will follow for discharge antibiotic 11/23: Plan for dressing changes by podiatry today, patient has a significant noncompliant issue which is a concern for the ID who recommended finishing antibiotic dose in-house I discussed with the patient start tapering morphine for breakthrough him a he agreed we'll do 3 mg every 6 hours as needed This 56-year-old male patient with past medical history which includes hypertension, diabetes mellitus type 2, peripheral neuropathy and left foot wound initially obtained August 24, 2016 by stepping on a nail. Patient was hospitalized prior for the left foot wound found to have sepsis at that time and underwent an I&D and was being seen by outpatient wound clinic, Dr. Rincon. Sepsis - Present on admission (temperature 103, white blood cell count 15.7, lactic acid 2.4, likely source left foot wound) Seems to be improving. Lactate normal. WBC down to normal values. Initial culture obtained on 11/11/16 grew MSSA and Achromobacter Xyl/[place]. Wound culture obtained from toe on 11/13/16 is growing Staph coagulase negative. No fungal element seen on fungal smear, fungal culture pending. No acid fast bacilli seen on acid fast pain. Mycobacterial culture pending. Follow-up ID recommendations. Status post IV Zosyn and vancomycin which was discontinued. Antibiotic per ID patient has a significant noncompliant issue which is a concern for the ID who recommended finishing antibiotic dose in-house Lactic acidosis -hepatic acid 2.4 on admission. Resolved and down to normal levels after IV fluid administration. Left foot wound rule out osteomyelitis Fluid bolus given in the ED MRI L foot shows osteomyelitis as described above. Podiatry consult appreciated - for OR on Tuesday morning for an amputation of the left hallux and first metatarsal head resection. Wound culture is growing Staph aureus. Fu susceptibility. Continue with Percocet and IV morphine for pain control. Antibiotics as per infectious disease. As per podiatry patient okay to be out of bed with assistance with no weightbearing on the left foot. Continue wound care. s/p another surgical intervention 4/2 Diabetes mellitus hold oral anti-glycemic at this point Hemoglobin A1c 09/01/2016 6.8 Blood sugars uncontrolled and elevated in the 200's. Will start patient on Insulin Levemir. Continue SSI w insulin Novolog. Blood sugars stable. Continue Insulin Levemir and SSI with insulin Novolog. Hypertension uncontrolled: Improved Continue lisinopril 10 mg daily. Hypomagnesemia- sp Magnesium sulfate administration - Fever - Due to sepsis and left foot osteomyelitis. Fever resolved. Continue Tylenol as needed for fever. GI prophylaxis: on Protonix. DVT prophylaxis: SCDs, Continue to hold chemoprophylaxis since wound is open. will resume after closure. Discharge Planning Patient has a significant noncompliance issue therefore ID recommended finishing the antibiotic dose in-house Problem Qualifiers (1) Open wound of left foot: Qualified Code: S91.302S - Open wound of left foot, sequela (2) Diabetes mellitus: (3) Fever: Qualified Code: R50.81 - Fever in other diseases Celia Adrian MD Nov 23, 2016 12:42
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
[2016-11-23] MEDS: ENOXAPARIN SODIUM 40 MG/0.4 ML SYRINGE SQ SCH (16:33)
[2016-11-23 20:00] VITALS: BP 120/78; PULSE 66; RESP 20; TEMP 97.2; O2SAT 97
[2016-11-23] MEDS: diphenhydrAMINE HCL 25 MG CAP PO PRN (20:24)
[2016-11-24] VITALS: BP 115/71; PULSE 60; RESP 20; TEMP 97.3; O2SAT 98
[2016-11-24] MEDS: MORPHINE SULFATE 4 MG/ML INJ IV PRN ×4 (01:23→20:08)
[2016-11-24] MEDS: LACTATED RINGER'S 1000 ML INJ 1,000 ML IV SCH (02:00)
[2016-11-24] MEDS: ceFAZolin 2 GM PREMIX 50 ML IV SCH ×3 (02:49→17:49)
[2016-11-24] MEDS: oxyCODONE/ACETAMINOPHEN 5 MG/325 MG TAB PO PRN ×4 (02:49→21:57)
[2016-11-24] MEDS: INSULIN ASPART SUPPLEMENTAL SCALE SQ SCH ×4 (06:44→21:08)
[2016-11-24] MEDS: METOPROLOL TARTRATE 50 MG TAB PO SCH ×2 (07:42→20:08)
[2016-11-24] MEDS: INSULIN DETEMIR 100 UNITS/ML VIAL SQ SCH ×2 (07:42→21:07)
[2016-11-24] MEDS: SODIUM CHLORIDE 0.9% FLUSH 10 ML FLUSH IV FLUSH SCH ×2 (07:42→20:08)
[2016-11-24] MEDS: DOCUSATE SODIUM 100 MG CAP PO SCH ×2 (07:42→20:08)
[2016-11-24] MEDS: LISINOPRIL 10 MG TAB PO SCH (07:42)
[2016-11-24] MEDS: SULFAMETHOXAZOLE-TRIMETHOPRIM DS 800-160 MG TAB PO SCH ×2 (07:42→20:08)
[2016-11-24 08:00] VITALS: BP 130/78; PULSE 73; RESP 18; TEMP 97; O2SAT 98
--- NOTE | 2016-11-24 10:10 | HHI.PR ---
Subjective Remarks Follow up on osteomyelitis, status post surgery now with antibiotic, needing to be in house due to noncompliance No fever no acute issues today Objective Vitals Vital Signs Date Time Temp Pulse Resp B/P Pulse Ox O2 Delivery O2 Flow Rate FiO2 11/24/16 08:00 97.0 73 18 130/78 98 11/24/16 07:48 18 11/24/16 00:00 97.3 60 20 115/71 98 11/23/16 20:00 97.2 66 20 120/78 97 11/23/16 15:35 17 11/23/16 12:00 98.2 77 17 142/68 98 I/O 11/23/16 11/23/16 11/23/16 11/24/16 11/24/16 11/24/16 07:00 15:00 23:00 07:00 15:00 23:00 Intake Total 580 ml 770 ml 720 ml 50 ml Output Total 650 ml 600 ml Balance -70 ml 170 ml 720 ml 50 ml Intake Oral 480 ml 720 ml 720 ml 0 ml IV Total 100 ml 50 ml 0 ml 50 ml Output Urine Total 650 ml 600 ml # Voids 3 1 # Bowel Movements 0 2 1 Result Diagram: 11/21/16 0425 Objective Remarks GENERAL: This is a well-nourished, well-developed patient, in no apparent distress. SKIN: No rashes, warm and dry HEAD: Atraumatic. Normocephalic. EYES: Pupils equal round and reactive. Extraocular motions intact. No scleral icterus. ENT: Nose without bleeding, or drainage, Airway patent. NECK: Trachea midline. Supple CARDIOVASCULAR: Regular rate and rhythm without murmurs, gallops, or rubs. RESPIRATORY: Fair air entry bilaterally. No wheezes, rales, or rhonchi. GASTROINTESTINAL: Abdomen soft, non-tender, nondistended. Positive bowel sounds MUSCULOSKELETAL: Extremities without clubbing, cyanosis, or edema. Pedal pulses appreciated, left foot in dressing and gauze NEUROLOGICAL: Awake and alert. Moves all extremity. 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 11/13 A/P Problem List: (1) Open wound of left foot ICD Code: S91.302A Status: Resolved (2) Sepsis ICD Code: A41.9 Status: Acute (3) Lactic acidosis ICD Code: E87.2 Status: Acute (4) Hypomagnesemia ICD Code: E83.42 Status: Acute (5) Diabetes mellitus ICD Code: E11.9 Status: Chronic (6) Hypertension ICD Code: I10 Status: Chronic (7) Tobacco abuse ICD Code: Z72.0 Status: Chronic (8) Fever ICD Code: R50.9 Status: Resolved Assessment and Plan This 56-year-old male patient with past medical history which includes hypertension, diabetes mellitus type 2, peripheral neuropathy and left foot wound initially obtained August 24, 2016 by stepping on a nail. Patient was hospitalized prior for the left foot wound found to have sepsis at that time and underwent an I&D and was being seen by outpatient wound clinic, Dr. Rincon. Sepsis - Present on admission (temperature 103, white blood cell count 15.7, lactic acid 2.4, likely source left foot wound) Seems to be improving. Lactate normal. WBC down to normal values. Initial culture obtained on 11/11/16 grew MSSA and Achromobacter Xyl/[place]. Wound culture obtained from toe on 11/13/16 is growing Staph coagulase negative. No fungal element seen on fungal smear, fungal culture pending. No acid fast bacilli seen on acid fast pain. Mycobacterial culture pending. Follow-up ID recommendations. Status post IV Zosyn and vancomycin which was discontinued. Antibiotic per ID patient has a significant noncompliant issue which is a concern for the ID who recommended finishing antibiotic dose in-house Lactic acidosis -hepatic acid 2.4 on admission. Resolved and down to normal levels after IV fluid administration. Left foot wound rule out osteomyelitis Fluid bolus given in the ED MRI L foot shows osteomyelitis as described above. Podiatry consult appreciated - for OR on Tuesday morning for an amputation of the left hallux and first metatarsal head resection. Wound culture is growing Staph aureus. Fu susceptibility. Continue with Percocet and IV morphine for pain control. Antibiotics as per infectious disease. As per podiatry patient okay to be out of bed with assistance with no weightbearing on the left foot. Continue wound care. s/p another surgical intervention 11/21 ID recommending finishing antibiotic course in-house due to significant history of noncompliance Diabetes mellitus hold oral anti-glycemic at this point Hemoglobin A1c 09/01/2016 6.8 Blood sugars uncontrolled and elevated in the 200's. Will start patient on Insulin Levemir. Continue SSI w insulin Novolog. Blood sugars stable. Continue Insulin Levemir and SSI with insulin Novolog. Hypertension uncontrolled: Improved Continue lisinopril 10 mg daily. Hypomagnesemia- sp Magnesium sulfate administration - Fever - Due to sepsis and left foot osteomyelitis. Fever resolved. Continue Tylenol as needed for fever. GI prophylaxis: on Protonix. DVT prophylaxis: SCDs, Continue to hold chemoprophylaxis since wound is open. will resume after closure. Discharge Planning Patient has a significant noncompliance issue therefore ID recommended finishing the antibiotic dose in-house Problem Qualifiers (1) Open wound of left foot: Qualified Code: S91.302S - Open wound of left foot, sequela (2) Diabetes mellitus: (3) Fever: Qualified Code: R50.81 - Fever in other diseases Celia Adrian MD Nov 24, 2016 10:10
[2016-11-24 12:00] VITALS: BP 111/70; PULSE 66; RESP 19; TEMP 96.3; O2SAT 99
[2016-11-24] MEDS: ENOXAPARIN SODIUM 40 MG/0.4 ML SYRINGE SQ SCH (15:54)
[2016-11-24 16:00] VITALS: BP 94/62; PULSE 63; RESP 18; TEMP 97.9; O2SAT 98
[2016-11-24 20:00] VITALS: BP 145/75; PULSE 66; RESP 16; TEMP 97.2; O2SAT 98
[2016-11-24] MEDS: diphenhydrAMINE HCL 25 MG CAP PO PRN (21:07)
[2016-11-25] VITALS: BP 103/65; PULSE 60; RESP 16; TEMP 97.2; O2SAT 97
[2016-11-25] MEDS: LACTATED RINGER'S 1000 ML INJ 1,000 ML IV SCH (01:49)
[2016-11-25] MEDS: MORPHINE SULFATE 4 MG/ML INJ IV PRN ×2 (01:52→08:09)
[2016-11-25] MEDS: ceFAZolin 2 GM PREMIX 50 ML IV SCH ×3 (01:52→16:20)
[2016-11-25] MEDS: oxyCODONE/ACETAMINOPHEN 5 MG/325 MG TAB PO PRN ×4 (03:57→23:25)
[2016-11-25] MEDS: INSULIN ASPART SUPPLEMENTAL SCALE SQ SCH ×4 (06:24→20:41)
[2016-11-25 08:00] VITALS: BP 118/84; PULSE 65; RESP 17; TEMP 96.7; O2SAT 98
[2016-11-25] MEDS: DOCUSATE SODIUM 100 MG CAP PO SCH ×2 (08:09→20:31)
[2016-11-25] MEDS: LISINOPRIL 10 MG TAB PO SCH (08:09)
[2016-11-25] MEDS: SULFAMETHOXAZOLE-TRIMETHOPRIM DS 800-160 MG TAB PO SCH ×2 (08:09→20:30)
[2016-11-25] MEDS: METOPROLOL TARTRATE 50 MG TAB PO SCH ×2 (08:09→20:31)
[2016-11-25] MEDS: INSULIN DETEMIR 100 UNITS/ML VIAL SQ SCH ×2 (08:10→20:31)
[2016-11-25] MEDS: SODIUM CHLORIDE 0.9% FLUSH 10 ML FLUSH IV FLUSH SCH ×2 (08:22→20:30)
[2016-11-25 12:00] VITALS: BP 107/68; PULSE 63; RESP 18; TEMP 97.2; O2SAT 100
--- NOTE | 2016-11-25 15:24 | HHI.PR ---
Subjective Remarks Follow-up for infected foot. Patient asking when they would be a wound change. He remains afebrile. Otherwise no complaints. Objective Vitals Vital Signs Date Time Temp Pulse Resp B/P Pulse Ox O2 Delivery O2 Flow Rate FiO2 11/25/16 12:00 97.2 63 18 107/68 100 11/25/16 08:00 96.7 65 17 118/84 98 11/25/16 00:00 97.2 60 16 103/65 97 11/24/16 20:00 97.2 66 16 145/75 98 11/24/16 16:53 18 11/24/16 16:00 97.9 63 18 94/62 98 I/O 11/24/16 11/24/16 11/24/16 11/25/16 11/25/16 11/25/16 07:00 15:00 23:00 07:00 15:00 23:00 Intake Total 50 ml 890 ml 360 ml 340 ml Balance 50 ml 890 ml 360 ml 340 ml Intake Oral 0 ml 840 ml 360 ml 240 ml IV Total 50 ml 50 ml 100 ml # Voids 1 5 0 2 # Bowel Movements 1 0 0 Result Diagram: 11/21/16 0425 Imaging Last Impressions Foot X-Ray 11/13/16 0000 Signed Impressions: Service Date/Time: Sunday, November 13, 2016 08:57 - CONCLUSION: Post surgical changes related to patient's indication. There is a focal area of decreased mineralization involving the medial aspect of the base of the residual first metatarsal with intact cortex. No clear evidence of osteomyelitis. Jayna Kang MD Chest X-Ray 11/11/16 1422 Signed Impressions: Service Date/Time: October 14:50 - CONCLUSION: 1. No acute cardiopulmonary findings. Gerson Beyer MD Foot MRI 11/11/16 0000 Signed Impressions: Service Date/Time: October 18:52 - CONCLUSION: 1. Osteomyelitis of the first metatarsal and great toe as above. Extensive surrounding cellulitis. Medial soft tissue ulceration. No other areas of osteomyelitis in the left foot. Rakan Lobato MD Objective Remarks GENERAL: This is a well-nourished, well-developed patient, in no apparent distress. CARDIOVASCULAR: Regular rate and rhythm without murmurs, gallops, or rubs. RESPIRATORY: Fair air entry bilaterally. No wheezes, rales, or rhonchi. GASTROINTESTINAL: Abdomen soft, non-tender, nondistended. Positive bowel sounds MUSCULOSKELETAL: Extremities without clubbing, cyanosis, or edema. Pedal pulses appreciated, left foot in dressing and gauze NEUROLOGICAL: Awake and alert. Moves all extremity. 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 11/13 Medications and IVs Current Medications Piperacillin Sod/ Tazobactam Sod 100 ml @ 200 mls/hr ONCE STAT IV Last administered on 11/11/16 15:18; Start 11/11/16 at 14:22; Stop 11/11/16 at 14:51 ; Status DC Vancomycin HCl 1000 mg/Sodium Chloride 250 ml @ 250 mls/hr ONCE STAT IV Last administered on 11/11/16 16:15; Start 11/11/16 at 14:22; Stop 11/11/16 at 15:21 ; Status DC Sodium Chloride 1,000 ml @ 1,000 mls/hr Q1H ONCE IV Last administered on 15:18; Start 11/11/16 at 14:22; Stop 11/11/16 at 15:21; Status DC Sodium Chloride 1,000 ml @ 1,000 mls/hr Q1H ONCE IV Last administered on 15:18; Start 11/11/16 at 14:22; Stop 11/11/16 at 15:21; Status DC Sodium Chloride (NS 1000 ml Inj) 1,000 ml @ 1,000 mls/hr Q1H ONCE IV Last administered on 11/11/16 16:15; Start 11/11/16 at 14:22; Stop 11/11/16 at 15:21 ; Status DC Acetaminophen (Tylenol) 1,000 mg ONCE ONCE PO Last administered on 11/11/16 15:33; Start 11/11/16 at 15:30; Stop 11/11/16 at 15:31; Status DC Ibuprofen 800 mg 800 mg ONCE ONCE PO Last administered on 11/11/16 15:33; Start 11/11/16 at 15:30; Stop 11/11/16 at 15:31; Status DC Sodium Chloride (NS 1000 ml Inj) 1,000 ml @ 100 mls/hr Q10H IV Last administered on 11/13/16 12:00; Start 11/11/16 at 16:37; Stop 11/13/16 at 17:52 ; Status DC Sodium Chloride (NS Flush) 2 ml UNSCH PRN IV FLUSH FLUSH AFTER USING IV ACCESS ; Start 11/11/16 at 16:45; Stop 11/15/16 at 16:55; Status DC Sodium Chloride (NS Flush) 2 ml BID IV FLUSH Last administered on 11/14/16 19: 38; Start 11/11/16 at 21:00; Stop 11/15/16 at 16:55; Status DC Acetaminophen (Tylenol) 650 mg Q4H PRN PO TEMP > 100.4 Last administered on 14:26; Start 11/11/16 at 16:45 Ondansetron HCl (Zofran Inj) 4 mg Q6H PRN IVP NAUSEA OR VOMITING; Start at 16:45 Docusate Sodium (Colace) 100 mg Q12HR PO Last administered on 11/25/16 08:09; Start 11/11/16 at 21:00 Magnesium Hydroxide (Milk Of Magnesia Liq) 30 ml Q12H PRN PO CONSTIPATION; Start 11/11/16 at 16:45 Enoxaparin Sodium (Lovenox Inj) 40 mg Q24H SQ Last administered on 11/11/16 17 :50; Start 11/11/16 at 17:00 Naloxone HCl 0.4 mg 0.4 mg UNSCH PRN IV SEE LABEL COMMENTS; Start 11/11/16 at 16:45 Vancomycin HCl 1000 mg/Sodium Chloride 250 ml @ 250 mls/hr Q24H IV ; Start at 16:45; Status UNV Pharmacy Profile Note 0 ml @ 0 mls/hr UNSCH OTHER ; Start 11/11/16 at 16:45; Stop 11/15/16 at 16:50; Status DC Piperacillin Sod/ Tazobactam Sod (Zosyn 4.5 Gm Premix) 100 ml @ 200 mls/hr Q8H IV Last administered on 11/15/16 14:47; Start 11/11/16 at 23:00; Stop at 16:50; Status DC Dextrose (D50w (Vial) Inj) 25 ml UNSCH PRN IV PUSH HYPOGLYCEMIA-SEE COMMENTS; Start 11/11/16 at 16:45 Glucagon (Glucagon Inj) 1 mg UNSCH PRN OTHER HYPOGLYCEMIA-SEE COMMENTS; Start 11/11/16 at 16:45 Insulin Aspart (NovoLOG SUPPLEMENTAL SCALE) 1 ACHS SLIDING SCALE SQ Last administered on 11/25/16 11:27; Start 11/11/16 at 21:00 Metoprolol Tartrate 50 mg 50 mg DAILY PO Last administered on 11/12/16 08:53; Start 11/12/16 at 09:00; Stop 11/12/16 at 09:30; Status DC Vancomycin HCl/ Sodium Chloride (Vancomycin Inj/ NS 500 ml Inj) 515 ml @ 257.5 mls/ hr Q12H IV Last administered on 11/14/16 00:19; Start 11/12/16 at 00:00; Stop 11/14/16 at 00:41; Status DC Miscellaneous Information SPECIFIC LAB TO BE ISIDRO... ONCE ONCE XX ; Start at 11:45; Stop 11/13/16 at 11:46; Status DC Magnesium Sulfate/ Dextrose (Magnesium Sulfate 1 Gm Premix) 100 ml @ 100 mls/ hr Q1H IV ; Start 11/11/16 at 18:00; Stop 11/11/16 at 19:59; Status DC Gadodiamide (Omniscan Pf Inj) 20 ml STK-MED ONCE IV Last administered on 19:34; Start 11/11/16 at 19:34; Stop 11/11/16 at 19:35; Status DC Ibuprofen (Motrin) 400 mg ONCE ONCE PO Last administered on 11/11/16 23:30; Start 11/11/16 at 23:00; Stop 11/11/16 at 23:12; Status DC Diphenhydramine HCl (Benadryl) 50 mg ONCE ONCE PO Last administered on 23:31; Start 11/11/16 at 23:00; Stop 11/11/16 at 23:12; Status DC Metoprolol Tartrate (Lopressor) 50 mg BID PO Last administered on 11/25/16 08: 09; Start 11/12/16 at 21:00 Oxycodone/ Acetaminophen (Percocet 5-325 Mg) 1 tab Q4H PRN PO PAIN SCALE 1 TO 4; Start 11/12/16 at 16:30 Oxycodone/ Acetaminophen (Percocet 5-325 Mg) 2 tab Q6H PRN PO PAIN SCALE 5 TO 10 Last administered on 11/25/16 10:04; Start 11/12/16 at 16:30 Morphine Sulfate (Morphine Inj) 2 mg ONCE ONCE IV PUSH Last administered on 16:39; Start 11/12/16 at 16:30; Stop 11/12/16 at 16:31; Status DC Insulin Detemir 10 units 10 units BID SQ Last administered on 11/25/16 08:10; Start 11/12/16 at 21:00 Magnesium Sulfate/ Dextrose 100 ml @ 100 mls/hr Q1H IV Last administered on 19:18; Start 11/12/16 at 17:00; Stop 11/12/16 at 18:59; Status DC Ceftazidime 2000 mg/Sodium Chloride 100 ml @ 200 mls/hr Q8H IV ; Start at 20:00; Stop 11/12/16 at 20:00; Status DC Ceftazidime/ Sodium Chloride (Fortaz Inj/NS Inj) 100 ml @ 200 mls/hr Q8H IV Last administered on 11/15/16 11:03; Start 11/12/16 at 20:00; Stop 11/15/16 at 16:50; Status DC Diphenhydramine HCl (Benadryl) 50 mg ONCE ONCE PO Last administered on 00:13; Start 11/13/16 at 00:15; Stop 11/13/16 at 00:16; Status DC Ketamine HCl (Ketalar Inj) 500 mg STK-MED ONCE .ROUTE ; Start 11/13/16 at 07:44 ; Stop 11/13/16 at 07:45; Status DC Sodium Chloride (NS Flush) 2 ml UNSCH PRN IV FLUSH FLUSH AFTER USING IV ACCESS ; Start 11/13/16 at 09:00 Sodium Chloride (NS Flush) 2 ml BID IV FLUSH Last administered on 11/25/16 08: 22; Start 11/13/16 at 09:00 Miscellaneous Information (Post-op Orders (for Pharmacy)) STAT ONCE XX ; Start 11/13/16 at 09:00; Stop 11/13/16 at 09:01; Status DC Morphine Sulfate (Morphine Inj) 4 mg Q3H PRN IV BREAKTHROUGH PAIN Last administered on 11/23/16 09:36; Start 11/13/16 at 09:00; Stop 11/23/16 at 11:31; Status DC Naloxone HCl (Narcan Inj) 0.4 mg UNSCH PRN IV SEE LABEL COMMENTS; Start at 09:00; Stop 11/21/16 at 09:09; Status DC Fentanyl Citrate (fentaNYL INJ) 100 mcg STK-MED ONCE .ROUTE ; Start 11/13/16 at 09:02; Stop 11/13/16 at 09:03; Status DC Miscellaneous Information ALL NURSING DEPARTME... UNSCH PRN XX SEE LABEL COMMENTS; Start 11/13/16 at 08:52; Stop 11/14/16 at 08:51; Status DC Morphine Sulfate (*morphine INJ PERIprocedure ONLY) 8 mg STK-MED ONCE .ROUTE Last administered on 11/13/16 09:21; Start 11/13/16 at 09:21; Stop 11/13/16 at 09:22; Status DC Bupivacaine HCl (Marcaine Pf 0.5% Inj) 30 ml STK-MED ONCE INFIL Last administered on 11/13/16 08:35; Start 11/13/16 at 08:35; Stop 11/13/16 at 09:41 ; Status DC Morphine Sulfate (*morphine INJ PERIprocedure ONLY) 8 mg STK-MED ONCE .ROUTE Last administered on 11/13/16 11:30; Start 11/13/16 at 11:30; Stop 11/13/16 at 11:31; Status DC Ceftazidime 1000 mg 1,000 mg STK-MED ONCE .ROUTE Last administered on 11:48; Start 11/13/16 at 11:48; Stop 11/13/16 at 11:49; Status DC Sodium Chloride (NS Inj) 100 ml @ As Directed STK-MED ONCE .ROUTE ; Start 11/13 at 11:49; Stop 11/13/16 at 11:50; Status DC Metoprolol Tartrate (Lopressor) 50 mg STK-MED ONCE .ROUTE Last administered on 11/13/16 12:07; Start 11/13/16 at 12:07; Stop 11/13/16 at 12:08; Status DC Miscellaneous Information SPECIFIC LAB TO BE ISIDRO... ONCE ONCE XX Last administered on 11/13/16 23:13; Start 11/13/16 at 23:45; Stop 11/13/16 at 23:46 ; Status DC Vancomycin HCl/ Sodium Chloride (Vancomycin Inj/ NS 500 ml Inj) 517.5 ml @ 250 mls/hr Q12H IV Last administered on 11/15/16 12:03; Start 11/14/16 at 12:00; Stop 11/15/16 at 16:50; Status DC Miscellaneous Information SPECIFIC LAB TO BE ISIDRO... ONCE ONCE XX ; Start at 11:45; Stop 11/16/16 at 11:45; Status DC Cefazolin Sodium/ Dextrose (Ancef 2 Gm Premix) 50 ml @ 150 mls/hr Q8H IV Last administered on 11/25/16 08:10; Start 11/15/16 at 18:00 Trimethoprim/ Sulfamethoxazole (Bactrim Ds 800-160 Mg) 1 tab Q12HR PO Last administered on 11/25/16 08:09; Start 11/15/16 at 21:00 Diphenhydramine HCl (Benadryl) 25 mg HS PRN PO insommnia Last administered on 21:07; Start 11/15/16 at 22:00 Amlodipine Besylate (Norvasc) 10 mg DAILY PO ; Start 11/16/16 at 11:30; Stop at 11:30; Status DC Lisinopril (Prinivil) 20 mg DAILY PO ; Start 11/16/16 at 11:30; Stop 11/16/16 at 11:42; Status DC Lisinopril (Prinivil) 10 mg DAILY PO Last administered on 11/25/16 08:09; Start 11/17/16 at 09:00 Clonidine (Catapres) 0.1 mg Q6H PRN PO SYS BP GREATER THAN 160 MMHG Last administered on 11/16/16 16:38; Start 11/16/16 at 11:45 Propofol (Diprivan 200 Mg/20 ml Inj) 200 mg STK-MED ONCE IV ; Start 11/13/16 at 11:24; Stop 11/18/16 at 11:24; Status DC Ondansetron HCl 4 mg 4 mg STK-MED ONCE IV PUSH ; Start 11/13/16 at 11:24; Stop 11/18/16 at 11:24; Status DC Lactated Ringer's (Lr 1000 ml Inj) 1,000 ml @ 0 mls/hr Q24H IV Last administered on 11/21/16 04:45; Start 11/21/16 at 02:00 Povidone Iodine (Betadine 5% Antisepsis Kit) 1 applic MACHINE TOOL ELECTRICIAN PRN EACH NARE SEE LABEL COMMENTS; Start 11/21/16 at 02:00; Stop 11/24/16 at 01:59; Status DC Chlorhexidine Gluconate (Chlorhexidine 2% Cloth) 3 pack MACHINE TOOL ELECTRICIAN PRN TOPICAL SEE LABEL COMMENTS; Start 11/21/16 at 02:00; Stop 11/24/16 at 01:59; Status DC Bupivacaine HCl (Marcaine Pf 0.5% Inj) 30 ml STK-MED ONCE .ROUTE ; Start at 08:05; Stop 11/21/16 at 08:06; Status DC Sodium Chloride (NS Flush) 2 ml UNSCH PRN IV FLUSH FLUSH AFTER USING IV ACCESS ; Start 11/21/16 at 09:00; Stop 11/21/16 at 09:07; Status DC Sodium Chloride (NS Flush) 2 ml BID IV FLUSH ; Start 11/21/16 at 09:00; Stop 11/21 at 09:07; Status DC Miscellaneous Information (Post-op Orders (for Pharmacy)) STAT ONCE XX ; Start 11/21/16 at 09:00; Stop 11/21/16 at 09:08; Status DC Acetaminophen (Ofirmev Inj) 1,000 mg Q6H IV Last administered on 11/21/16 16:06 ; Start 11/21/16 at 09:00; Stop 11/22/16 at 03:01; Status DC Naloxone HCl (Narcan Inj) 0.4 mg UNSCH PRN IV SEE LABEL COMMENTS; Start at 09:00; Stop 11/21/16 at 09:09; Status DC Fentanyl Citrate (fentaNYL INJ) 200 mcg STK-MED ONCE .ROUTE ; Start 11/21/16 at 09:02; Stop 11/21/16 at 09:03; Status DC Miscellaneous Information ALL NURSING DEPARTME... UNSCH PRN .XX SEE LABEL COMMENTS; Start 11/21/16 at 09:30; Stop 11/22/16 at 09:29; Status DC Morphine Sulfate (Morphine Inj) 3 mg Q6H PRN IV BREAKTHROUGH PAIN Last administered on 11/25/16t 08:09; Start 11/23/16 at 15:00; Stop 11/25/16 at 13:55; Status DC Propofol (Diprivan 200 Mg/20 ml Inj) 200 mg STK-MED ONCE IV ; Start 11/21/16 at 08:00; Stop 11/23/16 at 14:27; Status DC Ondansetron HCl (Zofran Inj) 4 mg STK-MED ONCE IV PUSH ; Start 11/21/16 at 08:00 ; Stop 11/23/16 at 14:27; Status DC A/P Problem List: (1) Open wound of left foot ICD Code: S91.302A Status: Resolved (2) Sepsis ICD Code: A41.9 Status: Acute (3) Lactic acidosis ICD Code: E87.2 Status: Acute (4) Hypomagnesemia ICD Code: E83.42 Status: Acute (5) Diabetes mellitus ICD Code: E11.9 Status: Chronic (6) Hypertension ICD Code: I10 Status: Chronic (7) Tobacco abuse ICD Code: Z72.0 Status: Chronic (8) Fever ICD Code: R50.9 Status: Resolved Assessment and Plan This 56-year-old male patient with past medical history which includes hypertension, diabetes mellitus type 2, peripheral neuropathy and left foot wound initially obtained August 24, 2016 by stepping on a nail. Patient was hospitalized prior for the left foot wound found to have sepsis at that time and underwent an I&D and was being seen by outpatient wound clinic, Dr. Rincon. Sepsis - Present on admission (temperature 103, white blood cell count 15.7, lactic acid 2.4, likely source left foot wound) -Resolved. -Initial culture obtained on 11/11/16 grew MSSA and Achromobacter Xyl/[place]. Wound culture obtained from toe on 11/13/16 is growing Staph coagulase negative. No fungal element seen on fungal smear, fungal culture pending. No acid fast bacilli seen on acid fast pain. Mycobacterial culture pending. Follow-up ID recommendations. Status post IV Zosyn and vancomycin which was discontinued. -cont cefazoline x 6 wks post op providing healing is progressing well -cont bactrim x 6 wks post op Left foot wound,osteomyelitis -MRI L foot shows osteomyelitis as described above. -Podiatry consult appreciated patient cleared for discharge by a podiatry. If patient still in house on Tuesday I will change his dressings then. Meanwhile he is to keep the dressing dry and clean without ambulation. -Wound culture is growing Staph aureus. Fu susceptibility. -Continue with Percocet and IV morphine for pain control. -As per podiatry patient okay to be out of bed with assistance with no weightbearing on the left foot. Continue wound care. Diabetes mellitus hold oral anti-glycemic at this point -Hemoglobin A1c 09/01/2016 6.8 -continue Levemir and SSI. Hypertension uncontrolled - Improved. - Continue lisinopril 10 mg daily. GI prophylaxis: on Protonix. DVT prophylaxis: SCDs, Discharge Planning Patient has a significant noncompliance issue therefore ID recommended finishing the antibiotic dose in-house Problem Qualifiers (1) Open wound of left foot: Qualified Code: S91.302S - Open wound of left foot, sequela (2) Diabetes mellitus: (3) Fever: Qualified Code: R50.81 - Fever in other diseases Chandrika Dougherty MD Nov 25, 2016 15:24 Discharge Planning Patient has a significant noncompliance issue therefore ID recommended finishing the antibiotic dose in-house Problem Qualifiers (1) Open wound of left foot: Qualified Code: S91.302S - Open wound of left foot, sequela (2) Diabetes mellitus: (3) Fever: Qualified Code: R50.81 - Fever in other diseases Chandrika Dougherty MD Nov 25, 2016 15:24
--- NOTE | 2016-11-25 15:56 | HHI.PR ---
Addendum to Inpatient Note Addendum Reason: Additional Documentation Additional Information Patient cleared for discharge by a podiatry. If patient still in house on Tuesday I will change his dressings then. Meanwhile he is to keep the dressing dry and clean without ambulation. Jose Stephen DPM Nov 25, 2016 15:56
[2016-11-25 16:00] VITALS: BP 123/74; PULSE 73; RESP 19; TEMP 95.8; O2SAT 100
[2016-11-25] MEDS: ENOXAPARIN SODIUM 40 MG/0.4 ML SYRINGE SQ SCH (16:23)
[2016-11-25 20:00] VITALS: BP 122/73; PULSE 66; RESP 18; TEMP 97.9; O2SAT 97
[2016-11-25] MEDS: diphenhydrAMINE HCL 25 MG CAP PO PRN (20:41)
[2016-11-26] VITALS: BP 112/67; PULSE 64; RESP 16; TEMP 97.6; O2SAT 98
[2016-11-26] MEDS: LACTATED RINGER'S 1000 ML INJ 1,000 ML IV SCH (02:00)
[2016-11-26] MEDS: ceFAZolin 2 GM PREMIX 50 ML IV SCH ×3 (02:30→17:35)
[2016-11-26] MEDS: oxyCODONE/ACETAMINOPHEN 5 MG/325 MG TAB PO PRN ×4 (05:16→23:19)
[2016-11-26] MEDS: INSULIN ASPART SUPPLEMENTAL SCALE SQ SCH ×4 (05:17→21:00)
[2016-11-26] MEDS: ENOXAPARIN SODIUM 40 MG/0.4 ML SYRINGE SQ SCH (07:28)
[2016-11-26 08:00] VITALS: BP 126/71; PULSE 66; RESP 18; TEMP 96.1; O2SAT 99
[2016-11-26] MEDS: METOPROLOL TARTRATE 50 MG TAB PO SCH ×2 (08:59→21:29)
[2016-11-26] MEDS: LISINOPRIL 10 MG TAB PO SCH (08:59)
[2016-11-26] MEDS: DOCUSATE SODIUM 100 MG CAP PO SCH ×2 (08:59→21:29)
[2016-11-26] MEDS: SULFAMETHOXAZOLE-TRIMETHOPRIM DS 800-160 MG TAB PO SCH ×2 (08:59→21:29)
[2016-11-26] MEDS: SODIUM CHLORIDE 0.9% FLUSH 10 ML FLUSH IV FLUSH SCH ×2 (09:03→21:30)
[2016-11-26] MEDS: INSULIN DETEMIR 100 UNITS/ML VIAL SQ SCH ×2 (09:03→21:30)
--- NOTE | 2016-11-26 09:48 | HHI.PR ---
Subjective Remarks f/u for foot infection. patient has no concerns. pain controlled with current regimen. Objective Vitals Vital Signs Date Time Temp Pulse Resp B/P Pulse Ox O2 Delivery O2 Flow Rate FiO2 11/26/16 08:00 96.1 66 18 126/71 99 11/26/16 00:00 97.6 64 16 112/67 98 11/25/16 20:00 97.9 66 18 122/73 97 11/25/16 16:00 95.8 73 19 123/74 100 11/25/16 12:00 97.2 63 18 107/68 100 I/O 11/25/16 11/25/16 11/25/16 11/26/16 11/26/16 11/26/16 07:00 15:00 23:00 07:00 15:00 23:00 Intake Total 340 ml 525 ml 480 ml 360 ml Balance 340 ml 525 ml 480 ml 360 ml Intake Oral 240 ml 525 ml 480 ml 360 ml IV Total 100 ml # Voids 2 8 4 2 # Bowel Movements 0 1 1 2 Objective Remarks GENERAL: This is a well-nourished, well-developed patient, in no apparent distress. CARDIOVASCULAR: Regular rate and rhythm without murmurs, gallops, or rubs. RESPIRATORY: Fair air entry bilaterally. No wheezes, rales, or rhonchi. GASTROINTESTINAL: Abdomen soft, non-tender, nondistended. Positive bowel sounds MUSCULOSKELETAL: Extremities without clubbing, cyanosis, or edema. Pedal pulses appreciated, left foot in dressing and gauze NEUROLOGICAL: Awake and alert. Moves all extremity. 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 11/13 Medications and IVs Current Medications Piperacillin Sod/ Tazobactam Sod 100 ml @ 200 mls/hr ONCE STAT IV Last administered on 11/11/16t 15:18; Start 11/11/16 at 14:22; Stop 11/11/16 at 14:51 ; Status DC Vancomycin HCl 1000 mg/Sodium Chloride 250 ml @ 250 mls/hr ONCE STAT IV Last administered on 11/11/16t 16:15; Start 11/11/16 at 14:22; Stop 11/11/16 at 15:21 ; Status DC Sodium Chloride 1,000 ml @ 1,000 mls/hr Q1H ONCE IV Last administered on 15:18; Start 11/11/16 at 14:22; Stop 11/11/16 at 15:21; Status DC Sodium Chloride 1,000 ml @ 1,000 mls/hr Q1H ONCE IV Last administered on 15:18; Start 11/11/16 at 14:22; Stop 11/11/16 at 15:21; Status DC Sodium Chloride (NS 1000 ml Inj) 1,000 ml @ 1,000 mls/hr Q1H ONCE IV Last administered on 11/11/16 16:15; Start 11/11/16 at 14:22; Stop 11/11/16 at 15:21 ; Status DC Acetaminophen (Tylenol) 1,000 mg ONCE ONCE PO Last administered on 11/11/16 15:33; Start 11/11/16 at 15:30; Stop 11/11/16 at 15:31; Status DC Ibuprofen 800 mg 800 mg ONCE ONCE PO Last administered on 11/11/16 15:33; Start 11/11/16 at 15:30; Stop 11/11/16 at 15:31; Status DC Sodium Chloride (NS 1000 ml Inj) 1,000 ml @ 100 mls/hr Q10H IV Last administered on 11/13/16 12:00; Start 11/11/16 at 16:37; Stop 11/13/16 at 17:52 ; Status DC Sodium Chloride (NS Flush) 2 ml UNSCH PRN IV FLUSH FLUSH AFTER USING IV ACCESS ; Start 11/11/16 at 16:45; Stop 11/15/16 at 16:55; Status DC Sodium Chloride (NS Flush) 2 ml BID IV FLUSH Last administered on 11/14/16 19: 38; Start 11/11/16 at 21:00; Stop 11/15/16 at 16:55; Status DC Acetaminophen (Tylenol) 650 mg Q4H PRN PO TEMP > 100.4 Last administered on 14:26; Start 11/11/16 at 16:45 Ondansetron HCl (Zofran Inj) 4 mg Q6H PRN IVP NAUSEA OR VOMITING; Start at 16:45 Docusate Sodium (Colace) 100 mg Q12HR PO Last administered on 11/26/16 08:59; Start 11/11/16 at 21:00 Magnesium Hydroxide (Milk Of Magnesia Liq) 30 ml Q12H PRN PO CONSTIPATION; Start 11/11/16 at 16:45 Enoxaparin Sodium (Lovenox Inj) 40 mg Q24H SQ Last administered on 11/11/16 17 :50; Start 11/11/16 at 17:00 Naloxone HCl 0.4 mg 0.4 mg UNSCH PRN IV SEE LABEL COMMENTS; Start 11/11/16 at 16:45 Vancomycin HCl 1000 mg/Sodium Chloride 250 ml @ 250 mls/hr Q24H IV ; Start at 16:45; Status UNV Pharmacy Profile Note 0 ml @ 0 mls/hr UNSCH OTHER ; Start 11/11/16 at 16:45; Stop 11/15/16 at 16:50; Status DC Piperacillin Sod/ Tazobactam Sod (Zosyn 4.5 Gm Premix) 100 ml @ 200 mls/hr Q8H IV Last administered on 11/15/16 14:47; Start 11/11/16 at 23:00; Stop at 16:50; Status DC Dextrose (D50w (Vial) Inj) 25 ml UNSCH PRN IV PUSH HYPOGLYCEMIA-SEE COMMENTS; Start 11/11/16 at 16:45 Glucagon (Glucagon Inj) 1 mg UNSCH PRN OTHER HYPOGLYCEMIA-SEE COMMENTS; Start 11/11/16 at 16:45 Insulin Aspart (NovoLOG SUPPLEMENTAL SCALE) 1 ACHS SLIDING SCALE SQ Last administered on 11/25/16 20:41; Start 11/11/16 at 21:00 Metoprolol Tartrate 50 mg 50 mg DAILY PO Last administered on 11/12/16 08:53; Start 11/12/16 at 09:00; Stop 11/12/16 at 09:30; Status DC Vancomycin HCl/ Sodium Chloride (Vancomycin Inj/ NS 500 ml Inj) 515 ml @ 257.5 mls/ hr Q12H IV Last administered on 11/14/16 00:19; Start 11/12/16 at 00:00; Stop 11/14/16 at 00:41; Status DC Miscellaneous Information SPECIFIC LAB TO BE ISIDRO... ONCE ONCE XX ; Start at 11:45; Stop 11/13/16 at 11:46; Status DC Magnesium Sulfate/ Dextrose (Magnesium Sulfate 1 Gm Premix) 100 ml @ 100 mls/ hr Q1H IV ; Start 11/11/16 at 18:00; Stop 11/11/16 at 19:59; Status DC Gadodiamide (Omniscan Pf Inj) 20 ml STK-MED ONCE IV Last administered on 19:34; Start 11/11/16 at 19:34; Stop 11/11/16 at 19:35; Status DC Ibuprofen (Motrin) 400 mg ONCE ONCE PO Last administered on 11/11/16 23:30; Start 11/11/16 at 23:00; Stop 11/11/16 at 23:12; Status DC Diphenhydramine HCl (Benadryl) 50 mg ONCE ONCE PO Last administered on 23:31; Start 11/11/16 at 23:00; Stop 11/11/16 at 23:12; Status DC Metoprolol Tartrate (Lopressor) 50 mg BID PO Last administered on 11/26/16 08: 59; Start 11/12/16 at 21:00 Oxycodone/ Acetaminophen (Percocet 5-325 Mg) 1 tab Q4H PRN PO PAIN SCALE 1 TO 4; Start 11/12/16 at 16:30 Oxycodone/ Acetaminophen (Percocet 5-325 Mg) 2 tab Q6H PRN PO PAIN SCALE 5 TO 10 Last administered on 11/26/16 05:16; Start 11/12/16 at 16:30 Morphine Sulfate (Morphine Inj) 2 mg ONCE ONCE IV PUSH Last administered on 16:39; Start 11/12/16 at 16:30; Stop 11/12/16 at 16:31; Status DC Insulin Detemir 10 units 10 units BID SQ Last administered on 11/26/16 09:03; Start 11/12/16 at 21:00 Magnesium Sulfate/ Dextrose 100 ml @ 100 mls/hr Q1H IV Last administered on 19:18; Start 11/12/16 at 17:00; Stop 11/12/16 at 18:59; Status DC Ceftazidime 2000 mg/Sodium Chloride 100 ml @ 200 mls/hr Q8H IV ; Start at 20:00; Stop 11/12/16 at 20:00; Status DC Ceftazidime/ Sodium Chloride (Fortaz Inj/NS Inj) 100 ml @ 200 mls/hr Q8H IV Last administered on 11/15/16 11:03; Start 11/12/16 at 20:00; Stop 11/15/16 at 16:50; Status DC Diphenhydramine HCl (Benadryl) 50 mg ONCE ONCE PO Last administered on 00:13; Start 11/13/16 at 00:15; Stop 11/13/16 at 00:16; Status DC Ketamine HCl (Ketalar Inj) 500 mg STK-MED ONCE .ROUTE ; Start 11/13/16 at 07:44 ; Stop 11/13/16 at 07:45; Status DC Sodium Chloride (NS Flush) 2 ml UNSCH PRN IV FLUSH FLUSH AFTER USING IV ACCESS ; Start 11/13/16 at 09:00 Sodium Chloride (NS Flush) 2 ml BID IV FLUSH Last administered on 11/26/16 09: 03; Start 11/13/16 at 09:00 Miscellaneous Information (Post-op Orders (for Pharmacy)) STAT ONCE XX ; Start 11/13/16 at 09:00; Stop 11/13/16 at 09:01; Status DC Morphine Sulfate (Morphine Inj) 4 mg Q3H PRN IV BREAKTHROUGH PAIN Last administered on 11/23/16 09:36; Start 11/13/16 at 09:00; Stop 11/23/16 at 11:31; Status DC Naloxone HCl (Narcan Inj) 0.4 mg UNSCH PRN IV SEE LABEL COMMENTS; Start at 09:00; Stop 11/21/16 at 09:09; Status DC Fentanyl Citrate (fentaNYL INJ) 100 mcg STK-MED ONCE .ROUTE ; Start 11/13/16 at 09:02; Stop 11/13/16 at 09:03; Status DC Miscellaneous Information ALL NURSING DEPARTME... UNSCH PRN XX SEE LABEL COMMENTS; Start 11/13/16 at 08:52; Stop 11/14/16 at 08:51; Status DC Morphine Sulfate (*morphine INJ PERIprocedure ONLY) 8 mg STK-MED ONCE .ROUTE Last administered on 11/13/16 09:21; Start 11/13/16 at 09:21; Stop 11/13/16 at 09:22; Status DC Bupivacaine HCl (Marcaine Pf 0.5% Inj) 30 ml STK-MED ONCE INFIL Last administered on 11/13/16 08:35; Start 11/13/16 at 08:35; Stop 11/13/16 at 09:41 ; Status DC Morphine Sulfate (*morphine INJ PERIprocedure ONLY) 8 mg STK-MED ONCE .ROUTE Last administered on 11/13/16 11:30; Start 11/13/16 at 11:30; Stop 11/13/16 at 11:31; Status DC Ceftazidime 1000 mg 1,000 mg STK-MED ONCE .ROUTE Last administered on 11:48; Start 11/13/16 at 11:48; Stop 11/13/16 at 11:49; Status DC Sodium Chloride (NS Inj) 100 ml @ As Directed STK-MED ONCE .ROUTE ; Start 11/13 at 11:49; Stop 11/13/16 at 11:50; Status DC Metoprolol Tartrate (Lopressor) 50 mg STK-MED ONCE .ROUTE Last administered on 11/13/16 12:07; Start 11/13/16 at 12:07; Stop 11/13/16 at 12:08; Status DC Miscellaneous Information SPECIFIC LAB TO BE ISIDRO... ONCE ONCE XX Last administered on 11/13/16 23:13; Start 11/13/16 at 23:45; Stop 11/13/16 at 23:46 ; Status DC Vancomycin HCl/ Sodium Chloride (Vancomycin Inj/ NS 500 ml Inj) 517.5 ml @ 250 mls/hr Q12H IV Last administered on 11/15/16 12:03; Start 11/14/16 at 12:00; Stop 11/15/16 at 16:50; Status DC Miscellaneous Information SPECIFIC LAB TO BE ISIDRO... ONCE ONCE XX ; Start at 11:45; Stop 11/16/16 at 11:45; Status DC Cefazolin Sodium/ Dextrose (Ancef 2 Gm Premix) 50 ml @ 150 mls/hr Q8H IV Last administered on 11/26/16 08:59; Start 11/15/16 at 18:00 Trimethoprim/ Sulfamethoxazole (Bactrim Ds 800-160 Mg) 1 tab Q12HR PO Last administered on 11/26/16 08:59; Start 11/15/16 at 21:00 Diphenhydramine HCl (Benadryl) 25 mg HS PRN PO insommnia Last administered on 20:41; Start 11/15/16 at 22:00 Amlodipine Besylate (Norvasc) 10 mg DAILY PO ; Start 11/16/16 at 11:30; Stop at 11:30; Status DC Lisinopril (Prinivil) 20 mg DAILY PO ; Start 11/16/16 at 11:30; Stop 11/16/16 at 11:42; Status DC Lisinopril (Prinivil) 10 mg DAILY PO Last administered on 11/26/16 08:59; Start 11/17/16 at 09:00 Clonidine (Catapres) 0.1 mg Q6H PRN PO SYS BP GREATER THAN 160 MMHG Last administered on 11/16/16 16:38; Start 11/16/16 at 11:45 Propofol (Diprivan 200 Mg/20 ml Inj) 200 mg STK-MED ONCE IV ; Start 11/13/16 at 11:24; Stop 11/18/16 at 11:24; Status DC Ondansetron HCl 4 mg 4 mg STK-MED ONCE IV PUSH ; Start 11/13/16 at 11:24; Stop 11/18/16 at 11:24; Status DC Lactated Ringer's (Lr 1000 ml Inj) 1,000 ml @ 0 mls/hr Q24H IV Last administered on 11/21/16 04:45; Start 11/21/16 at 02:00 Povidone Iodine (Betadine 5% Antisepsis Kit) 1 applic LOADING UNIT [employer]PERATOR POWDER CHARGING PRN EACH NARE SEE LABEL COMMENTS; Start 11/21/16 at 02:00; Stop 11/24/16 at 01:59; Status DC Chlorhexidine Gluconate (Chlorhexidine 2% Cloth) 3 pack LOADING [employer]IT [employer]PER[employer] POWDER CHARGING PRN TOPICAL SEE LABEL COMMENTS; Start 11/21/16 at 02:00; Stop 11/24/16 at 01:59; Status DC Bupivacaine HCl (Marcaine Pf 0.5% Inj) 30 ml STK-MED ONCE .ROUTE ; Start at 08:05; Stop 11/21/16 at 08:06; Status DC Sodium Chloride (NS Flush) 2 ml UNSCH PRN IV FLUSH FLUSH AFTER USING IV ACCESS ; Start 11/21/16 at 09:00; Stop 11/21/16 at 09:07; Status DC Sodium Chloride (NS Flush) 2 ml BID IV FLUSH ; Start 11/21/16 at 09:00; Stop 11/21 at 09:07; Status DC Miscellaneous Information (Post-op Orders (for Pharmacy)) STAT ONCE XX ; Start 11/21/16 at 09:00; Stop 11/21/16 at 09:08; Status DC Acetaminophen (Ofirmev Inj) 1,000 mg Q6H IV Last administered on 11/21/16 16:06 ; Start 11/21/16 at 09:00; Stop 11/22/16 at 03:01; Status DC Naloxone HCl (Narcan Inj) 0.4 mg UNSCH PRN IV SEE LABEL COMMENTS; Start at 09:00; Stop 11/21/16 at 09:09; Status DC Fentanyl Citrate (fentaNYL INJ) 200 mcg STK-MED ONCE .ROUTE ; Start 11/21/16 at 09:02; Stop 11/21/16 at 09:03; Status DC Miscellaneous Information ALL NURSING DEPARTME... UNSCH PRN .XX SEE LABEL COMMENTS; Start 11/21/16 at 09:30; Stop 11/22/16 at 09:29; Status DC Morphine Sulfate (Morphine Inj) 3 mg Q6H PRN IV BREAKTHROUGH PAIN Last administered on 11/25/16 08:09; Start 11/23/16 at 15:00; Stop 11/25/16 at 13:55; Status DC Propofol (Diprivan 200 Mg/20 ml Inj) 200 mg STK-MED ONCE IV ; Start 11/21/16 at 08:00; Stop 11/23/16 at 14:27; Status DC Ondansetron HCl (Zofran Inj) 4 mg STK-MED ONCE IV PUSH ; Start 11/21/16 at 08:00 ; Stop 11/23/16 at 14:27; Status DC A/P Problem List: (1) Open wound of left foot ICD Code: S91.302A Status: Resolved (2) Sepsis ICD Code: A41.9 Status: Acute (3) Lactic acidosis ICD Code: E87.2 Status: Acute (4) Hypomagnesemia ICD Code: E83.42 Status: Acute (5) Diabetes mellitus ICD Code: E11.9 Status: Chronic (6) Hypertension ICD Code: I10 Status: Chronic (7) Tobacco abuse ICD Code: Z72.0 Status: Chronic (8) Fever ICD Code: R50.9 Status: Resolved Assessment and Plan This 56-year-old male patient with past medical history which includes hypertension, diabetes mellitus type 2, peripheral neuropathy and left foot wound initially obtained August 24, 2016 by stepping on a nail. Patient was hospitalized prior for the left foot wound found to have sepsis at that time and underwent an I&D and was being seen by outpatient wound clinic, Dr. Rincon. Sepsis - Present on admission (temperature 103, white blood cell count 15.7, lactic acid 2.4, likely source left foot wound) -Resolved. -Initial culture obtained on 11/11/16 grew MSSA and Achromobacter Xyl/Harmony. Wound culture obtained from toe on 11/13/16 is growing Staph coagulase negative. No fungal element seen on fungal smear, fungal culture pending. No acid fast bacilli seen on acid fast pain. Mycobacterial culture pending. Follow-up ID recommendations. Status post IV Zosyn and vancomycin which was discontinued. -cont cefazoline x 6 wks post op providing healing is progressing well -cont bactrim x 6 wks post op Left foot wound,osteomyelitis -MRI L foot shows osteomyelitis as described above. -Podiatry consult appreciated patient cleared for discharge by a podiatry. If patient still in house on Tuesday I will change his dressings then. Meanwhile he is to keep the dressing dry and clean without ambulation. -Wound culture is growing Staph aureus. Fu susceptibility. -Continue with Percocet. IV morphine d./c yesterday and continue to be very comfortable. I would try to wean off the Percocet -As per podiatry patient okay to be out of bed with assistance with no weightbearing on the left foot. Continue wound care. Diabetes mellitus hold oral anti-glycemic at this point -Hemoglobin A1c 09/01/2016 6.8 -continue Levemir and SSI. Hypertension uncontrolled - Improved. - Continue lisinopril 10 mg daily. GI prophylaxis: on Protonix. DVT prophylaxis: SCDs, Discharge Planning Patient has a significant noncompliance issue therefore ID recommended finishing the antibiotic dose in-house Problem Qualifiers (1) Open wound of left foot: Qualified Code: S91.302S - Open wound of left foot, sequela (2) Diabetes mellitus: (3) Fever: Qualified Code: R50.81 - Fever in other diseases Chandrika Dougherty MD Nov 26, 2016 09:48
[2016-11-26 12:00] VITALS: BP 112/71; PULSE 68; RESP 16; TEMP 98.2; O2SAT 97
[2016-11-26 13:27] LABS: BASOPHIL # 0.1 TH/MM3 (0-0.2); BASOPHIL % 0.9 % (0.0-2.0); EOSINOPHIL # 0.2 TH/MM3 (0-0.4); EOSINOPHIL % 1.6 % (0.0-4.0); HEMATOCRIT 39.4 % (39.0-51.0); HEMO FLAGS DIFF FINAL; LYMPH % 18.7 % (9.0-44.0); LYMPHOCYTE # 2.4 TH/MM3 (1.0-4.8); MEAN CELL VOLUME 87.9 FL (80.0-100.0); MEAN CORPUSCULAR HEMOGLOBIN 29.9 PG (27.0-34.0); MONO % 7.4 % (0.0-8.0); NEUT % 71.4 % (16.0-70.0); PLATELET COUNT 314 TH/MM3 (150-450); RED BLOOD COUNT 4.48 MIL/MM3 (4.50-5.90); RED CELL DISTRIBUTION WIDTH 13.8 % (11.6-17.2); WHITE BLOOD COUNT 12.6 TH/MM3 (4.0-11.0)
[2016-11-26 13:59] LABS: BICARBONATE 27.2 MEQ/L (21.0-32.0); POTASSIUM 4.1 MEQ/L (3.5-5.1)
[2016-11-26 16:00] VITALS: BP 103/63; PULSE 64; RESP 16; TEMP 97.8; O2SAT 99
[2016-11-26 20:00] VITALS: BP 123/86; PULSE 60; RESP 20; TEMP 96.2; O2SAT 100
[2016-11-26] MEDS: diphenhydrAMINE HCL 25 MG CAP PO PRN (21:29)
[2016-11-27] VITALS: BP 133/81; PULSE 58; RESP 20; TEMP 95.3; O2SAT 98
[2016-11-27] MEDS: ceFAZolin 2 GM PREMIX 50 ML IV SCH ×3 (01:52→17:22)
[2016-11-27] MEDS: LACTATED RINGER'S 1000 ML INJ 1,000 ML IV SCH (01:52)
[2016-11-27] MEDS: oxyCODONE/ACETAMINOPHEN 5 MG/325 MG TAB PO PRN ×4 (06:03→21:47)
[2016-11-27] MEDS: INSULIN ASPART SUPPLEMENTAL SCALE SQ SCH ×4 (06:04→21:56)
[2016-11-27 08:00] VITALS: BP 120/73; PULSE 60; RESP 14; TEMP 97; O2SAT 99
[2016-11-27] MEDS: SODIUM CHLORIDE 0.9% FLUSH 10 ML FLUSH IV FLUSH SCH ×2 (09:00→21:44)
[2016-11-27] MEDS: DOCUSATE SODIUM 100 MG CAP PO SCH ×2 (09:03→21:45)
[2016-11-27] MEDS: LISINOPRIL 10 MG TAB PO SCH (09:03)
[2016-11-27] MEDS: METOPROLOL TARTRATE 50 MG TAB PO SCH ×2 (09:03→21:00)
[2016-11-27] MEDS: SULFAMETHOXAZOLE-TRIMETHOPRIM DS 800-160 MG TAB PO SCH ×2 (09:03→21:44)
[2016-11-27] MEDS: INSULIN DETEMIR 100 UNITS/ML VIAL SQ SCH ×2 (09:04→21:46)
[2016-11-27 12:00] VITALS: BP 123/77; PULSE 63; RESP 18; TEMP 96.4; O2SAT 100
[2016-11-27 16:00] VITALS: BP 122/73; PULSE 62; RESP 18; TEMP 97.4; O2SAT 100
--- NOTE | 2016-11-27 16:01 | HHI.PR ---
Subjective Remarks f/u for infection patient asking to get pain meds every 5 hours. he stated he does not last for 6 hours. No other complaints. remains afebrile. Objective Vitals Vital Signs Date Time Temp Pulse Resp B/P Pulse Ox O2 Delivery O2 Flow Rate FiO2 11/27/16 12:00 96.4 63 18 123/77 100 11/27/16 08:00 97.0 60 14 120/73 99 11/27/16 00:00 95.3 58 20 133/81 98 11/26/16 20:00 96.2 60 20 123/86 100 I/O 11/26/16 11/26/16 11/26/16 11/27/16 11/27/16 11/27/16 07:00 15:00 23:00 07:00 15:00 23:00 Intake Total 360 ml 800 ml 960 ml 480 ml 50 ml Output Total 600 ml Balance 360 ml 200 ml 960 ml 480 ml 50 ml Intake Oral 360 ml 800 ml 960 ml 480 ml IV Total 0 ml 50 ml Output Urine Total 600 ml # Voids 2 2 2 # Bowel Movements 2 1 Result Diagram: 11/26/16 1301 11/26/16 1301 Objective Remarks GENERAL: This is a well-nourished, well-developed patient, in no apparent distress. CARDIOVASCULAR: Regular rate and rhythm without murmurs, gallops, or rubs. RESPIRATORY: Fair air entry bilaterally. No wheezes, rales, or rhonchi. GASTROINTESTINAL: Abdomen soft, non-tender, nondistended. Positive bowel sounds MUSCULOSKELETAL: Extremities without clubbing, cyanosis, or edema. Pedal pulses appreciated, left foot in dressing and gauze NEUROLOGICAL: Awake and alert. Moves all extremity. 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 11/13 Medications and IVs Current Medications Piperacillin Sod/ Tazobactam Sod 100 ml @ 200 mls/hr ONCE STAT IV Last administered on 11/11/16 15:18; Start 11/11/16 at 14:22; Stop 11/11/16 at 14:51 ; Status DC Vancomycin HCl 1000 mg/Sodium Chloride 250 ml @ 250 mls/hr ONCE STAT IV Last administered on 11/11/16 16:15; Start 11/11/16 at 14:22; Stop 11/11/16 at 15:21 ; Status DC Sodium Chloride 1,000 ml @ 1,000 mls/hr Q1H ONCE IV Last administered on 15:18; Start 11/11/16 at 14:22; Stop 11/11/16 at 15:21; Status DC Sodium Chloride 1,000 ml @ 1,000 mls/hr Q1H ONCE IV Last administered on 15:18; Start 11/11/16 at 14:22; Stop 11/11/16 at 15:21; Status DC Sodium Chloride (NS 1000 ml Inj) 1,000 ml @ 1,000 mls/hr Q1H ONCE IV Last administered on 11/11/16 16:15; Start 11/11/16 at 14:22; Stop 11/11/16 at 15:21 ; Status DC Acetaminophen (Tylenol) 1,000 mg ONCE ONCE PO Last administered on 11/11/16 15:33; Start 11/11/16 at 15:30; Stop 11/11/16 at 15:31; Status DC Ibuprofen 800 mg 800 mg ONCE ONCE PO Last administered on 11/11/16 15:33; Start 11/11/16 at 15:30; Stop 11/11/16 at 15:31; Status DC Sodium Chloride (NS 1000 ml Inj) 1,000 ml @ 100 mls/hr Q10H IV Last administered on 11/13/16 12:00; Start 11/11/16 at 16:37; Stop 11/13/16 at 17:52 ; Status DC Sodium Chloride (NS Flush) 2 ml UNSCH PRN IV FLUSH FLUSH AFTER USING IV ACCESS ; Start 11/11/16 at 16:45; Stop 11/15/16 at 16:55; Status DC Sodium Chloride (NS Flush) 2 ml BID IV FLUSH Last administered on 11/14/16 19: 38; Start 11/11/16 at 21:00; Stop 11/15/16 at 16:55; Status DC Acetaminophen (Tylenol) 650 mg Q4H PRN PO TEMP > 100.4 Last administered on 14:26; Start 11/11/16 at 16:45 Ondansetron HCl (Zofran Inj) 4 mg Q6H PRN IVP NAUSEA OR VOMITING; Start at 16:45 Docusate Sodium (Colace) 100 mg Q12HR PO Last administered on 11/27/16 09:03; Start 11/11/16 at 21:00 Magnesium Hydroxide (Milk Of Magnkathy Liq) 30 ml Q12H PRN PO CONSTIPATION; Start 11/11/16 at 16:45 Enoxaparin Sodium (Lovenox Inj) 40 mg Q24H SQ Last administered on 11/11/16 17 :50; Start 11/11/16 at 17:00 Naloxone HCl 0.4 mg 0.4 mg UNSCH PRN IV SEE LABEL COMMENTS; Start 11/11/16 at 16:45 Vancomycin HCl 1000 mg/Sodium Chloride 250 ml @ 250 mls/hr Q24H IV ; Start at 16:45; Status UNV Pharmacy Profile Note 0 ml @ 0 mls/hr UNSCH OTHER ; Start 11/11/16 at 16:45; Stop 11/15/16 at 16:50; Status DC Piperacillin Sod/ Tazobactam Sod (Zosyn 4.5 Gm Premix) 100 ml @ 200 mls/hr Q8H IV Last administered on 11/15/16 14:47; Start 11/11/16 at 23:00; Stop at 16:50; Status DC Dextrose (D50w (Vial) Inj) 25 ml UNSCH PRN IV PUSH HYPOGLYCEMIA-SEE COMMENTS; Start 11/11/16 at 16:45 Glucagon (Glucagon Inj) 1 mg UNSCH PRN OTHER HYPOGLYCEMIA-SEE COMMENTS; Start 11/11/16 at 16:45 Insulin Aspart (NovoLOG SUPPLEMENTAL SCALE) 1 ACHS SLIDING SCALE SQ Last administered on 11/27/16 11:59; Start 11/11/16 at 21:00 Metoprolol Tartrate 50 mg 50 mg DAILY PO Last administered on 11/12/16 08:53; Start 11/12/16 at 09:00; Stop 11/12/16 at 09:30; Status DC Vancomycin HCl/ Sodium Chloride (Vancomycin Inj/ NS 500 ml Inj) 515 ml @ 257.5 mls/ hr Q12H IV Last administered on 11/14/16 00:19; Start 11/12/16 at 00:00; Stop 11/14/16 at 00:41; Status DC Miscellaneous Information SPECIFIC LAB TO BE . ONCE ONCE XX ; Start at 11:45; Stop 11/13/16 at 11:46; Status DC Magnesium Sulfate/ Dextrose (Magnesium Sulfate 1 Gm Premix) 100 ml @ 100 mls/ hr Q1H IV ; Start 11/11/16 at 18:00; Stop 11/11/16 at 19:59; Status DC Gadodiamide (Omniscan Pf Inj) 20 ml STK-MED ONCE IV Last administered on 19:34; Start 11/11/16 at 19:34; Stop 11/11/16 at 19:35; Status DC Ibuprofen (Motrin) 400 mg ONCE ONCE PO Last administered on 11/11/16 23:30; Start 11/11/16 at 23:00; Stop 11/11/16 at 23:12; Status DC Diphenhydramine HCl (Benadryl) 50 mg ONCE ONCE PO Last administered on 23:31; Start 11/11/16 at 23:00; Stop 11/11/16 at 23:12; Status DC Metoprolol Tartrate (Lopressor) 50 mg BID PO Last administered on 11/27/16 09: 03; Start 11/12/16 at 21:00 Oxycodone/ Acetaminophen (Percocet 5-325 Mg) 1 tab Q4H PRN PO PAIN SCALE 1 TO 4; Start 11/12/16 at 16:30 Oxycodone/ Acetaminophen (Percocet 5-325 Mg) 2 tab Q6H PRN PO PAIN SCALE 5 TO 10 Last administered on 11/27/16 11:59; Start 11/12/16 at 16:30; Stop 11/27/16 at 13:19; Status DC Morphine Sulfate (Morphine Inj) 2 mg ONCE ONCE IV PUSH Last administered on 16:39; Start 11/12/16 at 16:30; Stop 11/12/16 at 16:31; Status DC Insulin Detemir 10 units 10 units BID SQ Last administered on 11/27/16 09:04; Start 11/12/16 at 21:00 Magnesium Sulfate/ Dextrose 100 ml @ 100 mls/hr Q1H IV Last administered on 19:18; Start 11/12/16 at 17:00; Stop 11/12/16 at 18:59; Status DC Ceftazidime 2000 mg/Sodium Chloride 100 ml @ 200 mls/hr Q8H IV ; Start at 20:00; Stop 11/12/16 at 20:00; Status DC Ceftazidime/ Sodium Chloride (Fortaz Inj/NS Inj) 100 ml @ 200 mls/hr Q8H IV Last administered on 11/15/16 11:03; Start 11/12/16 at 20:00; Stop 11/15/16 at 16:50; Status DC Diphenhydramine HCl (Benadryl) 50 mg ONCE ONCE PO Last administered on 00:13; Start 11/13/16 at 00:15; Stop 11/13/16 at 00:16; Status DC Ketamine HCl (Ketalar Inj) 500 mg STK-MED ONCE .ROUTE ; Start 11/13/16 at 07:44 ; Stop 11/13/16 at 07:45; Status DC Sodium Chloride (NS Flush) 2 ml UNSCH PRN IV FLUSH FLUSH AFTER USING IV ACCESS ; Start 11/13/16 at 09:00 Sodium Chloride (NS Flush) 2 ml BID IV FLUSH Last administered on 11/27/16 09: 00; Start 11/13/16 at 09:00 Miscellaneous Information (Post-op Orders (for Pharmacy)) STAT ONCE XX ; Start 11/13/16 at 09:00; Stop 11/13/16 at 09:01; Status DC Morphine Sulfate (Morphine Inj) 4 mg Q3H PRN IV BREAKTHROUGH PAIN Last administered on 11/23/16 09:36; Start 11/13/16 at 09:00; Stop 11/23/16 at 11:31; Status DC Naloxone HCl (Narcan Inj) 0.4 mg UNSCH PRN IV SEE LABEL COMMENTS; Start at 09:00; Stop 11/21/16 at 09:09; Status DC Fentanyl Citrate (fentaNYL INJ) 100 mcg STK-MED ONCE .ROUTE ; Start 11/13/16 at 09:02; Stop 11/13/16 at 09:03; Status DC Miscellaneous Information ALL NURSING DEPARTME... UNSCH PRN XX SEE LABEL COMMENTS; Start 11/13/16 at 08:52; Stop 11/14/16 at 08:51; Status DC Morphine Sulfate (*morphine INJ PERIprocedure ONLY) 8 mg STK-MED ONCE .ROUTE Last administered on 11/13/16 09:21; Start 11/13/16 at 09:21; Stop 11/13/16 at 09:22; Status DC Bupivacaine HCl (Marcaine Pf 0.5% Inj) 30 ml STK-MED ONCE INFIL Last administered on 11/13/16 08:35; Start 11/13/16 at 08:35; Stop 11/13/16 at 09:41 ; Status DC Morphine Sulfate (*morphine INJ PERIprocedure ONLY) 8 mg STK-MED ONCE .ROUTE Last administered on 11/13/16 11:30; Start 11/13/16 at 11:30; Stop 11/13/16 at 11:31; Status DC Ceftazidime 1000 mg 1,000 mg STK-MED ONCE .ROUTE Last administered on 11:48; Start 11/13/16 at 11:48; Stop 11/13/16 at 11:49; Status DC Sodium Chloride (NS Inj) 100 ml @ As Directed STK-MED ONCE .ROUTE ; Start 11/13 at 11:49; Stop 11/13/16 at 11:50; Status DC Metoprolol Tartrate (Lopressor) 50 mg STK-MED ONCE .ROUTE Last administered on 11/13/16 12:07; Start 11/13/16 at 12:07; Stop 11/13/16 at 12:08; Status DC Miscellaneous Information SPECIFIC LAB TO BE ISIDRO... ONCE ONCE XX Last administered on 11/13/16 23:13; Start 11/13/16 at 23:45; Stop 11/13/16 at 23:46 ; Status DC Vancomycin HCl/ Sodium Chloride (Vancomycin Inj/ NS 500 ml Inj) 517.5 ml @ 250 mls/hr Q12H IV Last administered on 11/15/16 12:03; Start 11/14/16 at 12:00; Stop 11/15/16 at 16:50; Status DC Miscellaneous Information SPECIFIC LAB TO BE ISIDRO... ONCE ONCE XX ; Start at 11:45; Stop 11/16/16 at 11:45; Status DC Cefazolin Sodium/ Dextrose (Ancef 2 Gm Premix) 50 ml @ 150 mls/hr Q8H IV Last administered on 11/27/16 09:05; Start 11/15/16 at 18:00 Trimethoprim/ Sulfamethoxazole (Bactrim Ds 800-160 Mg) 1 tab Q12HR PO Last administered on 11/27/16 09:03; Start 11/15/16 at 21:00 Diphenhydramine HCl (Benadryl) 25 mg HS PRN PO insommnia Last administered on 21:29; Start 11/15/16 at 22:00 Amlodipine Besylate (Norvasc) 10 mg DAILY PO ; Start 11/16/16 at 11:30; Stop at 11:30; Status DC Lisinopril (Prinivil) 20 mg DAILY PO ; Start 11/16/16 at 11:30; Stop 11/16/16 at 11:42; Status DC Lisinopril (Prinivil) 10 mg DAILY PO Last administered on 11/27/16 09:03; Start 11/17/16 at 09:00 Clonidine (Catapres) 0.1 mg Q6H PRN PO SYS BP GREATER THAN 160 MMHG Last administered on 11/16/16 16:38; Start 11/16/16 at 11:45 Propofol (Diprivan 200 Mg/20 ml Inj) 200 mg STK-MED ONCE IV ; Start 11/13/16 at 11:24; Stop 11/18/16 at 11:24; Status DC Ondansetron HCl 4 mg 4 mg STK-MED ONCE IV PUSH ; Start 11/13/16 at 11:24; Stop 11/18/16 at 11:24; Status DC Lactated Ringer's (Lr 1000 ml Inj) 1,000 ml @ 0 mls/hr Q24H IV Last administered on 11/21/16 04:45; Start 11/21/16 at 02:00 Povidone Iodine (Betadine 5% Antisepsis Kit) 1 applic CUSTOMER ENGAGEMENT ANALYST PRN EACH NARE SEE LABEL COMMENTS; Start 11/21/16 at 02:00; Stop 11/24/16 at 01:59; Status DC Chlorhexidine Gluconate (Chlorhexidine 2% Cloth) 3 pack CUSTOMER ENGAGEMENT ANALYST PRN TOPICAL SEE LABEL COMMENTS; Start 11/21/16 at 02:00; Stop 11/24/16 at 01:59; Status DC Bupivacaine HCl (Marcaine Pf 0.5% Inj) 30 ml STK-MED ONCE .ROUTE ; Start at 08:05; Stop 11/21/16 at 08:06; Status DC Sodium Chloride (NS Flush) 2 ml UNSCH PRN IV FLUSH FLUSH AFTER USING IV ACCESS ; Start 11/21/16 at 09:00; Stop 11/21/16 at 09:07; Status DC Sodium Chloride (NS Flush) 2 ml BID IV FLUSH ; Start 11/21/16 at 09:00; Stop 11/21 at 09:07; Status DC Miscellaneous Information (Post-op Orders (for Pharmacy)) STAT ONCE XX ; Start 11/21/16 at 09:00; Stop 11/21/16 at 09:08; Status DC Acetaminophen (Ofirmev Inj) 1,000 mg Q6H IV Last administered on 11/21/16 16:06 ; Start 11/21/16 at 09:00; Stop 11/22/16 at 03:01; Status DC Naloxone HCl (Narcan Inj) 0.4 mg UNSCH PRN IV SEE LABEL COMMENTS; Start at 09:00; Stop 11/21/16 at 09:09; Status DC Fentanyl Citrate (fentaNYL INJ) 200 mcg STK-MED ONCE .ROUTE ; Start 11/21/16 at 09:02; Stop 11/21/16 at 09:03; Status DC Miscellaneous Information ALL NURSING DEPARTME... UNSCH PRN .XX SEE LABEL COMMENTS; Start 11/21/16 at 09:30; Stop 11/22/16 at 09:29; Status DC Morphine Sulfate (Morphine Inj) 3 mg Q6H PRN IV BREAKTHROUGH PAIN Last administered on 11/25/16 08:09; Start 11/23/16 at 15:00; Stop 11/25/16 at 13:55; Status DC Propofol (Diprivan 200 Mg/20 ml Inj) 200 mg STK-MED ONCE IV ; Start 11/21/16 at 08:00; Stop 11/23/16 at 14:27; Status DC Ondansetron HCl (Zofran Inj) 4 mg STK-MED ONCE IV PUSH ; Start 11/21/16 at 08:00 ; Stop 11/23/16 at 14:27; Status DC Oxycodone/ Acetaminophen (Percocet 5-325 Mg) 2 tab Q4H PRN PO PAIN SCALE 5 TO 10; Start 11/27/16 at 16:00 A/P Problem List: (1) Open wound of left foot ICD Code: S91.302A Status: Resolved (2) Sepsis ICD Code: A41.9 Status: Acute (3) Lactic acidosis ICD Code: E87.2 Status: Acute (4) Hypomagnesemia ICD Code: E83.42 Status: Acute (5) Diabetes mellitus ICD Code: E11.9 Status: Chronic (6) Hypertension ICD Code: I10 Status: Chronic (7) Tobacco abuse ICD Code: Z72.0 Status: Chronic (8) Fever ICD Code: R50.9 Status: Resolved Assessment and Plan This 56-year-old male patient with past medical history which includes hypertension, diabetes mellitus type 2, peripheral neuropathy and left foot wound initially obtained August 24, 2016 by stepping on a nail. Patient was hospitalized prior for the left foot wound found to have sepsis at that time and underwent an I&D and was being seen by outpatient wound clinic, Dr. Rincon. Sepsis - Present on admission (temperature 103, white blood cell count 15.7, lactic acid 2.4, likely source left foot wound) -Resolved. -Initial culture obtained on 11/11/16 grew MSSA and Achromobacter Xyl/[place]. Wound culture obtained from toe on 11/13/16 is growing Staph coagulase negative. No fungal element seen on fungal smear, fungal culture pending. No acid fast bacilli seen on acid fast pain. Mycobacterial culture pending. Follow-up ID recommendations. Status post IV Zosyn and vancomycin which was discontinued. -cont cefazoline x 6 wks post op providing healing is progressing well -cont bactrim x 6 wks post op Left foot wound,osteomyelitis -MRI L foot shows osteomyelitis as described above. -Podiatry consult appreciated patient cleared for discharge by a podiatry. If patient still in house on Tuesday I will change his dressings then. Meanwhile he is to keep the dressing dry and clean without ambulation. -Wound culture is growing Staph aureus. Fu susceptibility. -Continue with Percocet and will change to Q4H PRN. -As per podiatry patient okay to be out of bed with assistance with no weightbearing on the left foot. Continue wound care. Diabetes mellitus hold oral anti-glycemic at this point -Hemoglobin A1c 09/01/2016 6.8 -continue Levemir and SSI. Hypertension uncontrolled - Improved. - Continue lisinopril 10 mg daily. GI prophylaxis: on Protonix. DVT prophylaxis: SCDs, Discharge Planning Patient has a significant noncompliance issue therefore ID recommended finishing the antibiotic dose in-house Problem Qualifiers (1) Open wound of left foot: Qualified Code: S91.302S - Open wound of left foot, sequela (2) Diabetes mellitus: (3) Fever: Qualified Code: R50.81 - Fever in other diseases Chandrika Dougherty MD Nov 27, 2016 16:01
[2016-11-27] MEDS: ENOXAPARIN SODIUM 40 MG/0.4 ML SYRINGE SQ SCH ×3 (17:00→17:23)
[2016-11-27 20:00] VITALS: BP 112/80; PULSE 58; RESP 20; TEMP 96.8; O2SAT 100
[2016-11-27] MEDS: diphenhydrAMINE HCL 25 MG CAP PO PRN (21:55)
[2016-11-28] VITALS: BP 107/74; PULSE 60; RESP 20; TEMP 96.8; O2SAT 98
[2016-11-28] MEDS: ceFAZolin 2 GM PREMIX 50 ML IV SCH ×3 (01:44→18:04)
[2016-11-28] MEDS: oxyCODONE/ACETAMINOPHEN 5 MG/325 MG TAB PO PRN ×6 (01:45→23:45)
[2016-11-28] MEDS: LACTATED RINGER'S 1000 ML INJ 1,000 ML IV SCH (01:45)
[2016-11-28] MEDS: INSULIN ASPART SUPPLEMENTAL SCALE SQ SCH ×4 (05:48→19:50)
[2016-11-28 08:00] VITALS: BP 103/68; PULSE 81; RESP 18; TEMP 96.7; O2SAT 95
[2016-11-28] MEDS: SULFAMETHOXAZOLE-TRIMETHOPRIM DS 800-160 MG TAB PO SCH ×2 (08:43→19:41)
[2016-11-28] MEDS: DOCUSATE SODIUM 100 MG CAP PO SCH ×2 (08:43→19:41)
[2016-11-28] MEDS: METOPROLOL TARTRATE 50 MG TAB PO SCH ×2 (08:43→19:41)
[2016-11-28] MEDS: LISINOPRIL 10 MG TAB PO SCH (08:43)
[2016-11-28] MEDS: SODIUM CHLORIDE 0.9% FLUSH 10 ML FLUSH IV FLUSH SCH ×2 (08:44→19:58)
[2016-11-28] MEDS: INSULIN DETEMIR 100 UNITS/ML VIAL SQ SCH ×2 (08:44→19:51)
--- NOTE | 2016-11-28 08:49 | HHI.PR ---
Subjective Remarks f/u for infection. patient has no complaints. he stated he is doing well on current pain regimen. remains afebrile. Objective Vitals Vital Signs Date Time Temp Pulse Resp B/P Pulse Ox O2 Delivery O2 Flow Rate FiO2 11/28/16 00:00 96.8 60 20 107/74 98 11/27/16 20:00 96.8 58 20 112/80 100 11/27/16 16:00 97.4 62 18 122/73 100 11/27/16 12:00 96.4 63 18 123/77 100 I/O 11/27/16 11/27/16 11/27/16 11/28/16 11/28/16 11/28/16 07:00 15:00 23:00 07:00 15:00 23:00 Intake Total 480 ml 1250 ml 480 ml 0 ml Output Total 800 ml Balance 480 ml 450 ml 480 ml 0 ml Intake Oral 480 ml 1200 ml 480 ml 0 ml IV Total 50 ml Output Urine Total 800 ml # Voids 2 2 1 # Bowel Movements 0 Result Diagram: 11/26/16 1301 11/26/16 1301 Objective Remarks GENERAL: This is a well-nourished, well-developed patient, in no apparent distress. CARDIOVASCULAR: Regular rate and rhythm without murmurs, gallops, or rubs. RESPIRATORY: Fair air entry bilaterally. No wheezes, rales, or rhonchi. GASTROINTESTINAL: Abdomen soft, non-tender, nondistended. Positive bowel sounds MUSCULOSKELETAL: Extremities without clubbing, cyanosis, or edema. Pedal pulses appreciated, left foot in dressing and gauze NEUROLOGICAL: Awake and alert. Moves all extremity. 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 11/13 Medications and IVs Current Medications Piperacillin Sod/ Tazobactam Sod 100 ml @ 200 mls/hr ONCE STAT IV Last administered on 11/11/16 15:18; Start 11/11/16 at 14:22; Stop 11/11/16 at 14:51 ; Status DC Vancomycin HCl 1000 mg/Sodium Chloride 250 ml @ 250 mls/hr ONCE STAT IV Last administered on 11/11/16t 16:15; Start 11/11/16 at 14:22; Stop 11/11/16 at 15:21 ; Status DC Sodium Chloride 1,000 ml @ 1,000 mls/hr Q1H ONCE IV Last administered on 15:18; Start 11/11/16 at 14:22; Stop 11/11/16 at 15:21; Status DC Sodium Chloride 1,000 ml @ 1,000 mls/hr Q1H ONCE IV Last administered on 15:18; Start 11/11/16 at 14:22; Stop 11/11/16 at 15:21; Status DC Sodium Chloride (NS 1000 ml Inj) 1,000 ml @ 1,000 mls/hr Q1H ONCE IV Last administered on 11/11/16 16:15; Start 11/11/16 at 14:22; Stop 11/11/16 at 15:21 ; Status DC Acetaminophen (Tylenol) 1,000 mg ONCE ONCE PO Last administered on 11/11/16 15:33; Start 11/11/16 at 15:30; Stop 11/11/16 at 15:31; Status DC Ibuprofen 800 mg 800 mg ONCE ONCE PO Last administered on 11/11/16 15:33; Start 11/11/16 at 15:30; Stop 11/11/16 at 15:31; Status DC Sodium Chloride (NS 1000 ml Inj) 1,000 ml @ 100 mls/hr Q10H IV Last administered on 11/13/16 12:00; Start 11/11/16 at 16:37; Stop 11/13/16 at 17:52 ; Status DC Sodium Chloride (NS Flush) 2 ml UNSCH PRN IV FLUSH FLUSH AFTER USING IV ACCESS ; Start 11/11/16 at 16:45; Stop 11/15/16 at 16:55; Status DC Sodium Chloride (NS Flush) 2 ml BID IV FLUSH Last administered on 11/14/16 19: 38; Start 11/11/16 at 21:00; Stop 11/15/16 at 16:55; Status DC Acetaminophen (Tylenol) 650 mg Q4H PRN PO TEMP > 100.4 Last administered on 14:26; Start 11/11/16 at 16:45 Ondansetron HCl (Zofran Inj) 4 mg Q6H PRN IVP NAUSEA OR VOMITING; Start at 16:45 Docusate Sodium (Colace) 100 mg Q12HR PO Last administered on 11/28/16 08:43; Start 11/11/16 at 21:00 Magnesium Hydroxide (Milk Of Magnesia Liq) 30 ml Q12H PRN PO CONSTIPATION; Start 11/11/16 at 16:45 Enoxaparin Sodium (Lovenox Inj) 40 mg Q24H SQ Last administered on 11/11/16 17 :50; Start 11/11/16 at 17:00 Naloxone HCl 0.4 mg 0.4 mg UNSCH PRN IV SEE LABEL COMMENTS; Start 11/11/16 at 16:45 Vancomycin HCl 1000 mg/Sodium Chloride 250 ml @ 250 mls/hr Q24H IV ; Start at 16:45; Status UNV Pharmacy Profile Note 0 ml @ 0 mls/hr UNSCH OTHER ; Start 11/11/16 at 16:45; Stop 11/15/16 at 16:50; Status DC Piperacillin Sod/ Tazobactam Sod (Zosyn 4.5 Gm Premix) 100 ml @ 200 mls/hr Q8H IV Last administered on 11/15/16 14:47; Start 11/11/16 at 23:00; Stop at 16:50; Status DC Dextrose (D50w (Vial) Inj) 25 ml UNSCH PRN IV PUSH HYPOGLYCEMIA-SEE COMMENTS; Start 11/11/16 at 16:45 Glucagon (Glucagon Inj) 1 mg UNSCH PRN OTHER HYPOGLYCEMIA-SEE COMMENTS; Start 11/11/16 at 16:45 Insulin Aspart (NovoLOG SUPPLEMENTAL SCALE) 1 ACHS SLIDING SCALE SQ Last administered on 11/27/16 21:56; Start 11/11/16 at 21:00 Metoprolol Tartrate 50 mg 50 mg DAILY PO Last administered on 11/12/16 08:53; Start 11/12/16 at 09:00; Stop 11/12/16 at 09:30; Status DC Vancomycin HCl/ Sodium Chloride (Vancomycin Inj/ NS 500 ml Inj) 515 ml @ 257.5 mls/ hr Q12H IV Last administered on 11/14/16 00:19; Start 11/12/16 at 00:00; Stop 11/14/16 at 00:41; Status DC Miscellaneous Information SPECIFIC LAB TO BE ISIDRO... ONCE ONCE XX ; Start at 11:45; Stop 11/13/16 at 11:46; Status DC Magnesium Sulfate/ Dextrose (Magnesium Sulfate 1 Gm Premix) 100 ml @ 100 mls/ hr Q1H IV ; Start 11/11/16 at 18:00; Stop 11/11/16 at 19:59; Status DC Gadodiamide (Omniscan Pf Inj) 20 ml STK-MED ONCE IV Last administered on 19:34; Start 11/11/16 at 19:34; Stop 11/11/16 at 19:35; Status DC Ibuprofen (Motrin) 400 mg ONCE ONCE PO Last administered on 11/11/16 23:30; Start 11/11/16 at 23:00; Stop 11/11/16 at 23:12; Status DC Diphenhydramine HCl (Benadryl) 50 mg ONCE ONCE PO Last administered on 23:31; Start 11/11/16 at 23:00; Stop 11/11/16 at 23:12; Status DC Metoprolol Tartrate (Lopressor) 50 mg BID PO Last administered on 11/27/16 09: 03; Start 11/12/16 at 21:00 Oxycodone/ Acetaminophen (Percocet 5-325 Mg) 1 tab Q4H PRN PO PAIN SCALE 1 TO 4; Start 11/12/16 at 16:30 Oxycodone/ Acetaminophen (Percocet 5-325 Mg) 2 tab Q6H PRN PO PAIN SCALE 5 TO 10 Last administered on 11/27/16 11:59; Start 11/12/16 at 16:30; Stop 11/27/16 at 13:19; Status DC Morphine Sulfate (Morphine Inj) 2 mg ONCE ONCE IV PUSH Last administered on 16:39; Start 11/12/16 at 16:30; Stop 11/12/16 at 16:31; Status DC Insulin Detemir 10 units 10 units BID SQ Last administered on 11/28/16 08:44; Start 11/12/16 at 21:00 Magnesium Sulfate/ Dextrose 100 ml @ 100 mls/hr Q1H IV Last administered on 19:18; Start 11/12/16 at 17:00; Stop 11/12/16 at 18:59; Status DC Ceftazidime 2000 mg/Sodium Chloride 100 ml @ 200 mls/hr Q8H IV ; Start at 20:00; Stop 11/12/16 at 20:00; Status DC Ceftazidime/ Sodium Chloride (Fortaz Inj/NS Inj) 100 ml @ 200 mls/hr Q8H IV Last administered on 11/15/16 11:03; Start 11/12/16 at 20:00; Stop 11/15/16 at 16:50; Status DC Diphenhydramine HCl (Benadryl) 50 mg ONCE ONCE PO Last administered on 00:13; Start 11/13/16 at 00:15; Stop 11/13/16 at 00:16; Status DC Ketamine HCl (Ketalar Inj) 500 mg STK-MED ONCE .ROUTE ; Start 11/13/16 at 07:44 ; Stop 11/13/16 at 07:45; Status DC Sodium Chloride (NS Flush) 2 ml UNSCH PRN IV FLUSH FLUSH AFTER USING IV ACCESS ; Start 11/13/16 at 09:00 Sodium Chloride (NS Flush) 2 ml BID IV FLUSH Last administered on 11/28/16 08: 44; Start 11/13/16 at 09:00 Miscellaneous Information (Post-op Orders (for Pharmacy)) STAT ONCE XX ; Start 11/13/16 at 09:00; Stop 11/13/16 at 09:01; Status DC Morphine Sulfate (Morphine Inj) 4 mg Q3H PRN IV BREAKTHROUGH PAIN Last administered on 11/23/16 09:36; Start 11/13/16 at 09:00; Stop 11/23/16 at 11:31; Status DC Naloxone HCl (Narcan Inj) 0.4 mg UNSCH PRN IV SEE LABEL COMMENTS; Start at 09:00; Stop 11/21/16 at 09:09; Status DC Fentanyl Citrate (fentaNYL INJ) 100 mcg STK-MED ONCE .ROUTE ; Start 11/13/16 at 09:02; Stop 11/13/16 at 09:03; Status DC Miscellaneous Information ALL NURSING DEPARTME... UNSCH PRN XX SEE LABEL COMMENTS; Start 11/13/16 at 08:52; Stop 11/14/16 at 08:51; Status DC Morphine Sulfate (*morphine INJ PERIprocedure ONLY) 8 mg STK-MED ONCE .ROUTE Last administered on 11/13/16 09:21; Start 11/13/16 at 09:21; Stop 11/13/16 at 09:22; Status DC Bupivacaine HCl (Marcaine Pf 0.5% Inj) 30 ml STK-MED ONCE INFIL Last administered on 11/13/16 08:35; Start 11/13/16 at 08:35; Stop 11/13/16 at 09:41 ; Status DC Morphine Sulfate (*morphine INJ PERIprocedure ONLY) 8 mg STK-MED ONCE .ROUTE Last administered on 11/13/16 11:30; Start 11/13/16 at 11:30; Stop 11/13/16 at 11:31; Status DC Ceftazidime 1000 mg 1,000 mg STK-MED ONCE .ROUTE Last administered on 11:48; Start 11/13/16 at 11:48; Stop 11/13/16 at 11:49; Status DC Sodium Chloride (NS Inj) 100 ml @ As Directed STK-MED ONCE .ROUTE ; Start 11/13 at 11:49; Stop 11/13/16 at 11:50; Status DC Metoprolol Tartrate (Lopressor) 50 mg STK-MED ONCE .ROUTE Last administered on 11/13/16 12:07; Start 11/13/16 at 12:07; Stop 11/13/16 at 12:08; Status DC Miscellaneous Information SPECIFIC LAB TO BE ISIDRO... ONCE ONCE XX Last administered on 11/13/16 23:13; Start 11/13/16 at 23:45; Stop 11/13/16 at 23:46 ; Status DC Vancomycin HCl/ Sodium Chloride (Vancomycin Inj/ NS 500 ml Inj) 517.5 ml @ 250 mls/hr Q12H IV Last administered on 11/15/16 12:03; Start 11/14/16 at 12:00; Stop 11/15/16 at 16:50; Status DC Miscellaneous Information SPECIFIC LAB TO BE ISIDRO... ONCE ONCE XX ; Start at 11:45; Stop 11/16/16 at 11:45; Status DC Cefazolin Sodium/ Dextrose (Ancef 2 Gm Premix) 50 ml @ 150 mls/hr Q8H IV Last administered on 11/28/16 08:44; Start 11/15/16 at 18:00 Trimethoprim/ Sulfamethoxazole (Bactrim Ds 800-160 Mg) 1 tab Q12HR PO Last administered on 11/28/16 08:43; Start 11/15/16 at 21:00 Diphenhydramine HCl (Benadryl) 25 mg HS PRN PO insommnia Last administered on 21:55; Start 11/15/16 at 22:00 Amlodipine Besylate (Norvasc) 10 mg DAILY PO ; Start 11/16/16 at 11:30; Stop at 11:30; Status DC Lisinopril (Prinivil) 20 mg DAILY PO ; Start 11/16/16 at 11:30; Stop 11/16/16 at 11:42; Status DC Lisinopril (Prinivil) 10 mg DAILY PO Last administered on 11/27/16 09:03; Start 11/17/16 at 09:00 Clonidine (Catapres) 0.1 mg Q6H PRN PO SYS BP GREATER THAN 160 MMHG Last administered on 11/16/16 16:38; Start 11/16/16 at 11:45 Propofol (Diprivan 200 Mg/20 ml Inj) 200 mg STK-MED ONCE IV ; Start 11/13/16 at 11:24; Stop 11/18/16 at 11:24; Status DC Ondansetron HCl 4 mg 4 mg STK-MED ONCE IV PUSH ; Start 11/13/16 at 11:24; Stop 11/18/16 at 11:24; Status DC Lactated Ringer's (Lr 1000 ml Inj) 1,000 ml @ 0 mls/hr Q24H IV Last administered on 11/21/16 04:45; Start 11/21/16 at 02:00 Povidone Iodine (Betadine 5% Antisepsis Kit) 1 applic [employer] PRN EACH NARE SEE LABEL COMMENTS; Start 11/21/16 at 02:00; Stop 11/24/16 at 01:59; Status DC Chlorhexidine Gluconate (Chlorhexidine 2% Cloth) 3 pack [employer] PRN TOPICAL SEE LABEL COMMENTS; Start 11/21/16 at 02:00; Stop 11/24/16 at 01:59; Status DC Bupivacaine HCl (Marcaine Pf 0.5% Inj) 30 ml STK-MED ONCE .ROUTE ; Start at 08:05; Stop 11/21/16 at 08:06; Status DC Sodium Chloride (NS Flush) 2 ml UNSCH PRN IV FLUSH FLUSH AFTER USING IV ACCESS ; Start 11/21/16 at 09:00; Stop 11/21/16 at 09:07; Status DC Sodium Chloride (NS Flush) 2 ml BID IV FLUSH ; Start 11/21/16 at 09:00; Stop 11/21 at 09:07; Status DC Miscellaneous Information (Post-op Orders (for Pharmacy)) STAT ONCE XX ; Start 11/21/16 at 09:00; Stop 11/21/16 at 09:08; Status DC Acetaminophen (Ofirmev Inj) 1,000 mg Q6H IV Last administered on 11/21/16 16:06 ; Start 11/21/16 at 09:00; Stop 11/22/16 at 03:01; Status DC Naloxone HCl (Narcan Inj) 0.4 mg UNSCH PRN IV SEE LABEL COMMENTS; Start at 09:00; Stop 11/21/16 at 09:09; Status DC Fentanyl Citrate (fentaNYL INJ) 200 mcg STK-MED ONCE .ROUTE ; Start 11/21/16 at 09:02; Stop 11/21/16 at 09:03; Status DC Miscellaneous Information ALL NURSING DEPARTME... UNSCH PRN .XX SEE LABEL COMMENTS; Start 11/21/16 at 09:30; Stop 11/22/16 at 09:29; Status DC Morphine Sulfate (Morphine Inj) 3 mg Q6H PRN IV BREAKTHROUGH PAIN Last administered on 11/25/16 08:09; Start 11/23/16 at 15:00; Stop 11/25/16 at 13:55; Status DC Propofol (Diprivan 200 Mg/20 ml Inj) 200 mg STK-MED ONCE IV ; Start 11/21/16 at 08:00; Stop 11/23/16 at 14:27; Status DC Ondansetron HCl (Zofran Inj) 4 mg STK-MED ONCE IV PUSH ; Start 11/21/16 at 08:00 ; Stop 11/23/16 at 14:27; Status DC Oxycodone/ Acetaminophen (Percocet 5-325 Mg) 2 tab Q4H PRN PO PAIN SCALE 5 TO 10 Last administered on 11/28/16t 05:45; Start 11/27/16 at 16:00 A/P Problem List: (1) Open wound of left foot ICD Code: S91.302A Status: Resolved (2) Sepsis ICD Code: A41.9 Status: Acute (3) Lactic acidosis ICD Code: E87.2 Status: Acute (4) Hypomagnesemia ICD Code: E83.42 Status: Acute (5) Diabetes mellitus ICD Code: E11.9 Status: Chronic (6) Hypertension ICD Code: I10 Status: Chronic (7) Tobacco abuse ICD Code: Z72.0 Status: Chronic (8) Fever ICD Code: R50.9 Status: Resolved Assessment and Plan This 56-year-old male patient with past medical history which includes hypertension, diabetes mellitus type 2, peripheral neuropathy and left foot wound initially obtained August 24, 2016 by stepping on a nail. Patient was hospitalized prior for the left foot wound found to have sepsis at that time and underwent an I&D and was being seen by outpatient wound clinic, Dr. Rincon. Sepsis - Present on admission (temperature 103, white blood cell count 15.7, lactic acid 2.4, likely source left foot wound) -Resolved. -Initial culture obtained on 11/11/16 grew MSSA and Achromobacter Xyl/[place]. Wound culture obtained from toe on 11/13/16 is growing Staph coagulase negative. No fungal element seen on fungal smear, fungal culture pending. No acid fast bacilli seen on acid fast pain. Mycobacterial culture pending. Follow-up ID recommendations. Status post IV Zosyn and vancomycin which was discontinued. -cont cefazoline x 6 wks post op providing healing is progressing well -cont bactrim x 6 wks post op Left foot wound,osteomyelitis -MRI L foot shows osteomyelitis as described above. -Podiatry consult appreciated patient cleared for discharge by a podiatry. If patient still in house on Tuesday I will change his dressings then. Meanwhile he is to keep the dressing dry and clean without ambulation. -Wound culture is growing Staph aureus. Fu susceptibility. -Continue with Percocet. -As per podiatry patient okay to be out of bed with assistance with no weightbearing on the left foot. Continue wound care. Diabetes mellitus hold oral anti-glycemic at this point -Hemoglobin A1c 09/01/2016 6.8 -continue Levemir and SSI. Hypertension uncontrolled - Improved. - Continue lisinopril 10 mg daily. GI prophylaxis: on Protonix. DVT prophylaxis: SCDs, Discharge Planning Patient has a significant noncompliance issue therefore ID recommended finishing the antibiotic dose in-house Problem Qualifiers (1) Open wound of left foot: Qualified Code: S91.302S - Open wound of left foot, sequela (2) Diabetes mellitus: (3) Fever: Qualified Code: R50.81 - Fever in other diseases Chandrika Dougherty MD Nov 28, 2016 08:49
[2016-11-28 12:00] VITALS: BP 140/79; PULSE 65; RESP 16; TEMP 95.6; O2SAT 98
[2016-11-28 16:00] VITALS: BP 128/68; PULSE 74; RESP 18; TEMP 96.9; O2SAT 96
[2016-11-28] MEDS: ENOXAPARIN SODIUM 40 MG/0.4 ML SYRINGE SQ SCH (16:31)
[2016-11-28] MEDS: diphenhydrAMINE HCL 25 MG CAP PO PRN (19:45)
[2016-11-28 20:00] VITALS: BP 143/77; PULSE 67; RESP 20; TEMP 97.4; O2SAT 100
[2016-11-29] VITALS: BP 108/74; PULSE 64; RESP 20; TEMP 98.1; O2SAT 98
[2016-11-29] MEDS: LACTATED RINGER'S 1000 ML INJ 1,000 ML IV SCH (02:00)
[2016-11-29] MEDS: ceFAZolin 2 GM PREMIX 50 ML IV SCH ×3 (02:37→17:14)
[2016-11-29] MEDS: oxyCODONE/ACETAMINOPHEN 5 MG/325 MG TAB PO PRN ×5 (03:49→21:28)
[2016-11-29] MEDS: INSULIN ASPART SUPPLEMENTAL SCALE SQ SCH ×4 (05:30→21:28)
[2016-11-29] MEDS: DOCUSATE SODIUM 100 MG CAP PO SCH ×2 (07:54→21:19)
[2016-11-29] MEDS: SODIUM CHLORIDE 0.9% FLUSH 10 ML FLUSH IV FLUSH SCH ×2 (07:54→21:19)
[2016-11-29] MEDS: SULFAMETHOXAZOLE-TRIMETHOPRIM DS 800-160 MG TAB PO SCH ×2 (07:54→21:19)
[2016-11-29] MEDS: LISINOPRIL 10 MG TAB PO SCH (07:54)
[2016-11-29] MEDS: METOPROLOL TARTRATE 50 MG TAB PO SCH ×2 (07:54→21:19)
[2016-11-29] MEDS: INSULIN DETEMIR 100 UNITS/ML VIAL SQ SCH ×2 (07:55→21:27)
[2016-11-29 08:00] VITALS: BP 107/71; PULSE 66; RESP 16; TEMP 96.5; O2SAT 98
--- NOTE | 2016-11-29 08:54 | HHI.PR ---
Subjective Remarks f/u for infection. c/o of nose bleed this morning only while blowing nose. Self limited. he stated he feels his nose if very dry. He has no other complaints. Objective Vitals Vital Signs Date Time Temp Pulse Resp B/P Pulse Ox O2 Delivery O2 Flow Rate FiO2 11/29/16 00:00 98.1 64 20 108/74 98 11/28/16 20:00 97.4 67 20 143/77 100 11/28/16 16:00 96.9 74 18 128/68 96 11/28/16 12:00 95.6 65 16 140/79 98 I/O 11/28/16 11/28/16 11/28/16 11/29/16 11/29/16 11/29/16 07:00 15:00 23:00 07:00 15:00 23:00 Intake Total 0 ml 855 ml 640 ml 480 ml Output Total 600 ml 700 ml 650 ml Balance 0 ml 255 ml -60 ml -170 ml Intake Oral 0 ml 800 ml 640 ml 480 ml IV Total 55 ml 0 ml Output Urine Total 600 ml 700 ml 650 ml # Voids 1 # Bowel Movements 1 0 0 Result Diagram: 11/26/16 1301 11/26/16 1301 Objective Remarks GENERAL: This is a well-nourished, well-developed patient, in no apparent distress. CARDIOVASCULAR: Regular rate and rhythm without murmurs, gallops, or rubs. RESPIRATORY: Fair air entry bilaterally. No wheezes, rales, or rhonchi. GASTROINTESTINAL: Abdomen soft, non-tender, nondistended. Positive bowel sounds MUSCULOSKELETAL: Extremities without clubbing, cyanosis, or edema. Pedal pulses appreciated, left foot in dressing and gauze NEUROLOGICAL: Awake and alert. Moves all extremity. 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 11/13 Medications and IVs Current Medications Piperacillin Sod/ Tazobactam Sod 100 ml @ 200 mls/hr ONCE STAT IV Last administered on 11/11/16 15:18; Start 11/11/16 at 14:22; Stop 11/11/16 at 14:51 ; Status DC Vancomycin HCl 1000 mg/Sodium Chloride 250 ml @ 250 mls/hr ONCE STAT IV Last administered on 11/11/16 16:15; Start 11/11/16 at 14:22; Stop 11/11/16 at 15:21 ; Status DC Sodium Chloride 1,000 ml @ 1,000 mls/hr Q1H ONCE IV Last administered on 15:18; Start 11/11/16 at 14:22; Stop 11/11/16 at 15:21; Status DC Sodium Chloride 1,000 ml @ 1,000 mls/hr Q1H ONCE IV Last administered on 15:18; Start 11/11/16 at 14:22; Stop 11/11/16 at 15:21; Status DC Sodium Chloride (NS 1000 ml Inj) 1,000 ml @ 1,000 mls/hr Q1H ONCE IV Last administered on 11/11/16 16:15; Start 11/11/16 at 14:22; Stop 11/11/16 at 15:21 ; Status DC Acetaminophen (Tylenol) 1,000 mg ONCE ONCE PO Last administered on 11/11/16 15:33; Start 11/11/16 at 15:30; Stop 11/11/16 at 15:31; Status DC Ibuprofen 800 mg 800 mg ONCE ONCE PO Last administered on 11/11/16 15:33; Start 11/11/16 at 15:30; Stop 11/11/16 at 15:31; Status DC Sodium Chloride (NS 1000 ml Inj) 1,000 ml @ 100 mls/hr Q10H IV Last administered on 11/13/16 12:00; Start 11/11/16 at 16:37; Stop 11/13/16 at 17:52 ; Status DC Sodium Chloride (NS Flush) 2 ml UNSCH PRN IV FLUSH FLUSH AFTER USING IV ACCESS ; Start 11/11/16 at 16:45; Stop 11/15/16 at 16:55; Status DC Sodium Chloride (NS Flush) 2 ml BID IV FLUSH Last administered on 11/14/16 19: 38; Start 11/11/16 at 21:00; Stop 11/15/16 at 16:55; Status DC Acetaminophen (Tylenol) 650 mg Q4H PRN PO TEMP > 100.4 Last administered on 14:26; Start 11/11/16 at 16:45 Ondansetron HCl (Zofran Inj) 4 mg Q6H PRN IVP NAUSEA OR VOMITING; Start at 16:45 Docusate Sodium (Colace) 100 mg Q12HR PO Last administered on 11/29/16 07:54; Start 11/11/16 at 21:00 Magnesium Hydroxide (Milk Of Magnesia Liq) 30 ml Q12H PRN PO CONSTIPATION; Start 11/11/16 at 16:45 Enoxaparin Sodium (Lovenox Inj) 40 mg Q24H SQ Last administered on 11/11/16 17 :50; Start 11/11/16 at 17:00 Naloxone HCl 0.4 mg 0.4 mg UNSCH PRN IV SEE LABEL COMMENTS; Start 11/11/16 at 16:45 Vancomycin HCl 1000 mg/Sodium Chloride 250 ml @ 250 mls/hr Q24H IV ; Start at 16:45; Status UNV Pharmacy Profile Note 0 ml @ 0 mls/hr UNSCH OTHER ; Start 11/11/16 at 16:45; Stop 11/15/16 at 16:50; Status DC Piperacillin Sod/ Tazobactam Sod (Zosyn 4.5 Gm Premix) 100 ml @ 200 mls/hr Q8H IV Last administered on 11/15/16 14:47; Start 11/11/16 at 23:00; Stop at 16:50; Status DC Dextrose (D50w (Vial) Inj) 25 ml UNSCH PRN IV PUSH HYPOGLYCEMIA-SEE COMMENTS; Start 11/11/16 at 16:45 Glucagon (Glucagon Inj) 1 mg UNSCH PRN OTHER HYPOGLYCEMIA-SEE COMMENTS; Start 11/11/16 at 16:45 Insulin Aspart (NovoLOG SUPPLEMENTAL SCALE) 1 ACHS SLIDING SCALE SQ Last administered on 11/28/16 19:50; Start 11/11/16 at 21:00 Metoprolol Tartrate 50 mg 50 mg DAILY PO Last administered on 11/12/16 08:53; Start 11/12/16 at 09:00; Stop 11/12/16 at 09:30; Status DC Vancomycin HCl/ Sodium Chloride (Vancomycin Inj/ NS 500 ml Inj) 515 ml @ 257.5 mls/ hr Q12H IV Last administered on 11/14/16 00:19; Start 11/12/16 at 00:00; Stop 11/14/16 at 00:41; Status DC Miscellaneous Information SPECIFIC LAB TO BE ... ONCE ONCE XX ; Start at 11:45; Stop 11/13/16 at 11:46; Status DC Magnesium Sulfate/ Dextrose (Magnesium Sulfate 1 Gm Premix) 100 ml @ 100 mls/ hr Q1H IV ; Start 11/11/16 at 18:00; Stop 11/11/16 at 19:59; Status DC Gadodiamide (Omniscan Pf Inj) 20 ml STK-MED ONCE IV Last administered on 19:34; Start 11/11/16 at 19:34; Stop 11/11/16 at 19:35; Status DC Ibuprofen (Motrin) 400 mg ONCE ONCE PO Last administered on 11/11/16 23:30; Start 11/11/16 at 23:00; Stop 11/11/16 at 23:12; Status DC Diphenhydramine HCl (Benadryl) 50 mg ONCE ONCE PO Last administered on 23:31; Start 11/11/16 at 23:00; Stop 11/11/16 at 23:12; Status DC Metoprolol Tartrate (Lopressor) 50 mg BID PO Last administered on 11/28/16 19: 41; Start 11/12/16 at 21:00 Oxycodone/ Acetaminophen (Percocet 5-325 Mg) 1 tab Q4H PRN PO PAIN SCALE 1 TO 4; Start 11/12/16 at 16:30 Oxycodone/ Acetaminophen (Percocet 5-325 Mg) 2 tab Q6H PRN PO PAIN SCALE 5 TO 10 Last administered on 11/27/16 11:59; Start 11/12/16 at 16:30; Stop 11/27/16 at 13:19; Status DC Morphine Sulfate (Morphine Inj) 2 mg ONCE ONCE IV PUSH Last administered on 16:39; Start 11/12/16 at 16:30; Stop 11/12/16 at 16:31; Status DC Insulin Detemir 10 units 10 units BID SQ Last administered on 11/29/16 07:55; Start 11/12/16 at 21:00 Magnesium Sulfate/ Dextrose 100 ml @ 100 mls/hr Q1H IV Last administered on 19:18; Start 11/12/16 at 17:00; Stop 11/12/16 at 18:59; Status DC Ceftazidime 2000 mg/Sodium Chloride 100 ml @ 200 mls/hr Q8H IV ; Start at 20:00; Stop 11/12/16 at 20:00; Status DC Ceftazidime/ Sodium Chloride (Fortaz Inj/NS Inj) 100 ml @ 200 mls/hr Q8H IV Last administered on 11/15/16 11:03; Start 11/12/16 at 20:00; Stop 11/15/16 at 16:50; Status DC Diphenhydramine HCl (Benadryl) 50 mg ONCE ONCE PO Last administered on 00:13; Start 11/13/16 at 00:15; Stop 11/13/16 at 00:16; Status DC Ketamine HCl (Ketalar Inj) 500 mg STK-MED ONCE .ROUTE ; Start 11/13/16 at 07:44 ; Stop 11/13/16 at 07:45; Status DC Sodium Chloride (NS Flush) 2 ml UNSCH PRN IV FLUSH FLUSH AFTER USING IV ACCESS ; Start 11/13/16 at 09:00 Sodium Chloride (NS Flush) 2 ml BID IV FLUSH Last administered on 11/29/16 07: 54; Start 11/13/16 at 09:00 Miscellaneous Information (Post-op Orders (for Pharmacy)) STAT ONCE XX ; Start 11/13/16 at 09:00; Stop 11/13/16 at 09:01; Status DC Morphine Sulfate (Morphine Inj) 4 mg Q3H PRN IV BREAKTHROUGH PAIN Last administered on 11/23/16 09:36; Start 11/13/16 at 09:00; Stop 11/23/16 at 11:31; Status DC Naloxone HCl (Narcan Inj) 0.4 mg UNSCH PRN IV SEE LABEL COMMENTS; Start at 09:00; Stop 11/21/16 at 09:09; Status DC Fentanyl Citrate (fentaNYL INJ) 100 mcg STK-MED ONCE .ROUTE ; Start 11/13/16 at 09:02; Stop 11/13/16 at 09:03; Status DC Miscellaneous Information ALL NURSING DEPARTME... UNSCH PRN XX SEE LABEL COMMENTS; Start 11/13/16 at 08:52; Stop 11/14/16 at 08:51; Status DC Morphine Sulfate (*morphine INJ PERIprocedure ONLY) 8 mg STK-MED ONCE .ROUTE Last administered on 11/13/16 09:21; Start 11/13/16 at 09:21; Stop 11/13/16 at 09:22; Status DC Bupivacaine HCl (Marcaine Pf 0.5% Inj) 30 ml STK-MED ONCE INFIL Last administered on 11/13/16 08:35; Start 11/13/16 at 08:35; Stop 11/13/16 at 09:41 ; Status DC Morphine Sulfate (*morphine INJ PERIprocedure ONLY) 8 mg STK-MED ONCE .ROUTE Last administered on 11/13/16 11:30; Start 11/13/16 at 11:30; Stop 11/13/16 at 11:31; Status DC Ceftazidime 1000 mg 1,000 mg STK-MED ONCE .ROUTE Last administered on 11:48; Start 11/13/16 at 11:48; Stop 11/13/16 at 11:49; Status DC Sodium Chloride (NS Inj) 100 ml @ As Directed STK-MED ONCE .ROUTE ; Start 11/13 at 11:49; Stop 11/13/16 at 11:50; Status DC Metoprolol Tartrate (Lopressor) 50 mg STK-MED ONCE .ROUTE Last administered on 11/13/16 12:07; Start 11/13/16 at 12:07; Stop 11/13/16 at 12:08; Status DC Miscellaneous Information SPECIFIC LAB TO BE ISIDRO... ONCE ONCE XX Last administered on 11/13/16 23:13; Start 11/13/16 at 23:45; Stop 11/13/16 at 23:46 ; Status DC Vancomycin HCl/ Sodium Chloride (Vancomycin Inj/ NS 500 ml Inj) 517.5 ml @ 250 mls/hr Q12H IV Last administered on 11/15/16 12:03; Start 11/14/16 at 12:00; Stop 11/15/16 at 16:50; Status DC Miscellaneous Information SPECIFIC LAB TO BE ISIDRO... ONCE ONCE XX ; Start at 11:45; Stop 11/16/16 at 11:45; Status DC Cefazolin Sodium/ Dextrose (Ancef 2 Gm Premix) 50 ml @ 150 mls/hr Q8H IV Last administered on 11/29/16 02:37; Start 11/15/16 at 18:00 Trimethoprim/ Sulfamethoxazole (Bactrim Ds 800-160 Mg) 1 tab Q12HR PO Last administered on 11/29/16 07:54; Start 11/15/16 at 21:00 Diphenhydramine HCl (Benadryl) 25 mg HS PRN PO insommnia Last administered on 19:45; Start 11/15/16 at 22:00 Amlodipine Besylate (Norvasc) 10 mg DAILY PO ; Start 11/16/16 at 11:30; Stop at 11:30; Status DC Lisinopril (Prinivil) 20 mg DAILY PO ; Start 11/16/16 at 11:30; Stop 11/16/16 at 11:42; Status DC Lisinopril (Prinivil) 10 mg DAILY PO Last administered on 11/27/16 09:03; Start 11/17/16 at 09:00 Clonidine (Catapres) 0.1 mg Q6H PRN PO SYS BP GREATER THAN 160 MMHG Last administered on 11/16/16 16:38; Start 11/16/16 at 11:45 Propofol (Diprivan 200 Mg/20 ml Inj) 200 mg STK-MED ONCE IV ; Start 11/13/16 at 11:24; Stop 11/18/16 at 11:24; Status DC Ondansetron HCl 4 mg 4 mg STK-MED ONCE IV PUSH ; Start 11/13/16 at 11:24; Stop 11/18/16 at 11:24; Status DC Lactated Ringer's (Lr 1000 ml Inj) 1,000 ml @ 0 mls/hr Q24H IV Last administered on 11/21/16 04:45; Start 11/21/16 at 02:00 Povidone Iodine (Betadine 5% Antisepsis Kit) 1 applic [employer] PRN EACH NARE SEE LABEL COMMENTS; Start 11/21/16 at 02:00; Stop 11/24/16 at 01:59; Status DC Chlorhexidine Gluconate (Chlorhexidine 2% Cloth) 3 pack [employer] PRN TOPICAL SEE LABEL COMMENTS; Start 11/21/16 at 02:00; Stop 11/24/16 at 01:59; Status DC Bupivacaine HCl (Marcaine Pf 0.5% Inj) 30 ml STK-MED ONCE .ROUTE ; Start at 08:05; Stop 11/21/16 at 08:06; Status DC Sodium Chloride (NS Flush) 2 ml UNSCH PRN IV FLUSH FLUSH AFTER USING IV ACCESS ; Start 11/21/16 at 09:00; Stop 11/21/16 at 09:07; Status DC Sodium Chloride (NS Flush) 2 ml BID IV FLUSH ; Start 11/21/16 at 09:00; Stop 11/21 at 09:07; Status DC Miscellaneous Information (Post-op Orders (for Pharmacy)) STAT ONCE XX ; Start 11/21/16 at 09:00; Stop 11/21/16 at 09:08; Status DC Acetaminophen (Ofirmev Inj) 1,000 mg Q6H IV Last administered on 11/21/16 16:06 ; Start 11/21/16 at 09:00; Stop 11/22/16 at 03:01; Status DC Naloxone HCl (Narcan Inj) 0.4 mg UNSCH PRN IV SEE LABEL COMMENTS; Start at 09:00; Stop 11/21/16 at 09:09; Status DC Fentanyl Citrate (fentaNYL INJ) 200 mcg STK-MED ONCE .ROUTE ; Start 11/21/16 at 09:02; Stop 11/21/16 at 09:03; Status DC Miscellaneous Information ALL NURSING DEPARTME... UNSCH PRN .XX SEE LABEL COMMENTS; Start 11/21/16 at 09:30; Stop 11/22/16 at 09:29; Status DC Morphine Sulfate (Morphine Inj) 3 mg Q6H PRN IV BREAKTHROUGH PAIN Last administered on 11/25/16 08:09; Start 11/23/16 at 15:00; Stop 11/25/16 at 13:55; Status DC Propofol (Diprivan 200 Mg/20 ml Inj) 200 mg STK-MED ONCE IV ; Start 11/21/16 at 08:00; Stop 11/23/16 at 14:27; Status DC Ondansetron HCl (Zofran Inj) 4 mg STK-MED ONCE IV PUSH ; Start 11/21/16 at 08:00 ; Stop 11/23/16 at 14:27; Status DC Oxycodone/ Acetaminophen (Percocet 5-325 Mg) 2 tab Q4H PRN PO PAIN SCALE 5 TO 10 Last administered on 11/29/16t 07:54; Start 11/27/16 at 16:00 A/P Problem List: (1) Open wound of left foot ICD Code: S91.302A Status: Resolved (2) Sepsis ICD Code: A41.9 Status: Acute (3) Lactic acidosis ICD Code: E87.2 Status: Acute (4) Hypomagnesemia ICD Code: E83.42 Status: Acute (5) Diabetes mellitus ICD Code: E11.9 Status: Chronic (6) Hypertension ICD Code: I10 Status: Chronic (7) Tobacco abuse ICD Code: Z72.0 Status: Chronic (8) Fever ICD Code: R50.9 Status: Resolved Assessment and Plan This 56-year-old male patient with past medical history which includes hypertension, diabetes mellitus type 2, peripheral neuropathy and left foot wound initially obtained August 24, 2016 by stepping on a nail. Patient was hospitalized prior for the left foot wound found to have sepsis at that time and underwent an I&D and was being seen by outpatient wound clinic, Dr. Rincon. Sepsis - Present on admission (temperature 103, white blood cell count 15.7, lactic acid 2.4, likely source left foot wound) -Resolved. -Initial culture obtained on 11/11/16 grew MSSA and Achromobacter Xyl/[place]. Wound culture obtained from toe on 11/13/16 is growing Staph coagulase negative. No fungal element seen on fungal smear, fungal culture pending. No acid fast bacilli seen on acid fast pain. Mycobacterial culture pending. Follow-up ID recommendations. Status post IV Zosyn and vancomycin which was discontinued. -cont cefazoline x 6 wks post op providing healing is progressing well -cont bactrim x 6 wks post op Left foot wound,osteomyelitis -MRI L foot shows osteomyelitis as described above. -Podiatry consult appreciated patient cleared for discharge by a podiatry. Meanwhile he is to keep the dressing dry and clean without ambulation. Nurse called Dr Almeida and patient will have dressing change today. -Wound culture is growing Staph aureus. -Continue with Percocet. -As per podiatry patient okay to be out of bed with assistance with no weightbearing on the left foot. Continue wound care. Diabetes mellitus hold oral anti-glycemic at this point -Hemoglobin A1c 09/01/2016 6.8 -continue Levemir and SSI. Hypertension uncontrolled - Improved. - Continue lisinopril 10 mg daily. Nose bleed only when blowing nose -most likely due to dryness and irritation. -will try saline nose washes. GI prophylaxis: on Protonix. DVT prophylaxis: SCDs, Discharge Planning Patient has a significant noncompliance issue therefore ID recommended finishing the antibiotic dose in-house. pending transfer to [place]. Problem Qualifiers (1) Open wound of left foot: Qualified Code: S91.302S - Open wound of left foot, sequela (2) Diabetes mellitus: (3) Fever: Qualified Code: R50.81 - Fever in other diseases Chandrika Dougherty MD Nov 29, 2016 08:53
[2016-11-29] MEDS ORDERED: SODIUM CHLORIDE 0.65% NASAL DRP/SPRY 30 ML BTL EACH NARE PRN (09:00)
[2016-11-29 12:00] VITALS: BP 121/73; PULSE 70; RESP 14; TEMP 97.7; O2SAT 100
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
[2016-11-29 16:58] VITALS: BP 118/78; PULSE 78; RESP 18; TEMP 97.7; O2SAT 98
[2016-11-29] MEDS: ENOXAPARIN SODIUM 40 MG/0.4 ML SYRINGE SQ SCH (17:14)
[2016-11-29 20:00] VITALS: BP 133/85; PULSE 66; RESP 20; TEMP 96.6; O2SAT 100
[2016-11-29] MEDS: diphenhydrAMINE HCL 25 MG CAP PO PRN (21:28)
[2016-11-30] MEDS: ceFAZolin 2 GM PREMIX 50 ML IV SCH ×3 (01:20→17:29)
[2016-11-30] MEDS: oxyCODONE/ACETAMINOPHEN 5 MG/325 MG TAB PO PRN ×3 (01:24→09:15)
[2016-11-30] MEDS: LACTATED RINGER'S 1000 ML INJ 1,000 ML IV SCH (01:26)
[2016-11-30] MEDS: INSULIN ASPART SUPPLEMENTAL SCALE SQ SCH ×4 (05:44→20:53)
[2016-11-30 08:00] VITALS: BP 118/76; PULSE 81; RESP 18; TEMP 97.8; O2SAT 97
[2016-11-30] MEDS: INSULIN DETEMIR 100 UNITS/ML VIAL SQ SCH ×2 (09:00→20:52)
[2016-11-30] MEDS: DOCUSATE SODIUM 100 MG CAP PO SCH ×2 (09:14→20:52)
[2016-11-30] MEDS: LISINOPRIL 10 MG TAB PO SCH (09:14)
[2016-11-30] MEDS: SULFAMETHOXAZOLE-TRIMETHOPRIM DS 800-160 MG TAB PO SCH ×2 (09:14→20:51)
[2016-11-30] MEDS: METOPROLOL TARTRATE 50 MG TAB PO SCH ×2 (09:14→20:51)
[2016-11-30] MEDS: SODIUM CHLORIDE 0.9% FLUSH 10 ML FLUSH IV FLUSH SCH ×2 (09:15→21:00)
[2016-11-30] MEDS ORDERED: ONDANSETRON ODT 4 MG TAB PO PRN (12:15)
--- NOTE | 2016-11-30 13:37 | HHI.PR ---
Subjective Remarks 56-year-old male. He presented to hospital on 11/11/16. Patient presented because he had previous left foot wound and found to have sepsis and underwent incision and drainage is being seen in outpatient wound clinic by Dr. Rincon. Patient was doing well and started developing chills at his regular appointment and he is prescribed Bactrim. He continued to feel worse and he came to the hospital for evaluation. Patient found to have sepsis on presentation with febrile illness, leukocytosis, lactic acidosis, left foot wound. Patient had workup performed which did indicate osteomyelitis of the left foot wound. Slot Operations Director was consulted and patient underwent multiple surgeries to include partial resection left first metatarsal head and amputation of left hallux. Patient underwent second surgery for debridement and closure of diabetic foot ulceration from open left hallux amputation. Patient had cultures performed which did indicate staph aureus and achromobacter. Infectious disease was consulted and evaluated the patient. Recommending continuation of cefazoline and Bactrim for 6 weeks post op. Patient was cleared by hospitalist and leverman for discharge, however infectious disease indicates that the patient is rather noncompliant and does not feel that the patient is a candidate for outpatient management. Because of that reason patient was transferred to [place] for continuation of IV antibiotics until finished. Objective Vitals Vital Signs Date Time Temp Pulse Resp B/P Pulse Ox O2 Delivery O2 Flow Rate FiO2 11/30/16 10:15 18 11/30/16 08:00 97.8 81 18 118/76 97 11/29/16 20:00 96.6 66 20 133/85 100 11/29/16 16:58 97.7 78 18 118/78 98 I/O 11/29/16 11/29/16 11/29/16 11/30/16 11/30/16 11/30/16 07:00 15:00 23:00 07:00 15:00 23:00 Intake Total 480 ml 45 ml 1020 ml Output Total 650 ml Balance -170 ml 45 ml 1020 ml Intake Oral 480 ml 1020 ml IV Total 45 ml Output Urine Total 650 ml # Voids 2 5 # Bowel Movements 0 1 1 Result Diagram: 11/26/16 1301 11/26/16 1301 Objective Remarks GENERAL: Well-developed, well-nourished, in no acute distress. alert and orientated HEENT: Head is normocephalic without any lesions or masses noted. Facial features are symmetric. Eyes: Extraocular muscles are intact. Conjunctivae were clear. NECK: Supple without any masses. Trachea midline no deviation. No JVD, CARDIAC: Regular rhythm, regular rate. S1/S2 are heard. No murmurs gallops or rubs. LUNGS: Clear to auscultation bilaterally. No wheeze, rhonchi or rales. No use of accessory muscles on inspiration or expiration. ABDOMEN: Soft, nontender. Nondistended. Bowel sounds heard in all 4 quadrants. No organomegaly or masses. Negative rebound, negative guarding EXTREMITIES: No edema, pulses are equal bilaterally. No cyanosis or clubbing NEUROLOGY: Mood and affect appear appropriate. Cranial nerves II through XII grossly intact. 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 Podiatry consulted and did perform 2 surgeries with partial resection the left first metatarsal head and amputation of the left hallux, followed by debridement and closure of diabetic foot ulceration from open left hallux amputation. Podiatry indicates patient should remain nonweightbearing on the left lower extremity Infectious disease was consulted and made recommendations for antibiotics. They do not feel confident that the patient will continue with appropriate outpatient management. Patient remain in hospital until antibiotics complete cefazoline x 6 wks post op providing healing is progressing well bactrim x 6 wks post op Pain control Ibuprofen 400 mg 3 times daily Percocet 10 every 6 hours when necessary pain 610 Sepsis secondary to foot wound, resolved Present on admission (temperature 103, white blood cell count 15.7, lactic acid 2.4, likely source left foot wound) Sepsis secondary to diabetic wound infection with staph aureus and Achromobacter Xyl/[place]. Diabetes mellitus Hemoglobin A1c 09/01/2016 6.8 continue Levemir and SSI. Hypertension, stable Patient on lisinopril 10 mg daily, Lopressor 50 mg twice daily DVT prophylaxis: Lovenox Discharge Planning Discharge planning after antibiotics completed Lino Yadav Nov 30, 2016 13:37 DVT prophylaxis: Leif Geiger Matthew J. PA Nov 30, 2016 13:37
[2016-11-30] MEDS: IBUPROFEN 400 MG TAB PO SCH ×2 (13:40→21:55)
[2016-11-30] MEDS: oxyCODONE/ACETAMINOPHEN 10 MG/325 MG TAB PO PRN ×2 (15:40→21:55)
[2016-11-30] MEDS: ENOXAPARIN SODIUM 40 MG/0.4 ML SYRINGE SQ SCH (15:44)
[2016-11-30 20:00] VITALS: BP 113/77; PULSE 63; RESP 16; TEMP 97.7; O2SAT 100
[2016-11-30] MEDS: diphenhydrAMINE HCL 25 MG CAP PO PRN (21:02)
[2016-12-01] MEDS: ceFAZolin 2 GM PREMIX 50 ML IV SCH ×3 (01:26→17:36)
[2016-12-01] MEDS: oxyCODONE/ACETAMINOPHEN 10 MG/325 MG TAB PO PRN ×4 (04:45→22:16)
[2016-12-01] MEDS: IBUPROFEN 400 MG TAB PO SCH ×3 (05:57→21:05)
[2016-12-01] MEDS: INSULIN ASPART SUPPLEMENTAL SCALE SQ SCH ×4 (06:01→21:06)
[2016-12-01] MEDS: LISINOPRIL 10 MG TAB PO SCH (08:18)
[2016-12-01] MEDS: METOPROLOL TARTRATE 50 MG TAB PO SCH ×2 (08:18→21:05)
[2016-12-01] MEDS: SULFAMETHOXAZOLE-TRIMETHOPRIM DS 800-160 MG TAB PO SCH ×2 (08:18→21:05)
[2016-12-01] MEDS: INSULIN DETEMIR 100 UNITS/ML VIAL SQ SCH ×2 (08:18→21:06)
[2016-12-01] MEDS: DOCUSATE SODIUM 100 MG CAP PO SCH ×2 (08:18→21:05)
[2016-12-01 08:24] VITALS: BP 143/89; PULSE 64; RESP 19; TEMP 95.4; O2SAT 95
[2016-12-01] MEDS: SODIUM CHLORIDE 0.9% FLUSH 10 ML FLUSH IV FLUSH SCH ×2 (09:13→21:07)
--- NOTE | 2016-12-01 10:21 | HHI.PR ---
Subjective Remarks Patient seen and examined today. The only request of the patient has is he wants more food Objective Vitals Vital Signs Date Time Temp Pulse Resp B/P Pulse Ox O2 Delivery O2 Flow Rate FiO2 12/01/16 08:24 95.4 64 19 143/89 95 12/01/16 06:57 20 12/01/16 05:45 16 11/30/16 20:00 97.7 63 16 113/77 100 I/O 11/30/16 11/30/16 11/30/16 12/01/16 12/01/16 12/01/16 07:00 15:00 23:00 07:00 15:00 23:00 Intake Total 1020 ml 240 ml 840 ml Balance 1020 ml 240 ml 840 ml Intake Oral 1020 ml 240 ml 720 ml IV Total 120 ml # Voids 5 5 3 # Bowel Movements 1 0 0 Objective Remarks GENERAL: Well-developed, well-nourished, in no acute distress. alert and orientated HEENT: Head is normocephalic without any lesions or masses noted. Facial features are symmetric. Eyes: Extraocular muscles are intact. Conjunctivae were clear. NECK: Supple without any masses. Trachea midline no deviation. No JVD, CARDIAC: Regular rhythm, regular rate. S1/S2 are heard. No murmurs gallops or rubs. LUNGS: Clear to auscultation bilaterally. No wheeze, rhonchi or rales. No use of accessory muscles on inspiration or expiration. ABDOMEN: Soft, nontender. Nondistended. Bowel sounds heard in all 4 quadrants. No organomegaly or masses. Negative rebound, negative guarding EXTREMITIES: No edema, pulses are equal bilaterally. No cyanosis or clubbing NEUROLOGY: Mood and affect appear appropriate. Cranial nerves II through XII grossly intact. 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 Podiatry consulted and did perform 2 surgeries with partial resection the left first metatarsal head and amputation of the left hallux, followed by debridement and closure of diabetic foot ulceration from open left hallux amputation. Podiatry indicates patient should remain nonweightbearing on the left lower extremity Infectious disease was consulted and made recommendations for antibiotics. They do not feel confident that the patient will continue with appropriate outpatient management. Patient remain in hospital until antibiotics complete cefazoline x 6 wks post op providing healing is progressing well bactrim x 6 wks post op Pain control, continue to decrease medications weekly Ibuprofen 400 mg 3 times daily Percocet 10 every 6 hours when necessary pain 610 (changed 11/30/16) Sepsis secondary to foot wound, resolved Present on admission (temperature 103, white blood cell count 15.7, lactic acid 2.4, likely source left foot wound) Sepsis secondary to diabetic wound infection with staph aureus and Achromobacter Xyl/[place]. Diabetes mellitus Hemoglobin A1c 09/01/2016 6.8 continue Levemir and SSI. Hypertension, stable Patient on lisinopril 10 mg daily, Lopressor 50 mg twice daily DVT prophylaxis: Lovenox Discharge Planning Discharge planning after antibiotics completed Lino Yadav Dec 01, 2016 10:21
[2016-12-01] MEDS: ENOXAPARIN SODIUM 40 MG/0.4 ML SYRINGE SQ SCH (16:22)
[2016-12-01 20:00] VITALS: BP 114/71; PULSE 64; RESP 20; TEMP 97.1; O2SAT 100
[2016-12-01] MEDS: diphenhydrAMINE HCL 25 MG CAP PO PRN (22:16)
[2016-12-02] MEDS: ceFAZolin 2 GM PREMIX 50 ML IV SCH ×3 (01:33→16:56)
[2016-12-02] MEDS: oxyCODONE/ACETAMINOPHEN 10 MG/325 MG TAB PO PRN ×4 (04:31→23:06)
[2016-12-02] MEDS: IBUPROFEN 400 MG TAB PO SCH ×3 (05:55→22:08)
[2016-12-02] MEDS: INSULIN ASPART SUPPLEMENTAL SCALE SQ SCH ×4 (06:23→22:14)
[2016-12-02 08:00] VITALS: BP 133/83; PULSE 66; RESP 20; TEMP 96.4; O2SAT 100
[2016-12-02] MEDS: SODIUM CHLORIDE 0.9% FLUSH 10 ML FLUSH IV FLUSH SCH ×2 (09:00→21:00)
[2016-12-02] MEDS: METOPROLOL TARTRATE 50 MG TAB PO SCH ×2 (09:03→22:07)
[2016-12-02] MEDS: DOCUSATE SODIUM 100 MG CAP PO SCH ×2 (09:03→22:07)
[2016-12-02] MEDS: LISINOPRIL 10 MG TAB PO SCH (09:03)
[2016-12-02] MEDS: SULFAMETHOXAZOLE-TRIMETHOPRIM DS 800-160 MG TAB PO SCH ×2 (09:03→22:07)
[2016-12-02] MEDS: INSULIN DETEMIR 100 UNITS/ML VIAL SQ SCH ×2 (09:04→22:12)
--- NOTE | 2016-12-02 15:28 | HHI.PR ---
Subjective Remarks Patient seen and examined today. Patient thinks this for been able to increase his food for him. He was asking if there is any way he could leave for a couple hours in order to take care of his taxes. Objective Vitals Vital Signs Date Time Temp Pulse Resp B/P Pulse Ox O2 Delivery O2 Flow Rate FiO2 12/02/16 08:00 96.4 66 20 133/83 100 12/02/16 05:31 16 12/01/16 22:05 16 12/01/16 20:00 97.1 64 20 114/71 100 I/O 12/01/16 12/01/16 12/01/16 12/02/16 12/02/16 12/02/16 07:00 15:00 23:00 07:00 15:00 23:00 Intake Total 840 ml 850 ml 480 ml 550 ml 630 ml Output Total 2 ml Balance 840 ml 850 ml 478 ml 550 ml 630 ml Intake Oral 720 ml 850 ml 480 ml 480 ml 630 ml IV Total 120 ml 70 ml Output Urine Total 2 ml # Voids 3 4 4 4 # Bowel Movements 0 1 0 0 1 Imaging Last Impressions Foot X-Ray 11/13/16 0000 Signed Impressions: Service Date/Time: Sunday, November 13, 2016 08:57 - CONCLUSION: Post surgical changes related to patient's indication. There is a focal area of decreased mineralization involving the medial aspect of the base of the residual first metatarsal with intact cortex. No clear evidence of osteomyelitis. Jayna Kang MD Chest X-Ray 11/11/16 1422 Signed Impressions: Service Date/Time: October 14:50 - CONCLUSION: 1. No acute cardiopulmonary findings. Gerson Beyer MD Foot MRI 11/11/16 0000 Signed Impressions: Service Date/Time: October 18:52 - CONCLUSION: 1. Osteomyelitis of the first metatarsal and great toe as above. Extensive surrounding cellulitis. Medial soft tissue ulceration. No other areas of osteomyelitis in the left foot. Rakan Lobato MD Objective Remarks GENERAL: Well-developed, well-nourished, in no acute distress. alert and orientated HEENT: Head is normocephalic without any lesions or masses noted. Facial features are symmetric. Eyes: Extraocular muscles are intact. Conjunctivae were clear. NECK: Supple without any masses. Trachea midline no deviation. No JVD, CARDIAC: Regular rhythm, regular rate. S1/S2 are heard. No murmurs gallops or rubs. LUNGS: Clear to auscultation bilaterally. No wheeze, rhonchi or rales. No use of accessory muscles on inspiration or expiration. ABDOMEN: Soft, nontender. Nondistended. Bowel sounds heard in all 4 quadrants. No organomegaly or masses. Negative rebound, negative guarding EXTREMITIES: No edema, pulses are equal bilaterally. No cyanosis or clubbing NEUROLOGY: Mood and affect appear appropriate. Cranial nerves II through XII grossly intact. 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 Podiatry consulted and did perform 2 surgeries with partial resection the left first metatarsal head and amputation of the left hallux, followed by debridement and closure of diabetic foot ulceration from open left hallux amputation. Podiatry indicates patient should remain nonweightbearing on the left lower extremity Infectious disease was consulted and made recommendations for antibiotics. They do not feel confident that the patient will continue with appropriate outpatient management. Patient remain in hospital until antibiotics complete cefazoline x 6 wks post op providing healing is progressing well bactrim x 6 wks post op Pain control, continue to decrease medications weekly Ibuprofen 400 mg 3 times daily Percocet 10 every 6 hours when necessary pain 610 (changed 11/30/16) Sepsis secondary to foot wound, resolved Present on admission (temperature 103, white blood cell count 15.7, lactic acid 2.4, likely source left foot wound) Sepsis secondary to diabetic wound infection with staph aureus and Achromobacter Xyl/[place]. Diabetes mellitus Hemoglobin A1c 09/01/2016 6.8 continue Levemir and SSI. Hypertension, stable Patient on lisinopril 10 mg daily, Lopressor 50 mg twice daily DVT prophylaxis: Lovenox Discharge Planning Discharge planning after antibiotics completed Lino Yadav Dec 02, 2016 15:27 Nils Molina MD Dec 02, 2016 22:12
[2016-12-02] MEDS: ENOXAPARIN SODIUM 40 MG/0.4 ML SYRINGE SQ SCH (16:58)
[2016-12-02 20:00] VITALS: BP 133/83; PULSE 70; RESP 18; TEMP 98.1; O2SAT 98
[2016-12-02] MEDS: diphenhydrAMINE HCL 25 MG CAP PO PRN (22:07)
[2016-12-03] MEDS: ceFAZolin 2 GM PREMIX 50 ML IV SCH ×3 (02:04→17:30)
[2016-12-03] MEDS: IBUPROFEN 400 MG TAB PO SCH ×3 (06:12→21:11)
[2016-12-03] MEDS: INSULIN ASPART SUPPLEMENTAL SCALE SQ SCH ×2 (06:17→16:00)
[2016-12-03] MEDS: oxyCODONE/ACETAMINOPHEN 10 MG/325 MG TAB PO PRN ×3 (06:26→21:11)
--- NOTE | 2016-12-03 08:23 | HHI.PR ---
Subjective Remarks Patient seen and examined today. Patient denies any new complaints. He states that eating well. Bowels are working well. No change in clinical status. Objective Vitals Vital Signs Date Time Temp Pulse Resp B/P Pulse Ox O2 Delivery O2 Flow Rate FiO2 12/02/16 20:00 98.1 70 18 133/83 98 I/O 12/02/16 12/02/16 12/02/16 12/03/16 12/03/16 12/03/16 07:00 15:00 23:00 07:00 15:00 23:00 Intake Total 550 ml 630 ml 450 ml Output Total 500 ml Balance 550 ml 630 ml -50 ml Intake Oral 480 ml 630 ml 450 ml IV Total 70 ml Output Urine Total 500 ml # Voids 4 4 # Bowel Movements 0 1 0 Objective Remarks GENERAL: Well-developed, well-nourished, in no acute distress. alert and orientated HEENT: Head is normocephalic without any lesions or masses noted. Facial features are symmetric. Eyes: Extraocular muscles are intact. Conjunctivae were clear. NECK: Supple without any masses. Trachea midline no deviation. No JVD, CARDIAC: Regular rhythm, regular rate. S1/S2 are heard. No murmurs gallops or rubs. LUNGS: Clear to auscultation bilaterally. No wheeze, rhonchi or rales. No use of accessory muscles on inspiration or expiration. ABDOMEN: Soft, nontender. Nondistended. Bowel sounds heard in all 4 quadrants. No organomegaly or masses. Negative rebound, negative guarding EXTREMITIES: No edema, pulses are equal bilaterally. No cyanosis or clubbing NEUROLOGY: Mood and affect appear appropriate. Cranial nerves II through XII grossly intact. 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 Podiatry consulted and did perform 2 surgeries with partial resection the left first metatarsal head and amputation of the left hallux, followed by debridement and closure of diabetic foot ulceration from open left hallux amputation. Podiatry indicates patient should remain nonweightbearing on the left lower extremity Infectious disease was consulted and made recommendations for antibiotics. They do not feel confident that the patient will continue with appropriate outpatient management. Patient remain in hospital until antibiotics complete cefazoline x 6 wks post op providing healing is progressing well bactrim x 6 wks post op Pain control, continue to decrease medications weekly Ibuprofen 400 mg 3 times daily Percocet 10 every 6 hours when necessary pain 610 (changed 11/30/16) Sepsis secondary to foot wound, resolved Present on admission (temperature 103, white blood cell count 15.7, lactic acid 2.4, likely source left foot wound) Sepsis secondary to diabetic wound infection with staph aureus and Achromobacter Xyl/[place]. Diabetes mellitus Hemoglobin A1c 09/01/2016 6.8 continue Levemir 10 units twice daily Sliding scale insulin twice daily. Hypertension, stable Patient on lisinopril 10 mg daily, Lopressor 50 mg twice daily DVT prophylaxis: Lovenox Discharge Planning Discharge planning after antibiotics completed, infectious disease believes patient will be noncompliant if he is discharged with outpatient therapy Lino Yadav Dec 03, 2016 08:23 Nils Molina MD Dec 03, 2016 17:10
[2016-12-03 08:33] VITALS: BP 115/81; PULSE 59; RESP 19; TEMP 95.3; O2SAT 100
[2016-12-03] MEDS: LISINOPRIL 10 MG TAB PO SCH (09:22)
[2016-12-03] MEDS: SULFAMETHOXAZOLE-TRIMETHOPRIM DS 800-160 MG TAB PO SCH ×2 (09:22→21:12)
[2016-12-03] MEDS: DOCUSATE SODIUM 100 MG CAP PO SCH ×2 (09:22→21:10)
[2016-12-03] MEDS: METOPROLOL TARTRATE 50 MG TAB PO SCH ×2 (09:22→21:12)
[2016-12-03] MEDS: INSULIN DETEMIR 100 UNITS/ML VIAL SQ SCH ×2 (09:24→21:12)
[2016-12-03] MEDS: SODIUM CHLORIDE 0.9% FLUSH 10 ML FLUSH IV FLUSH SCH ×2 (09:32→21:00)
[2016-12-03] MEDS: ENOXAPARIN SODIUM 40 MG/0.4 ML SYRINGE SQ SCH (17:00)
[2016-12-03 20:00] VITALS: BP 127/86; PULSE 60; RESP 20; TEMP 96.2; O2SAT 100
[2016-12-03] MEDS: diphenhydrAMINE HCL 25 MG CAP PO PRN (21:11)
[2016-12-04] MEDS: ceFAZolin 2 GM PREMIX 50 ML IV SCH ×3 (02:13→18:28)
[2016-12-04] MEDS: oxyCODONE/ACETAMINOPHEN 10 MG/325 MG TAB PO PRN ×4 (03:06→21:18)
[2016-12-04] MEDS: IBUPROFEN 400 MG TAB PO SCH ×3 (06:19→22:12)
[2016-12-04] MEDS: INSULIN ASPART SUPPLEMENTAL SCALE SQ SCH ×2 (06:26→16:00)
[2016-12-04 07:09] LABS: CHLORIDE 105 MEQ/L (98-107); POTASSIUM 4.3 MEQ/L (3.5-5.1); SODIUM (NA) 140 MEQ/L (136-145)
[2016-12-04 07:12] LABS: BASOPHIL % 0.6 % (0.0-2.0); EOSINOPHIL # 0.2 TH/MM3 (0-0.4); EOSINOPHIL % 3.3 % (0.0-4.0); HEMATOCRIT 35.8 % (39.0-51.0); HEMO FLAGS DIFF FINAL; LYMPH % 31.6 % (9.0-44.0); LYMPHOCYTE # 2.2 TH/MM3 (1.0-4.8); MEAN CELL VOLUME 89.6 FL (80.0-100.0); MEAN CORPUSCULAR HEMOGLOBIN 30.6 PG (27.0-34.0); MEAN CORPUSCULAR HGB CONC 34.2 % (32.0-36.0); MONO % 9.3 % (0.0-8.0); NEUT % 55.2 % (16.0-70.0); PLATELET COUNT 172 TH/MM3 (150-450); RED CELL DISTRIBUTION WIDTH 13.3 % (11.6-17.2); WHITE BLOOD COUNT 7.1 TH/MM3 (4.0-11.0)
[2016-12-04 07:13] LABS: ANION GAP 11 MEQ/L (5-15); BICARBONATE 24.5 MEQ/L (21.0-32.0)
[2016-12-04 07:14] LABS: BLOOD UREA NITROGEN 16 MG/DL (7-18)
[2016-12-04 07:16] LABS: ALT (GPT) 53 U/L (12-78); AST (GOT) 31 U/L (15-37); GLOMERULAR FILTRATION RATE 78 ML/MIN (>89)
[2016-12-04 07:18] LABS: TOTAL BILIRUBIN ADULT 0.3 MG/DL (0.2-1.0)
[2016-12-04 07:19] LABS: ALKALINE PHOSPHATASE 48 U/L (45-117)
[2016-12-04 08:00] VITALS: BP 114/85; PULSE 65; RESP 20; TEMP 97.3; O2SAT 96
[2016-12-04] MEDS: METOPROLOL TARTRATE 50 MG TAB PO SCH ×2 (08:23→20:05)
[2016-12-04] MEDS: SULFAMETHOXAZOLE-TRIMETHOPRIM DS 800-160 MG TAB PO SCH ×2 (08:23→20:05)
[2016-12-04] MEDS: LISINOPRIL 10 MG TAB PO SCH (08:24)
[2016-12-04] MEDS: DOCUSATE SODIUM 100 MG CAP PO SCH ×2 (08:24→20:05)
[2016-12-04] MEDS: INSULIN DETEMIR 100 UNITS/ML VIAL SQ SCH ×2 (08:25→20:06)
[2016-12-04] MEDS: SODIUM CHLORIDE 0.9% FLUSH 10 ML FLUSH IV FLUSH SCH ×2 (10:22→21:00)
--- NOTE | 2016-12-04 12:02 | HHI.PR ---
Subjective Remarks Patient seen and examined today. Patient denies any new complaints. Patient questioned why he is only getting his Accu-Cheks once daily now. I notified him his diabetes was under much better control. Do not need monitor is much. He is excited about that. Objective Vitals Vital Signs Date Time Temp Pulse Resp B/P Pulse Ox O2 Delivery O2 Flow Rate FiO2 12/04/16 08:00 97.3 65 20 114/85 96 12/03/16 20:00 96.2 60 20 127/86 100 I/O 12/03/16 12/03/16 12/03/16 12/04/16 12/04/16 12/04/16 07:00 15:00 23:00 07:00 15:00 23:00 Intake Total 450 ml 2160 ml 240 ml Output Total 500 ml Balance -50 ml 2160 ml 240 ml Intake Oral 450 ml 2160 ml 240 ml Output Urine Total 500 ml # Voids 2 2 # Bowel Movements 0 1 Result Diagram: 12/04/16 0610 12/04/16 0610 Objective Remarks GENERAL: Well-developed, well-nourished, in no acute distress. alert and orientated HEENT: Head is normocephalic without any lesions or masses noted. Facial features are symmetric. Eyes: Extraocular muscles are intact. Conjunctivae were clear. NECK: Supple without any masses. Trachea midline no deviation. No JVD, CARDIAC: Regular rhythm, regular rate. S1/S2 are heard. No murmurs gallops or rubs. LUNGS: Clear to auscultation bilaterally. No wheeze, rhonchi or rales. No use of accessory muscles on inspiration or expiration. ABDOMEN: Soft, nontender. Nondistended. Bowel sounds heard in all 4 quadrants. No organomegaly or masses. Negative rebound, negative guarding EXTREMITIES: No edema, pulses are equal bilaterally. No cyanosis or clubbing NEUROLOGY: Mood and affect appear appropriate. Cranial nerves II through XII grossly intact. 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 Podiatry consulted and did perform 2 surgeries with partial resection the left first metatarsal head and amputation of the left hallux, followed by debridement and closure of diabetic foot ulceration from open left hallux amputation. Podiatry indicates patient should remain nonweightbearing on the left lower extremity Infectious disease was consulted and made recommendations for antibiotics. They do not feel confident that the patient will continue with appropriate outpatient management. Patient remain in hospital until antibiotics complete cefazolin x 6 wks post op providing healing is progressing well (01/02/17) bactrim x 6 wks post op (01/02/17) Pain control, continue to decrease medications weekly Ibuprofen 400 mg 3 times daily Percocet 10 every 6 hours when necessary pain 610 (changed 11/30/16) Sepsis secondary to foot wound, resolved Present on admission (temperature 103, white blood cell count 15.7, lactic acid 2.4, likely source left foot wound) Sepsis secondary to diabetic wound infection with staph aureus and Achromobacter Xyl/[place]. Diabetes mellitus Hemoglobin A1c 09/01/2016 6.8 continue Levemir 10 units twice daily Sliding scale insulin twice daily. Hypertension, stable Patient on lisinopril 10 mg daily, Lopressor 50 mg twice daily DVT prophylaxis: Lovenox Discharge Planning Discharge planning after antibiotics completed, infectious disease believes patient will be noncompliant if he is discharged with outpatient therapy Lino Yadav Dec 04, 2016 12:02 Nils Molina MD Dec 04, 2016 14:15
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
[2016-12-04] MEDS: ENOXAPARIN SODIUM 40 MG/0.4 ML SYRINGE SQ SCH (17:00)
[2016-12-04 20:00] VITALS: BP 114/83; PULSE 66; RESP 18; TEMP 97.1; O2SAT 100
[2016-12-04] MEDS: diphenhydrAMINE HCL 25 MG CAP PO PRN (21:18)
[2016-12-05] MEDS: ceFAZolin 2 GM PREMIX 50 ML IV SCH ×3 (02:04→19:17)
[2016-12-05] MEDS: IBUPROFEN 400 MG TAB PO SCH ×3 (06:09→21:57)
[2016-12-05] MEDS: oxyCODONE/ACETAMINOPHEN 10 MG/325 MG TAB PO PRN ×3 (06:13→19:15)
[2016-12-05] MEDS: INSULIN ASPART SUPPLEMENTAL SCALE SQ SCH ×2 (06:18→16:00)
[2016-12-05 08:00] VITALS: BP 96/73; PULSE 63; RESP 20; TEMP 96; O2SAT 100
[2016-12-05] MEDS: INSULIN DETEMIR 100 UNITS/ML VIAL SQ SCH ×2 (08:42→20:41)
[2016-12-05] MEDS: DOCUSATE SODIUM 100 MG CAP PO SCH ×2 (08:43→20:41)
[2016-12-05] MEDS: LISINOPRIL 10 MG TAB PO SCH (08:44)
[2016-12-05] MEDS: METOPROLOL TARTRATE 50 MG TAB PO SCH ×2 (08:44→20:41)
[2016-12-05] MEDS: SULFAMETHOXAZOLE-TRIMETHOPRIM DS 800-160 MG TAB PO SCH ×2 (08:44→20:41)
[2016-12-05] MEDS: SODIUM CHLORIDE 0.9% FLUSH 10 ML FLUSH IV FLUSH SCH ×2 (08:46→20:47)
[2016-12-05 08:55] VITALS: BP 118/80
[2016-12-05 10:57] LABS: HEMOGLOBIN A1b 1.4 %; HEMOGLOBIN LA1C 1.6 %; HEMOGLOBIN P3 3.5 %
--- NOTE | 2016-12-05 11:52 | HHI.PR ---
Subjective Remarks Patient seen and examined today. Patient denies any new complaints. No change in clinical status. Objective Vitals Vital Signs Date Time Temp Pulse Resp B/P Pulse Ox O2 Delivery O2 Flow Rate FiO2 12/05/16 08:55 118/80 12/05/16 08:00 96.0 63 20 96/73 100 12/04/16 23:12 16 12/04/16 22:18 16 12/04/16 20:00 97.1 66 18 114/83 100 I/O 12/04/16 12/04/16 12/04/16 12/05/16 12/05/16 12/05/16 07:00 15:00 23:00 07:00 15:00 23:00 Intake Total 240 ml 735 ml 480 ml 480 ml Balance 240 ml 735 ml 480 ml 480 ml Intake Oral 240 ml 680 ml 480 ml 480 ml IV Total 55 ml # Voids 2 3 4 3 # Bowel Movements 1 1 0 Result Diagram: 12/04/16 0610 12/04/16 0610 Objective Remarks GENERAL: Well-developed, well-nourished, in no acute distress. alert and orientated HEENT: Head is normocephalic without any lesions or masses noted. Facial features are symmetric. Eyes: Extraocular muscles are intact. Conjunctivae were clear. NECK: Supple without any masses. Trachea midline no deviation. No JVD, CARDIAC: Regular rhythm, regular rate. S1/S2 are heard. No murmurs gallops or rubs. LUNGS: Clear to auscultation bilaterally. No wheeze, rhonchi or rales. No use of accessory muscles on inspiration or expiration. ABDOMEN: Soft, nontender. Nondistended. Bowel sounds heard in all 4 quadrants. No organomegaly or masses. Negative rebound, negative guarding EXTREMITIES: No edema, pulses are equal bilaterally. No cyanosis or clubbing NEUROLOGY: Mood and affect appear appropriate. Cranial nerves II through XII grossly intact. 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 Podiatry consulted and did perform 2 surgeries with partial resection the left first metatarsal head and amputation of the left hallux, followed by debridement and closure of diabetic foot ulceration from open left hallux amputation. Podiatry indicates patient should remain nonweightbearing on the left lower extremity Infectious disease was consulted and made recommendations for antibiotics. They do not feel confident that the patient will continue with appropriate outpatient management. Patient remain in hospital until antibiotics complete cefazolin x 6 wks post op providing healing is progressing well (01/02/17) bactrim x 6 wks post op (01/02/17) Pain control, continue to decrease medications weekly Ibuprofen 400 mg 3 times daily Percocet 10 every 6 hours when necessary pain 610 (changed 11/30/16) Sepsis secondary to foot wound, resolved Present on admission (temperature 103, white blood cell count 15.7, lactic acid 2.4, likely source left foot wound) Sepsis secondary to diabetic wound infection with staph aureus and Achromobacter Xyl/[place]. Diabetes mellitus Hemoglobin A1c 09/01/2016 6.8, waiting repeat hemoglobin A1c, they'll the start patient back on metformin and transition off of insulin continue Levemir 10 units twice daily Sliding scale insulin twice daily. Hypertension, stable Patient on lisinopril 10 mg daily, Lopressor 50 mg twice daily DVT prophylaxis: Lovenox, patient is refusing Discharge Planning Discharge planning after antibiotics completed, infectious disease believes patient will be noncompliant if he is discharged with outpatient therapy Lino Yadav Dec 05, 2016 11:52 Nils Molina MD Dec 05, 2016 16:10
[2016-12-05] MEDS: ENOXAPARIN SODIUM 40 MG/0.4 ML SYRINGE SQ SCH (17:00)
[2016-12-05 20:00] VITALS: BP 128/83; PULSE 66; RESP 20; TEMP 98.3; O2SAT 100
[2016-12-05] MEDS: diphenhydrAMINE HCL 25 MG CAP PO PRN (21:57)
[2016-12-06] MEDS: oxyCODONE/ACETAMINOPHEN 10 MG/325 MG TAB PO PRN ×2 (01:40→07:58)
[2016-12-06] MEDS: ceFAZolin 2 GM PREMIX 50 ML IV SCH ×3 (02:37→18:06)
[2016-12-06] MEDS: IBUPROFEN 400 MG TAB PO SCH ×3 (05:31→20:42)
[2016-12-06] MEDS: INSULIN ASPART SUPPLEMENTAL SCALE SQ SCH ×3 (05:48→17:18)
[2016-12-06 08:00] VITALS: BP 124/85; PULSE 69; RESP 18; TEMP 96.5; O2SAT 100
[2016-12-06] MEDS: SODIUM CHLORIDE 0.9% FLUSH 10 ML FLUSH IV FLUSH SCH ×2 (09:00→20:44)
[2016-12-06] MEDS: LISINOPRIL 10 MG TAB PO SCH (09:56)
[2016-12-06] MEDS: INSULIN DETEMIR 100 UNITS/ML VIAL SQ SCH ×2 (09:56→20:43)
[2016-12-06] MEDS: SULFAMETHOXAZOLE-TRIMETHOPRIM DS 800-160 MG TAB PO SCH ×2 (09:56→20:44)
[2016-12-06] MEDS: METOPROLOL TARTRATE 50 MG TAB PO SCH ×2 (09:56→20:44)
[2016-12-06] MEDS: DOCUSATE SODIUM 100 MG CAP PO SCH ×2 (09:56→20:43)
--- NOTE | 2016-12-06 10:44 | HHI.PR ---
Subjective Remarks Patient seen and examined today for follow-up on diabetic toe wound, amputation. Patient states that he still having pain requiring narcotic pain medications. He states it has improved with the addition of ibuprofen. Objective Vitals Vital Signs Date Time Temp Pulse Resp B/P Pulse Ox O2 Delivery O2 Flow Rate FiO2 12/06/16 08:58 18 12/06/16 06:31 16 12/05/16 20:00 98.3 66 20 128/83 100 I/O 12/05/16 12/05/16 12/05/16 12/06/16 12/06/16 12/06/16 07:00 15:00 23:00 07:00 15:00 23:00 Intake Total 480 ml 600 ml 1020 ml 310 ml Balance 480 ml 600 ml 1020 ml 310 ml Intake Oral 480 ml 600 ml 960 ml 240 ml IV Total 60 ml 70 ml # Voids 3 3 5 5 # Bowel Movements 0 0 0 0 Result Diagram: 12/04/16 0610 12/04/16 0610 Objective Remarks GENERAL: Well-developed, well-nourished, in no acute distress. alert and orientated HEENT: Head is normocephalic without any lesions or masses noted. Facial features are symmetric. Eyes: Extraocular muscles are intact. Conjunctivae were clear. NECK: Supple without any masses. Trachea midline no deviation. No JVD, CARDIAC: Regular rhythm, regular rate. S1/S2 are heard. No murmurs gallops or rubs. LUNGS: Clear to auscultation bilaterally. No wheeze, rhonchi or rales. No use of accessory muscles on inspiration or expiration. ABDOMEN: Soft, nontender. Nondistended. Bowel sounds heard in all 4 quadrants. No organomegaly or masses. Negative rebound, negative guarding EXTREMITIES: No edema, pulses are equal bilaterally. No cyanosis or clubbing NEUROLOGY: Mood and affect appear appropriate. Cranial nerves II through XII grossly intact. 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 Podiatry consulted and did perform 2 surgeries with partial resection the left first metatarsal head and amputation of the left hallux, followed by debridement and closure of diabetic foot ulceration from open left hallux amputation. Podiatry indicates patient should remain nonweightbearing on the left lower extremity Infectious disease was consulted and made recommendations for antibiotics. They do not feel confident that the patient will continue with appropriate outpatient management. Patient remain in hospital until antibiotics complete cefazolin x 6 wks post op providing healing is progressing well (01/02/17) bactrim x 6 wks post op (01/02/17) Pain control, continue to decrease medications weekly Ibuprofen 400 mg 3 times daily Percocet 7.5 every 6 hours when necessary pain 610 (changed 12/06/16) Sepsis secondary to foot wound, resolved Present on admission (temperature 103, white blood cell count 15.7, lactic acid 2.4, likely source left foot wound) Sepsis secondary to diabetic wound infection with staph aureus and Achromobacter Xyl/[place]. Diabetes mellitus Hemoglobin A1c 09/01/2016 6.8, waiting repeat hemoglobin A1c, they'll the start patient back on metformin and transition off of insulin continue Levemir 10 units twice daily Sliding scale insulin twice daily. Hypertension, stable Patient on lisinopril 10 mg daily, Lopressor 50 mg twice daily DVT prophylaxis: Lovenox, patient is refusing Discharge Planning Discharge planning after antibiotics completed, infectious disease believes patient will be noncompliant if he is discharged with outpatient therapy Lino Yadav Dec 06, 2016 10:43
[2016-12-06] MEDS: oxyCODONE/ACETAMINOPHEN 7.5 MG/325 MG TAB PO PRN ×2 (14:24→20:43)
[2016-12-06] MEDS: ENOXAPARIN SODIUM 40 MG/0.4 ML SYRINGE SQ SCH (17:00)
[2016-12-06 20:00] VITALS: BP 126/77; PULSE 65; RESP 20; TEMP 96.9; O2SAT 98
[2016-12-06] MEDS: diphenhydrAMINE HCL 25 MG CAP PO PRN (20:43)
[2016-12-07] MEDS: ceFAZolin 2 GM PREMIX 50 ML IV SCH ×3 (02:24→17:42)
[2016-12-07] MEDS: SODIUM CHLORIDE 0.9% FLUSH 10 ML FLUSH IV FLUSH PRN (02:25)
[2016-12-07] MEDS: oxyCODONE/ACETAMINOPHEN 7.5 MG/325 MG TAB PO PRN ×4 (02:33→20:07)
[2016-12-07] MEDS: IBUPROFEN 400 MG TAB PO SCH ×4 (06:22→21:43)
[2016-12-07] MEDS: INSULIN ASPART SUPPLEMENTAL SCALE SQ SCH ×2 (06:22→16:08)
[2016-12-07 08:00] VITALS: BP 127/80; PULSE 62; RESP 18; TEMP 97.8; O2SAT 100
[2016-12-07] MEDS: DOCUSATE SODIUM 100 MG CAP PO SCH ×2 (08:44→20:07)
[2016-12-07] MEDS: LISINOPRIL 10 MG TAB PO SCH (08:44)
[2016-12-07] MEDS: METOPROLOL TARTRATE 50 MG TAB PO SCH ×2 (08:44→20:07)
[2016-12-07] MEDS: SULFAMETHOXAZOLE-TRIMETHOPRIM DS 800-160 MG TAB PO SCH ×2 (08:44→20:06)
[2016-12-07] MEDS: SODIUM CHLORIDE 0.9% FLUSH 10 ML FLUSH IV FLUSH SCH ×2 (08:45→20:08)
[2016-12-07] MEDS: INSULIN DETEMIR 100 UNITS/ML VIAL SQ SCH ×2 (08:45→20:06)
--- NOTE | 2016-12-07 15:21 | HHI.PR ---
Subjective Remarks Follow-up for diabetic toe osteomyelitis, amputation. Patient denies any fevers or chills. Objective Vitals Vital Signs Date Time Temp Pulse Resp B/P Pulse Ox O2 Delivery O2 Flow Rate FiO2 12/07/16 15:12 18 12/07/16 15:12 18 12/07/16 08:00 97.8 62 18 127/80 100 12/06/16 20:00 96.9 65 20 126/77 98 I/O 12/06/16 12/06/16 12/06/16 12/07/16 12/07/16 12/07/16 07:00 15:00 23:00 07:00 15:00 23:00 Intake Total 310 ml 1440 ml 630 ml 240 ml Balance 310 ml 1440 ml 630 ml 240 ml Intake Oral 240 ml 1440 ml 550 ml 240 ml IV Total 70 ml 80 ml # Voids 5 8 2 # Bowel Movements 0 1 1 Result Diagram: 12/04/16 0610 12/04/16 0610 Imaging Last Impressions Foot X-Ray 11/13/16 0000 Signed Impressions: Service Date/Time: Sunday, November 13, 2016 08:57 - CONCLUSION: Post surgical changes related to patient's indication. There is a focal area of decreased mineralization involving the medial aspect of the base of the residual first metatarsal with intact cortex. No clear evidence of osteomyelitis. Jayna Kang MD Chest X-Ray 11/11/16 1422 Signed Impressions: Service Date/Time: October 14:50 - CONCLUSION: 1. No acute cardiopulmonary findings. Gerson Beyer MD Foot MRI 11/11/16 0000 Signed Impressions: Service Date/Time: October 18:52 - CONCLUSION: 1. Osteomyelitis of the first metatarsal and great toe as above. Extensive surrounding cellulitis. Medial soft tissue ulceration. No other areas of osteomyelitis in the left foot. Rakan Lobato MD Objective Remarks GENERAL: Well developed well nourished patient in no apparent distress. SKIN: Warm and dry. HEAD: Atraumatic. Normocephalic. CARDIOVASCULAR: Regular rate and rhythm. RESPIRATORY: No accessory muscle use. Clear to auscultation. Breath sounds equal bilaterally. GASTROINTESTINAL: Abdomen soft, non-tender, nondistended. MUSCULOSKELETAL: L foot is bandaged. NEUROLOGICAL: Awake and alert. Normal speech. PSYCHIATRIC: Appropriate mood and affect; insight and judgment normal. Procedures s/p partial resection of left first metatarsal head and amputation of left hallux 11/13 Urinary Catheter: No Vascular Central Line Catheter: No A/P Problem List: (1) Open wound of left foot ICD Code: S91.302A Status: Resolved (2) Sepsis ICD Code: A41.9 Status: Acute (3) Lactic acidosis ICD Code: E87.2 Status: Acute (4) Hypomagnesemia ICD Code: E83.42 Status: Acute (5) Diabetes mellitus ICD Code: E11.9 Status: Chronic (6) Hypertension ICD Code: I10 Status: Chronic (7) Tobacco abuse ICD Code: Z72.0 Status: Chronic (8) Fever ICD Code: R50.9 Status: Resolved Assessment and Plan Left foot wound,osteomyelitis MRI of the foot does show osteomyelitis of the first metatarsal and great toe. Podiatry consulted and did perform 2 surgeries with partial resection the left first metatarsal head and amputation of the left hallux, followed by debridement and closure of diabetic foot ulceration from open left hallux amputation. Podiatry 12/04 indicates patient should remain nonweightbearing on the left lower extremity; will follow and change dressing in 1 week. Infectious disease was consulted and made recommendations for antibiotics. They do not feel confident that the patient will continue with appropriate outpatient management. Patient remain in hospital until antibiotics complete Cefazolin x 6 wks post op providing healing is progressing well (01/02/17) Bactrim x 6 wks post op (01/02/17) Pain control, continue to decrease medications weekly Ibuprofen 400 mg q 8 hours Percocet 7.5 every 6 hours when necessary pain 6-10 (changed 12/06/16) Sepsis secondary to foot wound, resolved Present on admission (temperature 103, white blood cell count 15.7, lactic acid 2.4, likely source left foot wound. Sepsis secondary to diabetic wound infection with staph aureus and Achromobacter Xyl/[place]. Diabetes mellitus Hemoglobin A1c 6.8 on 09/01/2016. Repeat hemoglobin A1c improved at 6.0 on . Discussed with Dr. Molina. Continue Levemir 10 units twice daily. Continue sliding scale insulin twice daily. Hypertension, stable Patient on lisinopril 10 mg daily, Lopressor 50 mg twice daily DVT prophylaxis: Lovenox, patient is refusing. Problem Qualifiers (1) Open wound of left foot: Qualified Code: S91.302S - Open wound of left foot, sequela (2) Diabetes mellitus: (3) Fever: Qualified Code: R50.81 - Fever in other diseases Anita Rodriguez Dec 07, 2016 15:21
[2016-12-07] MEDS: ACETAMINOPHEN 325 MG TAB PO PRN (16:07)
[2016-12-07] MEDS: ENOXAPARIN SODIUM 40 MG/0.4 ML SYRINGE SQ SCH (16:38)
[2016-12-07 20:00] VITALS: BP 108/83; PULSE 63; RESP 22; TEMP 97.9; O2SAT 100
[2016-12-07] MEDS: diphenhydrAMINE HCL 25 MG CAP PO PRN (20:07)
[2016-12-08] MEDS: ceFAZolin 2 GM PREMIX 50 ML IV SCH ×3 (01:56→17:09)
[2016-12-08] MEDS: oxyCODONE/ACETAMINOPHEN 7.5 MG/325 MG TAB PO PRN ×4 (01:56→21:17)
[2016-12-08] MEDS: SODIUM CHLORIDE 0.9% FLUSH 10 ML FLUSH IV FLUSH PRN (01:56)
[2016-12-08] MEDS: IBUPROFEN 400 MG TAB PO SCH ×3 (06:44→22:05)
[2016-12-08] MEDS: INSULIN ASPART SUPPLEMENTAL SCALE SQ SCH ×2 (06:47→16:00)
[2016-12-08 08:00] VITALS: BP 142/82; PULSE 65; RESP 19; TEMP 97.7; O2SAT 100
[2016-12-08] MEDS: INSULIN DETEMIR 100 UNITS/ML VIAL SQ SCH ×2 (09:06→21:09)
[2016-12-08] MEDS: SODIUM CHLORIDE 0.9% FLUSH 10 ML FLUSH IV FLUSH SCH ×2 (09:06→21:00)
[2016-12-08] MEDS: SULFAMETHOXAZOLE-TRIMETHOPRIM DS 800-160 MG TAB PO SCH ×2 (09:07→21:09)
[2016-12-08] MEDS: METOPROLOL TARTRATE 50 MG TAB PO SCH ×2 (09:07→21:08)
[2016-12-08] MEDS: DOCUSATE SODIUM 100 MG CAP PO SCH ×2 (09:07→21:08)
[2016-12-08] MEDS: LISINOPRIL 10 MG TAB PO SCH (09:07)
--- NOTE | 2016-12-08 10:35 | HHI.PR ---
Subjective Remarks Follow-up for osteomyelitis/amputation of left great toe and partial resection of 1st MT, diabetes. Patient asks if he can go outside. No acute complaints Objective Vitals Vital Signs Date Time Temp Pulse Resp B/P Pulse Ox O2 Delivery O2 Flow Rate FiO2 12/08/16 08:00 97.7 65 19 142/82 100 12/08/16 07:44 18 12/07/16 20:00 97.9 63 22 108/83 100 12/07/16 17:07 18 12/07/16 15:12 18 12/07/16 15:12 18 I/O 12/07/16 12/07/16 12/07/16 12/08/16 12/08/16 12/08/16 07:00 15:00 23:00 07:00 15:00 23:00 Intake Total 630 ml 240 ml 240 ml 240 ml Balance 630 ml 240 ml 240 ml 240 ml Intake Oral 550 ml 240 ml 240 ml 240 ml IV Total 80 ml # Voids 2 2 2 # Bowel Movements 1 Result Diagram: 12/04/1610 12/04/16 06 Objective Remarks GENERAL: Well developed well nourished patient in no apparent distress. CARDIOVASCULAR: Regular rate and rhythm. RESPIRATORY: No accessory muscle use. Clear to auscultation. Breath sounds equal bilaterally. NEUROLOGICAL: Awake and alert. Normal speech. PSYCHIATRIC: Appropriate mood and affect; insight and judgment normal. Procedures s/p partial resection of left first metatarsal head and amputation of left hallux 11/13 Urinary Catheter: No Vascular Central Line Catheter: No A/P Problem List: (1) Open wound of left foot ICD Code: S91.302A Status: Resolved (2) Sepsis ICD Code: A41.9 Status: Acute (3) Lactic acidosis ICD Code: E87.2 Status: Acute (4) Hypomagnesemia ICD Code: E83.42 Status: Acute (5) Diabetes mellitus ICD Code: E11.9 Status: Chronic (6) Hypertension ICD Code: I10 Status: Chronic (7) Tobacco abuse ICD Code: Z72.0 Status: Chronic (8) Fever ICD Code: R50.9 Status: Resolved Assessment and Plan Left foot wound,osteomyelitis MRI of the foot does show osteomyelitis of the first metatarsal and great toe. Podiatry consulted and did perform 2 surgeries with partial resection the left first metatarsal head and amputation of the left hallux, followed by debridement and closure of diabetic foot ulceration from open left hallux amputation. Podiatry 12/04 indicates patient should remain nonweightbearing on the left lower extremity; will follow and change dressing in 1 week. Infectious disease was consulted and made recommendations for antibiotics. They do not feel confident that the patient will continue with appropriate outpatient management. Patient remain in hospital until antibiotics complete Cefazolin x 6 wks post op providing healing is progressing well (01/02/17) Bactrim x 6 wks post op (01/02/17) Pain control, continue to decrease medications weekly Ibuprofen 400 mg q 8 hours Percocet 7.5 every 6 hours when necessary pain 6-10 (changed 12/06/16) Sepsis secondary to foot wound, resolved Present on admission (temperature 103, white blood cell count 15.7, lactic acid 2.4, likely source left foot wound. Sepsis secondary to diabetic wound infection with staph aureus and Achromobacter Xyl/[place]. Diabetes mellitus Hemoglobin A1c 6.8 on 09/01/2016. Repeat hemoglobin A1c improved at 6.0 on . Good BGL this morning. Continue Levemir 10 units twice daily. Continue sliding scale insulin twice daily. Hypertension, stable Patient on lisinopril 10 mg daily, Lopressor 50 mg twice daily DVT prophylaxis: Lovenox, patient is refusing. Problem Qualifiers (1) Open wound of left foot: Qualified Code: S91.302S - Open wound of left foot, sequela (2) Diabetes mellitus: (3) Fever: Qualified Code: R50.81 - Fever in other diseases Anita Rodriguez Dec 08, 2016 10:34
[2016-12-08] MEDS: ENOXAPARIN SODIUM 40 MG/0.4 ML SYRINGE SQ SCH (17:00)
[2016-12-08 20:00] VITALS: BP 111/80; PULSE 64; RESP 20; TEMP 96.1; O2SAT 100
[2016-12-08] MEDS: diphenhydrAMINE HCL 25 MG CAP PO PRN (21:17)
[2016-12-09] MEDS: ceFAZolin 2 GM PREMIX 50 ML IV SCH ×3 (01:58→17:42)
[2016-12-09] MEDS: oxyCODONE/ACETAMINOPHEN 7.5 MG/325 MG TAB PO PRN ×3 (04:43→17:42)
[2016-12-09] MEDS: IBUPROFEN 400 MG TAB PO SCH ×2 (06:19→13:13)
[2016-12-09] MEDS: INSULIN ASPART SUPPLEMENTAL SCALE SQ SCH ×2 (06:22→16:00)
[2016-12-09 08:00] VITALS: BP 116/79; PULSE 69; RESP 18; TEMP 97.6; O2SAT 100
[2016-12-09] MEDS: METOPROLOL TARTRATE 50 MG TAB PO SCH ×2 (09:24→20:04)
[2016-12-09] MEDS: SODIUM CHLORIDE 0.9% FLUSH 10 ML FLUSH IV FLUSH SCH ×2 (09:24→20:10)
[2016-12-09] MEDS: DOCUSATE SODIUM 100 MG CAP PO SCH ×2 (09:24→20:05)
[2016-12-09] MEDS: LISINOPRIL 10 MG TAB PO SCH (09:24)
[2016-12-09] MEDS: SULFAMETHOXAZOLE-TRIMETHOPRIM DS 800-160 MG TAB PO SCH ×2 (09:24→20:05)
[2016-12-09] MEDS: INSULIN DETEMIR 100 UNITS/ML VIAL SQ SCH ×2 (09:25→20:06)
--- NOTE | 2016-12-09 11:11 | HHI.PR ---
Subjective Remarks Follow up for diabetes, osteomyelitis/amputation of left great toe. Patient complains of pain in his hands as well as phantom pain in his left great toe and pain in the first metatarsal left foot. He has a history of neuropathy. He was taking gabapentin at one point in time but states it causes him to have dry mouth. He does not remember the dose. He is open to trying it again at a low dose. He additionally states he has "jock itch" stating it is red in his L groin. Objective Vitals Vital Signs Date Time Temp Pulse Resp B/P Pulse Ox O2 Delivery O2 Flow Rate FiO2 12/09/16 08:00 97.6 69 18 116/79 100 12/09/16 05:43 16 12/08/16 23:05 16 12/08/16 20:00 96.1 64 20 111/80 100 I/O 12/08/16 12/08/16 12/08/16 12/09/16 12/09/16 12/09/16 07:00 15:00 23:00 07:00 15:00 23:00 Intake Total 240 ml 720 ml 240 ml 290 ml Balance 240 ml 720 ml 240 ml 290 ml Intake Oral 240 ml 720 ml 240 ml 240 ml IV Total 50 ml # Voids 2 3 2 2 # Bowel Movements 0 Objective Remarks GENERAL: Well developed well nourished patient in no apparent distress. CARDIOVASCULAR: Regular rate and rhythm. RESPIRATORY: No accessory muscle use. Clear to auscultation. Breath sounds equal bilaterally. GASTROINTESTINAL: Abdomen soft, nontender, nondistended. MUSCULOSKELETAL: No lower extremity edema bilaterally. NEUROLOGICAL: Awake and alert. Normal speech. Negative Tinel's sign and Phalen' s test. PSYCHIATRIC: Appropriate mood and affect; insight and judgment normal. Procedures s/p partial resection of left first metatarsal head and amputation of left hallux 11/13 Urinary Catheter: No Vascular Central Line Catheter: No A/P Problem List: (1) Open wound of left foot ICD Code: S91.302A Status: Resolved (2) Sepsis ICD Code: A41.9 Status: Acute (3) Lactic acidosis ICD Code: E87.2 Status: Acute (4) Hypomagnesemia ICD Code: E83.42 Status: Acute (5) Diabetes mellitus ICD Code: E11.9 Status: Chronic (6) Hypertension ICD Code: I10 Status: Chronic (7) Tobacco abuse ICD Code: Z72.0 Status: Chronic (8) Fever ICD Code: R50.9 Status: Resolved Assessment and Plan Left foot wound,osteomyelitis MRI of the foot does show osteomyelitis of the first metatarsal and great toe. Podiatry consulted and did perform 2 surgeries with partial resection the left first metatarsal head and amputation of the left hallux, followed by debridement and closure of diabetic foot ulceration from open left hallux amputation. Podiatry 12/04 indicates patient should remain nonweightbearing on the left lower extremity; will follow and change dressing in 1 week. Infectious disease was consulted and made recommendations for antibiotics. They do not feel confident that the patient will continue with appropriate outpatient management. Patient remain in hospital until antibiotics complete Cefazolin x 6 wks post op providing healing is progressing well (01/02/17) Bactrim x 6 wks post op (01/02/17) Pain control, continue to decrease medications weekly Tylenol prn pain 1-2 Ibuprofen 400 mg q 8 hours changed to prn pain 3-5 Percocet 7.5 every 6 hours prn pain 6-10 (changed 12/06/16) Start gabapentin at 300 mg po daily for neuropathic pain Sepsis secondary to foot wound, resolved Present on admission (temperature 103, white blood cell count 15.7, lactic acid 2.4, likely source left foot wound. Sepsis secondary to diabetic wound infection with staph aureus and Achromobacter Xyl/[place]. Diabetes mellitus Hemoglobin A1c 6.8 on 09/01/2016. Repeat hemoglobin A1c improved at 6.0 on . Continue Levemir 10 units twice daily. Continue sliding scale insulin twice daily. Hypertension, stable Patient on lisinopril 10 mg daily, Lopressor 50 mg twice daily Rash groin: Start clotrimazole cream bid. DVT prophylaxis: Lovenox, patient refusing. Problem Qualifiers (1) Open wound of left foot: Qualified Code: S91.302S - Open wound of left foot, sequela (2) Diabetes mellitus: (3) Fever: Qualified Code: R50.81 - Fever in other diseases Anita Rodriguez Dec 09, 2016 11:11
[2016-12-09] MEDS: GABAPENTIN 300 MG CAP PO SCH (15:01)
[2016-12-09] MEDS: ENOXAPARIN SODIUM 40 MG/0.4 ML SYRINGE SQ SCH ×2 (17:00→17:42)
[2016-12-09 20:00] VITALS: BP 115/60; PULSE 66; RESP 18; TEMP 96.2; O2SAT 99
[2016-12-09] MEDS: CLOTRIMAZOLE 1% CREAM 15 GM TOPICAL SCH (20:06)
[2016-12-09] MEDS: diphenhydrAMINE HCL 25 MG CAP PO PRN (22:21)
[2016-12-09] MEDS: IBUPROFEN 400 MG TAB PO PRN (22:22)
[2016-12-10] MEDS: ceFAZolin 2 GM PREMIX 50 ML IV SCH ×3 (02:01→18:17)
[2016-12-10] MEDS: oxyCODONE/ACETAMINOPHEN 7.5 MG/325 MG TAB PO PRN ×3 (06:22→18:46)
[2016-12-10] MEDS: INSULIN ASPART SUPPLEMENTAL SCALE SQ SCH ×2 (06:23→12:36)
[2016-12-10 08:00] VITALS: BP 113/84; PULSE 66; RESP 18; TEMP 96; O2SAT 97
[2016-12-10] MEDS: SODIUM CHLORIDE 0.9% FLUSH 10 ML FLUSH IV FLUSH SCH ×2 (09:00→20:15)
[2016-12-10] MEDS: INSULIN DETEMIR 100 UNITS/ML VIAL SQ SCH ×2 (09:51→20:15)
[2016-12-10] MEDS: DOCUSATE SODIUM 100 MG CAP PO SCH ×2 (09:51→20:16)
[2016-12-10] MEDS: GABAPENTIN 300 MG CAP PO SCH ×2 (09:51→20:16)
[2016-12-10] MEDS: METOPROLOL TARTRATE 50 MG TAB PO SCH ×2 (09:51→20:16)
[2016-12-10] MEDS: SULFAMETHOXAZOLE-TRIMETHOPRIM DS 800-160 MG TAB PO SCH ×2 (09:51→20:16)
[2016-12-10] MEDS: LISINOPRIL 10 MG TAB PO SCH (09:51)
[2016-12-10] MEDS: CLOTRIMAZOLE 1% CREAM 15 GM TOPICAL SCH ×2 (09:52→20:19)
--- NOTE | 2016-12-10 10:12 | HHI.PR ---
Subjective Remarks Follow up for diabetes, osteomyelitis/amputation of left great toe. Patient states the pain in his left foot is less than yesterday. He does request the gabapentin be given at night, 9pm, as a phantom pain occurs at that time. He requests the gabapentin be increased to twice a day. I informed him that I started him on a low dose as he stated he had a dry mouth issues related to being on gabapentin in the past, but can titrate up as needed. Objective Vitals Vital Signs Date Time Temp Pulse Resp B/P Pulse Ox O2 Delivery O2 Flow Rate FiO2 12/10/16 08:00 96.0 66 18 113/84 97 12/10/16 07:22 16 12/09/16 23:22 16 12/09/16 20:00 96.2 66 18 115/60 99 I/O 12/09/16 12/09/16 12/09/16 12/10/16 12/10/16 12/10/16 07:00 15:00 23:00 07:00 15:00 23:00 Intake Total 290 ml 680 ml 480 ml 480 ml Balance 290 ml 680 ml 480 ml 480 ml Intake Oral 240 ml 680 ml 480 ml 480 ml IV Total 50 ml # Voids 2 2 5 3 # Bowel Movements 0 0 0 Objective Remarks GENERAL: Well developed well nourished patient in no apparent distress. CARDIOVASCULAR: Regular rate and rhythm. RESPIRATORY: No accessory muscle use. Clear to auscultation. Breath sounds equal bilaterally. MUSCULOSKELETAL: No lower leg edema bilaterally. NEUROLOGICAL: Awake and alert. Normal speech. PSYCHIATRIC: Appropriate mood and affect; insight and judgment normal. Procedures s/p partial resection of left first metatarsal head and amputation of left hallux 11/13 Urinary Catheter: No Vascular Central Line Catheter: No A/P Problem List: (1) Open wound of left foot ICD Code: S91.302A Status: Resolved (2) Sepsis ICD Code: A41.9 Status: Acute (3) Lactic acidosis ICD Code: E87.2 Status: Acute (4) Hypomagnesemia ICD Code: E83.42 Status: Acute (5) Diabetes mellitus ICD Code: E11.9 Status: Chronic (6) Hypertension ICD Code: I10 Status: Chronic (7) Tobacco abuse ICD Code: Z72.0 Status: Chronic (8) Fever ICD Code: R50.9 Status: Resolved Assessment and Plan Left foot wound,osteomyelitis MRI of the foot does show osteomyelitis of the first metatarsal and great toe. Podiatry consulted and did perform 2 surgeries with partial resection the left first metatarsal head and amputation of the left hallux, followed by debridement and closure of diabetic foot ulceration from open left hallux amputation. Podiatry 12/04 indicates patient should remain nonweightbearing on the left lower extremity; will follow and change dressing in 1 week. Infectious disease was consulted and made recommendations for antibiotics. They do not feel confident that the patient will continue with appropriate outpatient management. Patient remain in hospital until antibiotics complete Cefazolin x 6 wks post op providing healing is progressing well (01/02/17) Bactrim x 6 wks post op (01/02/17) Pain control, continue to decrease medications weekly Tylenol prn pain 1-2 Ibuprofen 400 mg q 8 hours changed to prn pain 3-5 Percocet 7.5 every 6 hours prn pain 6-10 (changed 12/06/16) Gabapentin 300 mg po daily for neuropathic pain started on 12/09. Patient requests it be given at night. He already received morning dose. Will increase to bid dosing starting tonight and see how patient tolerates. Sepsis secondary to foot wound, resolved Present on admission (temperature 103, white blood cell count 15.7, lactic acid 2.4, likely source left foot wound. Sepsis secondary to diabetic wound infection with staph aureus and Achromobacter Xyl/[place]. Diabetes mellitus Hemoglobin A1c 6.8 on 09/01/2016. Repeat hemoglobin A1c improved at 6.0 on . Continue Levemir 10 units twice daily. Continue sliding scale insulin twice daily. Hypertension, stable Patient on lisinopril 10 mg daily, Lopressor 50 mg twice daily Rash groin: Continue clotrimazole cream bid. DVT prophylaxis: Lovenox, patient refusing. Discharge Planning Patient will need to remain hospitalized until completion of antibiotics. Problem Qualifiers (1) Open wound of left foot: Qualified Code: S91.302S - Open wound of left foot, sequela (2) Diabetes mellitus: (3) Fever: Qualified Code: R50.81 - Fever in other diseases Anita Rodriguez Dec 10, 2016 10:12
[2016-12-10] MEDS: IBUPROFEN 400 MG TAB PO PRN ×2 (10:45→20:16)
[2016-12-10] MEDS: ENOXAPARIN SODIUM 40 MG/0.4 ML SYRINGE SQ SCH (16:24)
[2016-12-10 20:00] VITALS: BP 133/79; PULSE 68; RESP 18; TEMP 97.4; O2SAT 98
[2016-12-10] MEDS: diphenhydrAMINE HCL 25 MG CAP PO PRN (22:02)
[2016-12-11] MEDS: ceFAZolin 2 GM PREMIX 50 ML IV SCH ×3 (01:19→18:11)
[2016-12-11] MEDS: oxyCODONE/ACETAMINOPHEN 7.5 MG/325 MG TAB PO PRN ×4 (01:20→22:21)
[2016-12-11] MEDS: INSULIN ASPART SUPPLEMENTAL SCALE SQ SCH ×2 (05:58→16:00)
[2016-12-11] MEDS: IBUPROFEN 400 MG TAB PO PRN ×3 (05:58→22:20)
[2016-12-11 08:00] VITALS: BP 116/78; PULSE 61; RESP 20; TEMP 97.2; O2SAT 100
[2016-12-11] MEDS: SODIUM CHLORIDE 0.9% FLUSH 10 ML FLUSH IV FLUSH SCH ×2 (09:00→21:00)
[2016-12-11] MEDS: DOCUSATE SODIUM 100 MG CAP PO SCH ×2 (09:10→21:00)
[2016-12-11] MEDS: METOPROLOL TARTRATE 50 MG TAB PO SCH ×2 (09:10→20:59)
[2016-12-11] MEDS: SULFAMETHOXAZOLE-TRIMETHOPRIM DS 800-160 MG TAB PO SCH ×2 (09:10→20:59)
[2016-12-11] MEDS: LISINOPRIL 10 MG TAB PO SCH (09:11)
[2016-12-11] MEDS: INSULIN DETEMIR 100 UNITS/ML VIAL SQ SCH ×2 (09:11→21:00)
[2016-12-11] MEDS: GABAPENTIN 300 MG CAP PO SCH ×2 (09:12→21:00)
[2016-12-11] MEDS: CLOTRIMAZOLE 1% CREAM 15 GM TOPICAL SCH ×2 (09:12→21:00)
--- NOTE | 2016-12-11 11:53 | HHI.PR ---
Subjective Remarks Follow up for diabetes, osteomyelitis/amputation of left great toe. Patient requests that his IV antibiotic be changed to 6 AM, 2 PM, and 10 PM as he is currently receiving it at 2 AM, 10 AM, and 6 PM and does not like getting woken up in the middle of the night. He states Gabapentin is helping his pain. Objective Vitals Vital Signs Date Time Temp Pulse Resp B/P Pulse Ox O2 Delivery O2 Flow Rate FiO2 12/11/16 10:10 18 12/11/16 08:00 97.2 61 20 116/78 100 12/11/16 07:06 20 12/10/16 20:00 97.4 68 18 133/79 98 I/O 12/10/16 12/10/16 12/10/16 12/11/16 12/11/16 12/11/16 07:00 15:00 23:00 07:00 15:00 23:00 Intake Total 480 ml 1180 ml 480 ml Balance 480 ml 1180 ml 480 ml Intake Oral 480 ml 1080 ml 480 ml IV Total 100 ml # Voids 3 7 3 # Bowel Movements 0 0 0 Objective Remarks GENERAL: Well developed well nourished patient in no apparent distress. CARDIOVASCULAR: Regular rate and rhythm. RESPIRATORY: No accessory muscle use. Clear to auscultation. Breath sounds equal bilaterally. GASTROINTESTINAL: Abdomen soft, non-tender, non-distended. MUSCULOSKELETAL: No lower leg edema bilaterally. NEUROLOGICAL: Awake and alert. Normal speech. PSYCHIATRIC: Appropriate mood and affect; insight and judgment normal. Procedures s/p partial resection of left first metatarsal head and amputation of left hallux 11/13 Urinary Catheter: No Vascular Central Line Catheter: No A/P Problem List: (1) Open wound of left foot ICD Code: S91.302A Status: Resolved (2) Sepsis ICD Code: A41.9 Status: Acute (3) Lactic acidosis ICD Code: E87.2 Status: Acute (4) Hypomagnesemia ICD Code: E83.42 Status: Acute (5) Diabetes mellitus ICD Code: E11.9 Status: Chronic (6) Hypertension ICD Code: I10 Status: Chronic (7) Tobacco abuse ICD Code: Z72.0 Status: Chronic (8) Fever ICD Code: R50.9 Status: Resolved Assessment and Plan Left foot wound,osteomyelitis MRI of the foot does show osteomyelitis of the first metatarsal and great toe. Podiatry consulted and did perform 2 surgeries with partial resection the left first metatarsal head and amputation of the left hallux, followed by debridement and closure of diabetic foot ulceration from open left hallux amputation. Podiatry 12/04 indicates patient should remain nonweightbearing on the left lower extremity; will follow and change dressing in 1 week. Infectious disease was consulted and made recommendations for antibiotics. They do not feel confident that the patient will continue with appropriate outpatient management. Patient remain in hospital until antibiotics complete Cefazolin x 6 wks post op providing healing is progressing well (01/02/17) . Patient requests change in timing of antibiotics so he is not woken up in the night. This change has been made. There will only be a 4 hour delay in receiving his next scheduled dose tomorrow am, and this delay should not have significant impact on the patient's infection. Bactrim x 6 wks post op (01/02/17) Pain control, continue to decrease medications weekly Tylenol prn pain 1-2 Ibuprofen 400 mg q 8 hours changed to prn pain 3-5 Percocet 7.5 every 6 hours prn pain 6-10 (changed 12/06/16) Continue Gabapentin 300 mg po bid for neuropathic pain (started on 12/09). Sepsis secondary to foot wound, resolved Present on admission (temperature 103, white blood cell count 15.7, lactic acid 2.4, likely source left foot wound. Sepsis secondary to diabetic wound infection with staph aureus and Achromobacter Xyl/[place]. Diabetes mellitus Hemoglobin A1c 6.8 on 09/01/2016. Repeat hemoglobin A1c improved at 6.0 on . Continue Levemir 10 units twice daily. Continue sliding scale insulin twice daily. Hypertension, stable Patient on lisinopril 10 mg daily, Lopressor 50 mg twice daily Rash groin: Continue clotrimazole cream bid. DVT prophylaxis: Lovenox, patient refusing. Discharge Planning Patient will need to remain hospitalized until completion of antibiotics. Problem Qualifiers (1) Open wound of left foot: Qualified Code: S91.302S - Open wound of left foot, sequela (2) Diabetes mellitus: (3) Fever: Qualified Code: R50.81 - Fever in other diseases Anita Rodriguez Dec 11, 2016 11:53
[2016-12-11] MEDS: ENOXAPARIN SODIUM 40 MG/0.4 ML SYRINGE SQ SCH (16:51)
[2016-12-11 19:15] VITALS: BP 120/74; PULSE 73; RESP 20; TEMP 98.6; O2SAT 98
[2016-12-11] MEDS: diphenhydrAMINE HCL 25 MG CAP PO PRN (22:20)
[2016-12-12] MEDS: oxyCODONE/ACETAMINOPHEN 7.5 MG/325 MG TAB PO PRN ×3 (06:07→22:11)
[2016-12-12] MEDS: ceFAZolin 2 GM PREMIX 50 ML IV SCH ×3 (06:07→22:11)
[2016-12-12] MEDS: INSULIN ASPART SUPPLEMENTAL SCALE SQ SCH ×2 (07:00→17:04)
[2016-12-12 08:00] VITALS: BP 112/77; PULSE 87; RESP 20; TEMP 97.5; O2SAT 96
[2016-12-12] MEDS: SODIUM CHLORIDE 0.9% FLUSH 10 ML FLUSH IV FLUSH SCH ×2 (09:00→21:00)
[2016-12-12] MEDS: DOCUSATE SODIUM 100 MG CAP PO SCH ×2 (09:44→21:16)
[2016-12-12] MEDS: INSULIN DETEMIR 100 UNITS/ML VIAL SQ SCH ×2 (09:44→21:27)
[2016-12-12] MEDS: METOPROLOL TARTRATE 50 MG TAB PO SCH ×2 (09:44→21:16)
[2016-12-12] MEDS: GABAPENTIN 300 MG CAP PO SCH ×2 (09:44→21:16)
[2016-12-12] MEDS: SULFAMETHOXAZOLE-TRIMETHOPRIM DS 800-160 MG TAB PO SCH ×2 (09:44→21:24)
[2016-12-12] MEDS: CLOTRIMAZOLE 1% CREAM 15 GM TOPICAL SCH ×2 (09:45→21:00)
[2016-12-12] MEDS: IBUPROFEN 400 MG TAB PO PRN ×2 (09:45→21:24)
[2016-12-12] MEDS: LISINOPRIL 10 MG TAB PO SCH (09:45)
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
--- NOTE | 2016-12-12 11:59 | HHI.PR ---
Subjective Remarks Follow-up for diabetes and osteomyelitis/amputation left great toe and partial resection of left first metatarsal. Patient inquires about getting his liver labs checked. Objective Vitals Vital Signs Date Time Temp Pulse Resp B/P Pulse Ox O2 Delivery O2 Flow Rate FiO2 12/12/16 10:45 18 12/12/16 08:00 97.5 87 20 112/77 96 12/12/16 07:07 18 12/11/16 19:15 98.6 73 20 120/74 98 I/O 12/11/16 12/11/16 12/11/16 12/12/16 12/12/16 12/12/16 07:00 15:00 23:00 07:00 15:00 23:00 Intake Total 480 ml 1210 ml 180 ml Balance 480 ml 1210 ml 180 ml Intake Oral 480 ml 1100 ml 120 ml IV Total 110 ml 60 ml # Voids 3 8 2 # Bowel Movements 0 1 Objective Remarks GENERAL: Well developed well nourished patient in no apparent distress. CARDIOVASCULAR: Regular rate and rhythm. RESPIRATORY: No accessory muscle use. Clear to auscultation. Breath sounds equal bilaterally. GASTROINTESTINAL: Abdomen soft, non-tender, non-distended. Reducible abdominal hernia noted. NEUROLOGICAL: Awake and alert. Normal speech. PSYCHIATRIC: Appropriate mood and affect; insight and judgment normal. Procedures s/p partial resection of left first metatarsal head and amputation of left hallux 11/13 Urinary Catheter: No Vascular Central Line Catheter: No A/P Problem List: (1) Open wound of left foot ICD Code: S91.302A Status: Resolved (2) Sepsis ICD Code: A41.9 Status: Acute (3) Lactic acidosis ICD Code: E87.2 Status: Acute (4) Hypomagnesemia ICD Code: E83.42 Status: Acute (5) Diabetes mellitus ICD Code: E11.9 Status: Chronic (6) Hypertension ICD Code: I10 Status: Chronic (7) Tobacco abuse ICD Code: Z72.0 Status: Chronic (8) Fever ICD Code: R50.9 Status: Resolved Assessment and Plan Left foot wound,osteomyelitis MRI of the foot does show osteomyelitis of the first metatarsal and great toe. Podiatry consulted and did perform 2 surgeries with partial resection the left first metatarsal head and amputation of the left hallux, followed by debridement and closure of diabetic foot ulceration from open left hallux amputation. 4/23: Podiatry evaluated the patient today and changed the dressing to the left foot and removed sutures. Distal incision site was dressed with Maxorb extra AG. Dressings to be changed on Tuesday and . Continue to remain nonweightbearing. Podiatry to follow up and change patient's dressing in 1 week. Infectious disease was consulted and made recommendations for antibiotics. They do not feel confident that the patient will continue with appropriate outpatient management. Patient remain in hospital until antibiotics complete Cefazolin x 6 wks post op providing healing is progressing well (01/02/17). Bactrim x 6 wks post op (01/02/17) Monitor weekly labs, CBC and CMP. Labs ordered for tomorrow as it has been over 1 week. Pain control, continue to decrease medications weekly Tylenol prn pain 1-2 Ibuprofen 400 mg q 8 hours changed to prn pain 3-5 Percocet 7.5 every 6 hours prn pain 6-10 (changed 12/06/16) Continue Gabapentin 300 mg po bid for neuropathic pain (started on 12/09). Sepsis secondary to foot wound, resolved Present on admission (temperature 103, white blood cell count 15.7, lactic acid 2.4, likely source left foot wound. Sepsis secondary to diabetic wound infection with staph aureus and Achromobacter Xyl/[place]. Diabetes mellitus Hemoglobin A1c 6.8 on 09/01/2016. Repeat hemoglobin A1c improved at 6.0 on . Continue Levemir 10 units twice daily. Continue sliding scale insulin twice daily. Patient's BGL 152 this morning. VIDEO [employer]IC informs me patient refused sliding scale coverage. Hypertension, stable Patient on lisinopril 10 mg daily, Lopressor 50 mg twice daily Rash groin: Continue clotrimazole cream bid. DVT prophylaxis: Lovenox, patient refusing. Discharge Planning Patient will need to remain hospitalized until completion of antibiotics. Problem Qualifiers (1) Open wound of left foot: Qualified Code: S91.302S - Open wound of left foot, sequela (2) Diabetes mellitus: (3) Fever: Qualified Code: R50.81 - Fever in other diseases Anita Rodriguez Dec 12, 2016 11:59
[2016-12-12] MEDS: ENOXAPARIN SODIUM 40 MG/0.4 ML SYRINGE SQ SCH (17:00)
[2016-12-12 19:15] VITALS: BP 121/81; PULSE 62; RESP 18; TEMP 98; O2SAT 100
[2016-12-12] MEDS: diphenhydrAMINE HCL 25 MG CAP PO PRN (21:16)
[2016-12-13] MEDS: ceFAZolin 2 GM PREMIX 50 ML IV SCH ×3 (06:00→21:54)
[2016-12-13 06:04] LABS: CHLORIDE 106 MEQ/L (98-107); POTASSIUM 4.4 MEQ/L (3.5-5.1); SODIUM (NA) 140 MEQ/L (136-145)
[2016-12-13 06:10] LABS: ANION GAP 8 MEQ/L (5-15); BICARBONATE 26.4 MEQ/L (21.0-32.0); BLOOD UREA NITROGEN 16 MG/DL (7-18)
[2016-12-13 06:12] LABS: ALT (GPT) 41 U/L (12-78); AUTOMATED NEUTROPHIL # 3.2 TH/MM3 (1.8-7.7); BASOPHIL % 0.5 % (0.0-2.0); EOSINOPHIL # 0.2 TH/MM3 (0-0.4); HEMATOCRIT 35.6 % (39.0-51.0); HEMO FLAGS DIFF FINAL; LYMPH % 34.5 % (9.0-44.0); LYMPHOCYTE # 2.1 TH/MM3 (1.0-4.8); MEAN CELL VOLUME 89.8 FL (80.0-100.0); MEAN CORPUSCULAR HEMOGLOBIN 30.9 PG (27.0-34.0); MEAN CORPUSCULAR HGB CONC 34.4 % (32.0-36.0); MONO % 10.7 % (0.0-8.0); NEUT % 50.3 % (16.0-70.0); PLATELET COUNT 120 TH/MM3 (150-450); RED BLOOD COUNT 3.96 MIL/MM3 (4.50-5.90); RED CELL DISTRIBUTION WIDTH 13.7 % (11.6-17.2); WHITE BLOOD COUNT 6.2 TH/MM3 (4.0-11.0)
[2016-12-13 06:13] LABS: AST (GOT) 23 U/L (15-37); GLOMERULAR FILTRATION RATE 78 ML/MIN (>89)
[2016-12-13 06:14] LABS: TOTAL BILIRUBIN ADULT 0.3 MG/DL (0.2-1.0)
[2016-12-13 06:15] LABS: ALKALINE PHOSPHATASE 46 U/L (45-117)
[2016-12-13] MEDS: INSULIN ASPART SUPPLEMENTAL SCALE SQ SCH ×2 (06:31→16:34)
[2016-12-13] MEDS: IBUPROFEN 400 MG TAB PO PRN ×3 (06:31→22:02)
[2016-12-13] MEDS: oxyCODONE/ACETAMINOPHEN 7.5 MG/325 MG TAB PO PRN ×3 (07:00→13:08)
[2016-12-13 08:00] VITALS: BP 131/84; PULSE 51; RESP 20; TEMP 98.4; O2SAT 100
[2016-12-13] MEDS: INSULIN DETEMIR 100 UNITS/ML VIAL SQ SCH ×2 (09:41→21:53)
[2016-12-13] MEDS: DOCUSATE SODIUM 100 MG CAP PO SCH ×2 (09:41→21:53)
[2016-12-13] MEDS: LISINOPRIL 10 MG TAB PO SCH (09:42)
[2016-12-13] MEDS: GABAPENTIN 300 MG CAP PO SCH ×2 (09:42→21:53)
[2016-12-13] MEDS: SULFAMETHOXAZOLE-TRIMETHOPRIM DS 800-160 MG TAB PO SCH ×2 (09:42→21:53)
[2016-12-13] MEDS: METOPROLOL TARTRATE 50 MG TAB PO SCH ×2 (09:42→21:53)
[2016-12-13] MEDS: SODIUM CHLORIDE 0.9% FLUSH 10 ML FLUSH IV FLUSH SCH ×2 (09:43→21:55)
--- NOTE | 2016-12-13 10:37 | HHI.PR ---
Subjective Remarks Follow-up for diabetes and osteomyelitis/amputation left great toe and partial resection of left first metatarsal. No acute complaints. Objective Vitals Vital Signs Date Time Temp Pulse Resp B/P Pulse Ox O2 Delivery O2 Flow Rate FiO2 12/13/16 07:31 2 12/12/16 19:15 98.0 62 18 121/81 100 12/12/16 15:04 18 Result Diagram: 12/13/16 0520 12/13/16 0520 Objective Remarks GENERAL: Well developed well nourished patient in no apparent distress. CARDIOVASCULAR: Regular rate and rhythm. RESPIRATORY: No accessory muscle use. Clear to auscultation. Breath sounds equal bilaterally. GASTROINTESTINAL: Abdomen soft, non-tender, non-distended. NEUROLOGICAL: Awake and alert. Normal speech. PSYCHIATRIC: Appropriate mood and affect; insight and judgment normal. Procedures s/p partial resection of left first metatarsal head and amputation of left hallux 11/13 Urinary Catheter: No Vascular Central Line Catheter: No A/P Problem List: (1) Open wound of left foot ICD Code: S91.302A Status: Resolved (2) Sepsis ICD Code: A41.9 Status: Acute (3) Lactic acidosis ICD Code: E87.2 Status: Acute (4) Hypomagnesemia ICD Code: E83.42 Status: Acute (5) Diabetes mellitus ICD Code: E11.9 Status: Chronic (6) Hypertension ICD Code: I10 Status: Chronic (7) Tobacco abuse ICD Code: Z72.0 Status: Chronic (8) Fever ICD Code: R50.9 Status: Resolved Assessment and Plan Left foot wound,osteomyelitis MRI of the foot does show osteomyelitis of the first metatarsal and great toe. Podiatry consulted and did perform 2 surgeries with partial resection the left first metatarsal head and amputation of the left hallux, followed by debridement and closure of diabetic foot ulceration from open left hallux amputation. 12/12: Podiatry evaluated the patient today and changed the dressing to the left foot and removed sutures. Distal incision site was dressed with Maxorb extra AG. Dressings to be changed on Tuesday and . Continue to remain nonweightbearing. Podiatry to follow up and change patient's dressing in 1 week. Infectious disease was consulted and made recommendations for antibiotics. They do not feel confident that the patient will continue with appropriate outpatient management. Patient remain in hospital until antibiotics complete Cefazolin x 6 wks post op providing healing is progressing well (01/02/17). Bactrim x 6 wks post op (01/02/17) Monitor weekly labs, CBC and CMP due to antibiotic use. CBC today with normal white blood cell count. Aside from GFR of 78 which is stable, BMP is otherwise unremarkable. LFTs are normal. Pain control, continue to decrease medications weekly Tylenol prn pain 1-2 Ibuprofen 400 mg q 8 hours changed to prn pain 3-5 Percocet 7.5 every 6 hours prn pain 6-10; will change to Percocet 5 mg q6h prn (12/13). Continue Gabapentin 300 mg po bid for neuropathic pain (started on 12/09). Sepsis secondary to foot wound, resolved Present on admission (temperature 103, white blood cell count 15.7, lactic acid 2.4, likely source left foot wound. Sepsis secondary to diabetic wound infection with staph aureus and Achromobacter Xyl/[place]. Diabetes mellitus Hemoglobin A1c 6.8 on 09/01/2016. Repeat hemoglobin A1c improved at 6.0 on . Continue Levemir 10 units twice daily. Continue sliding scale insulin twice daily. Hypertension, stable Continue Lisinopril 10 mg daily and Lopressor 50 mg twice daily Rash groin: Continue clotrimazole cream bid, change to prn. DVT prophylaxis: Lovenox, patient refusing. Discharge Planning Patient will need to remain hospitalized until completion of antibiotics. Problem Qualifiers (1) Open wound of left foot: Qualified Code: S91.302S - Open wound of left foot, sequela (2) Diabetes mellitus: (3) Fever: Qualified Code: R50.81 - Fever in other diseases Anita Rodriguez Dec 13, 2016 10:37
[2016-12-13] MEDS: CLOTRIMAZOLE 1% CREAM 15 GM TOPICAL SCH (11:45)
[2016-12-13] MEDS: ENOXAPARIN SODIUM 40 MG/0.4 ML SYRINGE SQ SCH (17:00)
[2016-12-13] MEDS ORDERED: CLOTRIMAZOLE 1% CREAM 15 GM TOPICAL PRN (17:45)
[2016-12-13 20:00] VITALS: BP 108/74; PULSE 66; RESP 16; TEMP 99.4; O2SAT 99
[2016-12-13] MEDS: oxyCODONE/ACETAMINOPHEN 5 MG/325 MG TAB PO PRN (20:38)
[2016-12-13] MEDS: diphenhydrAMINE HCL 25 MG CAP PO PRN (21:53)
[2016-12-14] MEDS: ceFAZolin 2 GM PREMIX 50 ML IV SCH ×3 (05:18→22:41)
[2016-12-14] MEDS: SODIUM CHLORIDE 0.9% FLUSH 10 ML FLUSH IV FLUSH PRN (05:18)
[2016-12-14] MEDS: oxyCODONE/ACETAMINOPHEN 5 MG/325 MG TAB PO PRN ×3 (05:19→20:55)
[2016-12-14] MEDS: IBUPROFEN 400 MG TAB PO PRN ×2 (05:56→15:42)
[2016-12-14] MEDS: INSULIN ASPART SUPPLEMENTAL SCALE SQ SCH ×2 (06:01→15:43)
[2016-12-14 08:00] VITALS: BP 151/91; PULSE 76; RESP 19; TEMP 95.4; O2SAT 99
[2016-12-14] MEDS: SULFAMETHOXAZOLE-TRIMETHOPRIM DS 800-160 MG TAB PO SCH ×2 (08:03→20:44)
[2016-12-14] MEDS: INSULIN DETEMIR 100 UNITS/ML VIAL SQ SCH ×2 (08:03→20:45)
[2016-12-14] MEDS: GABAPENTIN 300 MG CAP PO SCH ×2 (08:03→20:44)
[2016-12-14] MEDS: DOCUSATE SODIUM 100 MG CAP PO SCH ×2 (08:03→20:44)
[2016-12-14] MEDS: METOPROLOL TARTRATE 50 MG TAB PO SCH ×2 (08:03→20:44)
[2016-12-14] MEDS: LISINOPRIL 10 MG TAB PO SCH (08:03)
[2016-12-14] MEDS: SODIUM CHLORIDE 0.9% FLUSH 10 ML FLUSH IV FLUSH SCH ×2 (08:05→20:57)
--- NOTE | 2016-12-14 12:50 | HHI.PR ---
Subjective Remarks Patient seen and examined today for follow-up on diabetic toe wound status post amputation. Patient doing rather well today. Patient is asking if we could stop trying to give him the Lovenox. I counseled patient extensively on the use of Lovenox for DVT prevention, especially since he is not supposed to ambulate on his foot, postop and increased risk of DVT Objective Vitals Vital Signs Date Time Temp Pulse Resp B/P Pulse Ox O2 Delivery O2 Flow Rate FiO2 12/14/16 08:00 95.4 76 19 151/91 99 12/13/16 21:53 5 12/13/16 20:00 99.4 66 16 108/74 99 12/13/16 14:07 20 12/13/16 14:07 20 I/O 12/13/16 12/13/16 12/13/16 12/14/16 12/14/16 12/14/16 07:00 15:00 23:00 07:00 15:00 23:00 Intake Total 720 ml 480 ml Balance 720 ml 480 ml Intake Oral 720 ml 480 ml # Voids 6 3 3 # Bowel Movements 2 0 0 Result Diagram: 12/13/16 0520 12/13/16 0520 Objective Remarks GENERAL: Well-developed, well-nourished, in no acute distress. alert and orientated HEENT: Head is normocephalic without any lesions or masses noted. Facial features are symmetric. Eyes: Extraocular muscles are intact. Conjunctivae were clear. NECK: Supple without any masses. Trachea midline no deviation. No JVD, CARDIAC: Regular rhythm, regular rate. S1/S2 are heard. No murmurs gallops or rubs. LUNGS: Clear to auscultation bilaterally. No wheeze, rhonchi or rales. No use of accessory muscles on inspiration or expiration. ABDOMEN: Soft, nontender. Nondistended. Bowel sounds heard in all 4 quadrants. No organomegaly or masses. Negative rebound, negative guarding EXTREMITIES: No edema, pulses are equal bilaterally. No cyanosis or clubbing NEUROLOGY: Mood and affect appear appropriate. Cranial nerves II through XII grossly intact. Moving all extremities, speech is clear Procedures s/p partial resection of left first metatarsal head and amputation of left hallux 11/13 Urinary Catheter: No Vascular Central Line Catheter: No A/P Assessment and Plan Left foot wound,osteomyelitis MRI of the foot does show osteomyelitis of the first metatarsal and great toe. Podiatry consulted and did perform 2 surgeries with partial resection the left first metatarsal head and amputation of the left hallux, followed by debridement and closure of diabetic foot ulceration from open left hallux amputation. Podiatry indicates patient should remain nonweightbearing on the left lower extremity Continue monitor weekly CBC, CMP, CRP, sedimentation rate Infectious disease was consulted and made recommendations for antibiotics. They do not feel confident that the patient will continue with appropriate outpatient management. Patient remain in hospital until antibiotics complete cefazolin x 6 wks post op providing healing is progressing well (01/02/17) bactrim x 6 wks post op (01/02/17) Pain control, continue to decrease medications weekly Ibuprofen 400 mg 3 times daily Percocet 5 every 6 hours when necessary pain 610 (changed 12/13/16) Sepsis secondary to foot wound, resolved Present on admission (temperature 103, white blood cell count 15.7, lactic acid 2.4, likely source left foot wound) Sepsis secondary to diabetic wound infection with staph aureus and Achromobacter Xyl/[place]. Diabetes mellitus Hemoglobin A1c 09/01/2016 6.8, waiting repeat hemoglobin A1c, they'll the start patient back on metformin and transition off of insulin continue Levemir 10 units twice daily Sliding scale insulin twice daily. Hypertension, stable Patient on lisinopril 10 mg daily, Lopressor 50 mg twice daily DVT prophylaxis: Lovenox, patient is refusing Discharge Planning Discharge planning after antibiotics completed, infectious disease believes patient will be noncompliant if he is discharged with outpatient therapy Lino Yadav Dec 14, 2016 12:50
[2016-12-14] MEDS: ENOXAPARIN SODIUM 40 MG/0.4 ML SYRINGE SQ SCH (15:41)
[2016-12-14 20:00] VITALS: BP 142/94; PULSE 68; RESP 18; TEMP 97.1; O2SAT 98
[2016-12-14] MEDS: diphenhydrAMINE HCL 25 MG CAP PO PRN (20:55)
[2016-12-15] MEDS: ceFAZolin 2 GM PREMIX 50 ML IV SCH ×3 (05:41→20:43)
[2016-12-15] MEDS: oxyCODONE/ACETAMINOPHEN 5 MG/325 MG TAB PO PRN ×3 (05:47→20:39)
[2016-12-15] MEDS: INSULIN ASPART SUPPLEMENTAL SCALE SQ SCH ×2 (06:19→14:29)
[2016-12-15 08:00] VITALS: BP 122/91; PULSE 75; RESP 18; TEMP 98; O2SAT 99
[2016-12-15] MEDS: METOPROLOL TARTRATE 50 MG TAB PO SCH ×2 (08:17→20:40)
[2016-12-15] MEDS: GABAPENTIN 300 MG CAP PO SCH ×2 (08:17→20:40)
[2016-12-15] MEDS: SULFAMETHOXAZOLE-TRIMETHOPRIM DS 800-160 MG TAB PO SCH ×2 (08:17→20:40)
[2016-12-15] MEDS: LISINOPRIL 10 MG TAB PO SCH (08:17)
[2016-12-15] MEDS: INSULIN DETEMIR 100 UNITS/ML VIAL SQ SCH ×2 (08:17→20:42)
[2016-12-15] MEDS: DOCUSATE SODIUM 100 MG CAP PO SCH ×2 (08:17→20:40)
[2016-12-15] MEDS: SODIUM CHLORIDE 0.9% FLUSH 10 ML FLUSH IV FLUSH SCH ×2 (08:18→20:44)
[2016-12-15] MEDS: IBUPROFEN 400 MG TAB PO PRN ×2 (08:22→16:00)
--- NOTE | 2016-12-15 09:59 | HHI.PR ---
Subjective Remarks Patient seen and examined today for follow-up on diabetic toe wound status post amputation. Patient states that his back is hurting him this morning. He is lying on the couch. Objective Vitals Vital Signs Date Time Temp Pulse Resp B/P Pulse Ox O2 Delivery O2 Flow Rate FiO2 12/15/16 09:22 14 12/15/16 08:00 98.0 75 18 122/91 99 12/15/16 06:47 16 12/14/16 20:00 97.1 68 18 142/94 98 I/O 12/14/16 12/14/16 12/14/16 12/15/16 12/15/16 12/15/16 07:00 15:00 23:00 07:00 15:00 23:00 Intake Total 480 ml 720 ml 560 ml 560 ml 100 ml Balance 480 ml 720 ml 560 ml 560 ml 100 ml Intake Oral 480 ml 720 ml 480 ml 480 ml 100 ml IV Total 80 ml 80 ml # Voids 3 3 2 2 # Bowel Movements 0 1 0 0 Result Diagram: 12/13/1651912/13/16519 Objective Remarks GENERAL: Well-developed, well-nourished, in no acute distress. alert and orientated HEENT: Head is normocephalic without any lesions or masses noted. Facial features are symmetric. Eyes: Extraocular muscles are intact. Conjunctivae were clear. NECK: Supple without any masses. Trachea midline no deviation. No JVD, CARDIAC: Regular rhythm, regular rate. S1/S2 are heard. No murmurs gallops or rubs. LUNGS: Clear to auscultation bilaterally. No wheeze, rhonchi or rales. No use of accessory muscles on inspiration or expiration. ABDOMEN: Soft, nontender. Nondistended. Bowel sounds heard in all 4 quadrants. No organomegaly or masses. Negative rebound, negative guarding EXTREMITIES: No edema, pulses are equal bilaterally. No cyanosis or clubbing NEUROLOGY: Mood and affect appear appropriate. Cranial nerves II through XII grossly intact. Moving all extremities, speech is clear LEFT FOOT: Bandage noted Procedures s/p partial resection of left first metatarsal head and amputation of left hallux 11/13 Urinary Catheter: No Vascular Central Line Catheter: No A/P Assessment and Plan Left foot wound,osteomyelitis MRI of the foot does show osteomyelitis of the first metatarsal and great toe. Podiatry consulted and did perform 2 surgeries with partial resection the left first metatarsal head and amputation of the left hallux, followed by debridement and closure of diabetic foot ulceration from open left hallux amputation. Podiatry indicates patient should remain nonweightbearing on the left lower extremity Continue monitor weekly CBC, CMP, CRP, sedimentation rate Infectious disease was consulted and made recommendations for antibiotics. They do not feel confident that the patient will continue with appropriate outpatient management. Patient remain in hospital until antibiotics complete cefazolin x 6 wks post op providing healing is progressing well (01/02/17) bactrim x 6 wks post op (01/02/17) Pain control, continue to decrease medications weekly Ibuprofen 400 mg 3 times daily Percocet 5 every 6 hours when necessary pain 610 (changed 12/13/16) Sepsis secondary to foot wound, resolved Present on admission (temperature 103, white blood cell count 15.7, lactic acid 2.4, likely source left foot wound) Sepsis secondary to diabetic wound infection with staph aureus and Achromobacter Xyl/[place]. Diabetes mellitus Hemoglobin A1c 09/01/2016 6.8, waiting repeat hemoglobin A1c, they'll the start patient back on metformin and transition off of insulin continue Levemir 10 units twice daily Sliding scale insulin twice daily. Hypertension, stable Patient on lisinopril 10 mg daily, Lopressor 50 mg twice daily DVT prophylaxis: Lovenox, patient is refusing Discharge Planning Discharge planning after antibiotics completed, infectious disease believes patient will be noncompliant if he is discharged with outpatient therapy Lino Yadav Dec 15, 2016 09:59
[2016-12-15] MEDS: ENOXAPARIN SODIUM 40 MG/0.4 ML SYRINGE SQ SCH (14:20)
[2016-12-15 20:00] VITALS: BP 138/87; PULSE 72; RESP 20; TEMP 97; O2SAT 99
[2016-12-15] MEDS: diphenhydrAMINE HCL 25 MG CAP PO PRN (20:40)
[2016-12-16] MEDS: oxyCODONE/ACETAMINOPHEN 5 MG/325 MG TAB PO PRN ×4 (02:30→21:40)
[2016-12-16] MEDS: IBUPROFEN 400 MG TAB PO PRN ×2 (02:30→20:12)
[2016-12-16] MEDS: INSULIN ASPART SUPPLEMENTAL SCALE SQ SCH ×2 (05:06→16:06)
[2016-12-16] MEDS: ceFAZolin 2 GM PREMIX 50 ML IV SCH ×3 (05:41→22:00)
[2016-12-16] MEDS: SULFAMETHOXAZOLE-TRIMETHOPRIM DS 800-160 MG TAB PO SCH ×2 (08:22→21:41)
[2016-12-16] MEDS: INSULIN DETEMIR 100 UNITS/ML VIAL SQ SCH ×2 (08:22→21:41)
[2016-12-16] MEDS: DOCUSATE SODIUM 100 MG CAP PO SCH ×2 (08:22→21:41)
[2016-12-16] MEDS: GABAPENTIN 300 MG CAP PO SCH ×2 (08:22→21:41)
[2016-12-16] MEDS: METOPROLOL TARTRATE 50 MG TAB PO SCH (08:23)
[2016-12-16] MEDS: LISINOPRIL 10 MG TAB PO SCH (08:23)
[2016-12-16] MEDS: SODIUM CHLORIDE 0.9% FLUSH 10 ML FLUSH IV FLUSH SCH ×2 (08:23→21:00)
[2016-12-16 09:42] VITALS: BP 97/67; PULSE 71; RESP 16; TEMP 97; O2SAT 100
--- NOTE | 2016-12-16 11:12 | HHI.PR ---
Subjective Remarks Patient seen and examined today for diabetic toe wound status post amputation. Patient states that he still having back pain from laying in bed. Denies any other complaints. No change clinical status. Objective Vitals Vital Signs Date Time Temp Pulse Resp B/P Pulse Ox O2 Delivery O2 Flow Rate FiO2 12/16/16 09:42 97.0 71 16 97/67 100 12/16/16 03:30 18 12/16/16 03:30 18 12/15/16 20:00 97.0 72 20 138/87 99 I/O 12/15/16 12/15/16 12/15/16 12/16/16 12/16/16 12/16/16 07:00 15:00 23:00 07:00 15:00 23:00 Intake Total 560 ml 580 ml 360 ml 1080 ml Balance 560 ml 580 ml 360 ml 1080 ml Intake Oral 480 ml 580 ml 360 ml 960 ml IV Total 80 ml 120 ml # Voids 2 3 3 5 # Bowel Movements 0 1 0 2 Result Diagram: 12/13/1620 12/13/16 0520 Objective Remarks GENERAL: Well-developed, well-nourished, in no acute distress. alert and orientated HEENT: Head is normocephalic without any lesions or masses noted. Facial features are symmetric. Eyes: Extraocular muscles are intact. Conjunctivae were clear. NECK: Supple without any masses. Trachea midline no deviation. No JVD, CARDIAC: Regular rhythm, regular rate. S1/S2 are heard. No murmurs gallops or rubs. LUNGS: Clear to auscultation bilaterally. No wheeze, rhonchi or rales. No use of accessory muscles on inspiration or expiration. ABDOMEN: Soft, nontender. Nondistended. Bowel sounds heard in all 4 quadrants. No organomegaly or masses. Negative rebound, negative guarding EXTREMITIES: No edema, pulses are equal bilaterally. No cyanosis or clubbing NEUROLOGY: Mood and affect appear appropriate. Cranial nerves II through XII grossly intact. Moving all extremities, speech is clear LEFT FOOT: Bandage noted Procedures s/p partial resection of left first metatarsal head and amputation of left hallux 11/13 Urinary Catheter: No Vascular Central Line Catheter: No A/P Assessment and Plan Left foot wound,osteomyelitis MRI of the foot does show osteomyelitis of the first metatarsal and great toe. Podiatry consulted and did perform 2 surgeries with partial resection the left first metatarsal head and amputation of the left hallux, followed by debridement and closure of diabetic foot ulceration from open left hallux amputation. Podiatry indicates patient should remain nonweightbearing on the left lower extremity Continue monitor weekly CBC, CMP, CRP, sedimentation rate Infectious disease was consulted and made recommendations for antibiotics. They do not feel confident that the patient will continue with appropriate outpatient management. Patient remain in hospital until antibiotics complete cefazolin x 6 wks post op providing healing is progressing well (01/02/17) bactrim x 6 wks post op (01/02/17) Pain control, continue to decrease medications weekly Ibuprofen 400 mg 3 times daily Percocet 5 every 6 hours when necessary pain 610 (changed 12/13/16) Sepsis secondary to foot wound, resolved Present on admission (temperature 103, white blood cell count 15.7, lactic acid 2.4, likely source left foot wound) Sepsis secondary to diabetic wound infection with staph aureus and Achromobacter Xyl/[place]. Diabetes mellitus Hemoglobin A1c 09/01/2016 6.8, waiting repeat hemoglobin A1c, they'll the start patient back on metformin and transition off of insulin continue Levemir 10 units twice daily Sliding scale insulin twice daily. Hypertension, stable Patient on lisinopril 10 mg daily, Decreased to Lopressor 25 mg twice daily DVT prophylaxis: Lovenox, patient is refusing Discharge Planning Discharge planning after antibiotics completed, infectious disease believes patient will be noncompliant if he is discharged with outpatient therapy Lino Yadav Dec 16, 2016 11:12
[2016-12-16] MEDS: ENOXAPARIN SODIUM 40 MG/0.4 ML SYRINGE SQ SCH (15:16)
[2016-12-16 20:00] VITALS: BP 133/83; PULSE 89; RESP 20; TEMP 99; O2SAT 98
[2016-12-16] MEDS: diphenhydrAMINE HCL 25 MG CAP PO PRN (21:40)
[2016-12-16] MEDS: METOPROLOL TARTRATE 25 MG TAB PO SCH (21:41)
[2016-12-17] MEDS: oxyCODONE/ACETAMINOPHEN 5 MG/325 MG TAB PO PRN ×2 (05:13→14:16)
[2016-12-17] MEDS: ceFAZolin 2 GM PREMIX 50 ML IV SCH ×3 (05:14→21:10)
[2016-12-17] MEDS: INSULIN ASPART SUPPLEMENTAL SCALE SQ SCH ×2 (05:22→16:00)
[2016-12-17 08:00] VITALS: BP 118/85; PULSE 62; RESP 20; TEMP 96.4; O2SAT 98
[2016-12-17] MEDS: SODIUM CHLORIDE 0.9% FLUSH 10 ML FLUSH IV FLUSH SCH ×2 (09:00→21:00)
[2016-12-17] MEDS: DOCUSATE SODIUM 100 MG CAP PO SCH ×2 (09:59→21:10)
[2016-12-17] MEDS: SULFAMETHOXAZOLE-TRIMETHOPRIM DS 800-160 MG TAB PO SCH ×2 (09:59→21:10)
[2016-12-17] MEDS: GABAPENTIN 300 MG CAP PO SCH ×2 (09:59→21:11)
[2016-12-17] MEDS: METOPROLOL TARTRATE 25 MG TAB PO SCH ×2 (09:59→21:11)
[2016-12-17] MEDS: LISINOPRIL 10 MG TAB PO SCH (09:59)
[2016-12-17] MEDS: INSULIN DETEMIR 100 UNITS/ML VIAL SQ SCH ×2 (09:59→21:13)
--- NOTE | 2016-12-17 10:37 | HHI.PR ---
Subjective Remarks Patient seen and examined today in follow-up on diabetic toe wound status post dictation. Patient denies any new complaints. States that he is had the same old problems that he always does. No change in clinical status. Objective Vitals Vital Signs Date Time Temp Pulse Resp B/P Pulse Ox O2 Delivery O2 Flow Rate FiO2 12/17/16 08:00 96.4 62 20 118/85 98 12/17/16 06:13 18 12/16/16 21:12 18 12/16/16 20:00 99.0 89 20 133/83 98 I/O 12/16/16 12/16/16 12/16/16 12/17/16 12/17/16 12/17/16 07:00 15:00 23:00 07:00 15:00 23:00 Intake Total 1080 ml 100 ml 240 ml 240 ml Balance 1080 ml 100 ml 240 ml 240 ml Intake Oral 960 ml 100 ml 240 ml 240 ml IV Total 120 ml # Voids 5 2 1 # Bowel Movements 2 0 1 Result Diagram: 12/13/1651912/13/16 05 Objective Remarks GENERAL: Well-developed, well-nourished, in no acute distress. alert and orientated HEENT: Head is normocephalic without any lesions or masses noted. Facial features are symmetric. Eyes: Extraocular muscles are intact. Conjunctivae were clear. NECK: Supple without any masses. Trachea midline no deviation. No JVD, CARDIAC: Regular rhythm, regular rate. S1/S2 are heard. No murmurs gallops or rubs. LUNGS: Clear to auscultation bilaterally. No wheeze, rhonchi or rales. No use of accessory muscles on inspiration or expiration. ABDOMEN: Soft, nontender. Nondistended. Bowel sounds heard in all 4 quadrants. No organomegaly or masses. Negative rebound, negative guarding EXTREMITIES: No edema, pulses are equal bilaterally. No cyanosis or clubbing NEUROLOGY: Mood and affect appear appropriate. Cranial nerves II through XII grossly intact. Moving all extremities, speech is clear LEFT FOOT: Bandage noted Procedures s/p partial resection of left first metatarsal head and amputation of left hallux 11/13 Urinary Catheter: No Vascular Central Line Catheter: No A/P Assessment and Plan Left foot wound,osteomyelitis MRI of the foot does show osteomyelitis of the first metatarsal and great toe. Podiatry consulted and did perform 2 surgeries with partial resection the left first metatarsal head and amputation of the left hallux, followed by debridement and closure of diabetic foot ulceration from open left hallux amputation. Podiatry indicates patient should remain nonweightbearing on the left lower extremity Continue monitor weekly CBC, CMP, CRP, sedimentation rate Infectious disease was consulted and made recommendations for antibiotics. They do not feel confident that the patient will continue with appropriate outpatient management. Patient remain in hospital until antibiotics complete cefazolin x 6 wks post op providing healing is progressing well (01/02/17) bactrim x 6 wks post op (01/02/17) Pain control, continue to decrease medications weekly Ibuprofen 400 mg 3 times daily Percocet 5 every 6 hours when necessary pain 610 (changed 12/13/16) Sepsis secondary to foot wound, resolved Present on admission (temperature 103, white blood cell count 15.7, lactic acid 2.4, likely source left foot wound) Sepsis secondary to diabetic wound infection with staph aureus and Achromobacter Xyl/[place]. Diabetes mellitus Hemoglobin A1c 09/01/2016 6.8, hemoglobin A1c 6.0 Decreased to Levemir 5 units twice daily Start metformin 850 mg twice daily Sliding scale insulin twice daily. Hypertension, stable Patient on lisinopril 10 mg daily, Decreased to Lopressor 25 mg twice daily DVT prophylaxis: Lovenox, patient is refusing Discharge Planning Discharge planning after antibiotics completed, infectious disease believes patient will be noncompliant if he is discharged with outpatient therapy Lino Yadav Dec 17, 2016 10:37
[2016-12-17] MEDS: IBUPROFEN 400 MG TAB PO PRN (14:16)
[2016-12-17] MEDS: ENOXAPARIN SODIUM 40 MG/0.4 ML SYRINGE SQ SCH (17:00)
[2016-12-17] MEDS: metFORMIN HCL 850 MG TAB PO SCH (18:06)
[2016-12-17 20:00] VITALS: BP 126/88; PULSE 74; RESP 20; TEMP 97.2; O2SAT 98
[2016-12-17] MEDS: oxyCODONE/ACETAMINOPHEN 10 MG/325 MG TAB PO PRN (21:11)
[2016-12-17] MEDS: diphenhydrAMINE HCL 25 MG CAP PO PRN (22:09)
[2016-12-18] MEDS: IBUPROFEN 400 MG TAB PO PRN ×3 (00:59→18:12)
[2016-12-18] MEDS: oxyCODONE/ACETAMINOPHEN 10 MG/325 MG TAB PO PRN ×4 (02:48→22:16)
[2016-12-18] MEDS: ceFAZolin 2 GM PREMIX 50 ML IV SCH ×3 (06:01→22:15)
[2016-12-18] MEDS: INSULIN ASPART SUPPLEMENTAL SCALE SQ SCH ×2 (06:19→16:00)
[2016-12-18 08:00] VITALS: BP 107/84; PULSE 79; RESP 18; TEMP 95.6; O2SAT 98
[2016-12-18] MEDS: INSULIN DETEMIR 100 UNITS/ML VIAL SQ SCH ×2 (08:50→22:15)
[2016-12-18] MEDS: DOCUSATE SODIUM 100 MG CAP PO SCH ×2 (08:52→22:14)
[2016-12-18] MEDS: SULFAMETHOXAZOLE-TRIMETHOPRIM DS 800-160 MG TAB PO SCH ×2 (08:52→22:23)
[2016-12-18] MEDS: GABAPENTIN 300 MG CAP PO SCH ×2 (08:52→22:14)
[2016-12-18] MEDS: metFORMIN HCL 850 MG TAB PO SCH (08:52)
[2016-12-18] MEDS: METOPROLOL TARTRATE 25 MG TAB PO SCH ×2 (08:52→22:14)
[2016-12-18] MEDS: LISINOPRIL 10 MG TAB PO SCH (08:53)
[2016-12-18] MEDS: SODIUM CHLORIDE 0.9% FLUSH 10 ML FLUSH IV FLUSH SCH ×2 (08:53→21:00)
--- NOTE | 2016-12-18 12:42 | HHI.PR ---
Subjective Remarks Patient seen and examined today in follow-up for diabetic toe wound status post amputation. Patient states that he was having episodes general myalgia and chills. He remains afebrile. Objective Vitals Vital Signs Date Time Temp Pulse Resp B/P Pulse Ox O2 Delivery O2 Flow Rate FiO2 12/18/16 08:00 95.6 79 18 107/84 98 12/17/16 20:00 97.2 74 20 126/88 98 I/O 12/17/16 12/17/16 12/17/16 12/18/16 12/18/16 12/18/16 07:00 15:00 23:00 07:00 15:00 23:00 Intake Total 240 ml 1050 ml 480 ml 240 ml Balance 240 ml 1050 ml 480 ml 240 ml Intake Oral 240 ml 1050 ml 480 ml 240 ml # Voids 1 3 2 2 # Bowel Movements 1 1 Objective Remarks GENERAL: Well-developed, well-nourished, in no acute distress. alert and orientated HEENT: Head is normocephalic without any lesions or masses noted. Facial features are symmetric. Eyes: Extraocular muscles are intact. Conjunctivae were clear. NECK: Supple without any masses. Trachea midline no deviation. No JVD, CARDIAC: Regular rhythm, regular rate. S1/S2 are heard. No murmurs gallops or rubs. LUNGS: Clear to auscultation bilaterally. No wheeze, rhonchi or rales. No use of accessory muscles on inspiration or expiration. ABDOMEN: Soft, nontender. Nondistended. Bowel sounds heard in all 4 quadrants. No organomegaly or masses. Negative rebound, negative guarding EXTREMITIES: No edema, pulses are equal bilaterally. No cyanosis or clubbing NEUROLOGY: Mood and affect appear appropriate. Cranial nerves II through XII grossly intact. Moving all extremities, speech is clear LEFT FOOT: Bandage noted Procedures s/p partial resection of left first metatarsal head and amputation of left hallux 11/13 Urinary Catheter: No Vascular Central Line Catheter: No A/P Assessment and Plan Left foot wound,osteomyelitis MRI of the foot does show osteomyelitis of the first metatarsal and great toe. Podiatry consulted and did perform 2 surgeries with partial resection the left first metatarsal head and amputation of the left hallux, followed by debridement and closure of diabetic foot ulceration from open left hallux amputation. Podiatry indicates patient should remain nonweightbearing on the left lower extremity Continue monitor weekly CBC, CMP, CRP, sedimentation rate Infectious disease was consulted and made recommendations for antibiotics. They do not feel confident that the patient will continue with appropriate outpatient management. Patient remain in hospital until antibiotics complete cefazolin x 6 wks post op providing healing is progressing well (01/02/17) bactrim x 6 wks post op (01/02/17) Pain control, continue to decrease medications weekly Ibuprofen 400 mg 3 times daily Percocet 5 every 6 hours when necessary pain 610 (changed 12/13/16) Sepsis secondary to foot wound, resolved Present on admission (temperature 103, white blood cell count 15.7, lactic acid 2.4, likely source left foot wound) Sepsis secondary to diabetic wound infection with staph aureus and Achromobacter Xyl/[place]. Diabetes mellitus Hemoglobin A1c 09/01/2016 6.8, hemoglobin A1c 6.0 Decreased to Levemir 2.5 units twice daily Increase metformin 1000 mg twice daily Sliding scale insulin twice daily. Hypertension, stable Patient on lisinopril 10 mg daily, Decreased to Lopressor 25 mg twice daily DVT prophylaxis: Lovenox, patient is refusing Discharge Planning Discharge planning after antibiotics completed, infectious disease believes patient will be noncompliant if he is discharged with outpatient therapy Lino Yadav Dec 18, 2016 12:42
[2016-12-18] MEDS: ENOXAPARIN SODIUM 40 MG/0.4 ML SYRINGE SQ SCH (17:00)
[2016-12-18] MEDS: metFORMIN HCL 500 MG TAB PO SCH (17:51)
[2016-12-18 20:00] VITALS: BP 122/73; PULSE 73; RESP 20; TEMP 97.4; O2SAT 95
[2016-12-18] MEDS: diphenhydrAMINE HCL 25 MG CAP PO PRN (22:23)
[2016-12-19] MEDS: ceFAZolin 2 GM PREMIX 50 ML IV SCH ×3 (05:50→22:29)
[2016-12-19] MEDS: oxyCODONE/ACETAMINOPHEN 10 MG/325 MG TAB PO PRN (05:50)
[2016-12-19] MEDS: INSULIN ASPART SUPPLEMENTAL SCALE SQ SCH ×2 (05:55→17:33)
[2016-12-19] MEDS: IBUPROFEN 400 MG TAB PO PRN ×2 (07:04→22:26)
[2016-12-19 08:00] VITALS: BP 118/76; PULSE 74; RESP 20; TEMP 98.7; O2SAT 98
[2016-12-19] MEDS: metFORMIN HCL 500 MG TAB PO SCH ×2 (08:47→17:27)
[2016-12-19] MEDS: METOPROLOL TARTRATE 25 MG TAB PO SCH ×2 (08:47→22:33)
[2016-12-19] MEDS: LISINOPRIL 10 MG TAB PO SCH (08:47)
[2016-12-19] MEDS: GABAPENTIN 300 MG CAP PO SCH ×3 (08:47→17:26)
[2016-12-19] MEDS: DOCUSATE SODIUM 100 MG CAP PO SCH ×2 (08:47→22:28)
[2016-12-19] MEDS: INSULIN DETEMIR 100 UNITS/ML VIAL SQ SCH ×2 (08:50→22:28)
[2016-12-19] MEDS: SODIUM CHLORIDE 0.9% FLUSH 10 ML FLUSH IV FLUSH SCH ×2 (08:52→21:00)
[2016-12-19] MEDS: SULFAMETHOXAZOLE-TRIMETHOPRIM DS 800-160 MG TAB PO SCH ×2 (10:19→22:27)
--- NOTE | 2016-12-19 11:21 | HHI.PR ---
Subjective Remarks Patient seen and examined today in follow-up on diabetic toe wound status post amputation. Patient had multiple questions today concerning how he takes his medications, back pain when he is sleeping requesting muscle relaxer. Counseled on diabetes management. Objective Vitals Vital Signs Date Time Temp Pulse Resp B/P Pulse Ox O2 Delivery O2 Flow Rate FiO2 12/19/16 08:00 98.7 74 20 118/76 98 12/18/16 20:00 97.4 73 20 122/73 95 I/O 12/18/16 12/18/16 12/18/16 12/19/16 12/19/16 12/19/16 07:00 15:00 23:00 07:00 15:00 23:00 Intake Total 240 ml 830 ml 240 ml Balance 240 ml 830 ml 240 ml Intake Oral 240 ml 680 ml 240 ml IV Total 150 ml # Voids 2 3 4 2 # Bowel Movements 1 1 1 0 Objective Remarks GENERAL: Well-developed, well-nourished, in no acute distress. alert and orientated HEENT: Head is normocephalic without any lesions or masses noted. Facial features are symmetric. Eyes: Extraocular muscles are intact. Conjunctivae were clear. NECK: Supple without any masses. Trachea midline no deviation. No JVD, CARDIAC: Regular rhythm, regular rate. S1/S2 are heard. No murmurs gallops or rubs. LUNGS: Clear to auscultation bilaterally. No wheeze, rhonchi or rales. No use of accessory muscles on inspiration or expiration. ABDOMEN: Soft, nontender. Nondistended. Bowel sounds heard in all 4 quadrants. No organomegaly or masses. Negative rebound, negative guarding EXTREMITIES: No edema, pulses are equal bilaterally. No cyanosis or clubbing NEUROLOGY: Mood and affect appear appropriate. Cranial nerves II through XII grossly intact. Moving all extremities, speech is clear LEFT FOOT: Bandage noted Procedures s/p partial resection of left first metatarsal head and amputation of left hallux 11/13 Urinary Catheter: No Vascular Central Line Catheter: No A/P Assessment and Plan Left foot wound,osteomyelitis MRI of the foot does show osteomyelitis of the first metatarsal and great toe. Podiatry consulted and did perform 2 surgeries with partial resection the left first metatarsal head and amputation of the left hallux, followed by debridement and closure of diabetic foot ulceration from open left hallux amputation. Podiatry indicates patient should remain nonweightbearing on the left lower extremity Continue monitor weekly CBC, CMP, CRP, sedimentation rate Infectious disease was consulted and made recommendations for antibiotics. They do not feel confident that the patient will continue with appropriate outpatient management. Patient remain in hospital until antibiotics complete cefazolin x 6 wks post op providing healing is progressing well (01/02/17) bactrim x 6 wks post op (01/02/17) Pain control, continue to decrease medications weekly Ibuprofen 400 mg 3 times daily Percocet 5 every 6 hours when necessary pain 610 (changed 12/13/16) Increase the Neurontin 300 mg 3 times daily Start Flexeril 5 mg every 12 hours as needed back pain and muscle relaxation Sepsis secondary to foot wound, resolved Present on admission (temperature 103, white blood cell count 15.7, lactic acid 2.4, likely source left foot wound) Sepsis secondary to diabetic wound infection with staph aureus and Achromobacter Xyl/Gaston. Diabetes mellitus Hemoglobin A1c 09/01/2016 6.8, hemoglobin A1c 6.0 Decreased to Levemir 2.5 units twice daily Continue metformin 1000 mg twice daily Sliding scale insulin twice daily. Hypertension, stable Patient on lisinopril 10 mg daily, Lopressor 25 mg twice daily DVT prophylaxis: Lovenox, patient is refusing Discharge Planning Discharge planning after antibiotics completed, infectious disease believes patient will be noncompliant if he is discharged with outpatient therapy Lino Yadav Dec 19, 2016 11:21
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
[2016-12-19] MEDS: ENOXAPARIN SODIUM 40 MG/0.4 ML SYRINGE SQ SCH (17:00)
[2016-12-19] MEDS: oxyCODONE/ACETAMINOPHEN 5 MG/325 MG TAB PO PRN ×2 (17:32→23:44)
[2016-12-19 20:00] VITALS: BP 118/80; PULSE 87; RESP 18; TEMP 96.8; O2SAT 96
[2016-12-19] MEDS: CYCLOBENZAPRINE HCL 10 MG TAB PO PRN (22:27)
[2016-12-19] MEDS: diphenhydrAMINE HCL 25 MG CAP PO PRN (23:43)
[2016-12-20] MEDS: oxyCODONE/ACETAMINOPHEN 5 MG/325 MG TAB PO PRN ×2 (05:29→12:33)
[2016-12-20 05:30] LABS: BASOPHIL # 0.1 TH/MM3 (0-0.2); BASOPHIL % 0.7 % (0.0-2.0); EOSINOPHIL # 0.2 TH/MM3 (0-0.4); EOSINOPHIL % 2.5 % (0.0-4.0); HEMATOCRIT 36.9 % (39.0-51.0); HEMO FLAGS DIFF FINAL; LYMPH % 28.4 % (9.0-44.0); LYMPHOCYTE # 2.4 TH/MM3 (1.0-4.8); MEAN CELL VOLUME 89.5 FL (80.0-100.0); MEAN CORPUSCULAR HEMOGLOBIN 30.7 PG (27.0-34.0); MEAN CORPUSCULAR HGB CONC 34.3 % (32.0-36.0); MONO % 9.3 % (0.0-8.0); NEUT % 59.1 % (16.0-70.0); PLATELET COUNT 148 TH/MM3 (150-450); RED BLOOD COUNT 4.12 MIL/MM3 (4.50-5.90); RED CELL DISTRIBUTION WIDTH 13.3 % (11.6-17.2); WHITE BLOOD COUNT 8.5 TH/MM3 (4.0-11.0)
[2016-12-20] MEDS: ceFAZolin 2 GM PREMIX 50 ML IV SCH ×3 (05:30→22:14)
[2016-12-20 05:34] LABS: CHLORIDE 102 MEQ/L (98-107); POTASSIUM 3.9 MEQ/L (3.5-5.1); SODIUM (NA) 138 MEQ/L (136-145)
[2016-12-20 05:39] LABS: ANION GAP 10 MEQ/L (5-15); BLOOD UREA NITROGEN 14 MG/DL (7-18)
[2016-12-20 05:42] LABS: ALT (GPT) 22 U/L (12-78); AST (GOT) 16 U/L (15-37); GLOMERULAR FILTRATION RATE 78 ML/MIN (>89)
[2016-12-20 05:43] LABS: TOTAL BILIRUBIN ADULT 0.4 MG/DL (0.2-1.0)
[2016-12-20 05:45] LABS: ALKALINE PHOSPHATASE 43 U/L (45-117)
[2016-12-20 06:39] LABS: WESTERGREN SEDIMENTATION RATE 29 mm/hr (0-20)
[2016-12-20] MEDS: INSULIN ASPART SUPPLEMENTAL SCALE SQ SCH ×2 (07:00→16:00)
[2016-12-20] MEDS: CYCLOBENZAPRINE HCL 10 MG TAB PO PRN ×2 (07:01→20:46)
[2016-12-20] MEDS: IBUPROFEN 400 MG TAB PO PRN (07:30)
[2016-12-20] MEDS: SODIUM CHLORIDE 0.9% FLUSH 10 ML FLUSH IV FLUSH SCH ×2 (09:00→21:00)
[2016-12-20 09:20] VITALS: BP 123/87; PULSE 73; RESP 19; TEMP 98.3; O2SAT 99
[2016-12-20] MEDS: DOCUSATE SODIUM 100 MG CAP PO SCH ×2 (10:37→20:45)
[2016-12-20] MEDS: LISINOPRIL 10 MG TAB PO SCH (10:37)
[2016-12-20] MEDS: metFORMIN HCL 500 MG TAB PO SCH ×2 (10:38→17:20)
[2016-12-20] MEDS: METOPROLOL TARTRATE 25 MG TAB PO SCH ×2 (10:38→21:00)
[2016-12-20] MEDS: GABAPENTIN 300 MG CAP PO SCH ×3 (10:38→17:20)
[2016-12-20] MEDS: SULFAMETHOXAZOLE-TRIMETHOPRIM DS 800-160 MG TAB PO SCH ×2 (10:38→20:45)
[2016-12-20] MEDS: INSULIN DETEMIR 100 UNITS/ML VIAL SQ SCH (10:38)
--- NOTE | 2016-12-20 13:43 | HHI.PR ---
Subjective Remarks Patient seen and examined today in follow-up of diabetic toe ulcerations status post amputation. Patient states still having back pain and foot pain. I did discuss the case with patient's telehealth case manager yesterday. He indicates that patient should not require any pain medication anymore. Indicates the patient is noncompliant with his ambulation without use of walker. Indicates that patient follow-up with him upon discharge. Objective Vitals Vital Signs Date Time Temp Pulse Resp B/P Pulse Ox O2 Delivery O2 Flow Rate FiO2 12/20/16 09:20 98.3 73 19 123/87 99 12/19/16 20:00 96.8 87 18 118/80 96 I/O 12/19/16 12/19/16 12/19/16 12/20/16 12/20/16 12/20/16 07:00 15:00 23:00 07:00 15:00 23:00 Intake Total 240 ml 960 ml 720 ml 720 ml Balance 240 ml 960 ml 720 ml 720 ml Intake Oral 240 ml 960 ml 720 ml 720 ml # Voids 2 5 3 3 # Bowel Movements 0 0 0 0 Result Diagram: 12/20/1641912/20/16 0420 Objective Remarks GENERAL: Well-developed, well-nourished, in no acute distress. alert and orientated HEENT: Head is normocephalic without any lesions or masses noted. Facial features are symmetric. Eyes: Extraocular muscles are intact. Conjunctivae were clear. NECK: Supple without any masses. Trachea midline no deviation. No JVD, CARDIAC: Regular rhythm, regular rate. S1/S2 are heard. No murmurs gallops or rubs. LUNGS: Clear to auscultation bilaterally. No wheeze, rhonchi or rales. No use of accessory muscles on inspiration or expiration. ABDOMEN: Soft, nontender. Nondistended. Bowel sounds heard in all 4 quadrants. No organomegaly or masses. Negative rebound, negative guarding EXTREMITIES: No edema, pulses are equal bilaterally. No cyanosis or clubbing NEUROLOGY: Mood and affect appear appropriate. Cranial nerves II through XII grossly intact. Moving all extremities, speech is clear LEFT FOOT: Bandage noted Procedures s/p partial resection of left first metatarsal head and amputation of left hallux 11/13 Urinary Catheter: No Vascular Central Line Catheter: No A/P Assessment and Plan Left foot wound,osteomyelitis MRI of the foot does show osteomyelitis of the first metatarsal and great toe. Podiatry consulted and did perform 2 surgeries with partial resection the left first metatarsal head and amputation of the left hallux, followed by debridement and closure of diabetic foot ulceration from open left hallux amputation. Podiatry indicates patient should remain nonweightbearing on the left lower extremity Continue monitor weekly CBC, CMP, CRP, sedimentation rate Infectious disease was consulted and made recommendations for antibiotics. They do not feel confident that the patient will continue with appropriate outpatient management. Patient remain in hospital until antibiotics complete cefazolin x 6 wks post op providing healing is progressing well (01/02/17) bactrim x 6 wks post op (01/02/17) Pain control, continue to decrease medications weekly Ibuprofen 400 mg 3 times daily Discontinue Percocet 5 every 6 hours when necessary pain 610 Neurontin 300 mg 3 times daily Flexeril 10 mg every 12 hours as needed back pain and muscle relaxation Sepsis secondary to foot wound, resolved Present on admission (temperature 103, white blood cell count 15.7, lactic acid 2.4, likely source left foot wound) Sepsis secondary to diabetic wound infection with staph aureus and Achromobacter Xyl/[place]. Diabetes mellitus Hemoglobin A1c 09/01/2016 6.8, hemoglobin A1c 6.0 Discontinue Levemir 2.5 units twice daily Continue metformin 1000 mg twice daily Start glipizide XL 2.5 mg daily Sliding scale insulin twice daily. Hypertension, stable Patient on lisinopril 10 mg daily, Lopressor 25 mg twice daily DVT prophylaxis: Lovenox, patient is refusing Discharge Planning Discharge planning after antibiotics completed, infectious disease believes patient will be noncompliant if he is discharged with outpatient therapy Lino Yadav December 20, 2016 13:43
[2016-12-20] MEDS: ENOXAPARIN SODIUM 40 MG/0.4 ML SYRINGE SQ SCH (17:00)
[2016-12-20] MEDS: IBUPROFEN 600 MG TAB PO PRN (17:19)
[2016-12-20 20:00] VITALS: BP 109/76; PULSE 73; RESP 18; TEMP 97; O2SAT 99
[2016-12-20] MEDS: ACETAMINOPHEN 325 MG TAB PO PRN (20:46)
[2016-12-21] MEDS: IBUPROFEN 600 MG TAB PO PRN ×2 (02:24→20:58)
[2016-12-21] MEDS: INSULIN ASPART SUPPLEMENTAL SCALE SQ SCH ×2 (06:43→06:50)
[2016-12-21] MEDS: ceFAZolin 2 GM PREMIX 50 ML IV SCH ×3 (06:51→21:00)
[2016-12-21 08:00] VITALS: BP 114/83; PULSE 87; RESP 16; TEMP 99; O2SAT 100
[2016-12-21] MEDS: metFORMIN HCL 500 MG TAB PO SCH ×2 (08:08→17:19)
[2016-12-21] MEDS: DOCUSATE SODIUM 100 MG CAP PO SCH ×2 (08:08→20:58)
[2016-12-21] MEDS: SULFAMETHOXAZOLE-TRIMETHOPRIM DS 800-160 MG TAB PO SCH ×2 (08:09→20:58)
[2016-12-21] MEDS: GABAPENTIN 300 MG CAP PO SCH ×3 (08:09→17:19)
[2016-12-21] MEDS: CYCLOBENZAPRINE HCL 10 MG TAB PO PRN ×2 (08:09→20:58)
[2016-12-21] MEDS: glipiZIDE 5 MG TAB PO SCH (08:09)
[2016-12-21] MEDS: SODIUM CHLORIDE 0.9% FLUSH 10 ML FLUSH IV FLUSH SCH ×2 (08:09→21:00)
[2016-12-21] MEDS: LISINOPRIL 10 MG TAB PO SCH (08:10)
[2016-12-21] MEDS: METOPROLOL TARTRATE 25 MG TAB PO SCH ×2 (08:10→20:58)
[2016-12-21] MEDS: ENOXAPARIN SODIUM 40 MG/0.4 ML SYRINGE SQ SCH (13:41)
--- NOTE | 2016-12-21 16:10 | HHI.PR ---
Subjective Remarks Patient evaluated with Dr. Diana. Follow-up for diabetes and osteomyelitis/ amputation left great toe and partial resection of left first metatarsal. Denies any side effects from the gabapentin. Patient states he had some soft stools yesterday. Denies any shortness of breath. Objective Vitals Vital Signs Date Time Temp Pulse Resp B/P Pulse Ox O2 Delivery O2 Flow Rate FiO2 12/21/16 08:00 99.0 87 16 114/83 100 12/20/16 20:00 97.0 73 18 109/76 99 I/O 12/20/16 12/20/16 12/20/16 12/21/16 12/21/16 12/21/16 07:00 15:00 23:00 07:00 15:00 23:00 Intake Total 720 ml 480 ml 400 ml 840 ml Balance 720 ml 480 ml 400 ml 840 ml Intake Oral 720 ml 480 ml 400 ml 840 ml # Voids 3 5 2 3 # Bowel Movements 0 0 0 1 Result Diagram: 12/20/1641912/20/16419 Objective Remarks GENERAL: Well developed well nourished patient in no apparent distress. SKIN: Amputation site to left medial foot appears well-healed without drainage. CARDIOVASCULAR: Regular rate and rhythm. RESPIRATORY: No accessory muscle use. Clear to auscultation. Breath sounds equal bilaterally. GASTROINTESTINAL: Abdomen soft, non-tender, non-distended. NEUROLOGICAL: Awake and alert. Normal speech. PSYCHIATRIC: Appropriate mood and affect; insight and judgment normal. Procedures s/p partial resection of left first metatarsal head and amputation of left hallux 11/13 Urinary Catheter: No Vascular Central Line Catheter: No A/P Problem List: (1) Open wound of left foot ICD Code: S91.302A Status: Resolved (2) Sepsis ICD Code: A41.9 Status: Acute (3) Lactic acidosis ICD Code: E87.2 Status: Acute (4) Hypomagnesemia ICD Code: E83.42 Status: Acute (5) Diabetes mellitus ICD Code: E11.9 Status: Chronic (6) Hypertension ICD Code: I10 Status: Chronic (7) Tobacco abuse ICD Code: Z72.0 Status: Chronic (8) Fever ICD Code: R50.9 Status: Resolved Assessment and Plan Left foot wound,osteomyelitis MRI of the foot does show osteomyelitis of the first metatarsal and great toe. Podiatry consulted and did perform 2 surgeries with partial resection the left first metatarsal head and amputation of the left hallux, followed by debridement and closure of diabetic foot ulceration from open left hallux amputation. Podiatry indicates patient should remain nonweightbearing on the left lower extremity Continue monitor weekly CBC, CMP, CRP, sedimentation rate Infectious disease was consulted and made recommendations for antibiotics. They do not feel confident that the patient will continue with appropriate outpatient management. Patient remain in hospital until antibiotics complete. Cefazolin x 6 wks post op providing healing is progressing well (01/02/17) Bactrim x 6 wks post op (01/02/17) Pain control, continue to decrease medications weekly Ibuprofen 400 mg 3 times daily Neurontin 300 mg 3 times daily Flexeril 10 mg every 12 hours as needed back pain and muscle relaxation Sepsis secondary to foot wound, resolved Present on admission (temperature 103, white blood cell count 15.7, lactic acid 2.4, likely source left foot wound) Sepsis secondary to diabetic wound infection with staph aureus and Achromobacter Xyl/[place]. Diabetes mellitus Hemoglobin A1c 09/01/2016 6.8, hemoglobin A1c 6.0 Discontinue Levemir 2.5 units twice daily Continue metformin 1000 mg twice daily Start glipizide XL 2.5 mg daily Sliding scale insulin twice daily. Hypertension, stable Patient on lisinopril 10 mg daily, Lopressor 25 mg twice daily DVT prophylaxis: Lovenox, patient is refusing Discharge Planning Patient will need to remain hospitalized until completion of antibiotics. Problem Qualifiers (1) Open wound of left foot: Qualified Code: S91.302S - Open wound of left foot, sequela (2) Diabetes mellitus: (3) Fever: Qualified Code: R50.81 - Fever in other diseases Anita Rodriguez December 21, 2016 16:10
[2016-12-21 20:00] VITALS: BP 117/81; PULSE 85; RESP 19; TEMP 98.7; O2SAT 100
[2016-12-21] MEDS: diphenhydrAMINE HCL 25 MG CAP PO PRN (21:42)
[2016-12-22] MEDS: ceFAZolin 2 GM PREMIX 50 ML IV SCH ×3 (05:32→21:05)
[2016-12-22] MEDS: IBUPROFEN 600 MG TAB PO PRN ×2 (05:39→21:04)
[2016-12-22] MEDS: INSULIN ASPART SUPPLEMENTAL SCALE SQ SCH ×2 (06:01→17:17)
[2016-12-22 08:00] VITALS: BP 122/89; PULSE 69; RESP 20; TEMP 97.4; O2SAT 99
[2016-12-22] MEDS: LISINOPRIL 10 MG TAB PO SCH (08:51)
[2016-12-22] MEDS: glipiZIDE 5 MG TAB PO SCH (08:51)
[2016-12-22] MEDS: GABAPENTIN 300 MG CAP PO SCH ×3 (08:51→17:16)
[2016-12-22] MEDS: metFORMIN HCL 500 MG TAB PO SCH ×2 (08:52→17:21)
[2016-12-22] MEDS: METOPROLOL TARTRATE 25 MG TAB PO SCH ×2 (08:52→21:03)
[2016-12-22] MEDS: DOCUSATE SODIUM 100 MG CAP PO SCH ×2 (08:52→21:04)
[2016-12-22] MEDS: SODIUM CHLORIDE 0.9% FLUSH 10 ML FLUSH IV FLUSH SCH ×2 (08:52→21:10)
[2016-12-22] MEDS: SULFAMETHOXAZOLE-TRIMETHOPRIM DS 800-160 MG TAB PO SCH ×2 (08:52→21:03)
--- NOTE | 2016-12-22 08:53 | HHI.PR ---
Subjective Remarks Follow-up for diabetes and osteomyelitis/amputation left great toe and partial resection of left first metatarsal. Patient complains of pain from varicose veins in his right leg and currently has an ALINE wrap on it. Objective Vitals Vital Signs Date Time Temp Pulse Resp B/P Pulse Ox O2 Delivery O2 Flow Rate FiO2 12/22/16 08:00 97.4 69 20 122/89 99 12/22/16 06:58 18 12/21/16 20:00 98.7 85 19 117/81 100 I/O 12/21/16 12/21/16 12/21/16 12/22/16 12/22/16 12/22/16 07:00 15:00 23:00 07:00 15:00 23:00 Intake Total 400 ml 840 ml 720 ml 490 ml Balance 400 ml 840 ml 720 ml 490 ml Intake Oral 400 ml 840 ml 720 ml 360 ml IV Total 130 ml # Voids 2 3 3 1 # Bowel Movements 0 1 Result Diagram: 12/20/1641912/20/16419 Objective Remarks GENERAL: Well developed well nourished patient in no apparent distress. CARDIOVASCULAR: Regular rate and rhythm. RESPIRATORY: No accessory muscle use. Clear to auscultation. Breath sounds equal bilaterally. GASTROINTESTINAL: Abdomen soft, non-tender, non-distended. MUSCULOSKELETAL: Tender over R medial thigh, no swelling. No protrusion of the veins. NEUROLOGICAL: Awake and alert. Normal speech. PSYCHIATRIC: Appropriate mood and affect; insight and judgment normal. Procedures s/p partial resection of left first metatarsal head and amputation of left hallux 11/13 Urinary Catheter: No Vascular Central Line Catheter: No A/P Problem List: (1) Open wound of left foot ICD Code: S91.302A Status: Resolved (2) Sepsis ICD Code: A41.9 Status: Acute (3) Lactic acidosis ICD Code: E87.2 Status: Acute (4) Hypomagnesemia ICD Code: E83.42 Status: Acute (5) Diabetes mellitus ICD Code: E11.9 Status: Chronic (6) Hypertension ICD Code: I10 Status: Chronic (7) Tobacco abuse ICD Code: Z72.0 Status: Chronic (8) Fever ICD Code: R50.9 Status: Resolved Assessment and Plan Left foot wound,osteomyelitis MRI of the foot does show osteomyelitis of the first metatarsal and great toe. Podiatry consulted and did perform 2 surgeries with partial resection the left first metatarsal head and amputation of the left hallux, followed by debridement and closure of diabetic foot ulceration from open left hallux amputation. Podiatry indicates patient should remain nonweightbearing on the left lower extremity Continue monitor weekly CBC, CMP, CRP, sedimentation rate Infectious disease was consulted and made recommendations for antibiotics. They do not feel confident that the patient will continue with appropriate outpatient management. Patient remain in hospital until antibiotics complete. Cefazolin x 6 wks post op providing healing is progressing well (01/02/17) Bactrim x 6 wks post op (01/02/17) Pain control, continue to decrease medications weekly Ibuprofen 400 mg 3 times daily Neurontin 300 mg 3 times daily Flexeril 10 mg every 12 hours as needed back pain and muscle relaxation Sepsis secondary to foot wound, resolved Present on admission (temperature 103, white blood cell count 15.7, lactic acid 2.4, likely source left foot wound) Sepsis secondary to diabetic wound infection with staph aureus and Achromobacter Xyl/[place]. Diabetes mellitus Hemoglobin A1c 09/01/2016 6.8, hemoglobin A1c 6.0 Discontinue Levemir 2.5 units twice daily Continue metformin 1000 mg twice daily Start glipizide XL 2.5 mg daily Sliding scale insulin twice daily. Hypertension, stable Patient on lisinopril 10 mg daily, Lopressor 25 mg twice daily DVT prophylaxis: Lovenox, patient is refusing Discharge Planning Patient will need to remain hospitalized until completion of antibiotics. Problem Qualifiers (1) Open wound of left foot: Qualified Code: S91.302S - Open wound of left foot, sequela (2) Diabetes mellitus: (3) Fever: Qualified Code: R50.81 - Fever in other diseases Anita Rodriguez December 22, 2016 08:53
[2016-12-22] MEDS ORDERED: CYCL1TAB29 PO (15:43)
[2016-12-22] MEDS ORDERED: NOVOLOGSS SQ (15:43)
[2016-12-22] MEDS ORDERED: IBUP-232 PO (15:43)
[2016-12-22] MEDS ORDERED: METO25TA3 PO (15:43)
[2016-12-22] MEDS ORDERED: DIPH25CA PO (15:43)
[2016-12-22] MEDS ORDERED: LISI10TA3 PO (15:43)
[2016-12-22] MEDS ORDERED: NEUR300C PO (15:43)
[2016-12-22] MEDS ORDERED: ENOX40P SQ (15:43)
[2016-12-22] MEDS ORDERED: GLIP5 PO (15:43)
[2016-12-22] MEDS ORDERED: CLOT1CRE6 TOPICAL (15:43)
[2016-12-22] MEDS ORDERED: BACT800T5 PO (15:43)
[2016-12-22] MEDS ORDERED: METF500 PO (15:46)
[2016-12-22] MEDS ORDERED: FAMO1TAB37 PO (16:02)
--- NOTE | 2016-12-22 16:35 | HHI.DCPOC ---
Discharge Care Plan Diagnosis: (1) Sepsis (2) Open wound of left foot (3) Diabetic foot ulcer (4) Osteomyelitis of left foot Goals to Promote Your Health * To prevent worsening of your condition and complications * To maintain your health at the optimal level Directions to Meet Your Goals Take your medications as prescribed Follow your dietary instruction Follow activity as directed Keep your appointments as scheduled Take your immunizations and boosters as scheduled If your symptoms worsen call your PCP, if no PCP go to Urgent Care Center or Emergency Room Smoking is Dangerous to Your Health. Avoid second hand smoke Call the 24-hour hour crisis hotline for domestic abuse at Anita Rodriguez December 22, 2016 16:35
[2016-12-22] MEDS: ENOXAPARIN SODIUM 40 MG/0.4 ML SYRINGE SQ SCH (17:00)
[2016-12-22 20:00] VITALS: BP 112/75; PULSE 85; RESP 20; TEMP 96.2; O2SAT 100
--- NOTE | 2016-12-22 20:19 | HHI.FF ---
Infusion Therapy Location of Infusion Therapy: [facility] Infusion Therapy Order Patient Information Patient Weight 98.1 kg Diagnosis: Diagnosis DFI, osteo left foot Coded Allergies: Dilaudid (Verified Allergy, Unknown, Itching, 11/11/16) Administer Medication Cefazolin 2 grams IV q 8 hours Start Treatment: December 22, 2016 Stop Treatment: January 02, 2017 Additional Information Venous access: PICC Line Additional Instructions [x] Peripheral flush and dressing changes per protocol [x] Implanted port and central apprentice/lineman: * Implanted port: 10 ml Normal Saline followed by 5 ml Heparin 100 units/ml Heparin flush after each use and monthly to maintain. [] May leave port accessed during therapy. [] May leave peripheral site accessed for duration of therapy. [x] If patient has SOB or respiratory distress, check oxygen saturation. If less than 90% or clinical signs of respiratory distress, administer oxygen at 2 L/min. via nasal cannula and notify physician. [x] Anaphylaxis/Reaction orders: * Stop infusion. * Keep IV line open with saline flush. * Notify physician. * Monitor vital signs every 15 minutes until symptoms resolve. * Check Oxygen saturation; Oxygen at 2 L/min. via nasal cannula if less than 90% or clinical signs of respiratory distress. * Administer diphenhydramine (Benadryl) 25 mg IV STAT, (unless patient has received as pre-med). May repeat once, if necessary. * Solu-Cortef 250 mg IVP over 30-60 seconds, use 100 mg vials for each dissolution. * Epinephrine (1mg/1 ml) 0.3 mg subcutaneously or IVP now with any signs of respiratory distress. * Check with physician for new additional pre-med orders if patient is re- challenged or re-treated. [x] May remove PICC line when treatment complete, after confirming with Physician. [x] If the patient is admitted to the hospital, the ED, or transferred via [facility] , complete transfer form including medication reconciliation order sheet. Laboratory Tests Weekly Labs: CBC w/diff, Creatinine, SED Rate Kristal Gaines MD December 22, 2016 20:18
[2016-12-22] MEDS: diphenhydrAMINE HCL 25 MG CAP PO PRN (21:04)
[2016-12-22] MEDS: CYCLOBENZAPRINE HCL 10 MG TAB PO PRN (21:04)
[2016-12-22 22:05] VITALS: RESP 18
[2016-12-23] MEDS: ceFAZolin 2 GM PREMIX 50 ML IV SCH (06:06)
[2016-12-23] MEDS: INSULIN ASPART SUPPLEMENTAL SCALE SQ SCH (06:17)
--- NOTE | 2016-12-23 08:22 | HHI.PR ---
Subjective Remarks Follow-up for diabetes and osteomyelitis/amputation left great toe and partial resection of left first metatarsal. Discharge order was placed yesterday but infusion therapy order was not placed until late so patient was unable to go the SNF last night. He is set to go today. C/o stomach being "in knots". Denies vomiting or diarrhea. Has BMs every am. Denies fevers or chills. Objective Vitals Vital Signs Date Time Temp Pulse Resp B/P Pulse Ox O2 Delivery O2 Flow Rate FiO2 12/22/16 22:05 18 12/22/16 20:00 96.2 85 20 112/75 100 I/O 12/22/16 12/22/16 12/22/16 12/23/16 12/23/16 12/23/16 07:00 15:00 23:00 07:00 15:00 23:00 Intake Total 490 ml 555 ml 435 ml Balance 490 ml 555 ml 435 ml Intake Oral 360 ml 480 ml 360 ml IV Total 130 ml 75 ml 75 ml # Voids 1 5 2 Result Diagram: 12/20/1641912/20/16419 Objective Remarks GENERAL: Well developed well nourished patient in no apparent distress. CARDIOVASCULAR: Regular rate and rhythm. RESPIRATORY: No accessory muscle use. Clear to auscultation. Breath sounds equal bilaterally. GASTROINTESTINAL: Abdomen soft, non-tender, non-distended. MUSCULOSKELETAL: No lower extremity edema. NEUROLOGICAL: Awake and alert. Normal speech. PSYCHIATRIC: Appropriate mood and affect; insight and judgment normal. Procedures s/p partial resection of left first metatarsal head and amputation of left hallux 11/13 Urinary Catheter: No Vascular Central Line Catheter: No A/P Problem List: (1) Open wound of left foot ICD Code: S91.302A Status: Resolved (2) Sepsis ICD Code: A41.9 Status: Acute (3) Lactic acidosis ICD Code: E87.2 Status: Acute (4) Hypomagnesemia ICD Code: E83.42 Status: Acute (5) Diabetes mellitus ICD Code: E11.9 Status: Chronic (6) Hypertension ICD Code: I10 Status: Chronic (7) Tobacco abuse ICD Code: Z72.0 Status: Chronic (8) Fever ICD Code: R50.9 Status: Resolved Assessment and Plan Left foot wound,osteomyelitis MRI of the foot does show osteomyelitis of the first metatarsal and great toe. Podiatry consulted and did perform 2 surgeries with partial resection the left first metatarsal head and amputation of the left hallux, followed by debridement and closure of diabetic foot ulceration from open left hallux amputation. Podiatry indicates patient should remain nonweightbearing on the left lower extremity Continue monitor weekly CBC, CMP, CRP, sedimentation rate Infectious disease was consulted and made recommendations for antibiotics. They do not feel confident that the patient will continue with appropriate outpatient management. Patient remain in hospital until antibiotics complete. Cefazolin x 6 wks post op providing healing is progressing well (01/02/17) Bactrim x 6 wks post op (01/02/17) Pain control, continue to decrease medications weekly Ibuprofen 400 mg 3 times daily Neurontin 300 mg 3 times daily Flexeril 10 mg every 12 hours as needed back pain and muscle relaxation Sepsis secondary to foot wound, resolved Present on admission (temperature 103, white blood cell count 15.7, lactic acid 2.4, likely source left foot wound) Sepsis secondary to diabetic wound infection with staph aureus and Achromobacter Xyl/[place]. Diabetes mellitus Hemoglobin A1c 09/01/2016 6.8, hemoglobin A1c 6.0 Discontinue Levemir 2.5 units twice daily Continue metformin 1000 mg twice daily Start glipizide XL 2.5 mg daily Sliding scale insulin twice daily. Hypertension, stable Patient on lisinopril 10 mg daily, Lopressor 25 mg twice daily DVT prophylaxis: Lovenox, patient is refusing Discharge Planning [facility] has accepted patient. Infectious disease has placed infusion therapy order for continuation of Ancef at SNF. Patient to go today. He is advised to f/u outpatient with podiatry. Problem Qualifiers (1) Open wound of left foot: Qualified Code: S91.302S - Open wound of left foot, sequela (2) Diabetes mellitus: (3) Fever: Qualified Code: R50.81 - Fever in other diseases Anita Rodriguez December 23, 2016 08:22
[2016-12-23] MEDS ORDERED: BACT800T5 PO (08:24)
[2016-12-23] MEDS: SODIUM CHLORIDE 0.9% FLUSH 10 ML FLUSH IV FLUSH SCH (09:00)
--- NOTE | 2016-12-23 10:11 | HHI.DS ---
cc: Shani Rincon MD Discharge Summary Admission Date Nov 11, 2016 at 16:13 Discharge Date: December 23, 2016 Admitting Diagnosis sepsis, left foot wound; rule out osteomyelitis (1) Sepsis ICD Code: A41.9 Diagnosis: Principal (2) Fever ICD Code: R50.9 Diagnosis: Principal (3) Lactic acidosis ICD Code: E87.2 Diagnosis: Principal (4) Open wound of left foot ICD Code: S91.302A Diagnosis: Principal (5) Osteomyelitis of left foot ICD Code: M86.9 Diagnosis: Principal (6) Diabetes mellitus ICD Code: E11.9 Diagnosis: Principal (7) Hypertension ICD Code: I10 Diagnosis: Principal (8) Hypomagnesemia ICD Code: E83.42 Diagnosis: Principal (9) Tobacco abuse ICD Code: Z72.0 Diagnosis: Principal Procedures s/p partial resection of left first metatarsal head and amputation of left hallux 11/13 Brief History - From Admission This 56-year-old male patient with past medical history which includes hypertension, diabetes mellitus type 2, peripheral neuropathy and left foot wound initially obtained August 24, 2016 by stepping on a nail. Patient was hospitalized prior for the left foot wound found to have sepsis at that time and underwent an I&D and was being seen by outpatient wound clinic, Dr. Rincon. Patient reports he was doing well but began to have chills and rigor last night. Patient reports he was at his regular appointment today and reported the chills and shaking was prescribed Bactrim by mouth. Patient reports he continued to feel worse reports elevated temperature continued chills and regular generalized body aches and pain. Patient became more worried that something was wrong therefore proceeded to the emergency department for further evaluation and treatment. Patient denies shortness of breath nausea vomiting diarrhea constipation. CBC/BMP: 12/20/16 0420 12/20/16419 Imaging Last Impressions Foot X-Ray 11/13/16 0000 Signed Impressions: Service Date/Time: Sunday, November 13, 2016 08:57 - CONCLUSION: Post surgical changes related to patient's indication. There is a focal area of decreased mineralization involving the medial aspect of the base of the residual first metatarsal with intact cortex. No clear evidence of osteomyelitis. Jayna Kang MD Chest X-Ray 11/11/16 1422 Signed Impressions: Service Date/Time: October 14:50 - CONCLUSION: 1. No acute cardiopulmonary findings. Gerson Beyer MD Foot MRI 11/11/16 0000 Signed Impressions: Service Date/Time: October 18:52 - CONCLUSION: 1. Osteomyelitis of the first metatarsal and great toe as above. Extensive surrounding cellulitis. Medial soft tissue ulceration. No other areas of osteomyelitis in the left foot. Rakan Lobato MD PE at Discharge GENERAL: Well developed well nourished patient in no apparent distress. CARDIOVASCULAR: Regular rate and rhythm. RESPIRATORY: No accessory muscle use. Clear to auscultation. Breath sounds equal bilaterally. GASTROINTESTINAL: Abdomen soft, non-tender, non-distended. MUSCULOSKELETAL: No lower extremity edema. NEUROLOGICAL: Awake and alert. Normal speech. PSYCHIATRIC: Appropriate mood and affect; insight and judgment normal. Hospital Course Patient initially presented to the ED on 11/11/16 for wound to his left foot. The wound was being followed by Dr. Rincon at the [facility] prior to admission. He was found to be septic on presentation. Patient was found to have osteomyelitis. Dr. Stephen, whipper, evaluated the patient and performed amputation of the left great hallux and partial resection of left first metatarsal. Infectious disease evaluated the patient and started him on long-term IV Ancef in addition to Bactrim po. Patient's wound has been healing well. He has been working with physical therapy. He continues to be nonweightbearing on the left lower extremity but is able to get around with a walker. He is no longer on narcotics and takes gabapentin for diabetic neuropathy. Patient had issues with hypertension, but that has resolved as he continues on antihypertensives. Patient's hemoglobin A1c improved from prior this year. Levemir was discontinued and he was continued on his oral medications along with sliding scale insulin twice daily. Patient was accepted to [facility] and will continue IV antibiotics; infusion therapy order placed by ID. Patient is advised to follow-up with whipper. He is stable for discharge. Pt Condition on Discharge: Stable Discharge Disposition: Discharge to SNF Discharge Time: > 30 minutes (med rec, 3008, d/c, and discharge summary) Discharge Instructions DIET: Follow Instructions for: Heart Healthy Diet, Diabetic Diet Activities you can perform: Non Weight Bearing Activities to Avoid: Weight Bearing Other Activity Instructions: NWB on LLE Follow up Referrals: PCP Follow-up with Shani Rincon MD Podiatry - 1 Week New Medications: Famotidine (Pepcid) 20 Mg Tab 20 MG PO HS take while on ibuprofen GI protection #10 Ref 0 TAB Clotrimazole Topical (Clotrimazole Anti-Fungal Topical) 1% Cream 1 APPLIC TOPICAL Q12HR Apply to groin rash PRN RASH #1 TUBE Cyclobenzaprine (Flexeril) 10 Mg Tab 10 MG PO BID PRN muscle relaxation, back pain #40 TAB Diphenhydramine (Diphenhydramine) 25 Mg Cap 25 MG PO HS PRN insommnia #30 CAP Enoxaparin Inj (Lovenox Inj) 40 Mg/0.4 Ml Syr 40 MG SQ Q24H Blood Clot Prevention Days 12 INJECTION Gabapentin (Neurontin) 300 Mg Cap 300 MG PO TID neuropathic pain #90 CAP Glipizide (Glucotrol) 5 Mg Tab 2.5 MG PO DAILYAC Blood Sugar Management #30 TAB Ibuprofen (Ibuprofen) 600 Mg Tab 600 MG PO Q8H PRN PAIN 3-10 #30 TAB Insulin Aspart Inj (Novolog Inj) 100 Unit/Ml Inj 1 UNIT SQ BIDAC Sliding scale coverage: BGL<70 no insulin 150-199 1 unit 200- 249 3 units 250-299 5 units 300-349 7 units greater than 349, 9 units Blood Sugar Management Days 30 INJECTION Lisinopril (Lisinopril) 10 Mg Tab 10 MG PO DAILY Blood Pressure Management #30 TAB Metformin (Glucophage) 500 Mg Tab 1000 MG PO BIDPC Blood Sugar Management #120 TAB Metoprolol Tartrate (Metoprolol Tartrate) 25 Mg Tab 25 MG PO BID Blood Pressure Management #60 TAB Sulfamethoxazole-Trimethoprim (Bactrim DS) 800-160 Mg Tab 1 TAB PO Q12HR Infection #21 TAB Discontinued Medications: Acetaminophen (Mapap) 500 Mg Tab 1000 MG PO DAILY PRN PAIN Ref 0 TAB Diphenhydramine-Acetaminophen (Tylenol Pm Extra Strength) 25-500 Mg Tab 2 TAB PO HS PRN SLEEP Glipizide (Glipizide) 10 Mg Tab 10 MG PO BIDAC Take 30 minutes before a meal Blood Sugar Management #60 Ref 3 TAB Ibuprofen (Ibuprofen) 800 Mg Tab 800 MG PO Q8H PRN PAIN SCALE 1 TO 10 #90 Ref 0 TAB Metformin (Metformin) 1,000 Mg Tab 1000 MG PO BID With meals Blood Sugar Management #60 Ref 0 TAB Metoprolol Tartrate (Lopressor) 50 Mg Tab 50 MG PO DAILY #30 Ref 3 TAB Promethazine (Phenergan) 25 Mg Tab 25 MG PO Q6H PRN Nausea/Vomiting #20 Ref 0 TAB Sulfamethoxazole-Trimethoprim (Bactrim DS) 800-160 Mg Tab 1 TAB PO BID Infection #20 Ref 0 TAB Anita Rodriguez December 23, 2016 10:11
[2016-12-23] MEDS: DOCUSATE SODIUM 100 MG CAP PO SCH (10:22)
[2016-12-23] MEDS: METOPROLOL TARTRATE 25 MG TAB PO SCH (10:22)
[2016-12-23] MEDS: LISINOPRIL 10 MG TAB PO SCH (10:22)
[2016-12-23] MEDS: GABAPENTIN 300 MG CAP PO SCH (10:22)
[2016-12-23] MEDS: glipiZIDE 5 MG TAB PO SCH (10:22)
[2016-12-23] MEDS: metFORMIN HCL 500 MG TAB PO SCH (10:23)
[2016-12-23] MEDS: SULFAMETHOXAZOLE-TRIMETHOPRIM DS 800-160 MG TAB PO SCH (10:23)
[2016-12-23] MEDS: IBUPROFEN 600 MG TAB PO PRN (10:26)
[2016-12-23] MEDS: CYCLOBENZAPRINE HCL 10 MG TAB PO PRN (10:26)
[2017-01-10] MEDS ORDERED: NEUR300C PO (13:43)
[2017-01-11] MEDS ORDERED: TRAZ150T75 PO ×2 (08:46→08:59)
[2017-01-11] MEDS ORDERED: GLIP5 PO (08:59)
[2017-01-11] MEDS ORDERED: IBUP-232 PO (08:59)
[2017-01-11] MEDS ORDERED: METO25TA3 PO (08:59)
[2017-01-11] MEDS ORDERED: METF500 PO (08:59)
[2017-01-11] MEDS ORDERED: LISI10TA3 PO (08:59)
[2017-01-11] MEDS ORDERED: NEUR300C PO ×2 (08:59→11:37)
[2017-01-11] MEDS ORDERED: CYCL1TAB29 PO (08:59)
== END 2016-12-23 10:43 | DRG 853 ==
LOC: NEPC 10:55 → NEDA 16:13 → NEPHCDU 19:39 → HOCB 11-13 07:55 → N07B 11-13 08:00 → N07A 11-13 12:54 → PH5A 11-29 14:04
PROVIDERS: ADMIT Hospitalist; ATTEND Hospitalist
PROC: 0Y6Q0Z0 Detachment at Left 1st Toe, Complete, Open Approach (ICD-10-PCS; principal; 2016-11-13 08:07)
PROC: 0JDR0ZZ Extraction of Left Foot Subcutaneous Tissue and Fascia, Open Approach (ICD-10-PCS; 2016-11-21)
DX: A41.01 Sepsis due to Methicillin susceptible Staphylococcus aureus (principal); R65.21 Severe sepsis with septic shock; E87.2 Acidosis; M86.172 Other acute osteomyelitis, left ankle and foot; E11.52 Type 2 diabetes mellitus with diabetic peripheral angiopathy with gangrene; B35.6 Tinea cruris; T81.30XA Disruption of wound, unspecified, initial encounter; E11.42 Type 2 diabetes mellitus with diabetic polyneuropathy; E83.42 Hypomagnesemia; I10 Essential (primary) hypertension; S91.332D Puncture wound without foreign body, left foot, subsequent encounter; E11.69 Type 2 diabetes mellitus with other specified complication; A41.59 Other Gram-negative sepsis; E11.621 Type 2 diabetes mellitus with foot ulcer; L97.529 Non-pressure chronic ulcer of other part of left foot with unspecified severity; J30.1 Allergic rhinitis due to pollen; I83.811 Varicose veins of right lower extremity with pain; E78.5 Hyperlipidemia, unspecified; R04.0 Epistaxis; G54.6 Phantom limb syndrome with pain; M54.9 Dorsalgia, unspecified; M19.90 Unspecified osteoarthritis, unspecified site; F10.10 Alcohol abuse, uncomplicated; F32.9 Major depressive disorder, single episode, unspecified; W45.0XXD Nail entering through skin, subsequent encounter; Z59.0 Homelessness; Z72.0 Tobacco use; Z77.090 Contact with and (suspected) exposure to asbestos; Z79.84 Long term (current) use of oral hypoglycemic drugs; Z88.5 Allergy status to narcotic agent; Z91.19 Patient's noncompliance with other medical treatment and regimen
CPT/HCPCS: 71010; 73630; 73720; 80048; 80053; 80202; 81001; 82550; 82948; 83036; 83605; 83735; 84100; 84484; 85025; 85610; 85652; 85730; 86140; 86403; 87015; 87040; 87070; 87077; 87102; 87116; 87147; 87186; 87205; 87206; 87804; 88304; 88305; 88311; 93005; 96365; A9579; J0131; J0690; J0713; J1650; J1815; J2270; J2405; J2543; J3010; J3370; J3475; J7030; J7040; J7050; J7120; L3260; Q0163

== ENCOUNTER 2017-01-26 14:11 | Emergency (ER) | payer OTHER ==
[~2017-01-26] VITALS: Ht 177.8 cm; Wt 99.0 kg
[~2017-01-26 14:11] MED LIST changes: -BACT800T5 PO; +CYCL1TAB29 PO; -DIPH1TAB36 PO; +FAMO1TAB37 PO; -GLIP10TA6 PO; +GLIP5 PO; +IBUP-232 PO; -IBUP800T23 PO; +LISI10TA3 PO; -MAPA500T PO; -METF1000 PO; +METF500 PO; -METO-309 PO; +METO25TA3 PO; +NEUR300C PO; -PROM25TA5 PO; +TRAZ150T75 PO
[2017-01-26 14:12] VITALS: BP 152/82; PULSE 79; RESP 16; TEMP 98.8; O2SAT 99
--- NOTE | 2017-01-26 14:29 | PD ---
Physical Exam Time Seen by Provider: 14:26 Narrative 56yo M c/o blister to bottom of L foot x 1 week that burst 2-3 days ago and is now draining purulent drainage and "looks nasty." Denies fever, vomiting. Patient seen in triage. VS reviewed. Awaiting bed placement. Data Data Last Documented VS Vital Signs Date Time Temp Pulse Resp B/P Pulse Ox O2 Delivery O2 Flow Rate FiO2 01/26/17 14:12 98.8 79 16 152/82 99 Room Air MDM Supervised Visit with TUTU: Josee Marino Jan 26, 2017 14:29
--- NOTE | 2017-01-26 15:36 | PD ---
HPI . left foot wound x few days Chief Complaint: Skin Problem Time Seen by Provider: 15:35 Travel History International Travel<30 days: No Contact w/Intl Traveler<30days: No Traveled to known affect area: No History of Present Illness HPI 56 yr old male well known to me from [facility] here with complaints of a left foot wound. Patient says he had a blister in about 2-3 days ago it popped open. He says he was straining. He tells me that he try to contact the [facility] on several occasions, but was never contacted for an appointment. He denies any purulent drainage from this area or significant pain. He tells me he is here for a dressing to the area. PFSH Past Medical History Arthritis: No Asthma: No Autoimmune Disease: No Anxiety: Yes Heart Rhythm Problems: No Cancer: No Cardiovascular Problems: Yes (HTN) High Cholesterol: No Chest Pain: No Congestive Heart Failure: No COPD: No Cerebrovascular Accident: No Diabetes: Yes Diminished Hearing: No Endocrine: Yes GERD: No Genitourinary: No Hiatal Hernia: No Hypertension: Yes Immune Disorder: No Kidney Stones: No Musculoskeletal: Yes (PAINFUL LEGS) Neurologic: Yes (diabetic neuropathy) Psychiatric: Yes Reproductive: No Respiratory: No Immunizations Current: Yes Migraines: No Renal Failure: No Seizures: No Sleep Apnea: No Thyroid Disease: No Ulcer: No Past Surgical History Abdominal Surgery: No Cardiac Surgery: No Ear Surgery: No Endocrine Surgery: No Eye Surgery: No Genitourinary Surgery: No Gynecologic Surgery: No Oral Surgery: No Thoracic Surgery: No Other Surgery: Yes (WOUND DEBRIDMENT) Social History Alcohol Use: Yes (OCCASIONALLY) Tobacco Use: No Substance Use: No Allergies-Medications (Allergen,Severity, Reaction): Coded Allergies: Dilaudid (Verified Allergy, Unknown, Itching, 01/11/17) Reported Meds & Prescriptions Reported Meds & Active Scripts Active Neurontin (Gabapentin) 300 Mg Cap 300 Mg PO TID Trazodone (Trazodone HCl) 150 Mg Tab 150 Mg PO HS Glucophage (Metformin HCl) 500 Mg Tab 1,000 Mg PO BIDPC Metoprolol Tartrate 25 Mg Tab 25 Mg PO BID Lisinopril 10 Mg Tab 10 Mg PO DAILY Ibuprofen 600 Mg Tab 600 Mg PO Q8H PRN Glucotrol (Glipizide) 5 Mg Tab 2.5 Mg PO DAILYAC Flexeril (Cyclobenzaprine HCl) 10 Mg Tab 10 Mg PO BID PRN Pepcid (Famotidine) 20 Mg Tab 20 Mg PO HS take while on ibuprofen Review of Systems General / Constitutional: No: Fever Eyes: No: Visual changes HENT: No: Headaches Cardiovascular: No: Chest Pain or Discomfort Respiratory: No: Shortness of Breath Gastrointestinal: No: Abdominal Pain Genitourinary: No: Dysuria Musculoskeletal: No: Pain Skin: Positive Other (left foot blister), No Rash Neurologic: No: Weakness Psychiatric: No: Depression Endocrine: No: Polydipsia Hematologic/Lymphatic: No: Easy Bruising Physical Exam Narrative GENERAL: AAO x 3, no acute distress, Well-nourished, well-developed patient. SKIN: Warm and dry. No visible rashes or bruising. left lateral foot plantar aspect with approximately 4 cm blister that is opened without any evidence of infection, no erythema, edema, or drainage present. healing well HEAD: Normocephalic and atraumatic. EYES: No scleral icterus. No injection or drainage. EOM intact, PERRLA ENT: No nasal drainage noted. Mucous membranes pink. Airway patent. NECK: Supple, trachea midline. No JVD. CARDIOVASCULAR: Regular rate and rhythm without murmurs, gallops, or rubs. RESPIRATORY: Breath sounds equal bilaterally. No accessory muscle use. No rhonchi or rales. GASTROINTESTINAL: Abdomen soft, non-tender, nondistended. EXTREMITIES: No cyanosis or edema. left great toe amputation, pedal pulses intact, no evidence of infection, ROM normal BACK: Nontender without obvious deformity. No CVA tenderness. PSYCH: AAO x 3, normal affect. Data Data Last Documented VS Vital Signs Date Time Temp Pulse Resp B/P Pulse Ox O2 Delivery O2 Flow Rate FiO2 01/26/17 14:12 98.8 79 16 152/82 99 Room Air MDM Medical Decision Making Medical Screen Exam Complete: Yes Emergency Medical Condition: No Medical Record Reviewed: Yes Differential Diagnosis left foot blister, left foot wound, less likely cellulitis Narrative Course 56-year-old male here for left foot wound that has been present for the past 2- 3 days. Patient had a blister and it popped. A medical screening exam was performed: At the time of evaluation the presenting medical condition was determined not to be of an emergent nature. The patient was given the option of receiving additional care, but declined. Patient was given options for additional community resources from which to obtain care. The Patient Has Been advised to seek medical attention for their presenting complaint. The patient has been advised to return to the ER at any time if an emergent condition develops. I have personally contacted the [facility] and spoke with Anais BYRNE. They will assist him with a dressing and further dressing changes. Diagnosis Primary Impression: Encounter for medical screening examination Condition: Stable Felicitas Ovalle Jan 26, 2017 15:36
[2017-01-26] MEDS ORDERED: TRAZ50TA12 PO (16:14)
== END 2017-01-26 15:46 | disposition left against medical advice (07) ==
LOC: NEPD 14:11
DX: S90.822A Blister (nonthermal), left foot, initial encounter (principal); X58.XXXA Exposure to other specified factors, initial encounter; I10 Essential (primary) hypertension
CPT/HCPCS: 99281

== ENCOUNTER 2017-03-21 15:19 | Emergency (ER) | payer OTHER ==
[~2017-03-21] VITALS: Ht 177.8 cm; Wt 105.0 kg
[~2017-03-21 15:19] MED LIST changes: +LEVO750T3 PO; -TRAZ150T75 PO; +TRAZ50TA12 PO
[2017-03-21 15:22] VITALS: BP 171/93; PULSE 117; RESP 16; TEMP 99; O2SAT 99
--- NOTE | 2017-03-21 15:28 | PD ---
Physical Exam Time Seen by Provider: 15:27 Narrative 56 y/o male sent by pcp for evaluation/tx of LLE cellulitis. Vital signs reviewed. Seen at triage desk. Awaiting bed placement. Data Data Last Documented VS Vital Signs Date Time Temp Pulse Resp B/P Pulse Ox O2 Delivery O2 Flow Rate FiO2 03/21/17 15:22 99.0 117 16 171/93 99 MDM Medical Record Reviewed: Yes Supervised Visit with TUTU: Lan Magana Mar 21, 2017 15:28
--- NOTE | 2017-03-21 16:30 | PD ---
HPI Chief Complaint: Skin Problem Time Seen by Provider: 16:23 Travel History International Travel<30 days: No Contact w/Intl Traveler<30days: No Traveled to known affect area: No History of Present Illness HPI 56-year-old male presents to the emergency department for evaluation of a blister to his left plantar foot. He states that it first occurred on January 20, 2017. He states he had amputation of the great toe on the left foot in October 2016 for osteomyelitis. 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 He states he saw Dr. Stephen on last Tuesday, March 15, and was prescribed an antibiotic which he believes was Levaquin. I was able to read Dr. Stephen's last note and he is currently on Levaquin. He states he saw his primary care physician today who sent him to the emergency department. Patient does report history of diabetes and diabetic neuropathy. The blister is worsening due to him walking different after his amputation. He also has left lower extremity edema and erythema. Patient states this is chronic for him. He denies any fevers or chills. No chest pain or shortness of breath. No abdominal pain. No nausea, vomiting, diarrhea. PFSH Past Medical History Arthritis: No Asthma: No Autoimmune Disease: No Anxiety: Yes Cardiovascular Problems: Yes (HTN) High Cholesterol: No Chest Pain: No Congestive Heart Failure: No COPD: No Cerebrovascular Accident: No Diabetes: Yes Patient Takes Glucophage: Yes Diminished Hearing: No Endocrine: Yes GERD: No Genitourinary: No Hiatal Hernia: No Hypertension: Yes Immune Disorder: No Kidney Stones: No Musculoskeletal: Yes (PAINFUL LEGS) Neurologic: Yes (diabetic neuropathy) Psychiatric: Yes Reproductive: No Respiratory: No Immunizations Current: Yes Migraines: No Renal Failure: No Seizures: No Sleep Apnea: No Thyroid Disease: No Ulcer: No Past Surgical History Abdominal Surgery: No Cardiac Surgery: No Ear Surgery: No Endocrine Surgery: No Eye Surgery: No Genitourinary Surgery: No Gynecologic Surgery: No Oral Surgery: No Thoracic Surgery: No Other Surgery: Yes (WOUND DEBRIDMENT) Social History Alcohol Use: Yes (OCCASIONALLY) Tobacco Use: No Substance Use: No Allergies-Medications (Allergen,Severity, Reaction): Coded Allergies: Dilaudid (Verified Allergy, Unknown, Itching, 03/21/17) Reported Meds & Prescriptions Reported Meds & Active Scripts Active Levofloxacin 750 Mg Tablet 750 Mg PO DAILY Neurontin (Gabapentin) 300 Mg Cap 300 Mg PO TID Glucophage (Metformin HCl) 500 Mg Tab 1,000 Mg PO BIDPC Metoprolol Tartrate 25 Mg Tab 25 Mg PO BID Lisinopril 10 Mg Tab 10 Mg PO DAILY Ibuprofen 600 Mg Tab 600 Mg PO Q8H PRN Glucotrol (Glipizide) 5 Mg Tab 2.5 Mg PO DAILYAC Flexeril (Cyclobenzaprine HCl) 10 Mg Tab 10 Mg PO BID PRN Reported [place] (Hydrocodone-Acetaminophen) 10-325 Mg Tab 1 Tab PO Q4H PRN Trazodone (Trazodone HCl) 50 Mg Tab 150 Mg PO HS Review of Systems Except as stated in HPI: all other systems reviewed are Neg Physical Exam Narrative GENERAL: Well-nourished, well-developed male patient, ambulatory. Afebrile. SKIN: Focused skin assessment warm/dry. Patient has a 4 cm x 4 cm to the plantar aspect of the left foot. HEAD: Normocephalic. Atraumatic. EYES: No scleral icterus. No injection or drainage. NECK: Supple, trachea midline. No JVD or lymphadenopathy. CARDIOVASCULAR: Regular rate and rhythm without murmurs, gallops, or rubs. Left pedal pulse is 2+. RESPIRATORY: Breath sounds equal bilaterally. No accessory muscle use. GASTROINTESTINAL: Abdomen soft, non-tender, nondistended. MUSCULOSKELETAL: No cyanosis. 2+ edema to left lower extremity. Patient is s/ p amputation to the left great toe. BACK: Nontender without obvious deformity. No CVA tenderness. Data Data Last Documented VS Vital Signs Date Time Temp Pulse Resp B/P Pulse Ox O2 Delivery O2 Flow Rate FiO2 03/21/17 18:34 98.7 89 16 171/89 100 Room Air Orders Iv Access Insert/Monitor (03/21/17 16:21) Complete Blood Count With Diff (03/21/17 16:21) Comprehensive Metabolic Panel (03/21/17 16:21) Westergren Sedimentation Rate (03/21/17 16:21) C-Reactive Protein (Crp) (03/21/17 16:21) Foot, Complete ([id number]) (03/21/17 ) Blood Culture (03/21/17 16:21) Lactic Acid Sepsis Protocol (03/21/17 16:21) Us Leg Venous Doppler (03/21/17 ) Wound Culture And Gram Stain (03/21/17 16:30) Sodium Chlor 0.9% 1000 Ml Inj (Ns 1000 M (03/21/17 18:00) Labs Laboratory Tests Test 03/21/17 16:15 White Blood Count 8.3 TH/MM3 Red Blood Count 4.12 MIL/MM3 Hemoglobin 12.9 GM/DL Hematocrit 36.2 % Mean Corpuscular Volume 87.8 FL Mean Corpuscular Hemoglobin 31.3 PG Mean Corpuscular Hemoglobin 35.7 % Concent Red Cell Distribution Width 13.4 % Platelet Count 185 TH/MM3 Mean Platelet Volume 6.6 FL Neutrophils (%) (Auto) 69.8 % Lymphocytes (%) (Auto) 16.8 % Monocytes (%) (Auto) 10.9 % Eosinophils (%) (Auto) 2.0 % Basophils (%) (Auto) 0.5 % Neutrophils # (Auto) 5.8 TH/MM3 Lymphocytes # (Auto) 1.4 TH/MM3 Monocytes # (Auto) 0.9 TH/MM3 Eosinophils # (Auto) 0.2 TH/MM3 Basophils # (Auto) 0.0 TH/MM3 CBC Comment DIFF FINAL Differential Comment Erythrocyte Sedimentation Rate 75 mm/hr Sodium Level 137 MEQ/L Potassium Level 4.0 MEQ/L Chloride Level 101 MEQ/L Carbon Dioxide Level 25.1 MEQ/L Anion Gap 11 MEQ/L Blood Urea Nitrogen 7 MG/DL Creatinine 0.93 MG/DL Estimat Glomerular Filtration 84 ML/MIN Rate Random Glucose 235 MG/DL Lactic Acid Level 2.1 mmol/L Calcium Level 8.4 MG/DL Total Bilirubin 0.6 MG/DL Aspartate Amino Transf 16 U/L (AST/SGOT) Alanine Aminotransferase 20 U/L (ALT/SGPT) Alkaline Phosphatase 76 U/L C-Reactive Protein 5.55 MG/DL Total Protein 8.7 GM/DL Albumin 3.3 GM/DL [facility] Medical Decision Making Medical Screen Exam Complete: Yes Emergency Medical Condition: Yes Medical Record Reviewed: Yes Interpretation(s) Last Impressions Lower Extremity Ultrasound 03/21/17 0000 Signed Impressions: Service Date/Time: Tuesday, March 21, 2017 17:02 - CONCLUSION: 1. No sonographic evidence for left lower extremity DVT. 2. Nonspecific left inguinal adenopathy. Anirudh Davis MD Foot X-Ray 03/21/17 0000 Signed Impressions: Service Date/Time: Tuesday, March 21, 2017 16:35 - CONCLUSION: No evidence of osteomyelitis for technique. Parmar Filiberto Brar MD Differential Diagnosis diabetic foot ulcer vs. cellulitis vs. osteomyelitis Narrative Course 56 year old male presents to the emergency department sent by his PCP for evaluation of a diabetic foot ulcer to his left plantar foot that has been ongoing for 2 months. CBC, CMP, Sed rate, CRP, blood cultures x2, lactic acid are ordered and pending. Wound culture is ordered and pending. Venous doppler US of the left lower extremity is ordered and pending. X-ray of the left foot is ordered and pending. CBC shows no acute abnormality. CMP shows elevated glucose of 235, no acute abnormality. CRP is elevated at 5.55. Sed rate is elevated at 75. Lactic acid is 2.1. US shows no evidence for sonographic evidence of DVT. Foot x-ray shows no evidence of osteomyelitis. Patient is given normal saline 1 L IV bolus. 1819 - I spoke to Dr. Stapleton who is on-call for Dr. Stephen. I discussed the case with him. He states the patient is stable for discharge to follow-up with Dr. Stephen. The patient states he has an appointment tomorrow with Dr. Stephen. Patient is continue Levaquin. He verbalizes agreement and understanding. The patient was discharged in stable condition with instructions, including return instructions and follow up instructions. Diagnosis Primary Impression: Diabetic foot ulcer Qualified Code: E11.621 - Diabetic ulcer of left midfoot associated with type 2 diabetes mellitus, limited to breakdown of skin Referrals: Jose Stephen DPM 1 day Patient Instructions: Diabetic Foot Ulcers (ED), General Instructions Additional Instructions: Continue Levaquin as directed. Follow-up with Dr. Stephen tomorrow. Return to the emergency department for any acute worsening of symptoms. Med/Other Pt SpecificInfo: No Change to Meds Disposition: 01 DISCHARGE HOME Condition: Stable Sophy DuffyP Mar 21, 2017 16:30
[2017-03-21] MEDS ORDERED: HYDR-3366 PO (16:59)
--- NOTE | 2017-03-21 17:03 | RADRPT ---
EXAM DATE/TIME: 03/21/2017 16:35 [facility] COMPARISON: FOOT LEFT COMPLETE (VOC2HND), November 13, 2016, 8:57. INDICATIONS : Left foot pain, infection. MEDICAL HISTORY : None. SURGICAL HISTORY : 1st digit amputation. ENCOUNTER: Initial ACUITY: 2 months PAIN SCORE: 9/10 LOCATION: Left foot, plantar surface. FINDINGS: There is evidence for prior amputation of first digit and there is old fracture of the second distal metatarsal bone with multiple displaced bony fragments and hypertrophic changes. Subcutaneous ulcer i s present involving the fifth digit near the metatarsophalangeal joint without signs of osteomyelitis . CONCLUSION: No evidence of osteomyelitis for technique. KVin Brar MD on March 21, 2017 at 17:00 Board Certified Radiologist. This report was verified electronically.
[2017-03-21 17:19] LABS: AUTOMATED NEUTROPHIL # 5.8 TH/MM3 (1.8-7.7); BASOPHIL % 0.5 % (0.0-2.0); EOSINOPHIL # 0.2 TH/MM3 (0-0.4); HEMATOCRIT 36.2 % (39.0-51.0); HEMO FLAGS DIFF FINAL; LYMPH % 16.8 % (9.0-44.0); LYMPHOCYTE # 1.4 TH/MM3 (1.0-4.8); MEAN CELL VOLUME 87.8 FL (80.0-100.0); MEAN CORPUSCULAR HEMOGLOBIN 31.3 PG (27.0-34.0); MEAN CORPUSCULAR HGB CONC 35.7 % (32.0-36.0); MONO % 10.9 % (0.0-8.0); NEUT % 69.8 % (16.0-70.0); PLATELET COUNT 185 TH/MM3 (150-450); RED BLOOD COUNT 4.12 MIL/MM3 (4.50-5.90); RED CELL DISTRIBUTION WIDTH 13.4 % (11.6-17.2); WHITE BLOOD COUNT 8.3 TH/MM3 (4.0-11.0)
[2017-03-21 17:30] LABS: ALT (GPT) 20 U/L (12-78); ANION GAP 11 MEQ/L (5-15); AST (GOT) 16 U/L (15-37); BICARBONATE 25.1 MEQ/L (21.0-32.0); BLOOD UREA NITROGEN 7 MG/DL (7-18); CHLORIDE 101 MEQ/L (98-107); GLOMERULAR FILTRATION RATE 84 ML/MIN (>89); SODIUM (NA) 137 MEQ/L (136-145)
[2017-03-21 17:33] LABS: ALKALINE PHOSPHATASE 76 U/L (45-117); TOTAL BILIRUBIN ADULT 0.6 MG/DL (0.2-1.0)
--- NOTE | 2017-03-21 17:40 | RADRPT ---
EXAM DATE/TIME: 03/21/2017 17:02 [facility] COMPARISON: No previous studies available for comparison. INDICATIONS : Left leg swelling. MEDICAL HISTORY : Hypertension. Hypercholesterolemia. Diabetic neuropathy. Osteoarthritis. Diabetes. Depression. Anxiety. SURGICAL HISTORY : Left foot hallux amputation. Wound debridment. ENCOUNTER: Initial ACUITY: 1 week PAIN SCORE: 7/10 LOCATION: Left leg. TECHNIQUE: Venous ultrasound of the leg was performed from the inguinal ligament to the proximal calf. Real-macy e, color Doppler and spectral tracing, compression and augmentation techniques were used. FINDINGS: There is normal compressibility of the deep venous system from the inguinal region to the proximal ca lf. No echogenic clot is seen in the lumen of the common femoral, femoral, popliteal, and posterior tibial veins. There is a normal response of the venous system to proximal and distal augmentation an d respiration. Incidental note is made of bilateral prominent left inguinal nodes. Largest measures 2.9 x 4.3 x 1.6 cm. CONCLUSION: 1. No sonographic evidence for left lower extremity DVT. 2. Nonspecific left inguinal adenopathy. Anirudh Davis MD on March 21, 2017 at 17:37 Board Certified Radiologist. This report was verified electronically.
[2017-03-21] MEDS ORDERED: SODIUM CHLOR 0.9% 1000 ML INJ 1,000 ML IV ONE (18:00)
[2017-03-21 18:34] VITALS: BP 171/89; PULSE 89; RESP 16; TEMP 98.7; O2SAT 100
[2017-03-21 19:15] LABS: LACTIC ACID GHOST NOT REPORTABLE
[2017-03-29] MEDS ORDERED: HYDR-3366 PO (10:33)
[2017-03-29] MEDS ORDERED: CEPH500T PO (10:33)
[2017-03-29] MEDS ORDERED: MINO50CA PO (10:33)
== END 2017-03-21 19:08 | disposition home or self-care (01) ==
LOC: NEPE 15:19
DX: E11.621 Type 2 diabetes mellitus with foot ulcer (principal); E11.40 Type 2 diabetes mellitus with diabetic neuropathy, unspecified; B95.62 Methicillin resistant Staphylococcus aureus infection as the cause of diseases classified elsewhere; R60.0 Localized edema; I10 Essential (primary) hypertension; Z89.412 Acquired absence of left great toe; Z79.84 Long term (current) use of oral hypoglycemic drugs; Z86.79 Personal history of other diseases of the circulatory system; Z87.39 Personal history of other diseases of the musculoskeletal system and connective tissue
CPT/HCPCS: 73630; 80053; 83605; 85025; 85652; 86140; 86403; 87040; 87070; 87186; 93971; 99285; J7030

== ENCOUNTER → 2017-07-20 | Outpatient (CLI) | payer OTHER ==
[~2017-07-20] MED LIST changes: +CYCL10TA PO; -CYCL1TAB29 PO; -FAMO1TAB37 PO; +HYDR-3366 PO; -LEVO750T3 PO
--- NOTE | 2017-07-20 12:42 | RADRPT ---
EXAM DATE/TIME: 07/20/2017 00:00 [place] COMPARISON: No previous studies available for comparison. INDICATIONS : Peripheral Vascular Disease TECHNIQUE: Five-station segmental examination of the lower extremities was performed. Pulsed-cuff waveform tracings and pressures were recorded. Ankle-brachial indices and toe-brachial indices were calculated. PRESSURES (mmHg): Brachial (arm): Right 146 Left 139 Lower Thigh: Right 205 Left 187 Calf: Right 190 Left 188 Ankle: Right 194 Left 179 Toe: Right 155 Left 130 ANTOINE: Right 1.33 Left 1.23 TBI: Right 1.06 Left 0.89 PULSED CUFF WAVEFORMS: Demonstrate normal amplitude bilaterally. CONCLUSION: Elevated segmental pressures and indices characteristic of atherosclerotic vascular disease. No findings suggestive of significant arterial insufficiency Pierce Melendez MD on July 20, 2017 at 12:40 Board Certified Radiologist. This report was verified electronically.
== END ==
LOC: HCAV 09:40
DX: I73.9 Peripheral vascular disease, unspecified (principal)
CPT/HCPCS: 93923